=== PATIENT | male | born 1960 | race Caucasian/White ===

== ENCOUNTER 2016-12-03 16:26 | Inpatient (IN) | payer MEDICARE, MEDICAID ==
[~2016-12-03] VITALS: Ht 172.7 cm; Wt 107.5 kg
[~2016-12-03 16:26] MED LIST: CRES40TA PO; CRES5TAB PO; GEMF600T PO; HALD100I2 IM; HALD5INJ2 PO; INVE117I IM; INVE156I IM; JARD1TAB PO; LAMO10TA PO; METF500T13 PO; RAMI10CA PO; SYNT75TA PO; ZETI10TA30 PO
[2016-12-03] MEDS ORDERED: LISI40TAB PO (16:57)
[2016-12-03] MEDS ORDERED: INSULADS INJ (16:57)
[2016-12-03] MEDS ORDERED: VITA-182 PO (16:57)
[2016-12-03] MEDS ORDERED: COGE1INJ PO (16:57)
[2016-12-03] MEDS ORDERED: ASPI81TA85 PO (16:57)
[2016-12-03] MEDS ORDERED: ATOR40TA75 PO (16:57)
[2016-12-03] MEDS ORDERED: BENZ-52 PO (17:00)
[2016-12-03 17:18] LABS: MEAN CORPUSCULAR HEMOGLOBIN 31.7 pg (27.0-33.0); MEAN CORPUSCULAR HGB CONC 34.5 g/dl (32.0-36.5); RED CELL DISTRIBUTION WIDTH 12.4 % (11.5-14.5); WHITE BLOOD COUNT 10.5 K/mm3 (4.0-10.0)
[2016-12-03 17:43] LABS: METHADONE URINE NEGATIVE (NEGATIVE)
[2016-12-03 17:52] LABS: ALBUMIN 4.5 GM/DL (3.2-5.2); ALBUMIN/GLOBULIN RATIO 1.36 (1.00-1.93); ALKALINE PHOSPHATASE 114 U/L (45-117); ALT/SGPT 34 U/L (12-78); ANION GAP 11 MEQ/L (8-16); AST/SGOT 15 U/L (15-37); BILIRUBIN,DIRECT 0.1 MG/DL (0.0-0.2); BILIRUBIN,TOTAL 0.5 MG/DL (0.2-1.0); BLOOD UREA NITROGEN 13 MG/DL (7-18); CALCIUM LEVEL 9.4 MG/DL (8.5-10.1); CARBON DIOXIDE LEVEL 24 MEQ/L (21-32); CHLORIDE LEVEL 104 MEQ/L (98-107); CREATININE FOR GFR 1.04 MG/DL (0.70-1.30); GLOMERULAR FILTRATION RATE > 60.0 (>56); GLUCOSE, FASTING 111 MG/DL (70-105); POTASSIUM SERUM 3.7 MEQ/L (3.5-5.1); SODIUM LEVEL 139 MEQ/L (136-145); TOTAL PROTEIN 7.8 GM/DL (6.4-8.2)
[2016-12-03] MEDS ORDERED: SYNT88TA2 PO (21:22)
[2016-12-03] MEDS ORDERED: LAMO25TA2 PO (21:22)
[2016-12-03] MEDS ORDERED: ASPI81TAEC PO (21:22)
[2016-12-03 21:49] VITALS: BP 141/85
[2016-12-03] MEDS ORDERED: MAALOX 30 ML SUSP *UDC PO PRN (22:30)
[2016-12-03] MEDS ORDERED: MOM 30ML SUSPENSION UDC PO PRN (22:30)
[2016-12-04] MEDS: LEVOTHYROXINE 88MCG TABLET (0.088 MG) PO SCH (06:24)
[2016-12-04 07:18] VITALS: BP 110/72
[2016-12-04] MEDS: ASPIRIN 81 MG ENTERIC TAB PO SCH (09:13)
[2016-12-04] MEDS: lamoTRIgine 25 MG TAB PO SCH ×2 (09:13→20:41)
[2016-12-04] MEDS: BENZTROPINE 1 MG TAB PO SCH ×2 (09:13→20:41)
[2016-12-04] MEDS: VITAMIN D 1,000 INTERNATIONAL UNITS TABLET PO SCH (09:13)
[2016-12-04] MEDS: ATORVASTATIN 20 MG TAB PO SCH (09:13)
[2016-12-04] MEDS: LISINOPRIL 40 MG TAB PO SCH (09:13)
[2016-12-04] MEDS: EZETIMIBE 10 MG TAB (ZETIA) PO SCH (09:13)
[2016-12-04] MEDS ORDERED: DEXTROSE 50% 50 ML SYRINGE IV PRN (10:00)
[2016-12-04] MEDS ORDERED: GLUCOSE 4 GM CHEW TABLET PO PRN (10:00)
[2016-12-04] MEDS ORDERED: GLUCAGON FOR INJ 1 MG VIAL (J1610) SC PRN (10:00)
--- NOTE | 2016-12-04 10:00 | HPEPDOC ---
Medical History and Physical Date of Admission Dec 03, 2016 at 20:15 History and Physical HPI: 56yoM admitted to [facility] for schizophrenia, being medically examined today. No acute medical complaints today. Denies any fevers, chills, weakness, fatigue, MARTINEZ, CP, SOB, cough, palpitations, abdominal pain, N/V/D or changes in bowel or bladder habits. PMHx: Schizophrenia Anxiety Depression Psychosis IDDM Hypertension Hyperlipidemia Hypothyroid Obesity BMI 35.0 Chronic back pain Vitamin D deficiency PSHX: Colonoscopy 02/08-Meet SOCHX: Resides in: [facility] Marital Status: Single Kids: None Employment: Disabled Tobacco use: Denies ETOH: Denies Illicit Drugs: Denies IV Drug Use: Denies Tattoos done unprofessionally: Denies FAMHX: Mother: Alive, asthma, osteoarthritis Father: Alive, diabetes Siblings: Alive, well Children: None Unexpected deaths due to medical reasons: None. ROS: As noted in HPI, otherwise 11pt ROS of systems reviewed and unremarkable. PE: GEN: 55yoM, appears stated age. Well-nourished, well developed. No acute distress. Alert and oriented x 3. He does not not make eye contact when speaking. Provides one or 2 word answers. HEENT: Normocephalic, atraumatic. Pupils are equal, round, and reactive to light. Extraocular movements are intact. No nystagmus appreciated. Sclera are nonicteric. Conjunctiva without injection. Nose midline. Nasal turbinates without bogginess. EACs both patent BL. TMs both visualized and grady with good cone of light, no bulging or erythema. No facial asymmetry. Moist mucous membranes. Dentition fair. Pharynx pink and moist, no cobblestoning. Neck supple , trachea midline. No lymphadenopathy or thyromegaly appreciated. CHEST: Regular rate and rhythm, +S1, +S2 LUNGS: Clear to auscultation bilaterally. No wheezes, rales, or rhonchi. Breathing appears symmetric and easy. Patient is speaking in full sentences. No accessory muscle use. ABD: Round, soft, non-tender, non-distended. +Bowel sounds throughout. No rebound or guarding. No costovertebral angle tenderness. EXT: Pulses 2+ bilaterally dorsalis pedis and radial. No lower extremity edema appreciated. SKIN: [place], dry, warm. Capillary refill <2sec. No rashes. NEURO: Alert and oriented x 3. Cranial nerves III-XII are intact. No focal deficits appreciated. EKG: Pending A&P: 56yoM admitted to [facility] for Schizophrenia 1. Psych. Plan per Psychiatry. EKG pending. 2. IDDM. CC diet. Levemir 20 units at bedtime. Sliding scale insulin before meals at bedtime. Update hemoglobin A1c. 3. Hypertension. continue lisinopril 40 mg daily. Continue aspirin 81 mg daily. 4. Hyperlipidemia. continue atorvastatin 40 mg daily, Zetia 10 mg daily. 5. Obesity. BMI 35.0. Complicates care. 6. Hypothyroid. Continue Synthroid 88 g daily. TSH is noted to be elevated. Possible noncompliance with medications.Recheck TFTs in a.m. 7. Mild leukocytosis. Patient is asymptomatic. Afebrile. Recheck CBC in a.m. 8. Follow up [facility] PCP on discharge. 9. Chronic back pain. Continue Tylenol 650 mg every 6 hours as needed. 10. Vitamin D deficiency. Continue supplement. Update vitamin D level. 11. Staff member Jeff present throughout exam. Vital Signs Vital Signs Date Time Temp Pulse Resp B/P (MAP) Pulse Ox O2 Delivery O2 Flow Rate FiO2 12/04/16 07:18 98.3 71 18 110/72 (85) 12/03/16 21:49 Room Air 12/03/16 21:15 96 Laboratory Data Labs 24H Laboratory Tests 2 12/03/16 17:05: Anion Gap 11, Glomerular Filtration Rate > 60.0, Calcium Level 9.4, Aspartate Amino Transf (AST/SGOT) 15, Alanine Aminotransferase (ALT/SGPT) 34, Alkaline Phosphatase 114, Total Bilirubin 0.5, Direct Bilirubin 0.1, Total Protein 7.8, Albumin 4.5, Albumin/Globulin Ratio 1.36, Thyroid Stimulating Hormone (TSH) 6.370H, Salicylates Level < 1.7L, Acetaminophen Level < 2.0L, Ethyl Alcohol Level < 0.003 12/03/16 17:08: Urine Amphetamines Screen NEGATIVE, Urine Benzodiazepines Screen NEGATIVE, Urine Opiates Screen NEGATIVE, Urine Methadone Screen NEGATIVE, Urine Barbiturates Screen NEGATIVE, Urine Phencyclidine Screen NEGATIVE, Urine Cocaine Metabolite Screen NEGATIVE, Urine Cannabinoids Screen NEGATIVE CBC/BMP Laboratory Tests 12/03/16 17:05 Red Blood Count 4.60, Mean Corpuscular Volume 92.0, Mean Corpuscular Hemoglobin 31.7, Mean Corpuscular Hemoglobin Concent 34.5, Red Cell Distribution Width 12.4 Home Medications Scheduled Aspirin (Aspirin EC) 81 Mg Tabec, 81 MG PO DAILY Atorvastatin Calcium (Atorvastatin Calcium) 40 Mg Tab, 40 MG PO DAILY Benztropine Mesylate (Benztropine Mesylate) 1 Mg Tab, 1 MG PO BID Cholecalciferol (Vitamin D3) 1,000 Unit Cap, 1,000 UNIT PO DAILY Ezetimibe (Zetia) 10 Mg Tab, 10 MG PO DAILY Haloperidol Decanoate (Haldol Decanoate 100) 100 Mg/Ml Inj, 200 MG IM MTHLY Insulin Glargine (Lantus) 100 Unit/Ml Inj, 20 UNIT INJ QHS Lamotrigine (Lamotrigine) 25 Mg Tab, 50 MG PO BID Levothyroxine Sodium (Synthroid) 88 Mcg Tab, 88 MCG PO DAILY Lisinopril (Lisinopril) 40 Mg Tab, 40 MG PO DAILY Allergies Coded Allergies: Penicillins (Verified Allergy, Mild, rash, 08/09/15) Gabriela Roman Dec 04, 2016 10:00
[2016-12-04] MEDS: HumaLOG INSULIN (NovoLOG) PER UNIT SC SCH ×3 (12:52→20:42)
[2016-12-04 18:00] VITALS: BP 99/55
[2016-12-04] MEDS: LEVEMIR (INSULIN DETEMIR) 1 UNITS/0.01ML SC SCH (20:41)
--- NOTE | 2016-12-04 21:48 | ECGEPIP ---
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
[2016-12-05] MEDS: LEVOTHYROXINE 88MCG TABLET (0.088 MG) PO SCH (06:32)
[2016-12-05 07:00] VITALS: BP 141/75
[2016-12-05] MEDS: HumaLOG INSULIN (NovoLOG) PER UNIT SC SCH ×4 (07:23→21:00)
[2016-12-05 08:00] LABS: BASO % 0.6 % (0.0-1.0); EOS # 0.3 K/mm3 (0.0-0.50); LARGE UNSTAINED CELL # 0.1 K/mm3 (0.0-0.4); LARGE UNSTAINED CELL % 1.9 % (0.0-4.0); LYMPH # 2.5 K/mm3 (1.5-4.5); LYMPH % 35.7 % (24.0-44.0); MEAN CORPUSCULAR HEMOGLOBIN 31.7 pg (27.0-33.0); MEAN CORPUSCULAR VOLUME 93.3 fl (80.0-96.0); MONO # 0.4 K/mm3 (0.0-0.8); MONO % 6.1 % (0.0-5.0); NEUTROPHILS # 3.4 K/mm3 (1.8-7.7); NEUTROPHILS % 51.8 % (36.0-66.0); PLATELET COUNT, AUTOMATED 192 k/mm3 (150-450); RED CELL DISTRIBUTION WIDTH 12.9 % (11.5-14.5); WHITE BLOOD COUNT 6.6 K/mm3 (4.0-10.0)
[2016-12-05] MEDS: VITAMIN D 1,000 INTERNATIONAL UNITS TABLET PO SCH (08:23)
[2016-12-05] MEDS: lamoTRIgine 25 MG TAB PO SCH ×2 (08:23→22:21)
[2016-12-05] MEDS: ATORVASTATIN 20 MG TAB PO SCH (08:23)
[2016-12-05] MEDS: ASPIRIN 81 MG ENTERIC TAB PO SCH (08:23)
[2016-12-05] MEDS: BENZTROPINE 1 MG TAB PO SCH ×2 (08:23→22:21)
[2016-12-05] MEDS: EZETIMIBE 10 MG TAB (ZETIA) PO SCH (08:23)
[2016-12-05] MEDS: LISINOPRIL 40 MG TAB PO SCH (08:23)
[2016-12-05 08:29] LABS: ALBUMIN 3.8 GM/DL (3.2-5.2); ALBUMIN/GLOBULIN RATIO 1.19 (1.00-1.93); ALKALINE PHOSPHATASE 96 U/L (45-117); ALT/SGPT 29 U/L (12-78); ANION GAP 10 MEQ/L (8-16); AST/SGOT 12 U/L (15-37); BILIRUBIN,TOTAL 0.5 MG/DL (0.2-1.0); BLOOD UREA NITROGEN 20 MG/DL (7-18); CALCIUM LEVEL 9.5 MG/DL (8.5-10.1); CARBON DIOXIDE LEVEL 27 MEQ/L (21-32); CHLORIDE LEVEL 104 MEQ/L (98-107); CREATININE FOR GFR 1.18 MG/DL (0.70-1.30); GLOMERULAR FILTRATION RATE > 60.0 (>56); GLUCOSE, FASTING 169 MG/DL (70-105); POTASSIUM SERUM 5.1 MEQ/L (3.5-5.1); SODIUM LEVEL 141 MEQ/L (136-145); T UPTAKE 33 % (33-40); THYROXINE (T4) 9.6 UG/DL (4.5-12.0)
[2016-12-05] MEDS ORDERED: PALIPERIDONE 6 MG ER TAB (INVEGA) PO SCH (09:00)
[2016-12-05 18:00] VITALS: BP 124/62
[2016-12-05] MEDS: LEVEMIR (INSULIN DETEMIR) 1 UNITS/0.01ML SC SCH (21:00)
[2016-12-05] MEDS: PALIPERIDONE 6 MG ER TAB (INVEGA) PO SCH (22:21)
[2016-12-05] MEDS: traZODone 50 MG TAB PO PRN (22:21)
[2016-12-06] MEDS: HumaLOG INSULIN (NovoLOG) PER UNIT SC SCH ×4 (06:11→20:36)
[2016-12-06] MEDS: LEVOTHYROXINE 88MCG TABLET (0.088 MG) PO SCH (06:11)
[2016-12-06 06:40] VITALS: BP 134/67
[2016-12-06] MEDS: EZETIMIBE 10 MG TAB (ZETIA) PO SCH (08:39)
[2016-12-06] MEDS: ATORVASTATIN 20 MG TAB PO SCH (08:39)
[2016-12-06] MEDS: BENZTROPINE 1 MG TAB PO SCH ×2 (08:39→20:33)
[2016-12-06] MEDS: ASPIRIN 81 MG ENTERIC TAB PO SCH (08:39)
[2016-12-06] MEDS: VITAMIN D 1,000 INTERNATIONAL UNITS TABLET PO SCH (08:39)
[2016-12-06] MEDS: PALIPERIDONE 6 MG ER TAB (INVEGA) PO SCH ×2 (08:39→20:33)
[2016-12-06] MEDS: LISINOPRIL 40 MG TAB PO SCH (08:39)
[2016-12-06] MEDS: lamoTRIgine 25 MG TAB PO SCH ×2 (08:39→20:33)
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
[2016-12-06] MEDS: ACETAMINOPHEN TAB 650MG DOSE (2X325MG) PO PRN (15:34)
[2016-12-06 18:23] VITALS: BP 134/70
[2016-12-06] MEDS: LEVEMIR (INSULIN DETEMIR) 1 UNITS/0.01ML SC SCH (20:37)
[2016-12-07] MEDS: LEVOTHYROXINE 88MCG TABLET (0.088 MG) PO SCH (06:17)
[2016-12-07] MEDS: HumaLOG INSULIN (NovoLOG) PER UNIT SC SCH ×4 (06:22→21:09)
[2016-12-07 06:28] VITALS: BP 129/65
[2016-12-07] MEDS: ASPIRIN 81 MG ENTERIC TAB PO SCH (09:02)
[2016-12-07] MEDS: BENZTROPINE 1 MG TAB PO SCH ×2 (09:02→21:08)
[2016-12-07] MEDS: LISINOPRIL 40 MG TAB PO SCH (09:02)
[2016-12-07] MEDS: ATORVASTATIN 20 MG TAB PO SCH (09:03)
[2016-12-07] MEDS: PALIPERIDONE 6 MG ER TAB (INVEGA) PO SCH ×2 (09:03→21:07)
[2016-12-07] MEDS: VITAMIN D 1,000 INTERNATIONAL UNITS TABLET PO SCH (09:03)
[2016-12-07] MEDS: EZETIMIBE 10 MG TAB (ZETIA) PO SCH (09:03)
[2016-12-07] MEDS: lamoTRIgine 25 MG TAB PO SCH ×2 (09:03→21:07)
[2016-12-07] MEDS: ACETAMINOPHEN TAB 650MG DOSE (2X325MG) PO PRN (14:15)
--- NOTE | 2016-12-07 14:49 | MHIPN ---
DATE OF SERVICE: 12/06/2016 The patient is alert states he is fine and has no complaints. MENTAL STATUS EXAMINATION: The patient continues to be quite delusional. His thinking is disorganized. He is alert and oriented times three. His mood is fine but affect is constricted. He continues to have paranoid delusions. He is not suicidal or homicidal. Concentration is fair. Insight and judgment are poor. DIAGNOSIS: Schizophrenia. TREATMENT PLAN: At this point, we will continue to monitor the patient for continued resolution of his psychotic symptoms, and we will continue to titrate the medications as indicated. HARRISD
[2016-12-07 18:30] VITALS: BP 117/61
[2016-12-07] MEDS: LEVEMIR (INSULIN DETEMIR) 1 UNITS/0.01ML SC SCH (21:12)
[2016-12-08] MEDS: LEVOTHYROXINE 88MCG TABLET (0.088 MG) PO SCH (05:59)
--- NOTE | 2016-12-08 06:31 | IPN ---
DATE: 12/07/2016 He continues to say that he is doing fine. His thought is very disorganized. He rambles on from one thing to the other. He says he slept good. MENTAL STATUS EXAMINATION: The patient continues to be quite delusional. His thinking is disorganized. He is alert and oriented times three. His mood is fine but affect is constricted. He continues to have paranoid delusions. He is not suicidal or homicidal. Concentration is fair. Insight and judgment are poor. DIAGNOSIS: Schizophrenia. TREATMENT PLAN: We will continue to monitor the patient for continued resolution of his psychotic symptoms and clearing up of his thinking. We will continue to titrate the medications as indicated. MTDD
[2016-12-08 07:06] VITALS: BP 119/59
[2016-12-08] MEDS: HumaLOG INSULIN (NovoLOG) PER UNIT SC SCH ×4 (07:28→20:29)
[2016-12-08] MEDS: LISINOPRIL 40 MG TAB PO SCH (08:32)
[2016-12-08] MEDS: ASPIRIN 81 MG ENTERIC TAB PO SCH (08:32)
[2016-12-08] MEDS: EZETIMIBE 10 MG TAB (ZETIA) PO SCH (08:32)
[2016-12-08] MEDS: VITAMIN D 1,000 INTERNATIONAL UNITS TABLET PO SCH (08:32)
[2016-12-08] MEDS: lamoTRIgine 25 MG TAB PO SCH ×2 (08:32→20:27)
[2016-12-08] MEDS: PALIPERIDONE 6 MG ER TAB (INVEGA) PO SCH ×2 (08:32→20:27)
[2016-12-08] MEDS: ATORVASTATIN 20 MG TAB PO SCH (08:32)
[2016-12-08] MEDS: BENZTROPINE 1 MG TAB PO SCH ×2 (08:32→20:27)
[2016-12-08 18:00] VITALS: BP 118/69
[2016-12-08] MEDS: traZODone 50 MG TAB PO PRN (20:27)
[2016-12-08] MEDS: LEVEMIR (INSULIN DETEMIR) 1 UNITS/0.01ML SC SCH (20:31)
[2016-12-09] MEDS: LEVOTHYROXINE 88MCG TABLET (0.088 MG) PO SCH (06:05)
[2016-12-09] MEDS: HumaLOG INSULIN (NovoLOG) PER UNIT SC SCH ×4 (07:06→20:38)
[2016-12-09 07:12] VITALS: BP 131/72
--- NOTE | 2016-12-09 07:28 | MHIPN ---
DATE: 12/08/2016 SUBJECTIVE: Patient continues to report feeling angry at [facility], he says he was able to sleep well, eat well, continues to be tangential and circumstantial. OBJECTIVE: (MENTAL STATUS EXAMINATION): Patient is alert. He is not oriented to date and time, only oriented to self and place, his speech is tangential and circumstantial, his thought process is disorganized, his thought content is completely delusional and psychotic. He denies suicidal and homicidal ideation, it is not possible to evaluate his memory due to his thoughts being disorganized. His insight and judgment are poor. TREATMENT PLAN: Will continue to monitor patient for resolution of his psychotic symptoms. Will adjust medications accordingly.
[2016-12-09] MEDS: VITAMIN D 1,000 INTERNATIONAL UNITS TABLET PO SCH (08:16)
[2016-12-09] MEDS: ASPIRIN 81 MG ENTERIC TAB PO SCH (08:16)
[2016-12-09] MEDS: ATORVASTATIN 20 MG TAB PO SCH (08:16)
[2016-12-09] MEDS: PALIPERIDONE 6 MG ER TAB (INVEGA) PO SCH ×2 (08:16→20:37)
[2016-12-09] MEDS: BENZTROPINE 1 MG TAB PO SCH ×2 (08:16→20:37)
[2016-12-09] MEDS: LISINOPRIL 40 MG TAB PO SCH (08:17)
[2016-12-09] MEDS: EZETIMIBE 10 MG TAB (ZETIA) PO SCH (08:17)
[2016-12-09] MEDS: lamoTRIgine 25 MG TAB PO SCH ×2 (08:17→20:37)
[2016-12-09] MEDS: ACETAMINOPHEN TAB 650MG DOSE (2X325MG) PO PRN (09:03)
[2016-12-09 18:00] VITALS: BP 125/70
[2016-12-09] MEDS: traZODone 50 MG TAB PO PRN (20:37)
[2016-12-09] MEDS: LEVEMIR (INSULIN DETEMIR) 1 UNITS/0.01ML SC SCH (20:40)
[2016-12-10] MEDS: LEVOTHYROXINE 88MCG TABLET (0.088 MG) PO SCH (06:13)
[2016-12-10 06:49] VITALS: BP 127/73
[2016-12-10] MEDS: HumaLOG INSULIN (NovoLOG) PER UNIT SC SCH ×4 (06:52→20:13)
[2016-12-10] MEDS: ASPIRIN 81 MG ENTERIC TAB PO SCH (09:13)
[2016-12-10] MEDS: lamoTRIgine 25 MG TAB PO SCH ×2 (09:13→20:18)
[2016-12-10] MEDS: BENZTROPINE 1 MG TAB PO SCH ×2 (09:13→20:18)
[2016-12-10] MEDS: EZETIMIBE 10 MG TAB (ZETIA) PO SCH (09:13)
[2016-12-10] MEDS: ATORVASTATIN 20 MG TAB PO SCH (09:13)
[2016-12-10] MEDS: PALIPERIDONE 6 MG ER TAB (INVEGA) PO SCH ×2 (09:13→20:18)
[2016-12-10] MEDS: VITAMIN D 1,000 INTERNATIONAL UNITS TABLET PO SCH (09:13)
[2016-12-10] MEDS: LISINOPRIL 40 MG TAB PO SCH (09:14)
[2016-12-10] MEDS: CEPACOL LOZENGE PO PRN ×2 (10:19→21:10)
[2016-12-10] MEDS ORDERED: PHENYLEPHRINE 0.25% NASAL SPR 15 ML PRN (16:00)
[2016-12-10 18:00] VITALS: BP 142/89
[2016-12-10] MEDS: traZODone 50 MG TAB PO PRN (20:18)
[2016-12-10] MEDS: LEVEMIR (INSULIN DETEMIR) 1 UNITS/0.01ML SC SCH (20:18)
[2016-12-10] MEDS: ACETAMINOPHEN TAB 650MG DOSE (2X325MG) PO PRN (20:19)
[2016-12-11] MEDS: LEVOTHYROXINE 88MCG TABLET (0.088 MG) PO SCH (06:29)
[2016-12-11] MEDS: HumaLOG INSULIN (NovoLOG) PER UNIT SC SCH ×4 (06:46→21:00)
[2016-12-11 06:50] VITALS: BP 123/67
[2016-12-11] MEDS: lamoTRIgine 25 MG TAB PO SCH ×2 (08:22→21:57)
[2016-12-11] MEDS: VITAMIN D 1,000 INTERNATIONAL UNITS TABLET PO SCH (08:23)
[2016-12-11] MEDS: ASPIRIN 81 MG ENTERIC TAB PO SCH (08:23)
[2016-12-11] MEDS: EZETIMIBE 10 MG TAB (ZETIA) PO SCH (08:23)
[2016-12-11] MEDS: CEPACOL LOZENGE PO PRN ×2 (08:23→13:17)
[2016-12-11] MEDS: ATORVASTATIN 20 MG TAB PO SCH (08:23)
[2016-12-11] MEDS: LISINOPRIL 40 MG TAB PO SCH (08:23)
[2016-12-11] MEDS: BENZTROPINE 1 MG TAB PO SCH ×2 (08:23→21:57)
[2016-12-11] MEDS: PALIPERIDONE 6 MG ER TAB (INVEGA) PO SCH ×2 (08:23→21:57)
--- NOTE | 2016-12-11 11:16 | IPNPDOC ---
Date Seen The patient was seen on 12/11/16. Progress Note HPI: 56yoM admitted to [facility] for schizophrenia, requested to evaluate today related to rhinorrhea. Pt states he has had a scratchy throat with PND. Nasal drainage has been mostly clear per pt. Some facial pressure and ear pressure L>R. Denies chills. Denies SOB/cough. Denies any weakness, fatigue, MARTINEZ, CP, palpitations, abdominal pain, N/V/D or changes in bowel or bladder habits. PMHx: Schizophrenia Anxiety Depression Psychosis IDDM Hypertension Hyperlipidemia Hypothyroid Obesity BMI 35.0 Chronic back pain Vitamin D deficiency PSHX: Colonoscopy 02/08-Meet PE: GEN: 55yoM, appears stated age. Well-nourished, well developed. No acute distress. Alert and oriented x 3. He does not not make eye contact when speaking. Provides one or 2 word answers. HEENT: Normocephalic, atraumatic. Pupils are equal, round, and reactive to light. Extraocular movements are intact. No nystagmus appreciated. Sclera are nonicteric. Conjunctiva without injection. Nose midline. yellowish nasal drainage noted. EACs both patent BL. TMs both visualized and grady with good cone of light, no bulging or erythema. No facial asymmetry. Moist mucous membranes. Dentition fair. Pharynx pink and moist, no exudate. Neck supple, trachea midline. No lymphadenopathy or thyromegaly appreciated. TTP over maxillary sinus L>R. CHEST: Regular rate and rhythm, +S1, +S2 LUNGS: Clear to auscultation bilaterally. No wheezes, rales, or rhonchi. Breathing appears symmetric and easy. Patient is speaking in full sentences. No accessory muscle use. ABD: Round, soft, non-tender, non-distended. +Bowel sounds throughout. No rebound or guarding. No costovertebral angle tenderness. EXT: Pulses 2+ bilaterally dorsalis pedis and radial. No lower extremity edema appreciated. SKIN: [place], dry, warm. Capillary refill <2sec. No rashes. NEURO: Alert and oriented x 3. Cranial nerves III-XII are intact. No focal deficits appreciated. EKG: SINUS RHYTHM COMPARED TO THE LAST 2 TRACINGS IN THE SYSTEM, HEART RATE IS NOW SLOWER A&P: 56yoM admitted to [facility] for Schizophrenia 1. Psych. Plan per Psychiatry. EKG pending. 2. IDDM. CC diet. Levemir 20 units at bedtime. Sliding scale insulin before meals at bedtime. Hemoglobin A1c 7.6. 3. Hypertension. continue lisinopril 40 mg daily. Continue aspirin 81 mg daily. 4. Hyperlipidemia. continue atorvastatin 40 mg daily, Zetia 10 mg daily. 5. Obesity. BMI 35.0. Complicates care. 6. Hypothyroid. Continue Synthroid 88 g daily. TSH is noted to be elevated. T4 WNL. Plan to recheck with PCP 4-6 weeks. Possible non compliance with meds prior to admission. 7. Sinusitis/URI. Pt with PCN allergy. Tmax 99.5 past 24 hrs. Add Doxycycline 100mg po BID x 10 days. Flonase nasal spray daily. Cepacol as needed. Tylenol as needed. 8. Follow up [facility] PCP on discharge. 9. Chronic back pain. Continue Tylenol 650 mg every 6 hours as needed. 10. Vitamin D deficiency. Continue supplement. Update vitamin D level. 11. Staff member Jeff present throughout exam. VS, I&O, 24H, Fishbone Vital Signs/I&O Vital Signs Date Time Temp Pulse Resp B/P (MAP) Pulse Ox O2 Delivery O2 Flow Rate FiO2 12/11/16 10:01 Room Air 12/11/16 06:50 97.0 96 18 123/67 (85) Laboratory Data 24H LABS Laboratory Tests 2 12/10/16 12:22: Bedside Glucose (Misc Panel) 119H 12/10/16 20:12: Bedside Glucose (Misc Panel) 170H 12/11/16 06:44: Bedside Glucose (Misc Panel) 115H Gabriela Roman Dec 11, 2016 11:16
[2016-12-11] MEDS: DOXYCYCLINE HYCLATE 100 MG TAB PO SCH ×2 (12:31→21:57)
[2016-12-11] MEDS: FLUTICASONE PROP 0.05% NASAL SPRAY 16 GM (FLONASE) SCH (12:31)
--- NOTE | 2016-12-11 13:16 | MHIPN ---
DATE: 12/09/2016 56-year-old male with history of paranoid schizophrenia. SUBJECTIVE: Patient reports feeling well, eating well, although he believes that he probably has a cold, he has a runny nose. He says he spoke with Vasile, one of the [employer] workers, and that they have told him that probably they are going to arrange his housing problem by giving him a home for him to live alone and not to share it with anybody else. Then the patient becomes tangential and starts taking about different things, since his thought is still disorganized. OBJECTIVE: Patient is alert, oriented to place and person, partially to date and time. Speech is spontaneous and fluent, thought processes mostly disorganized, thought content is incoherent. He is not responding to internal stimuli but he is delusional. He admits that he has thought delusions and he has weird thoughts. He does not deny but does not confirm auditory hallucinations at this time. He denies suicidal and homicidal ideation. His insight and judgment are limited. ASSESSMENT: Patient is psychotic but is not aggressive and he is not violent. He is pleasant, has good control of his impulses. Will offer him tomorrow to give him injection of paliperidone. TREATMENT PLAN: We will continue on the same medications, we will offer him injectable of paliperidone, will continue to encourage him attend groups and will seek discharge possibly or Thursday this week. Will followup.
[2016-12-11] MEDS: ACETAMINOPHEN TAB 650MG DOSE (2X325MG) PO PRN (13:17)
[2016-12-11 18:00] VITALS: BP 142/78
[2016-12-11] MEDS: LEVEMIR (INSULIN DETEMIR) 1 UNITS/0.01ML SC SCH (22:01)
[2016-12-12 06:24] VITALS: BP 132/58
[2016-12-12] MEDS: LEVOTHYROXINE 88MCG TABLET (0.088 MG) PO SCH (06:24)
[2016-12-12] MEDS: HumaLOG INSULIN (NovoLOG) PER UNIT SC SCH ×2 (07:11→11:59)
[2016-12-12] MEDS: BENZTROPINE 1 MG TAB PO SCH (08:21)
[2016-12-12] MEDS: lamoTRIgine 25 MG TAB PO SCH (08:21)
[2016-12-12] MEDS: ATORVASTATIN 20 MG TAB PO SCH (08:21)
[2016-12-12] MEDS: VITAMIN D 1,000 INTERNATIONAL UNITS TABLET PO SCH (08:21)
[2016-12-12] MEDS: PALIPERIDONE 6 MG ER TAB (INVEGA) PO SCH (08:21)
[2016-12-12] MEDS: ASPIRIN 81 MG ENTERIC TAB PO SCH (08:21)
[2016-12-12] MEDS: EZETIMIBE 10 MG TAB (ZETIA) PO SCH (08:21)
[2016-12-12] MEDS: DOXYCYCLINE HYCLATE 100 MG TAB PO SCH (08:21)
[2016-12-12] MEDS: FLUTICASONE PROP 0.05% NASAL SPRAY 16 GM (FLONASE) SCH (08:22)
[2016-12-12] MEDS: LISINOPRIL 40 MG TAB PO SCH (08:22)
[2016-12-12] MEDS ORDERED: PALIPERIDONE PALMITATE 234 MG/1.5 ML INJ (INVEGA SUSTENNA)(J2426) IM SCH (09:00)
[2016-12-12] MEDS ORDERED: INVE234I IM (10:04)
[2016-12-12] MEDS ORDERED: TRAZO50TA PO (10:04)
[2016-12-12] MEDS ORDERED: LAMI25TA PO (10:04)
--- NOTE | 2016-12-12 11:36 | MHIPN ---
DATE: 12/10/2016 AGE: [age]-year-old male known for paranoid schizophrenia. SUBJECTIVE: The patient continues to report cold symptoms. He says that he has a stuffy nose, he has been getting Cepacol for his sore throat. He says he feels tired. OBJECTIVE: The patient is resting quietly in his room. He is pleasant and cooperative. He is still tangential and slightly disorganized, but he is not aggressive and he is not violent. He is still delusional but, at the time of this interview, he was not responding to internal stimuli. He was not suicidal and not homicidal. His insight and judgment continue to be limited due to his illness. ASSESSMENT: The patient has more clear thoughts but is still delusional. That is his baseline. If housing situation gets resolved, the patient will be discharged this Thursday. We will followup.
--- NOTE | 2016-12-12 16:57 | MHDSPDOC ---
[facility] Discharge Summary Discharge Summary DATE OF ADMISSION: Dec 03, 2016 at 20:15 DATE OF DISCHARGE: Dec 12, 2016 at 12:15 DISCHARGE DIAGNOSES: 1. Schizophrenia, chronic 2. . REASON FOR ADMISSION: CHIEF COMPLAINT: Patient is very tangential but according to history, [facility] worker reported that patient had been watching pornography to upset his roommate. According to patient, the problem was that they brought another person to live in his apartment, this person was sleeping on his couch, and kept watching TV, the patient will then watches programs anymore. HISTORY OF THE PRESENT ILLNESS: Patient is a 56-year-old male, who has been diagnosed with paranoid schizophrenia who was previously admitted to the [facility]. he says he was admitted before because he had to leave his apartment because they had a "NO PETS" policy but he brought his cat with him, and the landlady started complaining about the cat defecating and urinating in the apartment, although he says this is not true. He says the cat was very special to him, this was a cat that watched pornography, had incestuous relationships with his female sister (the cat's sister), showed his penis to the patient, "put it's ass on my face and grabbed my ass". He says he is sure the cat was put to sleep , and he misses him. In the meantime he had to go live at a Hotel but people complained because he was leaving plastic knives under the guest rooms doors, just because he thought it was safe to have them under the door in case one couldn't get out from the room. According to previous records, there was never a cat in his apartment, he never had a cat. CONSULTANTS INVOLVED: None. TREATMENT AND PROGRESS ON THE UNIT : Patient had a good response to medications , he was started on the Unit on Paliperidone, tolerated well. He didn't report side effects. Patient was taking Lamictal 50 mg by mouth twice a day and this medication was increased to 75 mg by mouth twice a day because he felt he was still very upset and angry at [facility] because they had allowed somebody to come into his apartment was not paying for rent, Sleeping on his couch and watching programs on his TV all day long without allowing him to see his own programs. When he came to the inpatient mental health unit he was taking Cogentin and he was kept on that medication, 1 mg by mouth daily and he was started on trazodone 50 mg by mouth daily at bedtime .As far as his behavior in the unit, he didn't present any problem, was not aggressive, not violent, complied with his medications,, occasionally attended groups, he kept a pleasant attitude and followed the rules and regulations of the inpatient mental health unit. During the last 3 days of his hospitalization he reported having a cold and he received Cepacol for sore throat, Flonase for nasal congestion and took tylenol for pain/fever. HOSPITAL COURSE: As above DISCHARGE ASSESSMENT: Patient was discharged to [facility], was not in danger to self or others, was not suicidal, was not homicidal. He still was tangential and slightly delusional but was not responding to internal stimuli. MENTAL STATUS EXAMINATION ON DISCHARGE: Patient is a 56-year old male, who is alert, pleasant, cooperative. Speech is tangential. Language skills are fair. Thought processes including: Less disorganized. Thought content: Coherent at times then he becomes tangential and incoherent. Abstract reasoning, and computation: Fair. Description of associations: Loose. Description of abnormal or psychotic thoughts: Patient is delusional but less than he was upon admission. He is not seen responding to internal stimuli, he denies suicidal and homicidal ideation. Judgment: Limited. Insight: Limited. Orientation to oriented to place and person, partially to date and time. Recent and remote memory: Fair. Attention span and concentration: Fair. Language: Normal. Fund of knowledge: Fair. Mood: "I'm okay". Affect: Improved. Congruent to mood, appropriate, full range. He is not irritable. MEDICATIONS ON DISCHARGE: -Paliperidone 234 mg IM every 30 days for psychosis. -Cogentin 1 mg by mouth daily for extrapyramidal side effects -Trazodone 50 mg by mouth daily at bedtime when necessary for insomnia. - for . PLAN/FOLLOWUP ARRANGEMENTS: Mental Health Appt 1 * [facility] * Established With This Provider Yes The amount of time spent in the coordination of care for this patient was approximately 45 minutes. Vital Signs/I&Os Vital Signs Date Time Temp Pulse Resp B/P (MAP) Pulse Ox O2 Delivery O2 Flow Rate FiO2 12/12/16 06:24 97.8 111 18 132/58 (82) 817/17 10:01 Room Air Laboratory Data Labs 24H Laboratory Tests 2 12/11/16 17:21: Bedside Glucose (Misc Panel) 115H 12/11/16 21:59: Bedside Glucose (Misc Panel) 117H 12/12/16 07:11: Bedside Glucose (Misc Panel) 113H 12/12/16 11:57: Bedside Glucose (Misc Panel) 154H Medications Scheduled Aspirin (Aspirin EC) 81 Mg Tabec, 81 MG PO DAILY, (Reported) Atorvastatin Calcium (Atorvastatin Calcium) 40 Mg Tab, 40 MG PO DAILY, (Reported ) Benztropine Mesylate (Benztropine Mesylate) 1 Mg Tab, 1 MG PO BID, (Reported) Cholecalciferol (Vitamin D3) 1,000 Unit Cap, 1,000 UNIT PO DAILY, (Reported) Ezetimibe (Zetia) 10 Mg Tab, 10 MG PO DAILY, (Reported) Insulin Glargine (Lantus) 100 Unit/Ml Inj, 20 UNIT INJ QHS, (Reported) Lamotrigine (Lamictal) 25 Mg Tab, 75 MG PO BID for PSYCHOSIS, #42 Levothyroxine Sodium (Synthroid) 88 Mcg Tab, 88 MCG PO DAILY, (Reported) Lisinopril (Lisinopril) 40 Mg Tab, 40 MG PO DAILY, (Reported) Paliperidone Palmitate (Invega Sustenna) 234 Mg/1.5 Ml Inj, 234 MG IM Q30D for PSYCHOSIS, #1 Scheduled PRN Trazodone HCl (Trazodone HCl) 50 Mg Tab, 50 MG PO QHSP PRN for INSOMNIA, #7 Allergies Coded Allergies: Penicillins (Verified Allergy, Mild, rash, 08/09/15) DALJIT MAHAJAN MD Dec 12, 2016 16:57
--- NOTE | 2016-12-13 21:31 | MHIPN ---
DATE: 12/11/2016 A 56-year-old male with history of schizophrenia. SUBJECTIVE: Patient reports feeling lousy today. He has a cold. He does not have a sore throat anymore, but he feels tired, and he has a runny nose. Patient starts talking about movie stars, movies, and music, becomes very tangential. OBJECTIVE: Patient is alert, cooperative, pleasant, talkative, and social. He is not responding to internal stimuli. He has disorganized thoughts, and he has thought delusions. He is not homicidal or suicidal. He denies auditory or visual hallucinations. His memory is intact. His attention and concentration are fair. His impulse control and judgment are limited. ASSESSMENT: Patient is at his baseline. He has moments when he can have a coherent conversation, and then he goes back into his disorganized and tangential thoughts. Patient will be discharged home tomorrow. Will be back to transitional living services ([facility]). At this time the patient is stable. Will followup.
== END 2016-12-12 12:15 | disposition home or self-care (01) | DRG 885 ==
LOC: M ED 16:26 → M ED INP 20:15 → M PSY 21:43
PROVIDERS: ADMIT Psychiatry & Neurology Psychiatry; ATTEND Psychiatry & Neurology Psychiatry
DX: F20.5 Residual schizophrenia (principal); Z79.899 Other long term (current) drug therapy; Z79.82 Long term (current) use of aspirin; Z79.4 Long term (current) use of insulin; Z88.0 Allergy status to penicillin; E11.9 Type 2 diabetes mellitus without complications; I10 Essential (primary) hypertension; E78.5 Hyperlipidemia, unspecified; E66.9 Obesity, unspecified; Z68.35 Body mass index [BMI] 35.0-35.9, adult; E03.9 Hypothyroidism, unspecified; E55.9 Vitamin D deficiency, unspecified; M54.9 Dorsalgia, unspecified; J32.9 Chronic sinusitis, unspecified; J06.9 Acute upper respiratory infection, unspecified

== ENCOUNTER → 2017-01-26 | Outpatient (REF) | payer MEDICARE, MEDICAID ==
[~2017-01-26] MED LIST changes: +ASPI81TA85 PO; +ASPI81TAEC PO; +ATOR40TA75 PO; +BENZ-52 PO; +COGE1INJ PO; +INSULADS INJ; +INVE234I IM; +LAMI25TA PO; +LAMO25TA2 PO; +LISI40TAB PO; +SYNT88TA2 PO; +TRAZO50TA PO; +VITA-182 PO
[2017-01-26 14:33] LABS: ALBUMIN 4.2 GM/DL (3.2-5.2); ALBUMIN/GLOBULIN RATIO 1.31 (1.00-1.93); ALKALINE PHOSPHATASE 112 U/L (45-117); ALT/SGPT 31 U/L (12-78); ANION GAP 7 MEQ/L (8-16); AST/SGOT 14 U/L (15-37); BILIRUBIN,TOTAL 0.2 MG/DL (0.2-1.0); BLOOD UREA NITROGEN 16 MG/DL (7-18); CALCIUM LEVEL 9.4 MG/DL (8.5-10.1); CARBON DIOXIDE LEVEL 27 MEQ/L (21-32); CHLORIDE LEVEL 103 MEQ/L (98-107); CHOLESTEROL LEVEL 189 MG/DL (<200); CREATININE FOR GFR 0.95 MG/DL (0.70-1.30); GLOMERULAR FILTRATION RATE > 60.0 (>56); GLUCOSE, FASTING 110 MG/DL (70-105); POTASSIUM SERUM 4.9 MEQ/L (3.5-5.1); SODIUM LEVEL 137 MEQ/L (136-145); TOTAL PROTEIN 7.4 GM/DL (6.4-8.2); TRIGLYCERIDES LEVEL 348 MG/DL (<150)
== END ==
LOC: M LAB REF 13:29
PROVIDERS: ATTEND Family Medicine Addiction Medicine
DX: E11.9 Type 2 diabetes mellitus without complications (principal)

== ENCOUNTER → 2017-04-08 | Outpatient (REF) | payer MEDICARE, MEDICAID ==
[2017-04-08 13:04] LABS: ALBUMIN 4.1 GM/DL (3.2-5.2); ALBUMIN/GLOBULIN RATIO 1.32 (1.00-1.93); ALKALINE PHOSPHATASE 95 U/L (45-117); ALT/SGPT 37 U/L (12-78); ANION GAP 8 MEQ/L (8-16); AST/SGOT 16 U/L (7-37); BILIRUBIN,TOTAL 0.3 MG/DL (0.2-1.0); BLOOD UREA NITROGEN 17 MG/DL (7-18); CALCIUM LEVEL 8.7 MG/DL (8.5-10.1); CARBON DIOXIDE LEVEL 24 MEQ/L (21-32); CHLORIDE LEVEL 108 MEQ/L (98-107); CHOLESTEROL LEVEL 150 MG/DL (<200); CREATININE FOR GFR 1.07 MG/DL (0.70-1.30); GLOMERULAR FILTRATION RATE > 60.0 (>56); GLUCOSE, FASTING 117 MG/DL (70-105); POTASSIUM SERUM 4.7 MEQ/L (3.5-5.1); SODIUM LEVEL 140 MEQ/L (136-145); TOTAL PROTEIN 7.2 GM/DL (6.4-8.2); TRIGLYCERIDES LEVEL 244 MG/DL (<150)
== END ==
LOC: M LAB REF 11:51
PROVIDERS: ATTEND Family Medicine Addiction Medicine
DX: E11.9 Type 2 diabetes mellitus without complications (principal)

== ENCOUNTER → 2017-09-15 | Outpatient (REF) | payer MEDICARE, MEDICAID ==
[2017-09-15 13:48] LABS: ALBUMIN 4.3 GM/DL (3.2-5.2); ALBUMIN/GLOBULIN RATIO 1.26 (1.00-1.93); ALKALINE PHOSPHATASE 103 U/L (45-117); ALT/SGPT 44 U/L (12-78); ANION GAP 10 MEQ/L (8-16); AST/SGOT 19 U/L (7-37); BILIRUBIN,TOTAL 0.4 MG/DL (0.2-1.0); BLOOD UREA NITROGEN 17 MG/DL (7-18); CALCIUM LEVEL 9.4 MG/DL (8.5-10.1); CARBON DIOXIDE LEVEL 24 MEQ/L (21-32); CHLORIDE LEVEL 106 MEQ/L (98-107); CHOLESTEROL LEVEL 160 MG/DL (<200); CHOLESTEROL RISK RATIO 4.444 (<5); CREATININE FOR GFR 1.16 MG/DL (0.70-1.30); GLOMERULAR FILTRATION RATE > 60.0 (>56); GLUCOSE, FASTING 136 MG/DL (70-100); HDL CHOLESTEROL 36 MG/DL (>40); LDL CHOLESTEROL 71.4 MG/DL (<100); NON-HDL-C 124 MG/DL; POTASSIUM SERUM 4.9 MEQ/L (3.5-5.1); SODIUM LEVEL 140 MEQ/L (136-145); TOTAL PROTEIN 7.7 GM/DL (6.4-8.2); TRIGLYCERIDES LEVEL 263 MG/DL (<150)
[2017-09-15 13:54] LABS: ESTIMATED AVERAGE GLUCOSE 180 MG/DL (60-110); HEMOGLOBIN A1c 7.9 %
== END ==
LOC: M LAB REF 12:17
DX: E11.9 Type 2 diabetes mellitus without complications (principal)
CPT/HCPCS: 84443

== ENCOUNTER → 2018-02-26 | Outpatient (REF) | payer MEDICARE, MEDICAID ==
[2018-02-26 13:20] LABS: ALBUMIN 4.1 GM/DL (3.2-5.2); ALBUMIN/GLOBULIN RATIO 1.52 (1.00-1.93); ALKALINE PHOSPHATASE 103 U/L (45-117); ALT/SGPT 29 U/L (12-78); ANION GAP 7 MEQ/L (8-16); AST/SGOT 16 U/L (7-37); BILIRUBIN,TOTAL 0.3 MG/DL (0.2-1.0); BLOOD UREA NITROGEN 9 MG/DL (7-18); CALCIUM LEVEL 8.7 MG/DL (8.8-10.2); CARBON DIOXIDE LEVEL 25 MEQ/L (21-32); CHLORIDE LEVEL 104 MEQ/L (98-107); CHOLESTEROL LEVEL 110 MG/DL (<200); CHOLESTEROL RISK RATIO 3.142 (<5); CREATININE FOR GFR 0.97 MG/DL (0.70-1.30); GLOMERULAR FILTRATION RATE > 60.0 (>49); GLUCOSE, FASTING 118 MG/DL (70-100); HDL CHOLESTEROL 35 MG/DL (>40); LDL CHOLESTEROL 45 MG/DL (<100); NON-HDL-C 75 MG/DL; POTASSIUM SERUM 4.5 MEQ/L (3.5-5.1); SODIUM LEVEL 136 MEQ/L (136-145); TOTAL PROTEIN 6.8 GM/DL (6.4-8.2); TRIGLYCERIDES LEVEL 151 MG/DL (<150)
[2018-02-26 16:13] LABS: ESTIMATED AVERAGE GLUCOSE 169 MG/DL (60-110); HEMOGLOBIN A1c 7.5 %
== END ==
LOC: M LAB REF 11:57
DX: E11.9 Type 2 diabetes mellitus without complications (principal)
CPT/HCPCS: 84443

== ENCOUNTER → 2018-07-14 | Outpatient (CLI) | payer MEDICARE, MEDICAID ==
[~2018-07-14] MED LIST changes: -GEMF600T PO; +GEMF600T5 PO; -LAMO25TA2 PO; +LAMO25TA4 PO; +LISI40TA PO; -LISI40TAB PO; -RAMI10CA PO; +RAMI1CAP26 PO
[2018-07-14 11:25] LABS: HEMATOCRIT 39.5 % (42.0-52.0); HEMOGLOBIN 13.4 g/dl (13.5-17.5); MEAN CORPUSCULAR HGB CONC 33.9 g/dl (32.0-36.5); MEAN CORPUSCULAR VOLUME 91.4 fl (80.0-96.0); PLATELET COUNT, AUTOMATED 184 10^3/uL (150-450); RED BLOOD COUNT 4.32 10^6/uL (4.30-6.10); WHITE BLOOD COUNT 7.2 10^3/uL (4.0-10.0)
[2018-07-14 11:43] LABS: HEMOGLOBIN A1c 7.5 %
[2018-07-14 12:07] LABS: ALBUMIN 4.3 GM/DL (3.2-5.2); ALT/SGPT 30 U/L (12-78); BILIRUBIN,TOTAL 0.4 MG/DL (0.2-1.0); BLOOD UREA NITROGEN 16 MG/DL (7-18); CALCIUM LEVEL 8.9 MG/DL (8.8-10.2); CARBON DIOXIDE LEVEL 25 MEQ/L (21-32); CHLORIDE LEVEL 104 MEQ/L (98-107); CHOLESTEROL LEVEL 135 MG/DL (<200); CHOLESTEROL RISK RATIO 3.648 (<5); CREATININE FOR GFR 1.07 MG/DL (0.70-1.30); GLOMERULAR FILTRATION RATE > 60.0 (>49); GLUCOSE, FASTING 108 MG/DL (70-100); HDL CHOLESTEROL 37 MG/DL (>40); LDL CHOLESTEROL 67 MG/DL (<100); NON-HDL-C 98 MG/DL; POTASSIUM SERUM 4.5 MEQ/L (3.5-5.1); SODIUM LEVEL 137 MEQ/L (136-145); TOTAL PROTEIN 7.5 GM/DL (6.4-8.2); TRIGLYCERIDES LEVEL 157 MG/DL (<150)
== END ==
LOC: M LAB 10:43
PROVIDERS: ATTEND Nurse Practitioner Psychiatric/Mental Health
DX: Z79.899 Other long term (current) drug therapy (principal)

== ENCOUNTER → 2018-12-17 | Outpatient (REF) | payer MEDICARE, MEDICAID ==
[~2018-12-17] MED LIST changes: +LAMO100T80 PO; -LAMO10TA PO; +TRAZ1TAB10 PO; -TRAZO50TA PO; +ZETI10TA16 PO; -ZETI10TA30 PO
[2018-12-17 16:52] LABS: BASO # 0.1 10^3/uL (0.0-0.2); BASO % 0.7 % (0.0-1.0); EOS # 0.2 10^3/uL (0.0-0.50); EOS % 2.9 % (0.0-3.0); HEMATOCRIT 40.5 % (42.0-52.0); HEMOGLOBIN 13.8 g/dl (13.5-17.5); LYMPH # 2.4 10^3/uL (1.5-4.5); LYMPH % 32.6 % (24.0-44.0); MEAN CORPUSCULAR HEMOGLOBIN 31.2 pg (27.0-33.0); MEAN CORPUSCULAR HGB CONC 34.1 g/dl (32.0-36.5); MEAN CORPUSCULAR VOLUME 91.4 fl (80.0-96.0); MONO # 0.6 10^3/uL (0.0-0.8); MONO % 8.4 % (0.0-5.0); NEUTROPHILS % 54.6 % (36.0-66.0); PLATELET COUNT, AUTOMATED 200 10^3/uL (150-450); RED BLOOD COUNT 4.43 10^6/uL (4.30-6.10); WHITE BLOOD COUNT 7.2 10^3/uL (4.0-10.0)
[2018-12-17 17:03] LABS: ALBUMIN 3.9 GM/DL (3.2-5.2); ALT/SGPT 39 U/L (12-78); BILIRUBIN,TOTAL 0.3 MG/DL (0.2-1.0); BLOOD UREA NITROGEN 12 MG/DL (7-18); CALCIUM LEVEL 9.2 MG/DL (8.8-10.2); CARBON DIOXIDE LEVEL 26 MEQ/L (21-32); CHLORIDE LEVEL 102 MEQ/L (98-107); CHOLESTEROL LEVEL 242 MG/DL (<200); CHOLESTEROL RISK RATIO 5.902 (<5); CREATININE FOR GFR 0.96 MG/DL (0.70-1.30); FREE T4 1.03 NG/DL (0.76-1.46); GLOMERULAR FILTRATION RATE > 60.0 (>49); GLUCOSE, FASTING 112 MG/DL (70-100); HDL CHOLESTEROL 41 MG/DL (>40); LDL CHOLESTEROL 137 MG/DL (<100); NON-HDL-C 201 MG/DL; POTASSIUM SERUM 4.5 MEQ/L (3.5-5.1); SODIUM LEVEL 137 MEQ/L (136-145); TOTAL PROTEIN 7.1 GM/DL (6.4-8.2); TRIGLYCERIDES LEVEL 322 MG/DL (<150)
[2018-12-17 18:19] LABS: HEMOGLOBIN A1c 7.5 %
== END ==
LOC: M LAB REF 16:34
PROVIDERS: ATTEND Family Medicine Addiction Medicine
DX: E11.9 Type 2 diabetes mellitus without complications (principal); E03.9 Hypothyroidism, unspecified; E78.5 Hyperlipidemia, unspecified

== ENCOUNTER → 2019-04-07 | Outpatient (CLI) | payer MEDICARE, MEDICAID ==
--- NOTE | 2019-04-07 14:42 | REP ---
Two-view chest: 04/07/2019. Indication: Cough. Dyspnea. Comparison: 07/03/2009. Findings: The lungs are clear. There is no pleural effusion or pneumothorax. The cardiomediastinal silhouette is unremarkable. Impression: No acute cardiopulmonary process. Electronically Signed by Shashi Krueger DO 04/07/2019 02:34 P
== END ==
LOC: M RAD 13:55
PROVIDERS: ATTEND Nurse Practitioner Adult Health
DX: J06.9 Acute upper respiratory infection, unspecified (principal)

== ENCOUNTER 2019-04-14 08:56 | Inpatient (IN) | payer MEDICARE, MEDICAID ==
[~2019-04-14] VITALS: Ht 172.7 cm; Wt 112.3 kg
[2019-04-14 09:53] LABS: HEMATOCRIT 42.1 % (42.0-52.0); MEAN CORPUSCULAR HEMOGLOBIN 31.6 pg (27.0-33.0); MEAN CORPUSCULAR HGB CONC 33.3 g/dl (32.0-36.5); PLATELET COUNT, AUTOMATED 267 10^3/uL (150-450); RED BLOOD COUNT 4.43 10^6/uL (4.30-6.10); WHITE BLOOD COUNT 11.9 10^3/uL (4.0-10.0)
[2019-04-14 10:32] LABS: ACETAMINOPHEN LEVEL < 2.0 UG/ML (10.0-30.0); ALBUMIN 3.9 GM/DL (3.2-5.2); ALT/SGPT 42 U/L (12-78); BILIRUBIN,DIRECT < 0.1 MG/DL (0.0-0.2); BILIRUBIN,TOTAL 0.2 MG/DL (0.2-1.0); BLOOD UREA NITROGEN 10 MG/DL (7-18); CALCIUM LEVEL 9.1 MG/DL (8.8-10.2); CARBON DIOXIDE LEVEL 26 MEQ/L (21-32); CHLORIDE LEVEL 105 MEQ/L (98-107); CREATININE FOR GFR 1.07 MG/DL (0.70-1.30); GLOMERULAR FILTRATION RATE > 60.0 (>49); GLUCOSE, FASTING 160 MG/DL (70-100); POTASSIUM SERUM 4.2 MEQ/L (3.5-5.1); SALICYLATE LEVEL < 1.7 MG/DL (5.0-30.0); SODIUM LEVEL 140 MEQ/L (136-145); TOTAL PROTEIN 7.6 GM/DL (6.4-8.2)
[2019-04-14 10:33] LABS: ETHYL ALCOHOL (ETHANOL) < 0.003 % (0.000-0.010)
[2019-04-14] MEDS ORDERED: TRUL10IN SC (12:48)
[2019-04-14] MEDS ORDERED: LEVO100T5 PO (12:48)
[2019-04-14] MEDS ORDERED: METF-791 PO (12:48)
[2019-04-14] MEDS ORDERED: TRAZ-186 PO (12:48)
[2019-04-14] MEDS ORDERED: TESS100C PO (12:48)
[2019-04-14] MEDS ORDERED: INVE1.75 IM (12:48)
[2019-04-14] MEDS ORDERED: BENZ0.5T23 PO (12:48)
[2019-04-14] MEDS ORDERED: IPRA6SP NARES (12:48)
[2019-04-14] MEDS ORDERED: VITA100066 PO (12:48)
[2019-04-14] MEDS ORDERED: MED REC COMMENT (12:51)
[2019-04-14] MEDS ORDERED: ACETAMINOPHEN TAB 650MG DOSE (2X325MG) PO PRN (14:00)
[2019-04-14] MEDS ORDERED: MOM 30ML SUSPENSION UDC PO PRN (14:00)
[2019-04-14 14:41] LABS: AMPHETAMINES LEVEL URINE NEGATIVE (NEGATIVE); BARBITURATES URINE NEGATIVE (NEGATIVE); BENZODIAZEPINES URINE NEGATIVE (NEGATIVE); CANNABINOIDS URINE NEGATIVE (NEGATIVE); COCAINE METABOLITE URINE NEGATIVE (NEGATIVE); METHADONE URINE NEGATIVE (NEGATIVE); OPIATES URINE NEGATIVE (NEGATIVE); PHENCYCLIDINE URINE NEGATIVE (NEGATIVE)
[2019-04-14 17:07] VITALS: BP 110/68
[2019-04-15 06:18] VITALS: BP 115/61
--- NOTE | 2019-04-15 09:21 | MHHPEPDOC ---
[facility] History & Physical History and Physical DATE OF ADMISSION: Apr 14, 2019 at 13:56 New Patient Jero Henry MRN: N/A Date of : N/A Date of Service: 04/15/2019 Chief Complaint "I am one of those mental." History of Present Illness The patient, a 59-year-old man with a history of psychosis, presents after reportedly calling 911 bizarrely complaining about his room mate. When he was evaluated in the ER he was completely unable to engage in any meaningful discussion, highly psychotic. When I attempted to meet with him he was tangential, concrete, and unable to relay any information as to how he presented being frequently distracted by tangential thoughts. The majority of the psychosocial information below is extracted from previous admissions, last in 2017. He currently lives at the [facility] and is on Invega Trinza as his primary antipsychotic for an unclear amount of time. Review Of Systems Patient due to mental status is unable to participate. Past Psychiatric History Has a history of paranoid schizophrenia. Lives at [facility] and gets outpatient mental health treatment. No history of suicide attempts. Currently on Invega Trinza 891 every 3 months. Allergies Please see below. Family Psychiatric History Per chart review. Social History The patient is a never- man with no children who lives in the [facility] supported housing. He is a high school graduate, currently unemployed due to his mental health problems. Subsists on disability. He reported in the past that he has elderly parents that are supportive of him. No noted history of abuse that is confirmed. Substance Abuse History The patient reports having history of marijuana use, alcohol, and LSD when he was younger. Medical History The patient has a history of diabetes, high cholesterol, and hypertension. Mental Status Examination General: Poor hygiene Speech: Pressured Thought processes: Tangential MSK: Smooth and coordinated gait, no signs of tremors or involuntary orofacial movements Thought content: Bizarre and paranoid Abstract reasoning, and computation: Impaired Description of associations: Impaired Description of abnormal or psychotic thoughts: Denies any suicidal or homicidal ideation. Judgment: Impaired Insight: Impaired Orientation: Alert and orientated 3 Cognition: Grossly normal Recent and remote memory: Impaired secondary to thought process. Attention span and concentration: Impaired secondary to thought process Fund of knowledge: Adequate Mood: "Fine" Affect: Flat with little reactivity Diagnoses Schizophrenia. Marijuana use disorder in sustained remission. Alcohol use disorder in sustained remission. 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 Assessment and Plan Schizophrenia: We'll start patient back on oral Invega 3 mg nightly, likely will need to be converted back to Sustenna. Terri has had the clinical experience of having poor coverage allowing symptoms to become decompensated over the final mo nth prior to dosing. Alcohol, hallucinogen, marijuana use disorder: Appears to be in sustained mercy ssion. No action at this time needed. Disposition The patient will need admission likely lasting more than 2 midnights in order to treat his severely impairing psychosis. Problem List 1. Altered thoughts. Initial Treatment Plan 1. Patient was admitted on a 9.39 legal status. 2. Complete history was obtained. 3. With patients permission, family will be contacted and database will be expanded. 4. Patients medication regimen will be reviewed and changed accordingly. 5. Patient will be provided with protected environment. 6. Patient will be treated with individual, group, and milieu therapies. 7. Patient will receive supportive psych-education. 8. Discharge planning will commence immediately. 9. Outpatient follow-up treatment will be strongly recommended. 10. The initial treatment plan will focus initially on: Estimated Length Of Stay 5 days. Time Spent 70 minutes. Thursday Vital Signs Vital Signs Date Time Temp Pulse Resp B/P (MAP) Pulse Ox O2 Delivery O2 Flow Rate FiO2 04/15/19 06:18 98.1 95 16 115/61 (79) 04/14/19 17:07 98 Room Air Laboratory Data 24H Labs Laboratory Tests 2 04/14/19 09:39: Nucleated Red Blood Cells % (auto) 0.0, Anion Gap 9, Glomerular Filtration Rate > 60.0, Calcium Level 9.1, Total Bilirubin 0.2, Direct Bilirubin < 0.1, Aspartate Amino Transf (AST/SGOT) 23, Alanine Aminotransferase (ALT/SGPT) 42, Alkaline Phosphatase 101, Total Protein 7.6, Albumin 3.9, Albumin/Globulin Ratio 1.05, Thyroid Stimulating Hormone (TSH) 4.970H, Salicylates Level < 1.7L, Acetaminophen Level < 2.0L, Ethyl Alcohol Level < 0.003 04/14/19 14:06: Urine Opiates Screen NEGATIVE, Urine Methadone Screen NEGATIVE, Urine Barbiturates Screen NEGATIVE, Urine Phencyclidine Screen NEGATIVE, Urine Amphetamines Screen NEGATIVE, Urine Benzodiazepines Screen NEGATIVE, Urine Cocaine Metabolite Screen NEGATIVE, Urine Cannabinoids Screen NEGATIVE 04/14/19 14:59: Bedside Glucose (Misc Panel) 164H CBC/BMP Laboratory Tests 04/14/19 09:39 FSBS Laboratory Tests Test 04/14/19 14:59 Range/Units Bedside Glucose (Misc Panel) 164 80-115 MG/DL Medications Scheduled Aspirin (Aspirin EC) 81 Mg Tabec, 81 MG PO DAILY, (Reported) Benztropine Mesylate (Benztropine Mesylate) 0.5 Mg Tablet, 0.5 MG PO BID, (Rep orted) Cholecalciferol (Vitamin D3) (Vitamin D3) 1,000 Unit Tablet, 1,000 UNIT PO DAILY, (Reported) Dulaglutide (Trulicity) 0.75 Mg/0.5 Ml Pen.injctr, 0.75 MG SC QWEEK, (Reported) Ezetimibe (Zetia) 10 Mg Tab, 10 MG PO DAILY, (Reported) Ipratropium [place] (Ipratropium [place]) 15 Ml [place], 2 SPRAY NARES DAILY, (Reported) Levothyroxine Sodium (Levothyroxine Sodium) 100 Mcg Tablet, 100 MCG PO DAILY, (Reported) Lisinopril (Lisinopril) 40 Mg Tab, 40 MG PO DAILY, (Reported) Metformin HCl (Metformin HCl ER) 500 Mg Tab.er.24h, 1,000 MG PO DAILY, (Reported) Paliperidone Palmitate (Invega Trinza) 819 Mg/2.625 Ml Syringe, 819 MG IM QMONTH, (Reported) Scheduled PRN Benzonatate (Tessalon Perle) 100 Mg Capsule, 100 MG PO TID PRN for COUGH, (Reported) Trazodone HCl (Trazodone HCl) 50 Mg Tablet, 50 MG PO QHS PRN for SLEEP, (Reported) Miscellaneous Medications [Med Rec Comment] , (Reported) OBTAINED MED LIST FROM [facility] Allergies Coded Allergies: Penicillins (Verified Allergy, Mild, 04/14/19) SILVIANO AGARWAL DO Apr 15, 2019 09:21
[2019-04-15] MEDS ORDERED: PALIPERIDONE 3 MG ER TAB (INVEGA) PO ONE (12:00)
[2019-04-15] MEDS: VITAMIN D 1,000 INTERNATIONAL UNITS TABLET PO SCH (12:56)
[2019-04-15] MEDS: LEVOTHYROXINE 100MCG TABLET (0.1MG) PO SCH (12:56)
[2019-04-15] MEDS: ASPIRIN 81 MG ENTERIC TAB PO SCH (12:56)
[2019-04-15] MEDS: BENZTROPINE 0.5 MG TAB PO SCH ×2 (12:56→21:40)
[2019-04-15 13:03] VITALS: BP 136/67
[2019-04-15] MEDS: EZETIMIBE 10 MG TAB (ZETIA) PO SCH (13:23)
[2019-04-15] MEDS: lisinopriL 40 MG TAB PO SCH (13:23)
[2019-04-15] MEDS: metFORMIN XR 500MG TAB *GLUCOPHAGE XR PO SCH ×2 (14:30→17:46)
[2019-04-15 16:07] VITALS: BP 117/63
--- NOTE | 2019-04-15 17:22 | HPEPDOC ---
[facility] Medical History & Physical Date of Admission Apr 15, 2019 Date of Service: Apr 15, 2019 History and Physical Chief complaint: psycosis History of present illness: This is the 59-year-old male with past medical history of schizophrenia on invading the injections, comes to the psychiatric unit and we have been consulted for medical reasons. The patient has been admitted for a psychotic episode. He is not been able to provide any history as he is talking with flights of thoughts and does not give appropriate answers when questioned. Even if when he is redirected. He goes tangential and does not onset. The question appropriately. He does not remember when was the last time inVega was given and he does remember when was the last time trulicity was given. He currently has been admitted to the psychiatric facility and the management will be as per them. He denies any shortness of breath, any chest pain, any headache. He states that he does not have any intentions of hurting himself or anybody else at this point of time. Family history. Does not provide with this history Social history. Does not provide with this history Past medical history : Diabetes, schizophrenia, hypothyroidism Past surgical history none as per patient Review of systems. Pertinent positive findings as per HPI and is negative PHYSICAL EXAMINATION: General: The patient is awake, alert, hard to know whether he is oriented, sitting up in the bed in no apparent distress. Head and Neck Exam: Extraocular muscles intact. Pupils equally round and reactive to light. Mucous membranes are moist. Neck is supple. There is no jugular venous distention (JVD). Cardiovascular: S1 and S2, regular rate. No real edema Respiratory: Clear auscultation Abdomen: Soft. Positive bowel sounds. Nontender. No organomegaly. Genitourinary: Deferred Musculoskeletal: Clubbing of the fingernails, no cyanosis was noted. Central Nervous System (TOPOGRAPHICAL ENGINEER): No focal deficit. Power is 5/5 in all extremities and moving all extremities without any shift. Medications reviewed Radiology reviewed UDS reviewed Assessment and plan 59-year-old male admitted for a psychotic episode And we have been consulted for medical management. 1. Schizophrenia with psychotic episode . Management as per psychiatric. He already has been started on medications. 2. Diabetes mellitus. 2. He continues to be on metformin thousand milligrams daily, and along with that he trulicity. He does not remember when it was given last as it is a weekly dose. We will recommend continue monitoring his blood sugars before meals and at bedtime. I will also put him on sliding scale insulin. We'll optimize his 24-hour insulin requirement 3. Hypothyroidism. TSH within acceptable range. Continue levothyroxine 100 g daily Rest. All the management as per psychiatric Diet as per psychiatric Thank so much for consulting us on this patient Vital Signs Vital Signs Date Time Temp Pulse Resp B/P (MAP) Pulse Ox O2 Delivery O2 Flow Rate FiO2 04/15/19 16:07 99.5 93 16 117/63 (81) 04/14/19 17:07 98 Room Air Laboratory Data Labs 24H Laboratory Tests 2 04/15/19 12:28: Bedside Glucose (Misc Panel) 86 Home Medications Scheduled Aspirin (Aspirin EC) 81 Mg Tabec, 81 MG PO DAILY Benztropine Mesylate (Benztropine Mesylate) 0.5 Mg Tablet, 0.5 MG PO BID Cholecalciferol (Vitamin D3) (Vitamin D3) 1,000 Unit Tablet, 1,000 UNIT PO DAILY Dulaglutide (Trulicity) 0.75 Mg/0.5 Ml Pen.injctr, 0.75 MG SC QWEEK Ezetimibe (Zetia) 10 Mg Tab, 10 MG PO DAILY Ipratropium [place] (Ipratropium Sargent) 15 Ml [place], 2 SPRAY NARES DAILY Levothyroxine Sodium (Levothyroxine Sodium) 100 Mcg Tablet, 100 MCG PO DAILY Lisinopril (Lisinopril) 40 Mg Tab, 40 MG PO DAILY Metformin HCl (Metformin HCl ER) 500 Mg Tab.er.24h, 1,000 MG PO DAILY Paliperidone Palmitate (Invega Trinza) 819 Mg/2.625 Ml Syringe, 819 MG IM QMONTH Scheduled PRN Benzonatate (Tessalon Perle) 100 Mg Capsule, 100 MG PO TID PRN for COUGH Trazodone HCl (Trazodone HCl) 50 Mg Tablet, 50 MG PO QHS PRN for SLEEP Miscellaneous Medications [Med Rec Comment] OBTAINED MED LIST FROM [facility] Allergies Coded Allergies: Penicillins (Verified Allergy, Mild, 04/14/19) A-FIB/CHADSVASC A-FIB History Current/History of A-Fib/PAF?: No Current PO Anticoag Therapy: No AKANKSHA PEMBERTON MD Apr 15, 2019 17:21
[2019-04-15 18:09] LABS: HEMOGLOBIN A1c 7.3 %
[2019-04-15] MEDS: PALIPERIDONE 3 MG ER TAB (INVEGA) PO SCH (21:40)
[2019-04-16] MEDS: LEVOTHYROXINE 100MCG TABLET (0.1MG) PO SCH (05:49)
[2019-04-16 06:38] VITALS: BP 127/67
[2019-04-16] MEDS ORDERED: metFORMIN (GLUCOPHAGE) 1000 MG TABLET PO SCH (08:00)
[2019-04-16] MEDS: ASPIRIN 81 MG ENTERIC TAB PO SCH (08:18)
[2019-04-16] MEDS: metFORMIN XR 500MG TAB *GLUCOPHAGE XR PO SCH (08:18)
[2019-04-16] MEDS: VITAMIN D 1,000 INTERNATIONAL UNITS TABLET PO SCH (08:18)
[2019-04-16] MEDS: lisinopriL 40 MG TAB PO SCH (08:18)
[2019-04-16] MEDS: BENZTROPINE 0.5 MG TAB PO SCH ×2 (08:18→22:29)
[2019-04-16] MEDS: EZETIMIBE 10 MG TAB (ZETIA) PO SCH (08:19)
--- NOTE | 2019-04-16 15:58 | MHIPN ---
DATE: 04/16/2019 VITAL SIGNS: Blood pressure 127/67, pulse 103, temperature is 97.1. CHIEF COMPLAINT: Says feels tired. SUBJECTIVE: He is seen for followup in the presence of staff. Says feels tired and suggests moods are okay but that he has a hard time with focus and concentration at times. Says appetite is fair. Vague on how he has been sleeping. MENTAL STATUS EXAMINATION: He is neat. He is cooperative. There is no agitation. No psychomotor retardation. Speech is normal in amount and rate, but tangential in thought. Affect is relatively restricted but reactive. At present, denies any suicidal thoughts or intents. No homicidal ideas or intents. Does not appear to be internally preoccupied and no overt delusions are elicited. Cognition is grossly intact. Judgment and insight are quite questionable. ASSESSMENT: 1. Schizophrenia by history. PLAN: Continue current care, observations and his current medication regimen, which includes Invega. Background history is obtained from the emergency room chart and records. His admission note is at present not available, was seen by the psychiatrist yesterday. Further recommendations will be made depending on the clinical picture.
[2019-04-16 15:59] VITALS: BP 89/52
[2019-04-16] MEDS: PALIPERIDONE 3 MG ER TAB (INVEGA) PO SCH (22:29)
[2019-04-16] MEDS: traZODone 50 MG TAB PO PRN (22:29)
[2019-04-17] MEDS: LEVOTHYROXINE 100MCG TABLET (0.1MG) PO SCH (05:37)
[2019-04-17 06:44] VITALS: BP 126/62
[2019-04-17] MEDS: BENZTROPINE 0.5 MG TAB PO SCH ×2 (08:07→21:57)
[2019-04-17] MEDS: VITAMIN D 1,000 INTERNATIONAL UNITS TABLET PO SCH (08:07)
[2019-04-17] MEDS: EZETIMIBE 10 MG TAB (ZETIA) PO SCH (08:07)
[2019-04-17] MEDS: ASPIRIN 81 MG ENTERIC TAB PO SCH (08:07)
[2019-04-17] MEDS: lisinopriL 40 MG TAB PO SCH (08:07)
[2019-04-17] MEDS: metFORMIN XR 500MG TAB *GLUCOPHAGE XR PO SCH (08:07)
--- NOTE | 2019-04-17 20:43 | MHIPN ---
DATE: 04/17/2019 VITAL SIGNS: Blood pressure 126/62, pulse 88, temperature 97.6. CHIEF COMPLAINT: Says feels okay. SUBJECTIVE: She is seen for followup, in the presence of staff. Says feels okay but is rather vague about this. Says has slept a fair amount. Appetite is good. Says has trouble with concentration at times, but that he is concerned that he may have dementia. MENTAL STATUS EXAMINATION: He is lying in bed, generally cooperative. No agitation. No psychomotor retardation. Somewhat tangential in thought. The thoughts are not linear. Affect is reactive. Does not appear overtly internally preoccupied at present. Judgment and insight are compromised. ASSESSMENT: 1. Schizophrenia. PLAN: Continue current care, observations, including the Invega. He will be seeing the assigned psychiatrist tomorrow and further recommendations will be made.
[2019-04-17] MEDS: PALIPERIDONE 3 MG ER TAB (INVEGA) PO SCH (21:57)
[2019-04-17] MEDS: traZODone 50 MG TAB PO PRN (22:02)
[2019-04-18] MEDS: LEVOTHYROXINE 100MCG TABLET (0.1MG) PO SCH (06:18)
[2019-04-18 06:43] VITALS: BP 153/89
[2019-04-18] MEDS: metFORMIN XR 500MG TAB *GLUCOPHAGE XR PO SCH (08:48)
[2019-04-18] MEDS: ASPIRIN 81 MG ENTERIC TAB PO SCH (08:49)
[2019-04-18] MEDS: VITAMIN D 1,000 INTERNATIONAL UNITS TABLET PO SCH (08:49)
[2019-04-18] MEDS: BENZTROPINE 0.5 MG TAB PO SCH ×2 (08:49→21:33)
[2019-04-18] MEDS: EZETIMIBE 10 MG TAB (ZETIA) PO SCH (08:49)
[2019-04-18] MEDS: lisinopriL 40 MG TAB PO SCH (08:49)
[2019-04-18 16:40] VITALS: BP 135/61
[2019-04-18] MEDS: PALIPERIDONE 3 MG ER TAB (INVEGA) PO SCH (21:33)
[2019-04-18] MEDS: traZODone 50 MG TAB PO PRN (21:35)
[2019-04-19] MEDS: LEVOTHYROXINE 100MCG TABLET (0.1MG) PO SCH (06:01)
[2019-04-19] MEDS: BENZTROPINE 0.5 MG TAB PO SCH ×2 (08:06→20:07)
[2019-04-19] MEDS: VITAMIN D 1,000 INTERNATIONAL UNITS TABLET PO SCH (08:06)
[2019-04-19] MEDS: ASPIRIN 81 MG ENTERIC TAB PO SCH (08:06)
[2019-04-19] MEDS: metFORMIN XR 500MG TAB *GLUCOPHAGE XR PO SCH (08:07)
[2019-04-19] MEDS: EZETIMIBE 10 MG TAB (ZETIA) PO SCH (08:07)
[2019-04-19] MEDS: lisinopriL 40 MG TAB PO SCH (08:08)
--- NOTE | 2019-04-19 09:51 | MHIPN ---
DATE: 04/14/2019 VITAL SIGNS: Temperature 99.3, pulse 72, respirations 16, blood pressure 153/89. CURRENT MEDICATIONS: - Invega 3 mg at bedtime - Cogentin 0.5 mg twice a day - trazodone 50 mg at bedtime as needed HISTORY OF PRESENT ILLNESS: This is a 59-year-old white male, single, living at [facility]) with a diagnosis of schizophrenia. The patient was admitted by Dr. Monahan and seen by Dr. Lozada over the weekend. The patient continues to show psychotic symptoms. He is responding to internal stimuli. He was hearing auditory hallucinations at his apartment. People were claiming that he was going insane and that he was old and sick in the head. The patient has been on Invega 3 mg at bedtime since admission with minimal progress according to staff. The patient is on Invega Trinza on an outpatient basis. It is unclear when his last dosage was. MENTAL STATUS EXAMINATION: The patient is alert, oriented but is a poor historian. The patient reports prominent auditory hallucinations with paranoid content. Speech is loose, tangential and disorganized. Insight and judgment are markedly impaired. No current signs of depression. No signs of paul. Impulse control appears adequate. No signs of cognitive deficits. ASSESSMENT: Treatment of psychosis. DIAGNOSES: 1. Schizophrenia. 2. Alcohol, marijuana and hallucinogen use disorder in sustained remission. PLAN: The patient will be switched to Risperdal 3 mg by mouth twice a day. The patient may require switching back to Invega Sustenna due to breakthrough of his psychosis. Staff to clarify when his last dose of Invega Trinza was.
[2019-04-19] MEDS: OLANZapine 5 MG TAB PO PRN (11:36)
[2019-04-19] MEDS: risperiDONE 3 MG TAB PO SCH ×2 (13:51→20:07)
--- NOTE | 2019-04-19 14:01 | MHIPN ---
DATE: 04/14/2019 VITAL SIGNS: Temperature 97.6, pulse 90, respiration 18, blood pressure 135/61. CURRENT MEDICATION: Invega 3 mg at bedtime, Cogentin 0.5 mg twice a day, trazodone 50 mg at bedtime, Zyprexa 5 mg every 4 hours as needed. HISTORY OF PRESENT ILLNESS: Patient is still reporting psychotic symptoms. Patient goes off on a tangent reporting that he knows a famous actor who was a classmate in 6th grade. This appears to be delusional, most likely in nature. He is still hearing voices of people calling him sick in the head and insane and making derogatory comments. His appetite remains good. He reports sleeping well at night. We are trying to determine when the patient got his last dose of the Invega. MENTAL STATUS EXAM: Patent is alert and oriented. He is still a poor historian. Auditory hallucinations remain prominent. He has paranoid content. Speech is still loose, rambling and tangential. Insight and judgment remain impaired. He is not depressed. The patient is not manic. Impulse control appears appropriate. ASSESSMENT: Treatment resistant psychosis. Diagnosis: schizophrenia. Alcohol, marijuana and hallucinogen use disorder in sustain remission. PLAN: As above. Continue medication and milieu therapy. MTDD
[2019-04-19 16:58] VITALS: BP 102/60
[2019-04-19] MEDS: traZODone 50 MG TAB PO PRN (20:07)
[2019-04-20] MEDS: LEVOTHYROXINE 100MCG TABLET (0.1MG) PO SCH (06:16)
[2019-04-20 06:26] VITALS: BP 132/82
[2019-04-20] MEDS: EZETIMIBE 10 MG TAB (ZETIA) PO SCH (08:17)
[2019-04-20] MEDS: BENZTROPINE 0.5 MG TAB PO SCH ×2 (08:17→21:53)
[2019-04-20] MEDS: risperiDONE 3 MG TAB PO SCH ×2 (08:17→21:53)
[2019-04-20] MEDS: VITAMIN D 1,000 INTERNATIONAL UNITS TABLET PO SCH (08:17)
[2019-04-20] MEDS: lisinopriL 40 MG TAB PO SCH (08:17)
[2019-04-20] MEDS: metFORMIN XR 500MG TAB *GLUCOPHAGE XR PO SCH (08:17)
[2019-04-20] MEDS: ASPIRIN 81 MG ENTERIC TAB PO SCH (08:17)
[2019-04-20 16:36] VITALS: BP 114/60
[2019-04-20] MEDS: traZODone 50 MG TAB PO PRN (21:53)
[2019-04-21] MEDS: LEVOTHYROXINE 100MCG TABLET (0.1MG) PO SCH (05:59)
[2019-04-21 06:20] VITALS: BP 125/75
[2019-04-21] MEDS: EZETIMIBE 10 MG TAB (ZETIA) PO SCH (09:11)
[2019-04-21] MEDS: ASPIRIN 81 MG ENTERIC TAB PO SCH (09:11)
[2019-04-21] MEDS: VITAMIN D 1,000 INTERNATIONAL UNITS TABLET PO SCH (09:11)
[2019-04-21] MEDS: metFORMIN XR 500MG TAB *GLUCOPHAGE XR PO SCH (09:11)
[2019-04-21] MEDS: risperiDONE 3 MG TAB PO SCH ×2 (09:11→20:44)
[2019-04-21] MEDS: lisinopriL 40 MG TAB PO SCH (09:11)
[2019-04-21] MEDS: BENZTROPINE 0.5 MG TAB PO SCH ×2 (09:11→20:44)
[2019-04-21 09:13] VITALS: BP 140/80
[2019-04-21 16:02] VITALS: BP 147/76
--- NOTE | 2019-04-21 16:04 | MHIPN ---
DATE: 04/21/2019 VITAL SIGNS: Temperature 98.2, pulse 101, respirations 16, blood pressure 125/75. CURRENT MEDICATIONS: - Risperdal 3 mg twice a day - trazodone 50 mg at night - Zyprexa 5 mg every 4 hours as needed The patient states that he feels fine today. He states that his appetite is fine. He sleeps well at night with the medication. The patient is proud of the fact that he quit smoking cigarettes about 15 years ago on 04/27/2004. He hates the smell of cigarette smoke now and will never relapse, he reports. He is very fixated on this today. He rambles at some length about this topic and cannot be redirected. THe patient's last dose of the Invega Trinza 819 mg intramuscularly was given on 04/04/2019. The patient has tolerated the switch to oral Risperdal well. He denies having any issues with it. MENTAL STATUS EXAMINATION: The patient is alert and oriented. The patient rambles with obvious thought disorder. The patient still reports auditory hallucinations. The patient has significant paranoia. Insight and judgment are impaired. No current signs or depression or paul. No signs of organicity. ASSESSMENT: 1. Treatment resistant psychosis. DIAGNOSIS: 2. Chronic schizophrenia. 3. Alcohol/marijuana/hallucinogen use disorder, in sustained remission. PLAN: Continue present management. Dr. Monahan to return tomorrow. BEATA
[2019-04-22] MEDS: LEVOTHYROXINE 100MCG TABLET (0.1MG) PO SCH (06:06)
[2019-04-22 06:36] VITALS: BP 140/65
[2019-04-22] MEDS: risperiDONE 3 MG TAB PO SCH ×2 (08:23→21:00)
[2019-04-22] MEDS: BENZTROPINE 0.5 MG TAB PO SCH ×2 (08:24→21:00)
[2019-04-22] MEDS: metFORMIN XR 500MG TAB *GLUCOPHAGE XR PO SCH (08:24)
[2019-04-22] MEDS: lisinopriL 40 MG TAB PO SCH (08:25)
[2019-04-22] MEDS: EZETIMIBE 10 MG TAB (ZETIA) PO SCH (08:25)
[2019-04-22] MEDS: VITAMIN D 1,000 INTERNATIONAL UNITS TABLET PO SCH (08:25)
[2019-04-22] MEDS: ASPIRIN 81 MG ENTERIC TAB PO SCH (08:26)
--- NOTE | 2019-04-22 08:58 | MHIPNPDOC ---
[facility] Progress Note Progress Note Inpatient Progress Note Jero Henry MRN: N/A Date of : N/A Date of Service: 04/22/2019 History of Present Illness The patient, a 59-year-old man with a history of psychosis, presents after reportedly calling 911 bizarrely complaining about his room mate. When he was evaluated in the ER he was completely unable to engage in any meaningful discussion, highly psychotic. When I attempted to meet with him he was tangential, concrete, and unable to relay any information as to how he presented being frequently distracted by tangential thoughts. The majority of the psychosocial information below is extracted from previous admissions, last in 2017. He currently lives at the [facility] and is on Invega Trinza as his primary antipsychotic for an unclear amount of time. Interval History The patient is attempted to be met with today, however, he is still quite psychotic and unable to participate in any meaningful interview stating that there problems with "whales" on the unit. He has been amenable taking his medications and has not been violent or destructive. He attends the groups at times but complains of being "tired today but is not able to describe any rationale or reason for his tiredness." Review Of Systems Unable to participate due to mental status. Psychotherapy None on this visit. Vital Signs Reviewed. Mental Status Examination General: Poor hygiene Speech: Pressured Thought processes: Tangential MSK: Smooth and coordinated gait, no signs of tremors or involuntary orofacial movements Thought content: Bizarre and paranoid Abstract reasoning, and computation: Impaired Description of associations: Impaired Description of abnormal or psychotic thoughts: Denies any suicidal or homicidal ideation. Judgment: Impaired Insight: Impaired Orientation: Alert and orientated 3 Cognition: Grossly normal Recent and remote memory: Impaired secondary to thought process. Attention span and concentration: Impaired secondary to thought process Fund of knowledge: Adequate Mood: "Fine" Affect: Flat with little reactivity Diagnoses Schizophrenia. Marijuana use disorder in sustained remission. Alcohol use disorder in sustained remission. 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 Assessment and Plan Schizophrenia: Discontinue Invega. Will start clozapine 25 mg nightly. ANC ordered. Will attempt to have patient's TLS workers ascertain baseline status. Alcohol, hallucinogen, marijuana use disorder: Appears to be in sustained remission. No action at this time needed. Disposition The patient will need a continued admission in order to understand his baseline status and to help treat his impairing psychosis. Time Spent 15 minutes. Thursday Vital Signs Vital Signs Date Time Temp Pulse Resp B/P (MAP) Pulse Ox O2 Delivery O2 Flow Rate FiO2 04/22/19 06:36 97.0 73 14 140/65 (90) Room Air Laboratory Data 24H Labs Laboratory Tests 2 04/21/19 17:13: Bedside Glucose (Misc Panel) 253H 04/22/19 06:10: Bedside Glucose (Misc Panel) 112 Current Medications Current Medications Medications (Trade) Dose Ordered Sig/Vidal Route PRN Reason Start Time Stop Time Status Last Admin Dose Admin Acetaminophen (Tylenol Tab) 650 mg Q6HP PRN PO HEADACHE or DISCOMFORT 04/14/19 14:00 Aspirin (Ecotrin) 81 mg DAILY PO 04/15/19 09:00 04/21/19 09:11 Benztropine Mesylate (Cogentin) 0.5 mg BID PO 04/15/19 09:00 04/22/19 08:24 EZETIMIBE (Zetia) 10 mg DAILY PO 04/15/19 09:00 04/22/19 08:25 Home Med (Med Rec Complete!) ASDIRECTED XX 04/14/19 13:00 04/14/19 13:01 DC Levothyroxine Sodium (Synthroid) 100 mcg DAILY@06 PO 04/15/19 06:00 04/22/19 06:06 Lisinopril (Prinivil) 40 mg DAILY PO 04/15/19 09:00 04/22/19 08:25 Magnesium Hydroxide (Milk Of Magnesia) 30 ml DAILYPRN PRN PO CONSTIPATION 04/14/19 14:00 04/20/19 21:53 Metformin HCl (Glucophage Xr) 1,000 mg DAILY PO 04/15/19 09:00 04/22/19 08:24 Metformin HCl (Glucophage) 1,000 mg DAILY@08 PO 04/16/19 08:00 04/15/19 13:43 DC Olanzapine (ZyPREXA) 5 mg Q4HP PRN PO AGITATION 04/14/19 14:00 04/19/19 11:36 Paliperidone (Invega) 3 mg QHS PO 04/15/19 21:00 04/19/19 12:29 DC 04/18/19 21:33 Risperidone (RisperDAL) 3 mg BID PO 04/19/19 09:00 04/21/19 09:11 Trazodone HCl (Desyrel) 50 mg QHSP PRN PO INSOMNIA 04/14/19 14:00 04/20/19 21:53 Vitamin D (Vitamin D) 1,000 units DAILY PO 04/15/19 09:00 04/22/19 08:25 Allergies Coded Allergies: Penicillins (Verified Allergy, Mild, 04/14/19) SILVIANO AGARWAL DO Apr 22, 2019 08:58
[2019-04-22 16:04] VITALS: BP 130/68
[2019-04-23] MEDS: LEVOTHYROXINE 100MCG TABLET (0.1MG) PO SCH (05:59)
[2019-04-23 06:23] VITALS: BP 123/53
[2019-04-23] MEDS: VITAMIN D 1,000 INTERNATIONAL UNITS TABLET PO SCH (08:05)
[2019-04-23] MEDS: metFORMIN XR 500MG TAB *GLUCOPHAGE XR PO SCH (08:05)
[2019-04-23] MEDS: OLANZapine 5 MG TAB PO PRN (08:05)
[2019-04-23] MEDS: ASPIRIN 81 MG ENTERIC TAB PO SCH (08:05)
[2019-04-23] MEDS: EZETIMIBE 10 MG TAB (ZETIA) PO SCH (08:05)
[2019-04-23] MEDS: lisinopriL 40 MG TAB PO SCH (08:06)
[2019-04-23] MEDS: risperiDONE 3 MG TAB PO SCH ×2 (08:06→21:23)
[2019-04-23] MEDS: BENZTROPINE 0.5 MG TAB PO SCH ×2 (08:06→21:23)
[2019-04-23] MEDS ORDERED: CEPACOL LOZENGE PO PRN (09:30)
[2019-04-23 16:13] VITALS: BP 100/60
[2019-04-24] MEDS: traZODone 50 MG TAB PO PRN ×2 (01:31→21:07)
[2019-04-24] MEDS: LEVOTHYROXINE 100MCG TABLET (0.1MG) PO SCH (05:59)
[2019-04-24 06:02] VITALS: BP 118/68
[2019-04-24] MEDS: metFORMIN XR 500MG TAB *GLUCOPHAGE XR PO SCH (08:02)
[2019-04-24] MEDS: VITAMIN D 1,000 INTERNATIONAL UNITS TABLET PO SCH (08:02)
[2019-04-24] MEDS: ASPIRIN 81 MG ENTERIC TAB PO SCH (08:02)
[2019-04-24] MEDS: BENZTROPINE 0.5 MG TAB PO SCH ×2 (08:02→21:06)
[2019-04-24] MEDS: EZETIMIBE 10 MG TAB (ZETIA) PO SCH (08:02)
[2019-04-24] MEDS: risperiDONE 3 MG TAB PO SCH ×2 (08:02→21:07)
[2019-04-24] MEDS: lisinopriL 40 MG TAB PO SCH (08:03)
[2019-04-24 16:34] VITALS: BP 115/56
[2019-04-25 05:54] VITALS: BP 108/61
[2019-04-25] MEDS: LEVOTHYROXINE 100MCG TABLET (0.1MG) PO SCH (06:20)
[2019-04-25] MEDS: risperiDONE 3 MG TAB PO SCH ×2 (08:00→21:11)
[2019-04-25] MEDS: metFORMIN XR 500MG TAB *GLUCOPHAGE XR PO SCH (08:01)
[2019-04-25] MEDS: lisinopriL 40 MG TAB PO SCH (08:01)
[2019-04-25] MEDS: VITAMIN D 1,000 INTERNATIONAL UNITS TABLET PO SCH (08:01)
[2019-04-25] MEDS: ASPIRIN 81 MG ENTERIC TAB PO SCH (08:01)
[2019-04-25] MEDS: BENZTROPINE 0.5 MG TAB PO SCH ×2 (08:01→21:12)
[2019-04-25] MEDS: EZETIMIBE 10 MG TAB (ZETIA) PO SCH (08:02)
--- NOTE | 2019-04-25 10:33 | MHIPNPDOC ---
[facility] Progress Note Progress Note Inpatient Progress Note Jero Henry MRN: N/A Date of : N/A Date of Service: 04/25/2019 History of Present Illness The patient, a 59-year-old man with a history of psychosis, presents after reportedly calling 911 bizarrely complaining about his room mate. When he was evaluated in the ER he was completely unable to engage in any meaningful discussion, highly psychotic. When I attempted to meet with him he was tangential, concrete, and unable to relay any information as to how he presented being frequently distracted by tangential thoughts. The majority of the psychosocial information below is extracted from previous admissions, last in 2017. He currently lives at the [facility] and is on Invega Trinza as his primary antipsychotic for an unclear amount of time. Interval History The patient is met with today. He is still psychotic, but he is more active and less isolative. He is a little more linear but still difficult to interview as s he frequently goes into oriental orthodox and/or unusual tangents. He denies any symptoms associated with his Clozaril and describes that it is "okay." He has not been attending groups but has had no behavioral issues overnight. Review Of Systems Unable to participate due to mental status. Cardiovascular: Denies Chest pain or palpations GI: Denies Nausea, vomiting, or bowel changes Respiratory: Denies shortness of breath or cough Neuro: Denies dizziness, tremors Derm: Denies any rashes or pruritus : Denies any dysuria or urinary problems MSK: Denies any muscle tightness or stiffness Psychotherapy None on this visit. Vital Signs Reviewed. Mental Status Examination General: Improved hygiene Speech: Less pressured Thought processes: More redirectable. MSK: Smooth and coordinated gait, no signs of tremors or involuntary orofacial movements Thought content: Bizarre and paranoid Abstract reasoning, and computation: Impaired Description of associations: Impaired Description of abnormal or psychotic thoughts: Denies any suicidal or homicidal ideation. Judgment: Mildly improved. Insight: Impaired Orientation: Alert and orientated 3 Cognition: Grossly normal Recent and remote memory: Impaired secondary to thought process. Attention span and concentration: Impaired secondary to thought process Fund of knowledge: Adequate Mood: "Fine" Affect: Flat with little reactivity Diagnoses Schizophrenia. Marijuana use disorder in sustained remission. Alcohol use disorder in sustained remission. 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 Assessment and Plan Schizophrenia: Continue clozapine at this time and see within normal limits. TLS will be meeting with patient to ascertain baseline tomorrow. Alcohol, hallucinogen, marijuana use disorder: Appears to be in sustained remission. No action at this time needed. Disposition Further baseline status will be ascertained tomorrow by TLS with potential discharge later this week if he is currently at baseline. Time Spent 15 minutes. Thursday Vital Signs Vital Signs Date Time Temp Pulse Resp B/P (MAP) Pulse Ox O2 Delivery O2 Flow Rate FiO2 04/25/19 05:54 98.7 84 16 108/61 (77) 04/22/19 06:36 Room Air Laboratory Data 24H Labs Laboratory Tests 2 04/24/19 16:30: Bedside Glucose (Misc Panel) 128H 04/25/19 06:24: Bedside Glucose (Misc Panel) 119H Current Medications Current Medications Medications (Trade) Dose Ordered Sig/Vidal Route PRN Reason Start Time Stop Time Status Last Admin Dose Admin Acetaminophen (Tylenol Tab) 650 mg Q6HP PRN PO HEADACHE or DISCOMFORT 04/14/19 14:00 Aspirin (Ecotrin) 81 mg DAILY PO 04/15/19 09:00 04/25/19 08:01 Benztropine Mesylate (Cogentin) 0.5 mg BID PO 04/15/19 09:00 04/25/19 08:01 Cetylpyridinium Chloride (Cepacol) 1 arvin Q4HP PRN PO COUGH/SORE THROAT 04/23/19 09:30 EZETIMIBE (Zetia) 10 mg DAILY PO 04/15/19 09:00 04/25/19 08:02 Home Med (Med Rec Complete!) ASDIRECTED XX 04/14/19 13:00 04/14/19 13:01 DC Levothyroxine Sodium (Synthroid) 100 mcg DAILY@06 PO 04/15/19 06:00 04/25/19 06:20 Lisinopril (Prinivil) 40 mg DAILY PO 04/15/19 09:00 04/25/19 08:01 Magnesium Hydroxide (Milk Of Magnesia) 30 ml DAILYPRN PRN PO CONSTIPATION 04/14/19 14:00 04/20/19 21:53 Metformin HCl (Glucophage Xr) 1,000 mg DAILY PO 04/15/19 09:00 04/25/19 08:01 Metformin HCl (Glucophage) 1,000 mg DAILY@08 PO 04/16/19 08:00 04/15/19 13:43 DC Olanzapine (ZyPREXA) 5 mg Q4HP PRN PO AGITATION 04/14/19 14:00 04/23/19 08:05 Paliperidone (Invega) 3 mg QHS PO 04/15/19 21:00 04/19/19 12:29 DC 04/18/19 21:33 Risperidone (RisperDAL) 3 mg BID PO 04/19/19 09:00 04/25/19 08:00 Trazodone HCl (Desyrel) 50 mg QHSP PRN PO INSOMNIA 04/14/19 14:00 04/24/19 21:07 Vitamin D (Vitamin D) 1,000 units DAILY PO 04/15/19 09:00 04/25/19 08:01 Allergies Coded Allergies: Penicillins (Verified Allergy, Mild, 04/14/19) SILVIANO AGARWAL DO Apr 25, 2019 10:33
[2019-04-25] MEDS ORDERED: PILL CUTTER 1 EACH XX PRN (12:15)
[2019-04-25] MEDS: cloZAPine 25 MG TAB (S0136) PO SCH ×2 (12:20→21:11)
[2019-04-25 12:49] LABS: BASO # 0.1 10^3/uL (0.0-0.2); BASO % 0.7 % (0.0-1.0); EOS # 0.3 10^3/uL (0.0-0.5); EOS % 4.4 % (0.0-3.0); HEMOGLOBIN 13.5 g/dl (13.5-17.5); LYMPH # 2.3 10^3/uL (1.5-5.0); LYMPH % 33.1 % (24.0-44.0); MEAN CORPUSCULAR HEMOGLOBIN 31.2 pg (27.0-33.0); MEAN CORPUSCULAR HGB CONC 33.8 g/dl (32.0-36.5); MEAN CORPUSCULAR VOLUME 92.4 fl (80.0-96.0); MONO # 0.8 10^3/uL (0.0-0.8); MONO % 11.8 % (0.0-5.0); NEUTROPHILS # 3.4 10^3/uL (1.5-8.5); NEUTROPHILS % 49.4 % (36.0-66.0); PLATELET COUNT, AUTOMATED 202 10^3/uL (150-450); RED BLOOD COUNT 4.33 10^6/uL (4.30-6.10); WHITE BLOOD COUNT 6.8 10^3/uL (4.0-10.0)
[2019-04-25 15:14] VITALS: BP 80/50
[2019-04-25 17:23] VITALS: BP 105/60
[2019-04-25] MEDS: traZODone 50 MG TAB PO PRN (21:11)
[2019-04-26] MEDS: LEVOTHYROXINE 100MCG TABLET (0.1MG) PO SCH (06:25)
[2019-04-26 06:29] VITALS: BP 115/62
[2019-04-26] MEDS: metFORMIN XR 500MG TAB *GLUCOPHAGE XR PO SCH (08:46)
[2019-04-26] MEDS: EZETIMIBE 10 MG TAB (ZETIA) PO SCH (08:47)
[2019-04-26] MEDS: BENZTROPINE 0.5 MG TAB PO SCH ×2 (08:47→21:38)
[2019-04-26] MEDS: lisinopriL 40 MG TAB PO SCH (08:47)
[2019-04-26] MEDS: risperiDONE 3 MG TAB PO SCH ×2 (08:47→21:39)
[2019-04-26] MEDS: cloZAPine 25 MG TAB (S0136) PO SCH ×2 (08:47→21:39)
[2019-04-26] MEDS: ASPIRIN 81 MG ENTERIC TAB PO SCH (08:47)
[2019-04-26 08:49] VITALS: BP 108/60
--- NOTE | 2019-04-26 10:53 | MHIPNPDOC ---
[facility] Progress Note Progress Note Inpatient Progress Note Jero Henry MRN: N/A Date of : N/A Date of Service: 04/26/2019 History of Present Illness The patient, a 59-year-old man with a history of psychosis, presents after reportedly calling 911 bizarrely complaining about his room mate. When he was evaluated in the ER he was completely unable to engage in any meaningful discussion, highly psychotic. When I attempted to meet with him he was tangential, concrete, and unable to relay any information as to how he presented being frequently distracted by tangential thoughts. The majority of the psychosocial information below is extracted from previous admissions, last in 2017. He currently lives at the [facility] and is on Invega Trinza as his primary antipsychotic for an unclear amount of time. Interval History The patient is met with today. He is less bizarre and a little more linear. He reports that he feels better on the Clozaril and feels it is helping him feel less like opening a crackpot. However, he has had difficulty becoming religion ly preoccupied. [facility] had seen him and report that this is generally his baseline level of functioning. He reportedly had trouble in the past and reportedly has a chronic history of schizophrenia. The patient is at his baseline. It was discussed with [facility] about returning him on so that he can be followed up. The patient is able to participate in a more extensive interview, although he tends to become derailed by various religion thoughts frequently needing redirection. No behavioral problems and has attended more milieu activities. Review Of Systems Unable to participate due to mental status. Cardiovascular: Denies Chest pain or palpations GI: Denies Nausea, vomiting, or bowel changes Respiratory: Denies shortness of breath or cough Neuro: Denies dizziness, tremors Derm: Denies any rashes or pruritus : Denies any dysuria or urinary problems MSK: Denies any muscle tightness or stiffness Psychotherapy None on this visit. Vital Signs Reviewed. Mental Status Examination General: Improved hygiene Speech: Less pressured Thought processes: More redirectable. MSK: Smooth and coordinated gait, no signs of tremors or involuntary orofacial movements Thought content: Bizarre and paranoid Abstract reasoning, and computation: Impaired Description of associations: Impaired Description of abnormal or psychotic thoughts: Denies any suicidal or homicidal ideation. Judgment: Mildly improved. Insight: Impaired Orientation: Alert and orientated 3 Cognition: Grossly normal Recent and remote memory: Impaired secondary to thought process. Attention span and concentration: Impaired secondary to thought process Fund of knowledge: Adequate Mood: "Fine" Affect: Flat with little reactivity Diagnoses Schizophrenia. Marijuana use disorder in sustained remission. Alcohol use disorder in sustained remission. 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 Assessment and Plan Schizophrenia: Continue clozapine, ANC within normal limits. Continue current dose. Alcohol, hallucinogen, marijuana use disorder: Appears to be in sustained remission. No action at this time needed. Disposition Discharge on to [facility] once arrangements are made as patient is close to baseline. Time Spent 15 minutes [id number] Thursday Vital Signs Vital Signs Date Time Temp Pulse Resp B/P (MAP) Pulse Ox O2 Delivery O2 Flow Rate FiO2 04/26/19 08:49 108/60 (76) 04/26/19 06:29 97.5 86 16 04/22/19 06:36 Room Air Laboratory Data 24H Labs Laboratory Tests 2 04/25/19 12:40: Immature Granulocyte % (Auto) 0.6, Neutrophils (%) (Auto) 49.4, Lymphocytes (%) (Auto) 33.1, Monocytes (%) (Auto) 11.8H, Eosinophils (%) (Auto) 4.4H, Basophils (%) (Auto) 0.7, Neutrophils # (Auto) 3.4, Lymphocytes # (Auto) 2.3, Monocytes # (Auto) 0.8, Eosinophils # (Auto) 0.3, Basophils # (Auto) 0.1, Nucleated Red Blood Cells % (auto) 0.0 04/25/19 17:21: Bedside Glucose (Misc Panel) 87 04/26/19 06:27: Bedside Glucose (Misc Panel) 140H CBC/BMP Laboratory Tests 04/25/19 12:40 Current Medications Current Medications Medications (Trade) Dose Ordered Sig/Vidal Route PRN Reason Start Time Stop Time Status Last Admin Dose Admin Acetaminophen (Tylenol Tab) 650 mg Q6HP PRN PO HEADACHE or DISCOMFORT 04/14/19 14:00 Aspirin (Ecotrin) 81 mg DAILY PO 04/15/19 09:00 04/26/19 08:47 Benztropine Mesylate (Cogentin) 0.5 mg BID PO 04/15/19 09:00 04/26/19 08:47 Cetylpyridinium Chloride (Cepacol) 1 arvin Q4HP PRN PO COUGH/SORE THROAT 04/23/19 09:30 Clozapine (Clozaril) 12.5 mg BID PO 04/25/19 12:30 04/26/19 08:47 EZETIMIBE (Zetia) 10 mg DAILY PO 04/15/19 09:00 04/26/19 08:47 Home Med (Med Rec Complete!) ASDIRECTED XX 04/14/19 13:00 04/14/19 13:01 DC Levothyroxine Sodium (Synthroid) 100 mcg DAILY@06 PO 04/15/19 06:00 04/26/19 06:25 Lisinopril (Prinivil) 40 mg DAILY PO 04/15/19 09:00 04/26/19 08:47 Magnesium Hydroxide (Milk Of Magnesia) 30 ml DAILYPRN PRN PO CONSTIPATION 04/14/19 14:00 04/20/19 21:53 Metformin HCl (Glucophage Xr) 1,000 mg DAILY PO 04/15/19 09:00 04/26/19 08:46 Metformin HCl (Glucophage) 1,000 mg DAILY@08 PO 04/16/19 08:00 04/15/19 13:43 DC Olanzapine (ZyPREXA) 5 mg Q4HP PRN PO AGITATION 04/14/19 14:00 04/23/19 08:05 Paliperidone (Invega) 3 mg QHS PO 04/15/19 21:00 04/19/19 12:29 DC 04/18/19 21:33 Risperidone (RisperDAL) 3 mg BID PO 04/19/19 09:00 04/26/19 08:47 Trazodone HCl (Desyrel) 50 mg QHSP PRN PO INSOMNIA 04/14/19 14:00 04/25/19 21:11 Vitamin D (Vitamin D) 1,000 units DAILY PO 04/15/19 09:00 04/25/19 08:01 Allergies Coded Allergies: Penicillins (Verified Allergy, Mild, 04/14/19) ISLVIANO AGARWAL DO Apr 26, 2019 10:53
[2019-04-26] MEDS: VITAMIN D 1,000 INTERNATIONAL UNITS TABLET PO SCH (10:55)
[2019-04-26 17:31] VITALS: BP 133/73
[2019-04-27] MEDS: LEVOTHYROXINE 100MCG TABLET (0.1MG) PO SCH (06:16)
[2019-04-27 06:42] VITALS: BP 132/81
[2019-04-27] MEDS: lisinopriL 20 MG TAB PO SCH (09:00)
[2019-04-27] MEDS: ASPIRIN 81 MG ENTERIC TAB PO SCH (09:03)
[2019-04-27] MEDS: BENZTROPINE 0.5 MG TAB PO SCH ×2 (09:03→20:27)
[2019-04-27] MEDS: EZETIMIBE 10 MG TAB (ZETIA) PO SCH (09:03)
[2019-04-27] MEDS: VITAMIN D 1,000 INTERNATIONAL UNITS TABLET PO SCH (09:03)
[2019-04-27] MEDS: metFORMIN XR 500MG TAB *GLUCOPHAGE XR PO SCH (09:03)
[2019-04-27] MEDS: risperiDONE 3 MG TAB PO SCH ×2 (09:03→20:28)
[2019-04-27] MEDS: cloZAPine 25 MG TAB (S0136) PO SCH ×2 (09:04→20:28)
[2019-04-27 15:28] VITALS: BP 122/59
[2019-04-27] MEDS: OLANZapine 5 MG TAB PO PRN (23:30)
[2019-04-27] MEDS: traZODone 50 MG TAB PO PRN (23:30)
[2019-04-28] MEDS: LEVOTHYROXINE 100MCG TABLET (0.1MG) PO SCH (06:05)
[2019-04-28 06:20] VITALS: BP 131/71
[2019-04-28] MEDS: metFORMIN XR 500MG TAB *GLUCOPHAGE XR PO SCH (08:15)
[2019-04-28] MEDS: VITAMIN D 1,000 INTERNATIONAL UNITS TABLET PO SCH (08:15)
[2019-04-28 08:16] VITALS: BP 131/71
[2019-04-28] MEDS: lisinopriL 20 MG TAB PO SCH (08:16)
[2019-04-28] MEDS: EZETIMIBE 10 MG TAB (ZETIA) PO SCH (08:16)
[2019-04-28] MEDS: ASPIRIN 81 MG ENTERIC TAB PO SCH (08:16)
[2019-04-28] MEDS: risperiDONE 3 MG TAB PO SCH (08:17)
[2019-04-28] MEDS: BENZTROPINE 0.5 MG TAB PO SCH (08:17)
[2019-04-28] MEDS: cloZAPine 25 MG TAB (S0136) PO SCH (08:17)
[2019-04-28] MEDS ORDERED: CLOZ25TA3 PO (08:34)
[2019-04-28] MEDS ORDERED: RISP3TAB20 PO (08:34)
--- NOTE | 2019-04-28 08:45 | MHDSPDOC ---
[facility] Discharge Summary Discharge Summary DATE OF ADMISSION: Apr 14, 2019 at 13:56 DATE OF DISCHARGE: 04/28/18 Discharge Jero Henry MRN: N/A Date of : N/A Date of Service: 04/28/2019 Diagnoses Schizophrenia. Marijuana use disorder in sustained remission. Alcohol use disorder in sustained remission. 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 History of Present Illness The patient, a 59-year-old man with a history of psychosis, presents after reportedly calling 911 bizarrely complaining about his room mate. When he was evaluated in the ER he was completely unable to engage in any meaningful discussion, highly psychotic. When I attempted to meet with him he was tangential, concrete, and unable to relay any information as to how he presented being frequently distracted by tangential thoughts. The majority of the psychosocial information below is extracted from previous admissions, last in 2017. He currently lives at the [facility] and is on Invega Trinza as his primary antipsychotic for an unclear amount of time. Consultants Involved Hospitalist/PCP screening Treatment and Progress On The Unit The patient was admitted to the inpatient mental health unit. He was notably acting somewhat bizarre, slow to think and was obviously suffering from a thought disorder, however, he was brought in from the [facility] home of which his baseline was unknown to us. The patient was subsequently observed. The paliperidone 3-month injection has a well-known history of being ineffective and he has been recently placed on it, likely provoking more symptoms and bizarre behavior that had brought him in for evaluation initially from [facility]. The patient was subsequently started on oral risperidone with some positive effects, however, he still remained bizarre, unable to participate in any programming meaningfully and isolative to his room. He was started on clozapine, as he appears to have had multiple different trials of antipsychotics, of 12.5 BID with extremely positive effects. He became more involved, more interested in others, less religiously preoccupied and went from being tangential and wholly unredirectable to mildly circumstantial, making good improvement from his baseline. His ANC was normal during the several that were done and he was registered with the clozapine registry doing well. He reported no side effects from the clozapine and reported that he felt it made him much less like a "crackpot." He made good progress and after TLS had come to see him, they reported that he was at or actually improved from his baseline and that they were comfortable with him returning to his nursing home for continued treatment. It was arranged for him to be discharged on the day of discharge. On the day of discharge, he did not meet involuntary criteria as he had been denying suicidal or homicidal ideation, had improved mental status although mild psychotic symptoms improved from his baseline. He did not meet criteria to be continued on the inpatient unit as he had been making progress and was able to attend to his needs better than he had prior to his presentation, not gravely disabled due to his TLS housing. The patient declined further voluntary admission and was discharged to home. Discharge Assessment 59-year-old man with a history of schizophrenia and distant history of drug use, presents fairly psychotic after being started on Invega Trinza. It appears that the poor absorption last month had caused the symptoms reemerge. After being placed on oral risperidone and clozapine, he does fairly well with improvement in his negative symptoms and thought disorder. He is discharged improved from his baseline and will hopefully have much more success. Mental Status Examination General: Improved hygiene, freshly shaven Speech: Fluid Thought processes: More redirectable MSK: Smooth and coordinated gait, no signs of tremors or involuntary orofacial movements Thought content: Much less religiously preoccupied Abstract reasoning, and computation: Improved Description of associations: Improved Description of abnormal or psychotic thoughts: Denies any suicidal or homicidal ideation. Denies any auditory or visual hallucinations Judgment: Improved Insight: Improved Orientation: Alert and orientated 3 Cognition: Grossly normal Recent and remote memory: Improved Attention span and concentration: Improved Fund of knowledge: Adequate Mood: "Fine" Affect: More euthymic Follow Up The social work team worked during the predischarge meeting in order to evaluate for further issues of lethality address them fully before discharge. They worked on safety planning with the patient's family members in order to ensure that the patient will have a safe and effective discharge. Time Spent The amount of time spent in the coordination of care for this patient was appr oximately 90 minutes. Vital Signs/I&Os Vital Signs Date Time Temp Pulse Resp B/P (MAP) Pulse Ox O2 Delivery O2 Flow Rate FiO2 04/28/19 08:16 131/71 04/28/19 06:20 98.9 87 18 04/27/19 06:42 Room Air Laboratory Data Labs 24H Laboratory Tests 2 04/27/19 16:21: Bedside Glucose (Misc Panel) 110 04/28/19 06:07: Bedside Glucose (Misc Panel) 123H Medications Scheduled Aspirin (Aspirin EC) 81 Mg Tabec, 81 MG PO DAILY, (Reported) Benztropine Mesylate (Benztropine Mesylate) 0.5 Mg Tablet, 0.5 MG PO BID, (Reported) Cholecalciferol (Vitamin D3) (Vitamin D3) 1,000 Unit Tablet, 1,000 UNIT PO DAILY, (Reported) Clozapine (Clozapine) 25 Mg Tablet, 12.5 MG PO BID for thoughts for 7 Days, #5 Dulaglutide (Trulicity) 0.75 Mg/0.5 Ml Pen.injctr, 0.75 MG SC QWEEK, (Reported) Ezetimibe (Zetia) 10 Mg Tab, 10 MG PO DAILY, (Reported) Ipratropium [employer] (Ipratropium [employer]) 15 Ml [place], 2 SPRAY NARES DAILY, (Reported) Levothyroxine Sodium (Levothyroxine Sodium) 100 Mcg Tablet, 100 MCG PO DAILY, (Reported) Lisinopril (Lisinopril) 40 Mg Tab, 40 MG PO DAILY, (Reported) Metformin HCl (Metformin HCl ER) 500 Mg Tab.er.24h, 1,000 MG PO DAILY, (Reported) Risperidone (Risperdal) 3 Mg Tablet, 3 MG PO BID for thoughts for 7 Days, #14 Scheduled PRN Benzonatate (Tessalon Perle) 100 Mg Capsule, 100 MG PO TID PRN for COUGH, (Reported) Trazodone HCl (Trazodone HCl) 50 Mg Tablet, 50 MG PO QHS PRN for SLEEP, (Reported) Allergies Coded Allergies: Penicillins (Verified Allergy, Mild, 04/14/19) SILVIANO AGARWAL DO Apr 28, 2019 08:45
[2019-05-02] MEDS ORDERED: [UNRECOGNIZED DRUG - REMARK] AD (13:59)
[2019-05-02] MEDS ORDERED: CLOZ25TA3 PO (13:59)
== END 2019-04-28 09:45 | disposition home or self-care (01) | DRG 885 ==
LOC: M ED 08:56 → M ED INP 13:56 → M PSY 15:10
PROVIDERS: ADMIT Psychiatry & Neurology Addiction Medicine; ATTEND Psychiatry & Neurology Addiction Medicine
DX: F20.9 Schizophrenia, unspecified (principal); F10.11 Alcohol abuse, in remission; F12.11 Cannabis abuse, in remission; F16.11 Hallucinogen abuse, in remission; E11.9 Type 2 diabetes mellitus without complications; E03.9 Hypothyroidism, unspecified; E78.00 Pure hypercholesterolemia, unspecified; I10 Essential (primary) hypertension; Z79.82 Long term (current) use of aspirin; Z79.84 Long term (current) use of oral hypoglycemic drugs; Z79.899 Other long term (current) drug therapy; Z88.0 Allergy status to penicillin; Z87.891 Personal history of nicotine dependence

== ENCOUNTER → 2019-05-03 | Outpatient (REF) | payer MEDICARE, MEDICAID ==
[~2019-05-03] MED LIST changes: +BENZ0.5T23 PO; +CLOZ25TA3 PO; +INVE1.75 IM; +IPRA6SP NARES; +LEVO100T5 PO; +MED REC COMMENT; +METF-791 PO; +RISP3TAB20 PO; +TESS100C PO; +TRAZ-186 PO; +TRUL10IN SC; +VITA100066 PO; +[UNRECOGNIZED DRUG - REMARK] AD
[2019-05-03 13:44] LABS: ALBUMIN 3.9 GM/DL (3.2-5.2); ALT/SGPT 44 U/L (12-78); BILIRUBIN,TOTAL 0.3 MG/DL (0.2-1.0); BLOOD UREA NITROGEN 13 MG/DL (7-18); CALCIUM LEVEL 8.6 MG/DL (8.8-10.2); CARBON DIOXIDE LEVEL 25 MEQ/L (21-32); CHLORIDE LEVEL 109 MEQ/L (98-107); CHOLESTEROL LEVEL 199 MG/DL (<200); CHOLESTEROL RISK RATIO 6.862 (<5); CREATININE FOR GFR 0.98 MG/DL (0.70-1.30); GLOMERULAR FILTRATION RATE > 60.0 (>49); GLUCOSE, FASTING 128 MG/DL (70-100); HDL CHOLESTEROL 29 MG/DL (>40); LDL CHOLESTEROL 114 MG/DL (<100); NON-HDL-C 170 MG/DL; POTASSIUM SERUM 4.3 MEQ/L (3.5-5.1); SODIUM LEVEL 140 MEQ/L (136-145); TOTAL PROTEIN 7.1 GM/DL (6.4-8.2); TRIGLYCERIDES LEVEL 281 MG/DL (<150)
[2019-05-03 15:37] LABS: HEMOGLOBIN A1c 7.4 %
== END ==
LOC: M LAB REF 12:11
PROVIDERS: ATTEND Family Medicine
DX: E11.9 Type 2 diabetes mellitus without complications (principal)

== ENCOUNTER → 2019-05-05 | Outpatient (CLI) | payer MEDICARE, MEDICAID ==
[2019-05-05 12:56] LABS: BASO # 0.1 10^3/uL (0.0-0.2); BASO % 0.7 % (0.0-1.0); EOS # 0.2 10^3/uL (0.0-0.5); EOS % 2.9 % (0.0-3.0); HEMATOCRIT 38.3 % (42.0-52.0); HEMOGLOBIN 12.4 g/dl (13.5-17.5); LYMPH # 2.4 10^3/uL (1.5-5.0); LYMPH % 32.6 % (24.0-44.0); MEAN CORPUSCULAR HEMOGLOBIN 30.5 pg (27.0-33.0); MEAN CORPUSCULAR HGB CONC 32.4 g/dl (32.0-36.5); MEAN CORPUSCULAR VOLUME 94.3 fl (80.0-96.0); MONO # 0.7 10^3/uL (0.0-0.8); MONO % 8.7 % (0.0-5.0); NEUTROPHILS # 4.1 10^3/uL (1.5-8.5); NEUTROPHILS % 54.2 % (36.0-66.0); PLATELET COUNT, AUTOMATED 198 10^3/uL (150-450); RED BLOOD COUNT 4.06 10^6/uL (4.30-6.10); WHITE BLOOD COUNT 7.5 10^3/uL (4.0-10.0)
== END ==
LOC: M LAB 11:56
PROVIDERS: ATTEND Psychiatry & Neurology Addiction Medicine
DX: F20.9 Schizophrenia, unspecified (principal)

== ENCOUNTER → 2019-05-16 | Outpatient (CLI) | payer MEDICARE, MEDICAID ==
[2019-05-16 16:11] LABS: BASO # 0.1 10^3/uL (0.0-0.2); BASO % 0.7 % (0.0-1.0); EOS # 0.3 10^3/uL (0.0-0.5); EOS % 3.1 % (0.0-3.0); HEMATOCRIT 39.2 % (42.0-52.0); LYMPH % 34.6 % (24.0-44.0); MEAN CORPUSCULAR HEMOGLOBIN 31.1 pg (27.0-33.0); MEAN CORPUSCULAR HGB CONC 33.2 g/dl (32.0-36.5); MEAN CORPUSCULAR VOLUME 93.8 fl (80.0-96.0); MONO # 0.8 10^3/uL (0.0-0.8); MONO % 9.8 % (0.0-5.0); NEUTROPHILS # 4.4 10^3/uL (1.5-8.5); NEUTROPHILS % 51.2 % (36.0-66.0); PLATELET COUNT, AUTOMATED 202 10^3/uL (150-450); RED BLOOD COUNT 4.18 10^6/uL (4.30-6.10); WHITE BLOOD COUNT 8.6 10^3/uL (4.0-10.0)
== END ==
LOC: M LAB 15:45
PROVIDERS: ATTEND Psychiatry & Neurology Addiction Medicine
DX: F20.9 Schizophrenia, unspecified (principal)

== ENCOUNTER → 2019-06-27 | Outpatient (REF) | payer MEDICARE, MEDICAID ==
[2019-06-27 15:06] LABS: AMORPHOUS SEDIMENT SMALL (NEGATIVE); APPEARANCE, URINE HAZY (CLEAR); BACTERIA, URINE AUTO NEGATIVE (NEGATIVE); BILIRUBIN, URINE AUTO NEGATIVE (NEGATIVE); BLOOD, URINE BLOOD NEGATIVE (NEGATIVE); CALCIUM OXALATE CRYSTALS MODERATE; COLOR, URINE YELLOW (YELLOW); GLUCOSE, URINE (UA) AUTO NEGATIVE (NEGATIVE); KETONE, URINE AUTO TRACE mg/dL (NEGATIVE); LEUKOCYTE ESTERASE, URINE AUTO NEGATIVE (NEGATIVE); MUCUS, URINE SMALL (NEGATIVE); NITRITE, URINE AUTO NEGATIVE (NEGATIVE); PROTEIN, URINE AUTO NEGATIVE (NEGATIVE); RBC, URINE AUTO 4 /HPF (0-3); SPECIFIC GRAVITY URINE AUTO 1.019 (1.002-1.035); SQUAMOUS EPITHELIAL CELL UR AU 0 /HPF (0-6); UROBILINOGEN, URINE AUTO 0.2 mg/dL (0.0-2.0); WBC, URINE AUTO 2 /HPF (0-3)
[2019-06-27 16:16] LABS: BASO % 0.5 % (0.0-1.0); EOS # 0.2 10^3/uL (0.0-0.5); EOS % 2.1 % (0.0-3.0); HEMATOCRIT 39.7 % (42.0-52.0); HEMOGLOBIN 13.5 g/dl (13.5-17.5); LYMPH % 27.1 % (24.0-44.0); MEAN CORPUSCULAR HEMOGLOBIN 31.3 pg (27.0-33.0); MEAN CORPUSCULAR VOLUME 91.9 fl (80.0-96.0); MONO # 0.6 10^3/uL (0.0-0.8); MONO % 7.6 % (0.0-5.0); NEUTROPHILS # 4.5 10^3/uL (1.5-8.5); NEUTROPHILS % 62.3 % (36.0-66.0); PLATELET COUNT, AUTOMATED 194 10^3/uL (150-450); RED BLOOD COUNT 4.32 10^6/uL (4.30-6.10); WHITE BLOOD COUNT 7.3 10^3/uL (4.0-10.0)
[2019-06-27 16:18] LABS: MALB URINE SIEMENS 14.7 MG/L; MAU/CREAT RATIO 10.3 MCG/MG (0.0-30.0)
[2019-06-27 16:38] LABS: HEMOGLOBIN A1c 7.1 %
[2019-06-27 16:44] LABS: ALBUMIN 4.2 GM/DL (3.2-5.2); ALT/SGPT 55 U/L (12-78); BILIRUBIN,TOTAL 0.3 MG/DL (0.2-1.0); BLOOD UREA NITROGEN 12 MG/DL (7-18); CALCIUM LEVEL 9.4 MG/DL (8.8-10.2); CARBON DIOXIDE LEVEL 25 MEQ/L (21-32); CHLORIDE LEVEL 105 MEQ/L (98-107); CHOLESTEROL LEVEL 216 MG/DL (<200); CHOLESTEROL RISK RATIO 6.352 (<5); CREATININE FOR GFR 0.84 MG/DL (0.70-1.30); FOLATE 13.4 NG/ML; FREE T4 1.26 NG/DL (0.76-1.46); GLOMERULAR FILTRATION RATE > 60.0 (>49); GLUCOSE, FASTING 82 MG/DL (70-100); HDL CHOLESTEROL 34 MG/DL (>40); LDL CHOLESTEROL 137 MG/DL (<100); MAGNESIUM LEVEL 1.8 MG/DL (1.8-2.4); NON-HDL-C 182 MG/DL; SODIUM LEVEL 138 MEQ/L (136-145); TOTAL PROTEIN 7.4 GM/DL (6.4-8.2); TRIGLYCERIDES LEVEL 224 MG/DL (<150); VITAMIN B12 LEVEL 306 PG/ML
[2019-06-27 16:55] LABS: TOTAL 25(OH) VITAMIN D 28.4 NG/ML (30.0-100.0)
== END ==
LOC: M LAB REF 14:48
PROVIDERS: ATTEND Nurse Practitioner Family
DX: E55.9 Vitamin D deficiency, unspecified (principal); R07.9 Chest pain, unspecified; E78.5 Hyperlipidemia, unspecified; E03.9 Hypothyroidism, unspecified; I10 Essential (primary) hypertension; E11.9 Type 2 diabetes mellitus without complications; F41.9 Anxiety disorder, unspecified; Z13.9 Encounter for screening, unspecified

== ENCOUNTER 2019-10-10 22:16 | Emergency (ER) | payer MEDICARE, MEDICAID ==
[~2019-10-10] VITALS: Ht 172.7 cm; Wt 106.2 kg
[2019-10-10 22:16] VITALS: BP 138/86
[~2019-10-10 22:16] MED LIST changes: -METF-791 PO; +METF-838 PO
[2019-10-10] MEDS ORDERED: VITA-112 PO (22:31)
== END 2019-10-11 00:08 | disposition home or self-care (01) ==
LOC: M ED 22:16
DX: F43.0 Acute stress reaction (principal)

== ENCOUNTER → 2019-11-21 | Outpatient (REF) | payer MEDICARE, MEDICAID ==
[~2019-11-21] MED LIST changes: -ASPI81TA85 PO; +ASPI81TA86 PO; +VITA-112 PO
[2019-12-15 23:09] LABS: BASO % 0.5 % (0.0-1.0); EOS # 0.1 10^3/uL (0.0-0.5); EOS % 1.1 % (0.0-3.0); HEMATOCRIT 37.4 % (42.0-52.0); HEMOGLOBIN 12.5 g/dl (13.5-17.5); LYMPH % 36.3 % (24.0-44.0); MEAN CORPUSCULAR HEMOGLOBIN 31.3 pg (27.0-33.0); MEAN CORPUSCULAR HGB CONC 33.4 g/dl (32.0-36.5); MEAN CORPUSCULAR VOLUME 93.7 fl (80.0-96.0); MONO # 0.5 10^3/uL (0.0-0.8); MONO % 9.1 % (0.0-5.0); NEUTROPHILS % 52.5 % (36.0-66.0); PLATELET COUNT, AUTOMATED 211 10^3/uL (150-450); RED BLOOD COUNT 3.99 10^6/uL (4.30-6.10); WHITE BLOOD COUNT 5.6 10^3/uL (4.0-10.0)
[2019-12-23 12:41] LABS: ALT/SGPT 31 U/L (12-78); BILIRUBIN,TOTAL 0.3 MG/DL (0.2-1.0); BLOOD UREA NITROGEN 14 MG/DL (7-18); CALCIUM LEVEL 9.1 MG/DL (8.8-10.2); CARBON DIOXIDE LEVEL 27 MEQ/L (21-32); CHLORIDE LEVEL 103 MEQ/L (98-107); CHOLESTEROL LEVEL 162 MG/DL (<200); CHOLESTEROL RISK RATIO 4.153 (<5); CREATININE FOR GFR 0.93 MG/DL (0.70-1.30); FREE T4 1.26 NG/DL (0.76-1.46); GLOMERULAR FILTRATION RATE > 60.0 (>49); GLUCOSE, FASTING 102 MG/DL (70-100); HDL CHOLESTEROL 39 MG/DL (>40); LDL CHOLESTEROL 101 MG/DL (<100); NON-HDL-C 123 MG/DL; POTASSIUM SERUM 4.6 MEQ/L (3.5-5.1); SODIUM LEVEL 137 MEQ/L (136-145); TOTAL 25(OH) VITAMIN D 38.5 NG/ML (30.0-100.0); TOTAL PROTEIN 7.2 GM/DL (6.4-8.2); TRIGLYCERIDES LEVEL 108 MG/DL (<150)
[2019-12-23 12:42] LABS: HEMOGLOBIN A1c 6.1 %
== END ==
LOC: M LAB REF 10:42
PROVIDERS: ATTEND Nurse Practitioner Family
DX: Z13.9 Encounter for screening, unspecified (principal); E55.9 Vitamin D deficiency, unspecified; R07.9 Chest pain, unspecified; E78.5 Hyperlipidemia, unspecified; E03.9 Hypothyroidism, unspecified; I10 Essential (primary) hypertension; E11.9 Type 2 diabetes mellitus without complications; F41.9 Anxiety disorder, unspecified; Z79.899 Other long term (current) drug therapy

== ENCOUNTER 2020-01-04 21:42 | Emergency (ER) | payer MEDICARE, MEDICAID ==
[~2020-01-04] VITALS: Ht 172.7 cm; Wt 99.2 kg
[2020-01-05 00:33] VITALS: BP 144/77
== END 2020-01-05 00:35 | disposition home or self-care (01) ==
LOC: M ED 21:42
DX: F43.20 Adjustment disorder, unspecified (principal); F20.9 Schizophrenia, unspecified; Z79.899 Other long term (current) drug therapy; Z79.82 Long term (current) use of aspirin

== ENCOUNTER 2020-02-19 20:03 | Emergency (ER) | payer MEDICARE, MEDICAID ==
[~2020-02-19] VITALS: Ht 172.7 cm; Wt 106.6 kg
[2020-02-19 20:04] VITALS: BP 153/91
[2020-02-19] MEDS ORDERED: INVE234I IM (21:41)
== END 2020-02-19 22:58 | disposition home or self-care (01) ==
LOC: M ED 20:03
DX: F43.20 Adjustment disorder, unspecified (principal); Z79.899 Other long term (current) drug therapy; Z79.890 Hormone replacement therapy; Z79.82 Long term (current) use of aspirin; Z88.0 Allergy status to penicillin

== ENCOUNTER → 2020-03-05 | Outpatient (REF) | payer MEDICARE, MEDICAID ==
[2020-03-05 17:36] LABS: BASO # 0.1 10^3/uL (0.0-0.2); BASO % 0.7 % (0.0-1.0); EOS # 0.4 10^3/uL (0.0-0.5); EOS % 5.5 % (0.0-3.0); HEMATOCRIT 39.7 % (42.0-52.0); LYMPH # 2.1 10^3/uL (1.5-5.0); LYMPH % 30.4 % (24.0-44.0); MEAN CORPUSCULAR HGB CONC 32.7 g/dl (32.0-36.5); MEAN CORPUSCULAR VOLUME 94.7 fl (80.0-96.0); MONO # 0.6 10^3/uL (0.0-0.8); MONO % 8.8 % (0.0-5.0); NEUTROPHILS # 3.8 10^3/uL (1.5-8.5); PLATELET COUNT, AUTOMATED 196 10^3/uL (150-450); RED BLOOD COUNT 4.19 10^6/uL (4.30-6.10); WHITE BLOOD COUNT 7.1 10^3/uL (4.0-10.0)
[2020-03-05 17:58] LABS: ALT/SGPT 33 U/L (12-78); BILIRUBIN,TOTAL 0.2 MG/DL (0.2-1.0); BLOOD UREA NITROGEN 18 MG/DL (7-18); CALCIUM LEVEL 9.5 MG/DL (8.8-10.2); CARBON DIOXIDE LEVEL 26 MEQ/L (21-32); CHLORIDE LEVEL 105 MEQ/L (98-107); CHOLESTEROL LEVEL 245 MG/DL (<200); CHOLESTEROL RISK RATIO 5.833 (<5); CREATININE FOR GFR 1.01 MG/DL (0.70-1.30); FREE T4 0.96 NG/DL (0.76-1.46); GLOMERULAR FILTRATION RATE > 60.0 (>49); GLUCOSE, FASTING 89 MG/DL (70-100); HDL CHOLESTEROL 42 MG/DL (>40); LDL CHOLESTEROL 158 MG/DL (<100); NON-HDL-C 203 MG/DL; POTASSIUM SERUM 4.6 MEQ/L (3.5-5.1); SODIUM LEVEL 138 MEQ/L (136-145); TOTAL PROTEIN 7.1 GM/DL (6.4-8.2); TRIGLYCERIDES LEVEL 225 MG/DL (<150)
[2020-03-05 18:02] LABS: TOTAL 25(OH) VITAMIN D 23.2 NG/ML (30.0-100.0)
[2020-03-05 18:33] LABS: HEMOGLOBIN A1c 6.3 %
== END ==
LOC: M LAB REF 16:09
PROVIDERS: ATTEND Nurse Practitioner Family
DX: E55.9 Vitamin D deficiency, unspecified (principal); E78.5 Hyperlipidemia, unspecified; E03.9 Hypothyroidism, unspecified; E11.9 Type 2 diabetes mellitus without complications; I10 Essential (primary) hypertension

== ENCOUNTER → 2020-03-05 | Outpatient (REF) | payer MEDICARE, MEDICAID ==
[2020-03-05 14:34] LABS: APPEARANCE, URINE CLEAR (CLEAR); BACTERIA, URINE AUTO NEGATIVE (NEGATIVE); BILIRUBIN, URINE AUTO NEGATIVE (NEGATIVE); BLOOD, URINE BLOOD NEGATIVE (NEGATIVE); COLOR, URINE STRAW (YELLOW); GLUCOSE, URINE (UA) AUTO NEGATIVE (NEGATIVE); KETONE, URINE AUTO NEGATIVE (NEGATIVE); LEUKOCYTE ESTERASE, URINE AUTO NEGATIVE (NEGATIVE); NITRITE, URINE AUTO NEGATIVE (NEGATIVE); PROTEIN, URINE AUTO NEGATIVE (NEGATIVE); RBC, URINE AUTO 0 /HPF (0-3); SPECIFIC GRAVITY URINE AUTO 1.004 (1.002-1.035); SQUAMOUS EPITHELIAL CELL UR AU 0 /HPF (0-6); UROBILINOGEN, URINE AUTO 0.2 mg/dL (0.0-2.0); WBC, URINE AUTO 0 /HPF (0-3)
== END ==
LOC: M LAB REF 12:34
PROVIDERS: ATTEND Nurse Practitioner Family
DX: E55.9 Vitamin D deficiency, unspecified (principal); E78.5 Hyperlipidemia, unspecified; E03.9 Hypothyroidism, unspecified; I10 Essential (primary) hypertension; E11.9 Type 2 diabetes mellitus without complications

== ENCOUNTER → 2020-07-26 | Outpatient (REF) | payer MEDICARE, MEDICAID ==
[~2020-07-26] MED LIST changes: +ASPI-569 PO; -ASPI81TAEC PO; -LISI40TA PO; +LISI40TA4 PO
[2020-07-26 11:48] LABS: BASO # 0.1 10^3/uL (0.0-0.2); BASO % 0.6 % (0.0-1.0); EOS # 0.2 10^3/uL (0.0-0.5); EOS % 2.2 % (0.0-3.0); HEMATOCRIT 38.6 % (42.0-52.0); LYMPH # 2.4 10^3/uL (1.5-5.0); LYMPH % 30.4 % (24.0-44.0); MEAN CORPUSCULAR HEMOGLOBIN 32.3 pg (27.0-33.0); MEAN CORPUSCULAR HGB CONC 33.7 g/dl (32.0-36.5); MEAN CORPUSCULAR VOLUME 95.8 fl (80.0-96.0); MONO # 0.5 10^3/uL (0.0-0.8); MONO % 6.8 % (2.0-8.0); NEUTROPHILS # 4.6 10^3/uL (1.5-8.5); NEUTROPHILS % 59.5 % (36.0-66.0); PLATELET COUNT, AUTOMATED 225 10^3/uL (150-450); RED BLOOD COUNT 4.03 10^6/uL (4.30-6.10); WHITE BLOOD COUNT 7.8 10^3/uL (4.0-10.0)
[2020-07-26 14:06] LABS: ALBUMIN 4.2 GM/DL (3.2-5.2); ALT/SGPT 34 U/L (12-78); BILIRUBIN,TOTAL 0.3 MG/DL (0.2-1.0); BLOOD UREA NITROGEN 13 MG/DL (7-18); CALCIUM LEVEL 9.5 MG/DL (8.8-10.2); CARBON DIOXIDE LEVEL 26 MEQ/L (21-32); CHLORIDE LEVEL 105 MEQ/L (98-107); CHOLESTEROL LEVEL 144 MG/DL (<200); CHOLESTEROL RISK RATIO 3.692 (<5); CREATININE FOR GFR 1.19 MG/DL (0.70-1.30); FREE T4 1.13 NG/DL (0.76-1.46); GLOMERULAR FILTRATION RATE > 60.0 (>49); GLUCOSE, FASTING 105 MG/DL (70-100); HDL CHOLESTEROL 39 MG/DL (>40); LDL CHOLESTEROL 63 MG/DL (<100); NON-HDL-C 105 MG/DL; POTASSIUM SERUM 4.2 MEQ/L (3.5-5.1); SODIUM LEVEL 140 MEQ/L (136-145); TOTAL 25(OH) VITAMIN D 55.3 NG/ML (30.0-100.0); TOTAL PROTEIN 7.4 GM/DL (6.4-8.2); TRIGLYCERIDES LEVEL 210 MG/DL (<150)
[2020-07-26 15:44] LABS: HEMOGLOBIN A1c 5.9 %
== END ==
LOC: M LAB REF 10:54
PROVIDERS: ATTEND Nurse Practitioner Family
DX: E11.65 Type 2 diabetes mellitus with hyperglycemia (principal); I10 Essential (primary) hypertension; E03.9 Hypothyroidism, unspecified

== ENCOUNTER 2020-10-26 12:22 | Inpatient (IN) | payer MEDICARE, MEDICAID ==
[~2020-10-26] VITALS: Ht 172.7 cm; Wt 104.5 kg
[2020-10-26] MEDS ORDERED: ATOR1TAB21 PO (12:33)
[2020-10-26] MEDS ORDERED: LORazepam 1 MG TAB PO STA (13:01)
[2020-10-26 13:26] LABS: HEMATOCRIT 42.1 % (42.0-52.0); HEMOGLOBIN 14.1 g/dl (13.5-17.5); MEAN CORPUSCULAR HEMOGLOBIN 31.3 pg (27.0-33.0); MEAN CORPUSCULAR HGB CONC 33.5 g/dl (32.0-36.5); MEAN CORPUSCULAR VOLUME 93.6 fl (80.0-96.0); PLATELET COUNT, AUTOMATED 195 10^3/uL (150-450); WHITE BLOOD COUNT 8.4 10^3/uL (4.0-10.0)
[2020-10-26] MEDS ORDERED: ERGO500029 PO (13:37)
[2020-10-26] MEDS ORDERED: BENZ-52 PO (13:37)
[2020-10-26 13:57] LABS: AMPHETAMINES LEVEL URINE NEGATIVE (NEGATIVE); BARBITURATES URINE NEGATIVE (NEGATIVE); BENZODIAZEPINES URINE NEGATIVE (NEGATIVE); CANNABINOIDS URINE NEGATIVE (NEGATIVE); COCAINE METABOLITE URINE NEGATIVE (NEGATIVE); METHADONE URINE NEGATIVE (NEGATIVE); OPIATES URINE NEGATIVE (NEGATIVE); PHENCYCLIDINE URINE NEGATIVE (NEGATIVE)
--- NOTE | 2020-10-26 13:57 | REP ---
INDICATION: hypertensive COMPARISON: 04/07/2019 TECHNIQUE: PA and lateral. FINDINGS: The mediastinum and cardiac silhouette are normal. The lung nicolas are clear and without acute consolidation, effusion, or pneumothorax. The skeletal structures are intact and normal. IMPRESSION: No acute cardiopulmonary process. <Electronically signed by Jose Alfredo Butler > 10/26/20 [id number]
[2020-10-26 14:05] LABS: ACETAMINOPHEN LEVEL < 2.0 UG/ML (10.0-30.0); ALBUMIN 4.2 GM/DL (3.2-5.2); ALT/SGPT 28 U/L (12-78); BILIRUBIN,DIRECT 0.1 MG/DL (0.0-0.2); BILIRUBIN,TOTAL 0.5 MG/DL (0.2-1.0); BLOOD UREA NITROGEN 10 MG/DL (7-18); CALCIUM LEVEL 8.7 MG/DL (8.8-10.2); CARBON DIOXIDE LEVEL 29 MEQ/L (21-32); CHLORIDE LEVEL 106 MEQ/L (98-107); CREATININE FOR GFR 0.93 MG/DL (0.70-1.30); ETHYL ALCOHOL (ETHANOL) 0.003 % (0.000-0.010); GLOMERULAR FILTRATION RATE > 60.0 (>49); GLUCOSE, FASTING 126 MG/DL (70-100); POTASSIUM SERUM 3.5 MEQ/L (3.5-5.1); SALICYLATE LEVEL < 1.7 MG/DL (5.0-30.0); SODIUM LEVEL 140 MEQ/L (136-145)
[2020-10-26 14:24] LABS: CK-MB VALUE MASS 1.1 NG/ML (<3.6); CPK CREATINE PHOSPHOKINASE 93 U/L (39-308); MB/CK RELATIVE INDEX 1.18 (< OR =4); TROPONIN I < 0.02 NG/ML (< 0.10)
[2020-10-26] MEDS ORDERED: MAALOX 30 ML SUSP *UDC PO PRN (15:30)
[2020-10-26] MEDS ORDERED: MOM 30ML SUSPENSION UDC PO PRN (15:30)
[2020-10-26 16:42] LABS: RSV AMPLIFICATION NEGATIVE (NEGATIVE)
[2020-10-26 17:30] VITALS: BP 138/75
--- NOTE | 2020-10-26 20:27 | ECGEPIP ---
[facility] - ED Test Date: 2020-10-26 Pat Name: LESLIE ZHANG Department: Room: - Gender: Male Sleep Medicine Physician: DONNA : [id number] Requested By: DANA Wade Order Number: [id number] Reading MD: Toby Rush Measurements Intervals Trail Rate: 97 P: 74 AR: 152 QRS: 69 QRSD: 78 T: 62 QT: 338 QTc: 429 Interpretive Statements Sinus rhythm with premature atrial complexes INCOMPLETE RIGHT BUNDLE BRANCH BLOCK SIMILAR TO 12/04/16 Electronically Signed on 10-26-2020 20:27:22 EDT by Toby Rush
[2020-10-26] MEDS: BENZTROPINE 1 MG TAB PO SCH (22:57)
[2020-10-27] MEDS: LEVOTHYROXINE 100MCG TABLET (0.1MG) PO SCH (06:25)
[2020-10-27 06:47] VITALS: BP 118/79
[2020-10-27] MEDS: EZETIMIBE 10 MG TAB (ZETIA) PO SCH (09:05)
[2020-10-27] MEDS: ATORVASTATIN 20 MG TAB PO SCH (09:05)
[2020-10-27] MEDS: lisinopriL 40 MG TAB PO SCH (09:05)
[2020-10-27] MEDS: ASPIRIN 81MG ENTERIC TABLET PO SCH (09:05)
[2020-10-27] MEDS: BENZTROPINE 1 MG TAB PO SCH ×2 (09:05→21:10)
[2020-10-27] MEDS: metFORMIN XR 500MG TAB *GLUCOPHAGE XR PO SCH (09:06)
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
[2020-10-27] MEDS: risperiDONE 2 MG TAB PO SCH ×2 (12:49→21:10)
--- NOTE | 2020-10-27 13:52 | HPEPDOC ---
[facility] Medical History & Physical Date of Admission Oct 26, 2020 Date of Service: Oct 27, 2020 History and Physical Chief complaint: Presented to the ER with suicidal ideation History of present illness: Patient is a 60-year-old male who presented to the emergency room with suicidal thoughts. Patient was admitted to the inpatient mental health unit under the care of psychiatry. Hospitalist service was consulted for medical screening evaluation. Patient was seen in his room with a test automation architect. Patient denies any headache, nausea, vomiting, chest pain, shortness breath, palpitations, abdominal pain consultation, diarrhea, or urinary discomfort. Reports that his appetite is relatively normal. 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 EKG: See below Assessment and Plan: Suicidal ideation - Presented to ER with complaints of suicidal ideation had reported that he wanted to jump off a bridge - Patients past history of schizophrenia and autism - Has been admitted to inpatient mental health unit under the care of psychiatry - Currently being managed by psychiatry HTN - Blood pressure appears to be well controlled - Continue with Lisinopril Diabetes mellitus type 2 - Will continue with metformin Dyslipidemia - Continue with ezetimibe Hypothyroidism - Continue with levothyroxine DVT prophylaxis - Will c/w early ambulation Female test automation architect was present throughout the duration of this history and physical examination Thank you for this consultation; hospitalist service will now sign off. Please reconsult as needed Vital Signs Vital Signs Date Time Temp Pulse Resp B/P (MAP) Pulse Ox O2 Delivery O2 Flow Rate FiO2 10/27/20 06:47 97.6 69 20 118/79 (92) 97 Room Air Laboratory Data Labs 24H Laboratory Tests 2 10/26/20 15:31: Coronavirus (COVID-19)(PCR) NEGATIVE, Influenza Type A (RT-PCR) NEGATIVE, Influenza Type B (RT-PCR) NEGATIVE, Respiratory Syncytial Virus (PCR) NEGATIVE Home Medications Scheduled Aspirin (Aspirin EC) 81 Mg Tabec, 81 MG PO DAILY Atorvastatin Calcium (Atorvastatin Calcium) 20 Mg Tablet, 20 MG PO DAILY Benztropine Mesylate (Benztropine Mesylate) 1 Mg Tablet, 1 MG PO BID Cholecalciferol (Vitamin D3) (Vitamin D3) 25 Mcg Tablet, 25 MCG PO DAILY Dulaglutide (Trulicity) 0.75 Mg/0.5 Ml Pen.injctr, 0.75 MG SC QWEEK THURSDAY Ergocalciferol (Vitamin D2) (Vitamin D2) 50,000 Units Cap, 50,000 UNITS PO 1XWK TH Ezetimibe (Zetia) 10 Mg Tab, 10 MG PO DAILY Levothyroxine Sodium (Levothyroxine Sodium) 100 Mcg Tablet, 100 MCG PO DAILY Lisinopril (Lisinopril) 40 Mg Tab, 40 MG PO DAILY Metformin HCl (Metformin HCl ER) 500 Mg Tab.er.24h, 1,000 MG PO DAILY Paliperidone Palmitate (Invega Sustenna) 234 Mg/1.5 Ml Syringe, 234 MG IM QMONTH Scheduled PRN Trazodone HCl (Trazodone HCl) 50 Mg Tablet, 50 MG PO QHS PRN for SLEEP Allergies Coded Allergies: Penicillins (Verified Allergy, Mild, 04/14/19) TRACY KEANE MD Oct 27, 2020 13:52
[2020-10-27 16:48] VITALS: BP 146/80
[2020-10-27] MEDS: traZODone 50 MG TAB PO PRN (21:10)
[2020-10-28] MEDS: LEVOTHYROXINE 100MCG TABLET (0.1MG) PO SCH (06:32)
[2020-10-28 06:50] VITALS: BP 116/74
[2020-10-28 07:50] LABS: ALBUMIN 3.7 GM/DL (3.2-5.2); BILIRUBIN,DIRECT 0.1 MG/DL (0.0-0.2); BILIRUBIN,TOTAL 0.4 MG/DL (0.2-1.0); CHOLESTEROL RISK RATIO 3.5 (<5); TOTAL PROTEIN 6.7 GM/DL (6.4-8.2)
[2020-10-28] MEDS: EZETIMIBE 10 MG TAB (ZETIA) PO SCH (08:51)
[2020-10-28] MEDS: metFORMIN XR 500MG TAB *GLUCOPHAGE XR PO SCH (08:51)
[2020-10-28] MEDS: lisinopriL 40 MG TAB PO SCH (08:51)
[2020-10-28] MEDS: BENZTROPINE 1 MG TAB PO SCH ×2 (08:51→20:20)
[2020-10-28] MEDS: ATORVASTATIN 20 MG TAB PO SCH (08:52)
[2020-10-28] MEDS: ASPIRIN 81MG ENTERIC TABLET PO SCH (08:52)
[2020-10-28] MEDS: risperiDONE 2 MG TAB PO SCH ×2 (08:52→20:20)
--- NOTE | 2020-10-28 16:06 | MHIPNPDOC ---
[facility] Progress Note Progress Note DATE OF SERVICE: 10/28/20 HISTORY: As per ED results: "HISTORY OF THE PRESENT ILLNESS: Patient is a 60 -year-old , male, who, as per ED report: "Pt's affect remains very flat throughout entire interview. Pt's thought process is very unorganized and it is difficult to keep Pt on topic. Pt talks about how he is very "unnerved" about his behavior recently. Pt is unable to elaborate on what this behavior consists of but does talk about sexual thoughts at other times throughout the interview. When asked about SI, Pt goes into specific details about jumping off the [place] bridge. He states that he walks over the bridge several times a day and he has picked the spot that he would jump from. 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 Pt denies HI toward anyone else, but is very specific with his thoughts towards his room mate. Pt denies AH/VH however endorses strong thoughts of SI and HI and is unable to contract for safety." VITAL SIGNS: See below. NEW TEST RESULTS: See below CURRENT MEDICATIONS: See below. MENTAL STATUS EXAMINATION: General Appearance: not very disheveled today, hospital scrubs/clothing, wearing his glasses Build: average Demeanor: slightly less preoccupied Eye Contact: improving, less avoidant Activity: average Behavior: cooperative, pleasant Speech: clear, spontaneous, slow, normal volume Mood: less depressed today, not as irritable as he was yesterday Affect: less labile Thought Process: still disorganized but is improving, he is more able to stay on track at this time Thought Content (Delusions): bizarre, paranoia Thought Content (Other): ideas of reference, appears paranoid Thought Content (Aggressive): other (has homicidal ideation, about stabbing his roommate) Perception (Other): none reported Cognition (Impairment of): attention/concentration, ability to abstract Cognition(Intelligence Est.): average Oriented: Awake, Alert, Oriented times three Insight: poor Judgment: Poor Psychosis: Abstract Thinking Diagnoses 1. Paranoid Schizophrenia ASSESSMENT: patient's HDL cholesterol is 38, a little bit low. Encouraged patient to eat a healthy diet. He seems to be slightly less disorganized today but he is still tangential and is difficult to follow at times. He is compliant with Risperdal 2 mgs PO BID and other medications. He still brings lots of sexual themes into the conversation but it is less than yesterday. He is not aggressive, not angry, not violent, not impulsive at this time. He is not in danger to self or others. MANAGEMENT PLAN: Will continue with current treatment plan TIME SPENT: 20 minutes. Vital Signs Vital Signs Date Time Temp Pulse Resp B/P (MAP) Pulse Ox O2 Delivery O2 Flow Rate FiO2 10/28/20 06:50 97.4 64 20 116/74 (88) 96 Room Air Laboratory Data 24H Labs Laboratory Tests 2 10/28/20 06:39: Total Bilirubin 0.4, Direct Bilirubin 0.1, Aspartate Amino Transf (AST/SGOT) 15, Alanine Aminotransferase (ALT/SGPT) 27, Alkaline Phosphatase 87, Total Protein 6.7, Albumin 3.7, Albumin/Globulin Ratio 1.2, Triglycerides Level 113, Total Cholesterol 133, LDL Cholesterol 72, Non-HDL Cholesterol (LDL + VLDL) 95, Total HDL Cholesterol 38L, Cholesterol/HDL Ratio 3.500 Current Medications Current Medications Medications (Trade) Dose Ordered Sig/Vidal Route PRN Reason Start Time Stop Time Status Last Admin Dose Admin Acetaminophen (Tylenol Tab) 650 mg Q6HP PRN PO HEADACHE or MILD DISCOMFORT 10/26/20 15:30 Al Hydrox/Mg Hydrox/Simethicone (Mylanta) 30 ml Q4HP PRN PO HEARTBURN/INDIGESTION 10/26/20 15:30 Aspirin (Ecotrin) 81 mg DAILY PO 10/27/20 09:00 10/28/20 08:52 Atorvastatin Calcium (Lipitor) 20 mg DAILY PO 10/27/20 09:00 10/28/20 08:52 Benztropine Mesylate (Cogentin) 1 mg BID PO 10/26/20 21:00 10/28/20 08:51 EZETIMIBE (Zetia) 10 mg DAILY PO 10/27/20 09:00 10/28/20 08:51 Home Med (Med Rec Complete!) ASDIRECTED XX 7/2/21 13:40 10/26/20 13:42 DC Levothyroxine Sodium (Synthroid) 100 mcg DAILY@0600 PO 10/27/20 06:00 10/28/20 06:32 Lisinopril (Prinivil) 40 mg DAILY PO 10/27/20 09:00 10/28/20 08:51 Lorazepam (Ativan) 1 mg STAT STAT PO 10/26/20 13:01 10/26/20 13:03 DC 10/26/20 13:11 Magnesium Hydroxide (Milk Of Magnesia) 30 ml DAILYPRN PRN PO CONSTIPATION 10/26/20 15:30 Metformin HCl (Glucophage Xr) 1,000 mg DAILY PO 10/27/20 09:00 10/28/20 08:51 Risperidone (RisperDAL) 2 mg BID PO 10/27/20 09:00 10/28/20 08:52 Trazodone HCl (Desyrel) 50 mg QHSP PRN PO INSOMNIA 10/26/20 15:30 10/27/20 21:10 Allergies Coded Allergies: Penicillins (Verified Allergy, Mild, 04/14/19) DALJIT MAHAJAN MD Oct 28, 2020 15:53
[2020-10-28] MEDS: traZODone 50 MG TAB PO PRN (20:20)
[2020-10-29] MEDS: LEVOTHYROXINE 100MCG TABLET (0.1MG) PO SCH (06:07)
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
[2020-10-29] MEDS: metFORMIN XR 500MG TAB *GLUCOPHAGE XR PO SCH (09:18)
[2020-10-29] MEDS: BENZTROPINE 1 MG TAB PO SCH ×2 (09:18→20:01)
[2020-10-29] MEDS: risperiDONE 2 MG TAB PO SCH ×2 (09:18→20:01)
[2020-10-29] MEDS: ATORVASTATIN 20 MG TAB PO SCH (09:18)
[2020-10-29] MEDS: EZETIMIBE 10 MG TAB (ZETIA) PO SCH (09:18)
[2020-10-29] MEDS: lisinopriL 40 MG TAB PO SCH (09:18)
[2020-10-29] MEDS: ASPIRIN 81MG ENTERIC TABLET PO SCH (09:18)
[2020-10-29] MEDS: traZODone 50 MG TAB PO PRN (20:01)
[2020-10-30] MEDS: LEVOTHYROXINE 100MCG TABLET (0.1MG) PO SCH (05:28)
[2020-10-30 06:42] VITALS: BP 125/62
--- NOTE | 2020-10-30 08:30 | MHIPNPDOC ---
[facility] Progress Note Progress Note DATE OF SERVICE: 10/30/20 The patient is fully cooperating with the medicine and is showing slight improvement today. He is still somewhat withdrawn and preoccupied, and again expressed concern about his roommate, but is much less irritable and his paranoia is not as intense. His affect is a little more animated and his speech is not as long winded and not as fragmented and better organized. He is not expressing any more homicidal thoughts, but wants his concern to be related to his [facility]. HISTORY: . VITAL SIGNS: See below. NEW TEST RESULTS: . CURRENT MEDICATIONS: See below. MENTAL STATUS EXAMINATION: Patient is a 60-year old male, who is in no acute distress and cooperative. Speech: Is better organized and more relevant. Language skills are good . Thought processes including: , Coherent. Thought content: Brianna paranoia about his roommate, but denies any homicidal thoughts. Abstract reasoning, and computation: poor. Description of associations : More relevant. Description of abnormal or psychotic thoughts: Remained paranoid about his roommate but expressing no lethality and no aggressive thoughts. Judgment: poor. Insight: poor. Orientation: , Oriented. Recent and remote memory: No gross impairment.. Attention span and concentration: . Language: . Fund of knowledge: . Mood: Denies any serious depression but moderately anxious. Affect: Quite blunted and preoccupied. DIAGNOSES: 1. ., Schizophrenia, paranoid 2. . 3. . ASSESSMENT:Showing slight improvement MANAGEMENT PLAN: Needs further stabilization with his medicine and supportive therapy. TIME SPENT: 20 minutes. Vital Signs Vital Signs Date Time Temp Pulse Resp B/P (MAP) Pulse Ox O2 Delivery O2 Flow Rate FiO2 10/30/20 06:42 97.6 86 18 125/62 (83) 97 Room Air Current Medications Current Medications Medications (Trade) Dose Ordered Sig/Vidal Route PRN Reason Start Time Stop Time Status Last Admin Dose Admin Acetaminophen (Tylenol Tab) 650 mg Q6HP PRN PO HEADACHE or MILD DISCOMFORT 10/26/20 15:30 Al Hydrox/Mg Hydrox/Simethicone (Mylanta) 30 ml Q4HP PRN PO HEARTBURN/INDIGESTION 10/26/20 15:30 Aspirin (Ecotrin) 81 mg DAILY PO 10/27/20 09:00 10/29/20 09:18 Atorvastatin Calcium (Lipitor) 20 mg DAILY PO 10/27/20 09:00 10/29/20 09:18 Benztropine Mesylate (Cogentin) 1 mg BID PO 10/26/20 21:00 10/29/20 20:01 EZETIMIBE (Zetia) 10 mg DAILY PO 10/27/20 09:00 10/29/20 09:18 Home Med (Med Rec Complete!) ASDIRECTED XX 10/26/20 13:40 10/26/20 13:42 DC Levothyroxine Sodium (Synthroid) 100 mcg DAILY@0600 PO 10/27/20 06:00 10/30/20 05:28 Lisinopril (Prinivil) 40 mg DAILY PO 10/27/20 09:00 10/29/20 09:18 Lorazepam (Ativan) 1 mg STAT STAT PO 10/26/20 13:01 10/26/20 13:03 DC 10/26/20 13:11 Magnesium Hydroxide (Milk Of Magnesia) 30 ml DAILYPRN PRN PO CONSTIPATION 10/26/20 15:30 Metformin HCl (Glucophage Xr) 1,000 mg DAILY PO 10/27/20 09:00 10/29/20 09:18 Risperidone (RisperDAL) 2 mg BID PO 10/27/20 09:00 10/29/20 20:01 Trazodone HCl (Desyrel) 50 mg QHSP PRN PO INSOMNIA 10/26/20 15:30 10/29/20 20:01 Allergies Coded Allergies: Penicillins (Verified Allergy, Mild, 04/14/19) DARREL TRIVEDI M.D. Oct 30, 2020 08:30
[2020-10-30] MEDS: ATORVASTATIN 20 MG TAB PO SCH (08:43)
[2020-10-30] MEDS: metFORMIN XR 500MG TAB *GLUCOPHAGE XR PO SCH (08:43)
[2020-10-30] MEDS: lisinopriL 40 MG TAB PO SCH (08:43)
[2020-10-30] MEDS: BENZTROPINE 1 MG TAB PO SCH ×2 (08:43→20:27)
[2020-10-30] MEDS: EZETIMIBE 10 MG TAB (ZETIA) PO SCH (08:44)
[2020-10-30] MEDS: risperiDONE 2 MG TAB PO SCH ×2 (08:44→20:27)
[2020-10-30] MEDS: ASPIRIN 81MG ENTERIC TABLET PO SCH (08:44)
[2020-10-30 18:26] VITALS: BP 147/85
[2020-10-30] MEDS: traZODone 50 MG TAB PO PRN (20:27)
[2020-10-31] MEDS: LEVOTHYROXINE 100MCG TABLET (0.1MG) PO SCH (05:39)
[2020-10-31 06:25] VITALS: BP 115/59
[2020-10-31] MEDS: metFORMIN XR 500MG TAB *GLUCOPHAGE XR PO SCH (09:22)
[2020-10-31] MEDS: ATORVASTATIN 20 MG TAB PO SCH (09:22)
[2020-10-31] MEDS: risperiDONE 2 MG TAB PO SCH ×3 (09:22→21:50)
[2020-10-31] MEDS: ASPIRIN 81MG ENTERIC TABLET PO SCH (09:22)
[2020-10-31] MEDS: lisinopriL 40 MG TAB PO SCH (09:23)
[2020-10-31] MEDS: BENZTROPINE 1 MG TAB PO SCH ×2 (09:23→21:50)
[2020-10-31] MEDS: EZETIMIBE 10 MG TAB (ZETIA) PO SCH (09:23)
[2020-10-31 19:02] VITALS: BP 135/82
[2020-11-01] MEDS: LEVOTHYROXINE 100MCG TABLET (0.1MG) PO SCH (06:19)
[2020-11-01 06:40] VITALS: BP 98/50
[2020-11-01] MEDS: risperiDONE 2 MG TAB PO SCH ×3 (09:00→20:12)
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
[2020-11-01] MEDS: metFORMIN XR 500MG TAB *GLUCOPHAGE XR PO SCH (09:50)
[2020-11-01] MEDS: ATORVASTATIN 20 MG TAB PO SCH (09:50)
[2020-11-01] MEDS: EZETIMIBE 10 MG TAB (ZETIA) PO SCH (09:50)
[2020-11-01] MEDS: ASPIRIN 81MG ENTERIC TABLET PO SCH (09:50)
[2020-11-01] MEDS: BENZTROPINE 1 MG TAB PO SCH ×2 (09:50→20:12)
[2020-11-01] MEDS: lisinopriL 40 MG TAB PO SCH (09:50)
[2020-11-01 17:01] VITALS: BP 121/62
[2020-11-01] MEDS: traZODone 50 MG TAB PO PRN (20:12)
[2020-11-02 06:00] VITALS: BP 115/56
[2020-11-02] MEDS: LEVOTHYROXINE 100MCG TABLET (0.1MG) PO SCH (06:11)
--- NOTE | 2020-11-02 08:29 | MHIPNPDOC ---
[facility] Progress Note Progress Note DATE OF SERVICE: 11/02/20 The patient is fully cooperated with his increased risperidone yesterday. He stated that he slept very well and is feeling a little better today. He appears less irritable and less preoccupied and is not rambling as much. He is still very preoccupied with his roommate with marked paranoid flavor but is denying any active homicidal or aggressive thoughts. HISTORY:. VITAL SIGNS: See below. NEW TEST RESULTS:. CURRENT MEDICATIONS: See below. MENTAL STATUS EXAMINATION: Patient is a 62-year old male, who is in no acute distress. Speech: Is relevant and not as circumstantial. Language skills are fair. Thought processes including: A little more coherent. Thought content: Still preoccupied with marked the paranoid thoughts. Abstract reasoning, and computation: Poor. Description of associations: Better organized. Description of abnormal or psychotic thoughts: Remains very paranoid. Judgment: Poor. Insight: Poor. Orientation: Appears oriented. Recent and remote memory: No gross impairment. Attention span and concentration:. Language:. Fund of knowledge:. Mood: Not as irritable. Affect: Blunted and preoccupied. DIAGNOSES: 1.. Schizophrenia paranoid type 2.. 3.. ASSESSMENT: Is cooperating with the medicine and not showing any agitated behavior MANAGEMENT PLAN: Needs further stabilization with his increase the risperidone and supportive therapy. TIME SPENT: 20 minutes. Vital Signs Vital Signs Date Time Temp Pulse Resp B/P (MAP) Pulse Ox O2 Delivery O2 Flow Rate FiO2 11/02/20 06:00 97.3 73 20 115/56 (75) 95 11/01/20 06:40 Room Air Current Medications Current Medications Medications (Trade) Dose Ordered Sig/Vidal Route PRN Reason Start Time Stop Time Status Last Admin Dose Admin Acetaminophen (Tylenol Tab) 650 mg Q6HP PRN PO HEADACHE or MILD DISCOMFORT 10/26/20 15:30 Al Hydrox/Mg Hydrox/Simethicone (Mylanta) 30 ml Q4HP PRN PO HEARTBURN/INDIGESTION 10/26/20 15:30 Aspirin (Ecotrin) 81 mg DAILY PO 10/27/20 09:00 11/01/20 09:50 Atorvastatin Calcium (Lipitor) 20 mg DAILY PO 10/27/20 09:00 11/01/20 09:50 Benztropine Mesylate (Cogentin) 1 mg BID PO 10/26/20 21:00 11/01/20 20:12 EZETIMIBE (Zetia) 10 mg DAILY PO 10/27/20 09:00 11/01/20 09:50 Home Med (Med Rec Complete!) ASDIRECTED XX 10/26/20 13:40 10/26/20 13:42 DC Levothyroxine Sodium (Synthroid) 100 mcg DAILY@0600 PO 10/27/20 06:00 11/02/20 06:11 Lisinopril (Prinivil) 40 mg DAILY PO 10/27/20 09:00 11/01/20 09:50 Lorazepam (Ativan) 1 mg STAT STAT PO 10/26/20 13:01 10/26/20 13:03 DC 10/26/20 13:11 Magnesium Hydroxide (Milk Of Magnesia) 30 ml DAILYPRN PRN PO CONSTIPATION 10/26/20 15:30 Metformin HCl (Glucophage Xr) 1,000 mg DAILY PO 10/27/20 09:00 11/01/20 09:50 Risperidone (RisperDAL) 2 mg BID PO 10/27/20 09:00 11/01/20 09:05 DC 10/31/20 09:22 Risperidone (RisperDAL) 2 mg QAM PO 11/01/20 09:00 11/01/20 11:34 Risperidone (RisperDAL) 4 mg QHS PO 11/01/20 21:00 11/01/20 20:12 Trazodone HCl (Desyrel) 50 mg QHSP PRN PO INSOMNIA 10/26/20 15:30 11/01/20 20:12 Allergies Coded Allergies: Penicillins (Verified Allergy, Mild, 04/14/19) DARREL TRIVEDI M.D. Nov 02, 2020 08:29
[2020-11-02] MEDS: ATORVASTATIN 20 MG TAB PO SCH (09:16)
[2020-11-02] MEDS: EZETIMIBE 10 MG TAB (ZETIA) PO SCH (09:16)
[2020-11-02] MEDS: metFORMIN XR 500MG TAB *GLUCOPHAGE XR PO SCH (09:16)
[2020-11-02] MEDS: BENZTROPINE 1 MG TAB PO SCH ×2 (09:17→21:00)
[2020-11-02] MEDS: risperiDONE 2 MG TAB PO SCH ×2 (09:17→21:00)
[2020-11-02] MEDS: ASPIRIN 81MG ENTERIC TABLET PO SCH (09:17)
[2020-11-02] MEDS: lisinopriL 40 MG TAB PO SCH (09:17)
[2020-11-02] MEDS ORDERED: PALIPERIDONE PALMITATE 234MG/1.5ML INJ (INVEGA)(FREE PSY INPT ONLY) IM ONE (13:00)
[2020-11-02 18:34] VITALS: BP 135/73
[2020-11-03] MEDS: LEVOTHYROXINE 100MCG TABLET (0.1MG) PO SCH (05:20)
[2020-11-03 05:52] VITALS: BP 125/72
[2020-11-03] MEDS: risperiDONE 2 MG TAB PO SCH ×2 (09:00→21:00)
[2020-11-03] MEDS: metFORMIN XR 500MG TAB *GLUCOPHAGE XR PO SCH (09:49)
[2020-11-03] MEDS: BENZTROPINE 1 MG TAB PO SCH ×2 (09:49→21:00)
[2020-11-03] MEDS: EZETIMIBE 10 MG TAB (ZETIA) PO SCH (09:49)
[2020-11-03] MEDS: lisinopriL 40 MG TAB PO SCH (09:50)
[2020-11-03] MEDS: ASPIRIN 81MG ENTERIC TABLET PO SCH (09:50)
[2020-11-03] MEDS: ATORVASTATIN 20 MG TAB PO SCH (09:50)
[2020-11-03 16:07] VITALS: BP 157/83
[2020-11-04] MEDS: LEVOTHYROXINE 100MCG TABLET (0.1MG) PO SCH (05:09)
[2020-11-04 05:33] VITALS: BP 111/56
[2020-11-04] MEDS: risperiDONE 2 MG TAB PO SCH ×2 (08:37→22:10)
[2020-11-04] MEDS: ASPIRIN 81MG ENTERIC TABLET PO SCH (08:37)
[2020-11-04] MEDS: metFORMIN XR 500MG TAB *GLUCOPHAGE XR PO SCH (08:37)
[2020-11-04] MEDS: EZETIMIBE 10 MG TAB (ZETIA) PO SCH (08:37)
[2020-11-04] MEDS: lisinopriL 40 MG TAB PO SCH (08:38)
[2020-11-04] MEDS: ATORVASTATIN 20 MG TAB PO SCH (08:38)
[2020-11-04] MEDS: BENZTROPINE 1 MG TAB PO SCH ×2 (08:38→22:10)
[2020-11-04 18:33] VITALS: BP 137/65
[2020-11-05] MEDS: LEVOTHYROXINE 100MCG TABLET (0.1MG) PO SCH (05:13)
[2020-11-05 06:07] VITALS: BP 119/70
[2020-11-05] MEDS: risperiDONE 2 MG TAB PO SCH ×2 (08:22→19:53)
[2020-11-05] MEDS: ASPIRIN 81MG ENTERIC TABLET PO SCH (08:22)
[2020-11-05] MEDS: BENZTROPINE 1 MG TAB PO SCH ×2 (08:22→19:53)
[2020-11-05] MEDS: EZETIMIBE 10 MG TAB (ZETIA) PO SCH (08:22)
[2020-11-05] MEDS: metFORMIN XR 500MG TAB *GLUCOPHAGE XR PO SCH (08:22)
[2020-11-05] MEDS: lisinopriL 40 MG TAB PO SCH (08:22)
[2020-11-05] MEDS: ATORVASTATIN 20 MG TAB PO SCH (08:22)
--- NOTE | 2020-11-05 08:40 | MHIPNPDOC ---
[facility] Progress Note Progress Note DATE OF SERVICE: 11/05/20 Patient remains somewhat guarded and withdrawn but is not as irritable and much more pleasant on approach. He stated that he is not as concerned with his room mate and feels like he can live with him if he needs to. He is now expressing more baptism preoccupations claiming that the other patients were laughing at him when he tried to talk about Ameya. He is denying any command hallucinations stated that he is overall feeling better and does not have any thoughts of suicide or hurting his roommate. Overall he is much more pleasant and not as irritable or angry and maintaining good control. We will ask his [facility] to evaluate if he is at his baseline. HISTORY:. VITAL SIGNS: See below. NEW TEST RESULTS:. CURRENT MEDICATIONS: See below. MENTAL STATUS EXAMINATION: Patient is a 62-year old male, who is in no acute distress. Speech: Is still quite circumstantial and showing some baptism preoccupations. Language skills are fair. Thought processes including: Relevant but circumstantial. Thought content: Presybeterian preoccupation and paranoia ideas about his roommate. Abstract reasoning, and computation: Poor. Description of associations: Relevant. Description of abnormal or psychotic thoughts: Denies any command hallucination and denies any homicidal or suicidal thoughts. Judgment: Poor. Insight: Poor. Orientation: Oriented. Recent and remote memory: No gross impairment. Attention span and concentration: Poor. Language:. Fund of knowledge:. Mood: Not as angry or hostile feeling better. Affect: Blunted but appropriate. DIAGNOSES: 1.. Chronic schizophrenia 2.. 3.. ASSESSMENT: Slight improvement and maintaining good control MANAGEMENT PLAN: Continue with the current treatment assess his baseline. TIME SPENT: 20 minutes. Vital Signs Vital Signs Date Time Temp Pulse Resp B/P (MAP) Pulse Ox O2 Delivery O2 Flow Rate FiO2 11/05/20 06:07 97.2 81 20 119/70 (86) 97 Room Air Current Medications Current Medications Medications (Trade) Dose Ordered Sig/Vidal Route PRN Reason Start Time Stop Time Status Last Admin Dose Admin Acetaminophen (Tylenol Tab) 650 mg Q6HP PRN PO HEADACHE or MILD DISCOMFORT 10/26/20 15:30 Al Hydrox/Mg Hydrox/Simethicone (Mylanta) 30 ml Q4HP PRN PO HEARTBURN/INDIGESTION 10/26/20 15:30 Aspirin (Ecotrin) 81 mg DAILY PO 10/27/20 09:00 11/05/20 08:22 Atorvastatin Calcium (Lipitor) 20 mg DAILY PO 10/27/20 09:00 11/05/20 08:22 Benztropine Mesylate (Cogentin) 1 mg BID PO 10/26/20 21:00 11/05/20 08:22 EZETIMIBE (Zetia) 10 mg DAILY PO 10/27/20 09:00 11/05/20 08:22 Home Med (Med Rec Complete!) ASDIRECTED XX 10/26/20 13:40 10/26/20 13:42 DC Levothyroxine Sodium (Synthroid) 100 mcg DAILY@0600 PO 10/27/20 06:00 11/05/20 05:13 Lisinopril (Prinivil) 40 mg DAILY PO 10/27/20 09:00 11/05/20 08:22 Lorazepam (Ativan) 1 mg STAT STAT PO 10/26/20 13:01 10/26/20 13:03 DC 10/26/20 13:11 Magnesium Hydroxide (Milk Of Magnesia) 30 ml DAILYPRN PRN PO CONSTIPATION 10/26/20 15:30 Metformin HCl (Glucophage Xr) 1,000 mg DAILY PO 10/27/20 09:00 11/05/20 08:22 Risperidone (RisperDAL) 2 mg BID PO 10/27/20 09:00 11/01/20 09:05 DC 10/31/20 09:22 Risperidone (RisperDAL) 2 mg QAM PO 11/01/20 09:00 11/05/20 08:22 Risperidone (RisperDAL) 4 mg QHS PO 11/01/20 21:00 11/01/20 20:12 Trazodone HCl (Desyrel) 50 mg QHSP PRN PO INSOMNIA 10/26/20 15:30 11/01/20 20:12 Allergies Coded Allergies: Penicillins (Verified Allergy, Mild, 04/14/19) DARREL TRIVEDI M.D. Nov 05, 2020 08:40
[2020-11-05 17:04] VITALS: BP 101/57
[2020-11-05] MEDS: traZODone 50 MG TAB PO PRN (19:53)
[2020-11-06] MEDS: LEVOTHYROXINE 100MCG TABLET (0.1MG) PO SCH (05:53)
[2020-11-06 06:00] VITALS: BP 107/60
[2020-11-06 06:36] VITALS: BP 107/60
[2020-11-06] MEDS: metFORMIN XR 500MG TAB *GLUCOPHAGE XR PO SCH (08:13)
[2020-11-06] MEDS: EZETIMIBE 10 MG TAB (ZETIA) PO SCH (08:13)
[2020-11-06] MEDS: BENZTROPINE 1 MG TAB PO SCH ×2 (08:13→21:15)
[2020-11-06] MEDS: ASPIRIN 81MG ENTERIC TABLET PO SCH (08:13)
[2020-11-06] MEDS: risperiDONE 2 MG TAB PO SCH ×2 (08:14→21:15)
[2020-11-06] MEDS: ATORVASTATIN 20 MG TAB PO SCH (08:14)
[2020-11-06] MEDS: lisinopriL 40 MG TAB PO SCH (08:15)
--- NOTE | 2020-11-06 10:48 | MHIPNPDOC ---
[facility] Progress Note Progress Note DATE OF SERVICE: 11/06/20 The patient is fully cooperated with his medicine and took his risperidone last night. He has no complaint of side effect and is in no acute physical distress. His thoughts are still very scattered and preoccupied with paranoid thoughts about his roommate and many faith issues and is ruminating and very withdrawn. He is denying any aggressive thoughts to his roommate but still feeling irritated and angry but also his rambling about his faith beliefs and complains that the other people does not seem to understand them and is fe eling angry. His behavior is in control but his mental status is not showing much improvement. HISTORY:. VITAL SIGNS: See below. NEW TEST RESULTS:. CURRENT MEDICATIONS: See below. MENTAL STATUS EXAMINATION: Patient is a 62-year old male, who is in no acute distress. Speech: Is rambling and circumstantial. Language skills are poor. Thought processes including: Very loose and circumstantial. Thought content: Marked paranoid and faith preoccupations. Abstract reasoning, and computation: Poor. Description of associations: Disorganized. Description of abnormal or psychotic thoughts: Paranoid and religiously preoccupied. Judgment: Poor. Insight: Poor. Orientation: Appears oriented. Recent and remote memory: No gross impairment. Attention span and concentration: Poor. Language:. Fund of knowledge:. Mood: Feeling angry. Affect: Blunted preoccupied. DIAGNOSES: 1.. Schizophrenia paranoid type 2.. 3.. ASSESSMENT: No significant improvement MANAGEMENT PLAN: Continue with his medications for stabilization and supportive therapy. TIME SPENT: 20 minutes. Vital Signs Vital Signs Date Time Temp Pulse Resp B/P (MAP) Pulse Ox O2 Delivery O2 Flow Rate FiO2 11/06/20 06:36 96.0 106 18 107/60 (76) 96 Room Air Current Medications Current Medications Medications (Trade) Dose Ordered Sig/Vidal Route PRN Reason Start Time Stop Time Status Last Admin Dose Admin Acetaminophen (Tylenol Tab) 650 mg Q6HP PRN PO HEADACHE or MILD DISCOMFORT 10/26/20 15:30 Al Hydrox/Mg Hydrox/Simethicone (Mylanta) 30 ml Q4HP PRN PO HEARTBURN/INDIGESTION 10/26/20 15:30 Aspirin (Ecotrin) 81 mg DAILY PO 10/27/20 09:00 11/06/20 08:13 Atorvastatin Calcium (Lipitor) 20 mg DAILY PO 10/27/20 09:00 11/06/20 08:14 Benztropine Mesylate (Cogentin) 1 mg BID PO 10/26/20 21:00 11/06/20 08:13 EZETIMIBE (Zetia) 10 mg DAILY PO 10/27/20 09:00 11/06/20 08:13 Home Med (Med Rec Complete!) ASDIRECTED XX 10/26/20 13:40 10/26/20 13:42 DC Levothyroxine Sodium (Synthroid) 100 mcg DAILY@0600 PO 10/27/20 06:00 11/06/20 05:53 Lisinopril (Prinivil) 40 mg DAILY PO 10/27/20 09:00 11/05/20 08:22 Lorazepam (Ativan) 1 mg STAT STAT PO 10/26/20 13:01 10/26/20 13:03 DC 10/26/20 13:11 Magnesium Hydroxide (Milk Of Magnesia) 30 ml DAILYPRN PRN PO CONSTIPATION 10/26/20 15:30 Metformin HCl (Glucophage Xr) 1,000 mg DAILY PO 10/27/20 09:00 11/06/20 08:13 Risperidone (RisperDAL) 2 mg BID PO 10/27/20 09:00 11/01/20 09:05 DC 10/31/20 09:22 Risperidone (RisperDAL) 2 mg QAM PO 11/01/20 09:00 11/06/20 08:14 Risperidone (RisperDAL) 4 mg QHS PO 11/01/20 21:00 11/05/20 19:53 Trazodone HCl (Desyrel) 50 mg QHSP PRN PO INSOMNIA 10/26/20 15:30 11/05/20 19:53 Allergies Coded Allergies: Penicillins (Verified Allergy, Mild, 04/14/19) DARREL TRIVEDI M.D. Nov 06, 2020 10:48
[2020-11-06 17:04] VITALS: BP 152/75
[2020-11-06] MEDS: traZODone 50 MG TAB PO PRN (21:18)
[2020-11-07] MEDS: LEVOTHYROXINE 100MCG TABLET (0.1MG) PO SCH (05:41)
[2020-11-07 06:18] VITALS: BP 143/72
[2020-11-07] MEDS: EZETIMIBE 10 MG TAB (ZETIA) PO SCH (08:45)
[2020-11-07] MEDS: lisinopriL 40 MG TAB PO SCH (08:45)
[2020-11-07] MEDS: BENZTROPINE 1 MG TAB PO SCH ×2 (08:46→21:32)
[2020-11-07] MEDS: ASPIRIN 81MG ENTERIC TABLET PO SCH (08:46)
[2020-11-07] MEDS: risperiDONE 2 MG TAB PO SCH ×2 (08:46→21:32)
[2020-11-07] MEDS: ATORVASTATIN 20 MG TAB PO SCH (08:46)
[2020-11-07] MEDS: metFORMIN XR 500MG TAB *GLUCOPHAGE XR PO SCH (08:47)
--- NOTE | 2020-11-07 09:54 | MHIPNPDOC ---
[facility] Progress Note Progress Note DATE OF SERVICE: 11/07/20 Patient took his nighttime risperidone and has no new complaint. He stated that he slept very well last night and and no complaint of side effect. He is hinojosa roula showing no improvement in his disorganized thinking and continue to ramble about Bible and his roommate with marked the paranoid flavor. His behavior is in control but remains markedly withdrawn and preoccupied and showing minimum insight. HISTORY:. VITAL SIGNS: See below. NEW TEST RESULTS:. CURRENT MEDICATIONS: See below. MENTAL STATUS EXAMINATION: Patient is a 62-year old male, who is in bed in no acute distress. Speech: Is long winded and circumstantial. Language skills are fair. Thought processes including: Very circumstantial. Thought content: Adventism and paranoid preoccupations. Abstract reasoning, and computation: Poor. Description of associations: Somewhat disorganized. Description of abnormal or psychotic thoughts: Remains markedly paranoid. Judgment: Poor. Insight: poor]. Orientation: Oriented. Recent and remote memory: No gross impairment. Attention span and concentration: Poor. Language:. Fund of knowledge:. Mood: Not as irritable angry. Affect: Blunted inappropriate. DIAGNOSES: 1.. Schizophrenia paranoid 2.. 3.. ASSESSMENT: No significant improvement MANAGEMENT PLAN: Needs stabilization with his medications and supportive therapy. TIME SPENT: 20 minutes. Vital Signs Vital Signs Date Time Temp Pulse Resp B/P (MAP) Pulse Ox O2 Delivery O2 Flow Rate FiO2 11/07/20 06:18 97.5 73 18 143/72 (95) 94 Room Air Current Medications Current Medications Medications (Trade) Dose Ordered Sig/Vidal Route PRN Reason Start Time Stop Time Status Last Admin Dose Admin Acetaminophen (Tylenol Tab) 650 mg Q6HP PRN PO HEADACHE or MILD DISCOMFORT 10/26/20 15:30 Al Hydrox/Mg Hydrox/Simethicone (Mylanta) 30 ml Q4HP PRN PO HEARTBURN/INDIGESTION 10/26/20 15:30 Aspirin (Ecotrin) 81 mg DAILY PO 10/27/20 09:00 11/07/20 08:46 Atorvastatin Calcium (Lipitor) 20 mg DAILY PO 10/27/20 09:00 11/07/20 08:46 Benztropine Mesylate (Cogentin) 1 mg BID PO 10/26/20 21:00 11/07/20 08:46 EZETIMIBE (Zetia) 10 mg DAILY PO 10/27/20 09:00 11/07/20 08:45 Home Med (Med Rec Complete!) ASDIRECTED XX 10/26/20 13:40 10/26/20 13:42 DC Levothyroxine Sodium (Synthroid) 100 mcg DAILY@0600 PO 10/27/20 06:00 11/07/20 05:41 Lisinopril (Prinivil) 40 mg DAILY PO 10/27/20 09:00 11/07/20 08:45 Lorazepam (Ativan) 1 mg STAT STAT PO 10/26/20 13:01 10/26/20 13:03 DC 10/26/20 13:11 Magnesium Hydroxide (Milk Of Magnesia) 30 ml DAILYPRN PRN PO CONSTIPATION 10/26/20 15:30 Metformin HCl (Glucophage Xr) 1,000 mg DAILY PO 10/27/20 09:00 11/07/20 08:47 Risperidone (RisperDAL) 2 mg BID PO 10/27/20 09:00 11/01/20 09:05 DC 10/31/20 09:22 Risperidone (RisperDAL) 2 mg QAM PO 11/01/20 09:00 11/07/20 08:46 Risperidone (RisperDAL) 4 mg QHS PO 11/01/20 21:00 11/06/20 21:15 Trazodone HCl (Desyrel) 50 mg QHSP PRN PO INSOMNIA 10/26/20 15:30 11/06/20 21:18 Allergies Coded Allergies: Penicillins (Verified Allergy, Mild, 04/14/19) DARREL TRIVEDI M.D. Nov 07, 2020 09:54
[2020-11-07 17:20] VITALS: BP 135/74
[2020-11-07] MEDS: traZODone 50 MG TAB PO PRN (21:32)
[2020-11-08] MEDS: LEVOTHYROXINE 100MCG TABLET (0.1MG) PO SCH (05:31)
[2020-11-08 05:56] VITALS: BP 108/70
[2020-11-08 06:00] VITALS: BP 108/70
[2020-11-08] MEDS: risperiDONE 2 MG TAB PO SCH ×2 (08:37→20:35)
[2020-11-08] MEDS: lisinopriL 40 MG TAB PO SCH (08:37)
[2020-11-08] MEDS: BENZTROPINE 1 MG TAB PO SCH ×2 (08:37→20:35)
[2020-11-08] MEDS: EZETIMIBE 10 MG TAB (ZETIA) PO SCH (08:37)
[2020-11-08] MEDS: ATORVASTATIN 20 MG TAB PO SCH (08:38)
[2020-11-08] MEDS: metFORMIN XR 500MG TAB *GLUCOPHAGE XR PO SCH (08:38)
[2020-11-08] MEDS: ASPIRIN 81MG ENTERIC TABLET PO SCH (08:38)
--- NOTE | 2020-11-08 09:27 | MHIPNPDOC ---
[facility] Progress Note Progress Note DATE OF SERVICE: 11/08/20 The patient is fully cooperating with the medicine maintaining good control. He is not reporting any new issues and stated that he is not so worried about his roommate is willing to return to the same living situation as long as the staff is understanding willing to listen to his concern. He strongly denies any suicidal or homicidal thoughts. He seems to be in much he better spirit and reports that he is sleeping much better and does not feel so tired and feeling better overall. He is still circumstantial at times and religiously preoccupied but no acting out behavior. HISTORY:. VITAL SIGNS: See below. NEW TEST RESULTS:. CURRENT MEDICATIONS: See below. MENTAL STATUS EXAMINATION: Patient is a 62-year old male, who is in bed in no acute distress. Speech: Is relevant and productive. Language skills are fair. Thought processes including: Not as circumstantial. Thought content: Decreased the preoccupation with his paranoid fear. Abstract reasoning, and computation: Poor. Description of associations: A little better organized. Description of abnormal or psychotic thoughts: Moderate paranoid thoughts and congregation preoccupation. Judgment: Poor. Insight: Poor. Orientation: Is oriented. Recent and remote memory: No gross impairment. Attention span and concentration: Fair. Language:. Fund of knowledge:. Mood: Not as angry or hostile reports feeling better. Affect: Blunted. DIAGNOSES: 1.. Schizophrenia paranoid type 2.. 3.. ASSESSMENT: Cooperating with the medicine and slight improvement MANAGEMENT PLAN: Continue with the current treatment contact his senior living for possible return. TIME SPENT: 20 minutes. Vital Signs Vital Signs Date Time Temp Pulse Resp B/P (MAP) Pulse Ox O2 Delivery O2 Flow Rate FiO2 11/08/20 05:56 97.0 72 16 108/70 (83) 98 Room Air Current Medications Current Medications Medications (Trade) Dose Ordered Sig/Vidal Route PRN Reason Start Time Stop Time Status Last Admin Dose Admin Acetaminophen (Tylenol Tab) 650 mg Q6HP PRN PO HEADACHE or MILD DISCOMFORT 10/26/20 15:30 Al Hydrox/Mg Hydrox/Simethicone (Mylanta) 30 ml Q4HP PRN PO HEARTBURN/INDIGESTION 10/26/20 15:30 Aspirin (Ecotrin) 81 mg DAILY PO 10/27/20 09:00 11/08/20 08:38 Atorvastatin Calcium (Lipitor) 20 mg DAILY PO 10/27/20 09:00 11/08/20 08:38 Benztropine Mesylate (Cogentin) 1 mg BID PO 10/26/20 21:00 11/08/20 08:37 EZETIMIBE (Zetia) 10 mg DAILY PO 10/27/20 09:00 11/08/20 08:37 Home Med (Med Rec Complete!) ASDIRECTED XX 10/26/20 13:40 10/26/20 13:42 DC Levothyroxine Sodium (Synthroid) 100 mcg DAILY@0600 PO 10/27/20 06:00 11/08/20 05:31 Lisinopril (Prinivil) 40 mg DAILY PO 10/27/20 09:00 11/08/20 08:37 Lorazepam (Ativan) 1 mg STAT STAT PO 10/26/20 13:01 10/26/20 13:03 DC 10/26/20 13:11 Magnesium Hydroxide (Milk Of Magnesia) 30 ml DAILYPRN PRN PO CONSTIPATION 10/26/20 15:30 Metformin HCl (Glucophage Xr) 1,000 mg DAILY PO 10/27/20 09:00 11/08/20 08:38 Risperidone (RisperDAL) 2 mg BID PO 10/27/20 09:00 11/01/20 09:05 DC 10/31/20 09:22 Risperidone (RisperDAL) 2 mg QAM PO 11/01/20 09:00 11/08/20 08:37 Risperidone (RisperDAL) 4 mg QHS PO 11/01/20 21:00 11/07/20 21:32 Trazodone HCl (Desyrel) 50 mg QHSP PRN PO INSOMNIA 10/26/20 15:30 11/07/20 21:32 Allergies Coded Allergies: Penicillins (Verified Allergy, Mild, 04/14/19) DARREL TRIVEDI M.D. Nov 08, 2020 09:27
[2020-11-08 18:38] VITALS: BP 131/71
[2020-11-09] MEDS: LEVOTHYROXINE 100MCG TABLET (0.1MG) PO SCH (05:09)
[2020-11-09 05:54] VITALS: BP 109/53
[2020-11-09] MEDS: ATORVASTATIN 20 MG TAB PO SCH (08:27)
[2020-11-09] MEDS: EZETIMIBE 10 MG TAB (ZETIA) PO SCH (08:27)
[2020-11-09] MEDS: lisinopriL 40 MG TAB PO SCH (08:27)
[2020-11-09] MEDS: BENZTROPINE 1 MG TAB PO SCH ×2 (08:27→21:00)
[2020-11-09] MEDS: risperiDONE 2 MG TAB PO SCH ×2 (08:28→21:00)
[2020-11-09] MEDS: ASPIRIN 81MG ENTERIC TABLET PO SCH (08:28)
[2020-11-09] MEDS: metFORMIN XR 500MG TAB *GLUCOPHAGE XR PO SCH (08:29)
[2020-11-09] MEDS: ACETAMINOPHEN TAB 650MG DOSE (2X325MG) PO PRN ×2 (08:52→21:00)
--- NOTE | 2020-11-09 09:26 | MHIPNPDOC ---
[facility] Progress Note Progress Note DATE OF SERVICE: 11/09/20 The patient is sitting alone in dining area and appears very preoccupied. When approached by this MD the patient stated that he was worried about a man sitting across from him but then stopped to elaborate. He mumbled a few words and then reported that " it is no use". He appears very preoccupied blunted and his thoughts quite scattered. He is cooperating with the medicine but remains quite disorganized although his behavior is in control and he is eating and sleeping but appears to be markedly paranoid yet. Patient was suggested to consider long-acting injectable antipsychotic but he is refusing to consider. HISTORY:. VITAL SIGNS: See below. NEW TEST RESULTS:. CURRENT MEDICATIONS: See below. MENTAL STATUS EXAMINATION: Patient is a 62-year old male, who is in no acute distress. Speech: Is somewhat loose disconnected. Language skills are fair. Thought processes including: Not spontaneous and not able to elaborate. Thought content: Appears markedly paranoid. Abstract reasoning, and computation: Poor. Description of associations: Loose disconnected. Description of abnormal or psychotic thoughts: Grossly paranoid. Judgment: Poor. Insight: Poor. Orientation: Appears oriented. Recent and remote memory: No gross impairment. Attention span and concentration: Poor. Language:. Fund of knowledge:. Mood: Moderately anxious. Affect: Blunted and preoccupied. DIAGNOSES: 1.. Schizophrenia paranoid 2.. 3.. ASSESSMENT: No significant improvement MANAGEMENT PLAN: Needs further stabilization with medication and supportive therapy. TIME SPENT: 20 minutes. Vital Signs Vital Signs Date Time Temp Pulse Resp B/P (MAP) Pulse Ox O2 Delivery O2 Flow Rate FiO2 11/09/20 05:54 98.7 69 20 109/53 (71) 95 Room Air Current Medications Current Medications Medications (Trade) Dose Ordered Sig/Vidal Route PRN Reason Start Time Stop Time Status Last Admin Dose Admin Acetaminophen (Tylenol Tab) 650 mg Q6HP PRN PO HEADACHE or MILD DISCOMFORT 10/26/20 15:30 11/09/20 08:52 Al Hydrox/Mg Hydrox/Simethicone (Mylanta) 30 ml Q4HP PRN PO HEARTBURN/INDIGESTION 10/26/20 15:30 Aspirin (Ecotrin) 81 mg DAILY PO 10/27/20 09:00 11/09/20 08:28 Atorvastatin Calcium (Lipitor) 20 mg DAILY PO 10/27/20 09:00 11/09/20 08:27 Benztropine Mesylate (Cogentin) 1 mg BID PO 10/26/20 21:00 11/09/20 08:27 EZETIMIBE (Zetia) 10 mg DAILY PO 10/27/20 09:00 11/09/20 08:27 Home Med (Med Rec Complete!) ASDIRECTED XX 10/26/20 13:40 10/26/20 13:42 DC Levothyroxine Sodium (Synthroid) 100 mcg DAILY@0600 PO 10/27/20 06:00 11/09/20 05:09 Lisinopril (Prinivil) 40 mg DAILY PO 10/27/20 09:00 11/09/20 08:27 Lorazepam (Ativan) 1 mg STAT STAT PO 10/26/20 13:01 10/26/20 13:03 DC 10/26/20 13:11 Magnesium Hydroxide (Milk Of Magnesia) 30 ml DAILYPRN PRN PO CONSTIPATION 10/26/20 15:30 Metformin HCl (Glucophage Xr) 1,000 mg DAILY PO 10/27/20 09:00 11/09/20 08:29 Risperidone (RisperDAL) 2 mg BID PO 10/27/20 09:00 11/01/20 09:05 DC 10/31/20 09:22 Risperidone (RisperDAL) 2 mg QAM PO 11/01/20 09:00 11/09/20 08:28 Risperidone (RisperDAL) 4 mg QHS PO 11/01/20 21:00 11/07/20 21:32 Trazodone HCl (Desyrel) 50 mg QHSP PRN PO INSOMNIA 10/26/20 15:30 11/07/20 21:32 Allergies Coded Allergies: Penicillins (Verified Allergy, Mild, 04/14/19) DARREL TRIVEDI M.D. Nov 09, 2020 09:26
[2020-11-09 17:18] VITALS: BP 147/77
[2020-11-09] MEDS: traZODone 50 MG TAB PO PRN (21:00)
[2020-11-10 06:56] VITALS: BP 112/59
[2020-11-10] MEDS: LEVOTHYROXINE 100MCG TABLET (0.1MG) PO SCH (07:29)
[2020-11-10] MEDS: metFORMIN XR 500MG TAB *GLUCOPHAGE XR PO SCH (08:11)
[2020-11-10] MEDS: ASPIRIN 81MG ENTERIC TABLET PO SCH (08:11)
[2020-11-10] MEDS: risperiDONE 2 MG TAB PO SCH ×2 (08:11→20:16)
[2020-11-10] MEDS: BENZTROPINE 1 MG TAB PO SCH ×2 (08:11→20:15)
[2020-11-10] MEDS: ATORVASTATIN 20 MG TAB PO SCH (08:11)
[2020-11-10] MEDS: lisinopriL 40 MG TAB PO SCH (08:12)
[2020-11-10] MEDS: EZETIMIBE 10 MG TAB (ZETIA) PO SCH (08:12)
[2020-11-10] MEDS: ACETAMINOPHEN TAB 650MG DOSE (2X325MG) PO PRN ×2 (08:58→20:16)
[2020-11-10 16:06] VITALS: BP 133/73
[2020-11-10] MEDS: traZODone 50 MG TAB PO PRN (20:16)
[2020-11-11] MEDS: LEVOTHYROXINE 100MCG TABLET (0.1MG) PO SCH (05:02)
[2020-11-11 05:41] VITALS: BP 105/62
[2020-11-11] MEDS: BENZTROPINE 1 MG TAB PO SCH ×2 (09:15→21:08)
[2020-11-11] MEDS: ATORVASTATIN 20 MG TAB PO SCH (09:15)
[2020-11-11] MEDS: metFORMIN XR 500MG TAB *GLUCOPHAGE XR PO SCH (09:15)
[2020-11-11] MEDS: risperiDONE 2 MG TAB PO SCH ×2 (09:15→21:08)
[2020-11-11] MEDS: EZETIMIBE 10 MG TAB (ZETIA) PO SCH (09:15)
[2020-11-11] MEDS: lisinopriL 40 MG TAB PO SCH (09:15)
[2020-11-11] MEDS: ASPIRIN 81MG ENTERIC TABLET PO SCH (09:15)
[2020-11-11] MEDS: ACETAMINOPHEN TAB 650MG DOSE (2X325MG) PO PRN (11:22)
[2020-11-11 17:52] VITALS: BP 146/64
--- NOTE | 2020-11-11 18:46 | IPNPDOC ---
Text Note Date of Service The patient was seen on 11/11/20. NOTE Subjective: Patient is a 60-year-old male who presented to the emergency room with suicidal thoughts. Patient was admitted to the inpatient mental health unit under the care of psychiatry. Hospitalist service was consulted for medical sc reening evaluation initially. Hospitalist service was called when patient was experiencing chest pain this evening. Patient was seen in his room with a basket maker. Patient had reported chest pain that happened after his meal this evening. Reports that this is the first time he has experienced this. He reports a continuous pain, denies any SOB or cough. Is unable to explain the type of pain he is experiencing, he is reporting it occurs in his left chest wall. Denies any N,V, abdominal pain, C/D or urinary discomfort. Objective: Vitals (See below) General: Sitting up in exam chair, no acute distress, appears relatively comfortable, AAOx3 HEENT: NC, AT CVS: +S1S2 Lungs: Fair air entry b/l, no wheezing / crackles / rhonchi Abdomen: Soft, ND, NT, obese Extremities: No evidence of LE edema, - Calf tenderness Imaging: CXR 10/26: No acute cardiopulmonary process. Assessment and Plan: Reported chest pain - Patient describes continuous chest pain that started after eating his meal this evening - Patient denies any SOB or cough - Patient is hemodynamically stable; saturation is doing well on room air - EKG reviewed without any ischemic changes - CXR on my interpretation does not appear to reveal any infiltrates - Will check cardiac markers, CBC, CMP, Mag, lactic acid, Amylase and Lipase - Will consider CTA chest if renal function is appropriate Suicidal ideation - Presented to ER with complaints of suicidal ideation had reported that he wanted to jump off a bridge - Patients past history of schizophrenia and autism - Has been admitted to inpatient mental health unit under the care of psychiatry - Currently being managed by psychiatry HTN - Blood pressure appears to be well controlled - c/w Lisinopril Diabetes mellitus type 2 - c/w metformin Dyslipidemia - c/w ezetimibe Hypothyroidism - c/w levothyroxine DVT prophylaxis - c/w early ambulation Female basket maker was present throughout the duration of this history and physical examination Thank you for this consultation; hospitalist service will now sign off. Please reconsult as needed VS,Fishbone, I+O VS, Fishbone, I+O Vital Signs Date Time Temp Pulse Resp B/P (MAP) Pulse Ox O2 Delivery O2 Flow Rate FiO2 11/11/20 17:52 96.7 128 18 146/64 (91) 97 Room Air TRACY KEANE MD Nov 11, 2020 18:46
[2020-11-11 18:51] LABS: BASO # 0.1 10^3/uL (0.0-0.2); BASO % 0.5 % (0.0-1.0); EOS # 0.3 10^3/uL (0.0-0.5); EOS % 2.3 % (0.0-3.0); HEMATOCRIT 40.4 % (42.0-52.0); HEMOGLOBIN 13.8 g/dl (13.5-17.5); LYMPH # 2.7 10^3/uL (1.5-5.0); LYMPH % 21.7 % (24.0-44.0); MEAN CORPUSCULAR HEMOGLOBIN 31.5 pg (27.0-33.0); MEAN CORPUSCULAR HGB CONC 34.2 g/dl (32.0-36.5); MEAN CORPUSCULAR VOLUME 92.2 fl (80.0-96.0); MONO # 0.9 10^3/uL (0.0-0.8); NEUTROPHILS # 8.4 10^3/uL (1.5-8.5); NEUTROPHILS % 68.2 % (36.0-66.0); PLATELET COUNT, AUTOMATED 210 10^3/uL (150-450); RED BLOOD COUNT 4.38 10^6/uL (4.30-6.10); WHITE BLOOD COUNT 12.4 10^3/uL (4.0-10.0)
[2020-11-11 19:13] LABS: AMYLASE 80 U/L (25-115); LIPASE 642 U/L (73-393)
--- NOTE | 2020-11-11 19:14 | REP ---
INDICATION: Chest pain. COMPARISON: Two-view chest 10/26/2020, 04/07/2019, 07/03/2009. TECHNIQUE: AP portable upright FINDINGS: Lungs are well inflated. CP angles sharply defined without a pleural effusion. Some mild linear atelectatic or fibrotic change just above the left diaphragm. No dense consolidation or parenchymal mass no pulmonary nodule. The heart is not enlarged. The aorta and airway are normal. There is no widening of the mediastinum adrian are symmetric and unchanged. Some degenerative changes in the spine and minimally in the shoulders, stable. No free air under the diaphragm. IMPRESSION: 1. Some linear atelectasis or fibrotic change in the left base just above the diaphragm but no dense consolidation, pleural effusion, parenchymal lung mass or other acute finding. The heart and mediastinal contours unremarkable. No edema. <Electronically signed by Jatin Thomas > 11/11/20 191
[2020-11-11 19:20] LABS: ALBUMIN 4.1 GM/DL (3.2-5.2); ALT/SGPT 40 U/L (12-78); BILIRUBIN,TOTAL 0.2 MG/DL (0.2-1.0); BLOOD UREA NITROGEN 41 MG/DL (7-18); CARBON DIOXIDE LEVEL 27 MEQ/L (21-32); CHLORIDE LEVEL 100 MEQ/L (98-107); CK-MB VALUE MASS < 1.0 NG/ML (<3.6); CPK CREATINE PHOSPHOKINASE 67 U/L (39-308); CREATININE FOR GFR 1.63 MG/DL (0.70-1.30); GLOMERULAR FILTRATION RATE 45.9 (>49); GLUCOSE, FASTING 278 MG/DL (70-100); MAGNESIUM LEVEL 2.1 MG/DL (1.8-2.4); MB/CK RELATIVE INDEX 1.49 (< OR =4); POTASSIUM SERUM 5.2 MEQ/L (3.5-5.1); SODIUM LEVEL 134 MEQ/L (136-145); TOTAL PROTEIN 7.3 GM/DL (6.4-8.2); TROPONIN I < 0.02 NG/ML (< 0.10)
--- NOTE | 2020-11-11 19:58 | ECGEPIP ---
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
--- NOTE | 2020-11-16 11:02 | MHDSPDOC ---
[facility] Discharge Summary Discharge Summary DATE OF ADMISSION: Oct 26, 2020 at 15:27 DATE OF DISCHARGE: Nov 11, 2020 at 21:51 DISCHARGE DIAGNOSES: 1.. Paranoid schizophrenia 2.. REASON FOR ADMISSION: 60-year-old man with long history of schizophrenia admitted due to increasing paranoid ideas and suicidal thoughts of jumping off a bridge. CONSULTANTS INVOLVED: TREATMENT AND PROGRESS ON THE UNIT : Patient was seen for supportive therapy and started on risperidone 20 mg at bedtime. Patient has been maintained on paliperidone injection and his next injection is due on November 15. Patient has cooperated with the medications and maintained fairly good control without any acting out behavior. Patient however is showing very little improvement in his thought disorder. He remained preoccupied with the paranoid thoughts about his roommate and he was very scattered circumstantial and withdrawn.. HOSPITAL COURSE: He has cooperated with the treatment but did not show much significant improvement. He developed chest pain and discomfort on November 11 was seen by medical consult and recommended to be transferred to general medicine for further observation and evaluation. DISCHARGE ASSESSMENT: Patient remained moderately paranoid and withdrawn. MENTAL STATUS EXAMINATION ON DISCHARGE: Patient is a 60-year old male, who is complaining of chest discomfort. Speech is relevant but circumstantial. Language skills are poor. Thought processes including: Rambling and circumstantial. Thought content: Markedly paranoid. Abstract reasoning, and computation: Poor. Description of associations: Circumstantial and preoccupied. Description of abnormal or psychotic thoughts: Remains paranoid. Judgment: Poor. Insight: Poor. Orientation to oriented. Recent and remote memory: No gross impairment. Attention span and concentration:. Language:. Fund of knowledge:. Mood: Moderately anxious. Affect: Blunted and preoccupied. MEDICATIONS ON DISCHARGE: -For. No prescription given -For. -For. PLAN/FOLLOWUP ARRANGEMENTS: To return to psychiatric inpatient unit when he is medically stable. The amount of time spent in the coordination of care for this patient was approximately 30 minutes. ETOH/Disorder Med Rx ETOH/DRUG DISORDER RX: N/A Vital Signs/I&Os Vital Signs Date Time Temp Pulse Resp B/P (MAP) Pulse Ox O2 Delivery O2 Flow Rate FiO2 11/11/20 17:52 96.7 128 18 146/64 (91) 97 Room Air Medications Scheduled Aspirin (Aspirin EC) 81 Mg Tabec, 81 MG PO DAILY, (Reported) Atorvastatin Calcium (Atorvastatin Calcium) 20 Mg Tablet, 20 MG PO DAILY, (Reported) Benztropine Mesylate (Benztropine Mesylate) 1 Mg Tablet, 1 MG PO BID, (Reported) Cholecalciferol (Vitamin D3) (Vitamin D3) 25 Mcg Tablet, 25 MCG PO DAILY, (Reported) Dulaglutide (Trulicity) 0.75 Mg/0.5 Ml Pen.injctr, 0.75 MG SC QWEEK, (Reported) THURSDAY Ergocalciferol (Vitamin D2) (Vitamin D2) 50,000 Units Cap, 50,000 UNITS PO 1XWK, (Reported) THURSDAY Ezetimibe (Zetia) 10 Mg Tab, 10 MG PO DAILY, (Reported) Levothyroxine Sodium (Levothyroxine Sodium) 100 Mcg Tablet, 100 MCG PO DAILY, (Reported) Lisinopril (Lisinopril) 40 Mg Tab, 40 MG PO DAILY, (Reported) Metformin HCl (Metformin HCl ER) 500 Mg Tab.er.24h, 1,000 MG PO DAILY, (Reported) Paliperidone Palmitate (Invega Sustenna) 234 Mg/1.5 Ml Syringe, 234 MG IM QMONTH for ., (Reported) Scheduled PRN Trazodone HCl (Trazodone HCl) 50 Mg Tablet, 50 MG PO QHS PRN for SLEEP, (Reported) Allergies Coded Allergies: Penicillins (Verified Allergy, Mild, 04/14/19) DARREL TRIVEDI M.D. Nov 16, 2020 11:02
== END 2020-11-11 21:51 | disposition short-term general hospital (02) | DRG 885 ==
LOC: M ED 12:22 → M ED INP 15:27 → M PSY 17:44
PROVIDERS: ADMIT Psychiatry & Neurology Psychiatry; ATTEND Psychiatry & Neurology Psychiatry
DX: F20.0 Paranoid schizophrenia (principal); R45.851 Suicidal ideations; E03.9 Hypothyroidism, unspecified; I10 Essential (primary) hypertension; R07.89 Other chest pain; R45.850 Homicidal ideations; E11.9 Type 2 diabetes mellitus without complications; E78.5 Hyperlipidemia, unspecified; Z93.3 Colostomy status; Z20.822 Contact with and (suspected) exposure to COVID-19; Z79.82 Long term (current) use of aspirin; Z79.899 Other long term (current) drug therapy; Z79.84 Long term (current) use of oral hypoglycemic drugs; Z88.0 Allergy status to penicillin

== ENCOUNTER 2020-11-11 19:53 | Inpatient (IN) | payer MEDICARE, MEDICAID ==
[~2020-11-11] VITALS: Ht 172.7 cm; Wt 103.4 kg
[~2020-11-11 19:53] MED LIST changes: +ATOR1TAB21 PO; +ERGO500029 PO
[2020-11-11] MEDS ORDERED: MAALOX 30 ML SUSP *UDC PO PRN (20:05)
[2020-11-11] MEDS ORDERED: MOM 30ML SUSPENSION UDC PO PRN (20:05)
[2020-11-11] MEDS ORDERED: ACETAMINOPHEN TAB 650MG DOSE (2X325MG) PO PRN (20:05)
--- NOTE | 2020-11-11 20:08 | HPEPDOC ---
[facility] Medical History & Physical Date of Admission Nov 11, 2020 Date of Service: Nov 11, 2020 Other Provider Lina Goldstein [facility] Attending Physician: SINAI GUERRERO MD History and Physical TIME OF SERVICE: 8:42 PM CHIEF COMPLAINT: Chest pain HISTORY OF PRESENT ILLNESS: The patient's history was limited because the patient's answers were tangential. Mr. Henry is a 60-year-old gentleman who was admitted to [facility] for treatment of suicidal and homicidal ideation directed towards his roommate. He had been doing relatively well until earlier on today when he developed what he describes as an enlargement of his chest. He was unsure exactly what time it started but he reported feeling "panic and fear" because he was unsure what is going on with his body. At the time of my assessment the chest pain had resolved. He denied having a prior history of heart attack, and added that he might have missed his blood pressure medications a few days ago. Dr. Nunn evaluated the patient earlier on today and ordered several tests that came back with several abnormalities, therefore we will transfer the patient to the general medical floor to complete the work-up and treatment. REVIEW OF SYSTEMS: Limited because patient is easily distracted and provides tangential answers PAST MEDICAL/ SURGICAL HISTORY: Essential hypertension, NIDDM, dyslipidemia, hypothyroidism, paranoid schizophrenia, unspecified knee injury, colonoscopy SOCIAL HISTORY: He does not smoke drink and has tried cocaine in the past. FAMILY HISTORY: His father had diabetes prostate cancer and macular degeneration ALLERGIES: Please see below. HOME MEDICATIONS: Please see below. PHYSICAL EXAMINATION: VITAL SIGNS: Temperature 96.7, heart rate 128, respiratory rate 18, blood pressure 146/64, pulse oximetry 97% on room air GENERAL APPEARANCE: well-nourished and developed /seated on chair in examination room HEENT: EOMI / MMM&P CARDIOVASCULAR: RRR/NMRG / no LE edema /left-sided chest pain is not reproducible with palpation LUNGS: CTAB on RA ABDOMEN: contour obese/soft he does not grimace with palpation MUSCULOSKELETAL: NCAT / ROMIx 4 /gait is normal INTEGUMENT: not flushed or diaphoretic NEUROLOGICAL: CN 2-12 intact / speech not dysarthric PSYCHIATRIC: A&O x3 /easily distracted, anxious, the majority of his speech is congruent to the conversation but his answers are often tangential LABORATORY DATA: WBC is 12.4, hemoglobin 13.8, platelet count 210, 68.2% neutrophils Sodium 134, potassium 5.2, chloride 100%, carbon dioxide 27, anion gap 7, BUN 41, creatinine 1.63, GFR 45.9, glucose 278, lactic acid 3.1, AST 14, ALT 40, alkaline phosphatase 143, CPK 67, troponin 0.02 IMAGING: n/a MICROBIOLOGY: Respiratory panel from October 26 was negative ASSESSMENT: Mr. Henry is a 60-year-old gentleman with a history of HTN, NIDDM, DLP, hypothyroidism & paranoid schizophrenia admitted to [facility] for SI and HI; he developed abnormal chest sensation and subsequent work-up revealed SIRS, hyperkalemia, lactic acidosis, and HILL. He will be transferred to the general medical floor for additional testing and management. PLAN: 1 Chest pain Cause to be determined Plan: Admit to medical floor/telemetry/follow-up CTA to rule out PE/ trend trops 2 HILL Possibly prerenal in nature +/- Metformin and lisinopril Plan: Monitor I's and O's/follow-up urine lytes, PTH, phosphorus, and renal ultrasound /IV fluids / /hold lisinopril and Metformin 3 SIRS He has tachycardia and leukocytosis He also has lactic acidosis Plan: Follow-up blood cultures, UA with reflex culture, chest CT, and trend lactic acid /IV fluids/will not start antibiotics pending confirmation of a source 4 Lactic acidosis Possibly due to occult infection, or Metformin or other cause to be determined Plan: IV fluids/hold Metformin/follow-up repeat lactic acid 5 Mild hyperkalemia Likely due to HILL Plan: Telemetry/calcium gluconate/follow-up repeat K at midnight/manage HILL 6 Essential HTN Plan: Hold lisinopril and start amlodipine 7 NIDDM His hemoglobin A1c was 5.9 in July Plan: Consistent carbohydrate diet/follow-up fingersticks /sliding scale insulin with hypoglycemia protocol/hold Metformin 7 DLP Plan: Zetia and atorvastatin 8 Hypothyroidism Plan: Levothyroxine 9 Paranoid schizophrenia w SI/HI Plan: Resume meds once reconciled by pharmacy /suicide precautions with a sitter DVT PROPHYLAXIS: Teds and sequentials (Darius score is 1 therefore pharmacological prophylaxis is not indicated) DISPOSITION: home after less than 2 midnight's stay LATE ENTRY Repeat K was high-will order calcium gluconate, Kayexalate and repeat the EKG Home Medications Scheduled Aspirin (Aspirin EC) 81 Mg Tabec, 81 MG PO DAILY Atorvastatin Calcium (Atorvastatin Calcium) 20 Mg Tablet, 20 MG PO DAILY Benztropine Mesylate (Benztropine Mesylate) 1 Mg Tablet, 1 MG PO BID Cholecalciferol (Vitamin D3) (Vitamin D3) 25 Mcg Tablet, 25 MCG PO DAILY Dulaglutide (Trulicity) 0.75 Mg/0.5 Ml Pen.injctr, 0.75 MG SC QWEEK THURSDAY Ergocalciferol (Vitamin D2) (Vitamin D2) 50,000 Units Cap, 50,000 UNITS PO 1XWK THURSDAY Ezetimibe (Zetia) 10 Mg Tab, 10 MG PO DAILY Levothyroxine Sodium (Levothyroxine Sodium) 100 Mcg Tablet, 100 MCG PO DAILY Lisinopril (Lisinopril) 40 Mg Tab, 40 MG PO DAILY Metformin HCl (Metformin HCl ER) 500 Mg Tab.er.24h, 1,000 MG PO DAILY Paliperidone Palmitate (Invega Sustenna) 234 Mg/1.5 Ml Syringe, 234 MG IM QMONTH Scheduled PRN Trazodone HCl (Trazodone HCl) 50 Mg Tablet, 50 MG PO QHS PRN for SLEEP Allergies Coded Allergies: Penicillins (Verified Allergy, Mild, 04/14/19) A-FIB/CHADSVASC A-FIB History Current/History of A-Fib/PAF?: No Current PO Anticoag Therapy: No SINAI GUERRERO MD Nov 11, 2020 20:08
[2020-11-11] MEDS ORDERED: ISOVUE-370 76% 100ML VIAL As Ordered ONE (20:41)
[2020-11-11] MEDS: HumaLOG INSULIN (NovoLOG) PER UNIT SC SCH (21:00)
[2020-11-11 21:55] VITALS: BP 107/57
[2020-11-11] MEDS ORDERED: GLUCOSE 4GM CHEW TABLET PO PRN (21:55)
[2020-11-11] MEDS ORDERED: GLUCAGON INJ 1MG VIAL SC PRN (21:55)
[2020-11-11] MEDS ORDERED: DEXTROSE 50% 50 ML SYRINGE IV PRN (21:55)
[2020-11-11] MEDS ORDERED: CALCIUM GLUCONATE 1,000 MG in D5W MINI-BAG PLUS 100 ML IV ONE (21:55)
--- NOTE | 2020-11-11 22:36 | REPVR ---
PROCEDURE INFORMATION: Exam: CTA Chest With Contrast Exam date and time: 11/11/2020 9:44 PM Age: 60 years old Clinical indication: Pain; Angina pectoris; Additional info: Chest pain and tachycardia TECHNIQUE: Imaging protocol: Computed tomographic angiography of the chest with contrast. 3D rendering (Not supervised by radiologist): MIP and/or 3D reconstructed images were created by the technologist. Radiation optimization: All CT scans at this facility use at least one of these dose optimization techniques: automated exposure control; mA and/or kV adjustment per patient size (includes targeted exams where dose is matched to clinical indication); or iterative reconstruction. Contrast material: ISOVUE 370; Contrast volume: 75 ml; Contrast route: INTRAVENOUS (IV); COMPARISON: SD PORTABLE CHEST X-RAY 11/11/2020 6:30 PM FINDINGS: Pulmonary arteries: The main pulmonary artery measures 30 mm. Aorta: The ascending thoracic aorta measures 30 mm. Lungs: Slight interstitial coarsening with minimal scattered fibro-atelectatic change. There is motion artifact in the lungs with image degradation. No gross central pulmonary embolism is identified. Emboli beyond first order branching are not excluded. Pleural spaces: Unremarkable. No pneumothorax. No pleural effusion. Heart: Unremarkable. No cardiomegaly. No pericardial effusion. Lymph nodes: Unremarkable. No enlarged lymph nodes. Gallbladder and bile ducts: There is a gallstone in the gallbladder measuring 6 mm. Stomach and bowel: Moderately prominent gastric distention with food material and fluid. Bones/joints: Unremarkable. No acute fracture. Soft tissues: Unremarkable. IMPRESSION: 1. Minimal cholelithiasis. 2. There is moderately prominent gastric distention with food material and fluid which may reflect recent ingestion. Gastric atony or relative outlet obstruction are not excluded. 3. Motion artifact in the lungs with image degradation. No gross central pulmonary embolism is identified. Emboli beyond first order branching are not excluded, primarily in the lung bases. Electronically signed by: Lio Gagnon On 11/11/2020 22:36:23 PM
[2020-11-11] MEDS: NS 1,000 ML IV SCH (23:04)
[2020-11-12 00:02] LABS: POTASSIUM RANDOM URINE 59.1 MEQ/L
--- NOTE | 2020-11-12 01:20 | REPVR ---
PROCEDURE INFORMATION: Exam: US Retroperitoneal Limited, Kidneys Exam date and time: 11/12/2020 1:08 AM Age: 60 years old Clinical indication: Screening exam; Other: Valentin TECHNIQUE: Imaging protocol: Real-time ultrasound of the retroperitoneum with image documentation. Examination was focused on the kidneys. COMPARISON: CT ANGIO CHEST 11/11/2020 9:43 PM FINDINGS: Right kidney: The right kidney measures 13.0 cm in its cephalocaudad dimension and 6.5 x 5.4 cm in diameter. No mass, cyst or hydronephrosis. Left kidney: The left kidney measures 12.6 cm in its cephalocaudad dimension and 5.2 x 5.9 cm in diameter. No mass, cyst or hydronephrosis. Bladder: The urinary bladder appears normal. IMPRESSION: Negative renal sonogram. Electronically signed by: Lio Gagnon On 11/12/2020 01:20:16 AM
[2020-11-12] MEDS: LEVOTHYROXINE 100MCG TABLET (0.1MG) PO SCH (05:57)
[2020-11-12 06:00] VITALS: BP 105/54
[2020-11-12 06:02] LABS: PHOSPHORUS LEVEL 3.5 MG/DL (2.5-4.9); POTASSIUM SERUM 5.9 MEQ/L (3.5-5.1); TROPONIN I < 0.02 NG/ML (< 0.10)
[2020-11-12] MEDS ORDERED: SOD POLYSTYRENE SULFONATE SUSP 15 GM/60 ML UD PO STA (06:04)
[2020-11-12] MEDS ORDERED: CALCIUM GLUCONATE 1,000 MG in D5W MINI-BAG PLUS 100 ML IV ONE (06:05)
[2020-11-12 06:22] LABS: HEMATOCRIT 37.6 % (42.0-52.0); HEMOGLOBIN 12.5 g/dl (13.5-17.5); MEAN CORPUSCULAR HEMOGLOBIN 31.3 pg (27.0-33.0); MEAN CORPUSCULAR HGB CONC 33.2 g/dl (32.0-36.5); PLATELET COUNT, AUTOMATED 197 10^3/uL (150-450); WHITE BLOOD COUNT 12.7 10^3/uL (4.0-10.0)
[2020-11-12 06:44] LABS: CALCIUM LEVEL 8.7 MG/DL (8.8-10.2); CREATININE FOR GFR 1.47 MG/DL (0.70-1.30); GLOMERULAR FILTRATION RATE 51.7 (>49); POTASSIUM SERUM 4.8 MEQ/L (3.5-5.1)
[2020-11-12] MEDS: ASPIRIN 81MG ENTERIC TABLET PO SCH (09:15)
[2020-11-12] MEDS: HumaLOG INSULIN (NovoLOG) PER UNIT SC SCH ×4 (09:15→20:23)
[2020-11-12] MEDS: ENOXAPARIN 40MG/0.4ML SYRINGE (J1650 PER 10MG) SC SCH (09:15)
[2020-11-12] MEDS: ATORVASTATIN 20 MG TAB PO SCH (09:16)
[2020-11-12] MEDS: EZETIMIBE 10 MG TAB (ZETIA) PO SCH (09:16)
[2020-11-12 10:02] LABS: PTH INTACT 28.9 PG/ML (18.5-88.0)
--- NOTE | 2020-11-12 10:21 | IPNPDOC ---
Text Note Date of Service The patient was seen on 11/12/20. NOTE Subjective: Patient is a 60-year-old male with a PMHx of HTN, NIDDM2, DLP, Hypothyroidism, Paranoid schizophrenia , who presented to the hospital initially with suicidal ideation and was admitted to inpatient mental health unit for further evaluation and treatment. On 11/11. Patient was reporting some chest discomfort and lab work was obtained. Patient was transitioned to the acute side of the hospital on 11/11 after lab work had revealed acute kidney injury, lactic acidosis and hyperkalemia. Patient was seen and examined at the bedside. Currently patient reports that he feels relatively well. Denies any nausea, vomiting, chest pain, shortness b reath, palpitations, abdominal discomfort, diarrhea, or urinary discomfort. Objective: Vitals (See below) General: Lying in bed, appears comfortable, AAOx3 HEENT: NC, AT CVS: +S1S2 Lungs: Fair air entry b/l, no evidence of wheezing, rales or rhonchi Abdomen: Soft, nondistended and nontender, obese Extremities: No evidence of edema, - Calf tenderness Imaging: CXR 11/11: 1. Some linear atelectasis or fibrotic change in the left base just above the diaphragm but no dense consolidation, pleural effusion, parenchymal lung mass or other acute finding. The heart and mediastinal contours unremarkable. No edema. Renal US 11/11: Negative renal sonogram. CTA chest 11/11: 1. Minimal cholelithiasis. 2. There is moderately prominent gastric distention with food material and fluid which may reflect recent ingestion. Gastric atony or relative outlet obstruction are not excluded. 3. Motion artifact in the lungs with image degradation. No gross central pulmonary embolism is identified. Emboli beyond first order branching are not excluded, primarily in the lung bases. Assessment and plan: s/p Chest pain - Imaging negative - EKG reviewed - Troponin trend negative - c/w Telemetry HILL - likely 2/2 pre-renal etiology, possibly 2/2 intra-renal etiology (2/2 medications) - Cr baseline of ~1 - Imaging noted above - Will avoid nephrotoxic medications - c/w IV fluids s/p Lactic acidosis - c/w IV fluids s/p Hyperkalemia - s/p Calcium gluconate and Kayexalate Essential HTN - c/w Amlodipine NIDDM2 - s/p Metformin (re: HILL / Lactic acidosis) - c/w ISS for now DLP - c/w Zetia and atorvastatin Hypothyroidism - c/w Levothyroxine Paranoid schizophrenia - With suicidal and homicidal ideation - c/w suicide precautions and bedside sitter - Will resume prior medications within 24 hours as renal function improves - Will need to be transitioned back to [facility] once medically cleared DVT prophylaxis - c/w Lovenox Disposition: - Awaiting clinical improvement VS,Bryan, I+O VSBryan I+O Laboratory Tests 11/11/20 22:39 11/12/20 06:07 Vital Signs Date Time Temp Pulse Resp B/P (MAP) Pulse Ox O2 Delivery O2 Flow Rate FiO2 11/12/20 09:16 85 117/73 11/12/20 06:00 98.5 17 96 Room Air I&O- Last 24 Hours up to 6 AM 11/12/20 06:00 Intake Total 0 ml Output Total 280 ml Balance -280 ml TRACY KEANE MD Nov 12, 2020 10:21
[2020-11-12 11:14] LABS: CREATININE,RANDOM URINE 62.2 MG/DL
[2020-11-12] MEDS: NS 1,000 ML IV SCH ×2 (11:26→20:23)
[2020-11-12 14:00] VITALS: BP 147/74
[2020-11-12 20:00] VITALS: BP 142/77
[2020-11-12] MEDS: amLODIPine 5 MG TAB PO SCH (20:23)
[2020-11-12] MEDS ORDERED: RAMELTEON 8 MG TAB (ROZEREM) PO PRN (22:00)
--- NOTE | 2020-11-12 22:20 | ECGEPIP ---
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
[2020-11-13] MEDS: LEVOTHYROXINE 100MCG TABLET (0.1MG) PO SCH (05:33)
[2020-11-13] MEDS: NS 1,000 ML IV SCH ×2 (05:34→15:12)
[2020-11-13 06:00] VITALS: BP 102/54
[2020-11-13] MEDS: ENOXAPARIN 40MG/0.4ML SYRINGE (J1650 PER 10MG) SC SCH (08:31)
[2020-11-13] MEDS: HumaLOG INSULIN (NovoLOG) PER UNIT SC SCH ×4 (08:31→20:32)
[2020-11-13] MEDS: EZETIMIBE 10 MG TAB (ZETIA) PO SCH (08:32)
[2020-11-13] MEDS: ASPIRIN 81MG ENTERIC TABLET PO SCH (08:32)
[2020-11-13] MEDS: ATORVASTATIN 20 MG TAB PO SCH (08:32)
[2020-11-13] MEDS: amLODIPine 5 MG TAB PO SCH ×2 (08:34→20:33)
[2020-11-13 10:18] LABS: BLOOD UREA NITROGEN 17 MG/DL (7-18); CALCIUM LEVEL 8.2 MG/DL (8.8-10.2); CARBON DIOXIDE LEVEL 27 MEQ/L (21-32); CHLORIDE LEVEL 109 MEQ/L (98-107); CREATININE FOR GFR 0.83 MG/DL (0.70-1.30); GLOMERULAR FILTRATION RATE > 60.0 (>49); GLUCOSE, FASTING 206 MG/DL (70-100); POTASSIUM SERUM 4.5 MEQ/L (3.5-5.1); SODIUM LEVEL 139 MEQ/L (136-145)
[2020-11-13 14:00] VITALS: BP 118/94
--- NOTE | 2020-11-13 15:58 | IPNPDOC ---
Subjective Date Seen The patient was seen on 11/13/20. Subjective Chief Complaint/HPI Jero is stable, sitter at bedside. He denies any complaints. Objective Physical Examination General Exam: Positive: Alert, No Acute Distress Eye Exam: Positive: PERRLA, Conjunctiva & lids normal, EOMI; Negative: Sclera icteric ENT Exam: Positive: Atraumatic, Mucous membr. moist/pink, Pharynx Normal Neck Exam: Positive: Supple; Negative: JVD, thyromegaly Chest Exam: Positive: Clear to auscultation, Normal air movement Heart Exam: Positive: Rate Normal, Regular Rhythm, Normal S1, Normal S2; Negative: Murmurs, Rubs Telemetry: Positive: No significant arrhythmia Abdomen Exam: Positive: Normal bowel sounds, Soft; Negative: Tenderness, Hepatospenomegaly Male Exam: Positive: Normal Genital Exam Extremity Exam: Positive: Normal pulses; Negative: Clubbing, Cyanosis, Edema Skin Exam: Positive: Nl turgor and temperature; Negative: Rash, Breakdown Neuro Exam: Positive: Normal Gait, Normal Speech, Cranial Nerves 3-12 NL, Reflexes 2+ Psych Exam: Positive: Mental status NL, Mood NL, Oriented x 3 Assessment /Plan Assessment s/p Chest pain - Imaging negative - EKG reviewed - Troponin trend negative - c/w Telemetry - outpatient stress test HILL - likely 2/2 pre-renal etiology, possibly 2/2 intra-renal etiology (2/2 medications) -Resolved, stop IV fluids, monitor off fluids for next 24 hours recheck BMP in a.m. if stable we can discharge back to inpatient psych. s/p Lactic acidosis - c/w IV fluids s/p Hyperkalemia - s/p Calcium gluconate and Kayexalate Essential HTN - c/w Amlodipine NIDDM2 - s/p Metformin (re: HILL / Lactic acidosis) - c/w ISS for now DLP - c/w Zetia and atorvastatin Hypothyroidism - c/w Levothyroxine Paranoid schizophrenia - With suicidal and homicidal ideation - c/w suicide precautions and bedside sitter - Will resume prior medications within 24 hours as renal function improves - Will need to be transitioned back to [facility] once medically cleared DVT prophylaxis - c/w Lovenox Disposition: - Awaiting clinical improvement Plan/VTE VTE Prophylaxis Ordered?: Yes VS, I&O, 24H, Fishbone Vital Signs/I&O Vital Signs Date Time Temp Pulse Resp B/P (MAP) Pulse Ox O2 Delivery O2 Flow Rate FiO2 11/13/20 14:00 97.4 74 18 118/94 (102) 95 Room Air I&O- Last 24 Hours up to 6 AM 11/13/20 06:00 Intake Total 600 ml Output Total 3200 ml Balance -2600 ml Laboratory Data 24H LABS Laboratory Tests 2 11/12/20 16:47: Bedside Glucose (Misc Panel) 108 11/12/20 20:19: Bedside Glucose (Misc Panel) 180H 11/13/20 05:46: Bedside Glucose (Misc Panel) 122H 11/13/20 09:35: Anion Gap 3L, Glomerular Filtration Rate > 60.0, Calcium Level 8.2L 11/13/20 11:25: Bedside Glucose (Misc Panel) 219H CBC/BMP Laboratory Tests 11/13/20 09:35 Microbiology Microbiology 11/11/20 Blood Culture - Preliminary, Resulted No growth after 24 hours . All specim... DICK FLEMING MD Nov 13, 2020 15:58
[2020-11-13 22:00] VITALS: BP 163/87
[2020-11-14] MEDS: LEVOTHYROXINE 100MCG TABLET (0.1MG) PO SCH (05:18)
[2020-11-14 06:00] VITALS: BP 139/75
[2020-11-14] MEDS: ASPIRIN 81MG ENTERIC TABLET PO SCH (07:51)
[2020-11-14 07:52] VITALS: BP 139/75
[2020-11-14] MEDS: ATORVASTATIN 20 MG TAB PO SCH (07:52)
[2020-11-14] MEDS: EZETIMIBE 10 MG TAB (ZETIA) PO SCH (07:52)
[2020-11-14] MEDS: ENOXAPARIN 40MG/0.4ML SYRINGE (J1650 PER 10MG) SC SCH (07:52)
[2020-11-14] MEDS: amLODIPine 5 MG TAB PO SCH (07:52)
[2020-11-14] MEDS: HumaLOG INSULIN (NovoLOG) PER UNIT SC SCH ×2 (07:53→12:43)
[2020-11-14 08:33] LABS: BLOOD UREA NITROGEN 14 MG/DL (7-18); CARBON DIOXIDE LEVEL 27 MEQ/L (21-32); CHLORIDE LEVEL 108 MEQ/L (98-107); CREATININE FOR GFR 0.75 MG/DL (0.70-1.30); GLOMERULAR FILTRATION RATE > 60.0 (>49); GLUCOSE, FASTING 124 MG/DL (70-100); POTASSIUM SERUM 4.2 MEQ/L (3.5-5.1); SODIUM LEVEL 141 MEQ/L (136-145)
[2020-11-14 08:34] LABS: CALCIUM LEVEL 8.9 MG/DL (8.8-10.2)
--- NOTE | 2020-11-14 12:29 | MHCRPDOC ---
[facility] Consultation Consultation DATE OF CONSULTATION: 11/14/20 CONSULTATION REQUESTED BY: REASON FOR CONSULTATION: Mr. Henry was transferred to the medical floor from inpatient psychiatric unit on November 11 after a complaint of chest pain. Consult was done to follow-up his psychiatric condition. He was admitted due to acute decompensation of his chronic schizophrenic condition. Patient apparently was expressing gross paranoid ideas about his roommate and was making suicidal and homicidal threats. On the inpatient unit he was fully cooperating with the medicine and was showing moderate improvement and remained in good control.. RELEVANT HISTORY: Long psychiatric history. PAST PSYCHIATRIC HISTORY: He has been in inpatient psychiatric unit since October 27, 2020 PAST MEDICAL HISTORY: Refer to medical HNP FAMILY HISTORY: Mother: Father: Siblings: Children: PERSONAL AND SOCIAL HISTORY: The patient was born and raised in [place]. 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 No legal MENTAL STATUS EXAMINATION: Patient is a AGE-year old male, who is in no acute distress and cooperative. Speech is not very productive but was relevant. Language skills are poor. Thought processes including: Circumstantial. Thought content: His paranoia about roommate has decreased and he is not as preoccupied. Abstract reasoning, and computation: Poor. Description of associations: Somewhat circumstantial. Description of abnormal or psychotic thoughts: Remains moderately preoccupied with paranoid and oriental orthodox ideas. He is denying any suicidal or homicidal thoughts Judgment: Poor. Insight: Poor. Orientation to oriented. Recent and remote memory: No gross impairment. Attention span and concentration: Poor. Language:. Fund of knowledge:. Mood: Denies any serious depression. Affect: Blunted. DIAGNOSIS: 1.. Chronic schizophrenia paranoid PLAN: 1.. He can be transferred back to psychiatric floor when medically cleared 2.. Vital Signs Vital Signs Date Time Temp Pulse Resp B/P (MAP) Pulse Ox O2 Delivery O2 Flow Rate FiO2 11/14/20 07:52 74 139/75 11/14/20 06:00 97.4 19 95 Room Air Laboratory Data 24H Labs Laboratory Tests 2 11/13/20 17:49: Bedside Glucose (Misc Panel) 127H 11/13/20 20:29: Bedside Glucose (Misc Panel) 166H 11/14/20 05:41: Bedside Glucose (Misc Panel) 127H 11/14/20 07:58: Anion Gap 6L, Glomerular Filtration Rate > 60.0, Calcium Level 8.9 11/14/20 12:05: Bedside Glucose (Misc Panel) 232H Home Medications Current Medications Current Medications Medications (Trade) Dose Ordered Sig/Vidal Route PRN Reason Start Time Stop Time Status Last Admin Dose Admin Acetaminophen (Tylenol Tab) 650 mg Q4H PRN PO MILD PAIN or TEMP > 101 11/11/20 20:05 11/13/20 08:32 Al Hydrox/Mg Hydrox/Simethicone (Mylanta) 30 ml DAILY PRN PO DYSPEPSIA 11/11/20 20:05 Amlodipine Besylate (Norvasc) 2.5 mg DAILY PO 11/12/20 09:00 11/12/20 10:18 DC 11/12/20 09:16 Amlodipine Besylate (Norvasc) 5 mg BID PO 11/12/20 21:00 11/14/20 07:52 Aspirin (Ecotrin) 81 mg DAILY PO 11/12/20 09:00 11/14/20 07:51 Atorvastatin Calcium (Lipitor) 20 mg DAILY PO 11/12/20 09:00 11/14/20 07:52 Dextrose (Dextrose 50%) 25 ml ASDIRECTED PRN IV SEE LABEL COMMENTS 11/11/20 21:55 Enoxaparin Sodium (Lovenox) 40 mg DAILY SC 11/12/20 09:00 11/14/20 07:52 EZETIMIBE (Zetia) 10 mg DAILY PO 11/12/20 09:00 11/14/20 07:52 Glucagon (Glucagon) 1 mg ASDIRECTED PRN SC SEE LABEL COMMENTS 11/11/20 21:55 Glucose (Glucose) 16 GM ASDIRECTED PRN PO SEE LABEL COMMENTS 11/11/20 21:55 Insulin Human Lispro (HumaLOG INSULIN) See Protocol Table AC SC 11/12/20 07:30 11/14/20 07:53 Insulin Human Lispro (HumaLOG INSULIN) See Protocol Table QHS SC 11/11/20 21:00 Levothyroxine Sodium (Synthroid) 100 mcg DAILY@06 PO 11/12/20 06:00 11/14/20 05:18 Magnesium Hydroxide (Milk Of Magnesia) 30 ml DAILY PRN PO CONSTIPATION 11/11/20 20:05 Ramelteon (Rozerem) 8 mg QHS PRN PO INSOMNIA 11/12/20 22:00 11/12/20 22:04 Sodium Polystyrene Sulfonate (Kayexalate) 30 gm NOW STAT PO 11/12/20 06:04 11/12/20 06:05 DC 11/12/20 06:45 Sodium Chloride 1,000 ml @ 100 mls/hr Q10H IV 11/11/20 20:05 11/13/20 15:50 DC 11/13/20 15:12 Scheduled Aspirin (Aspirin EC) 81 Mg Tabec, 81 MG PO DAILY, (Reported) Atorvastatin Calcium (Atorvastatin Calcium) 20 Mg Tablet, 20 MG PO DAILY, (Reported) Benztropine Mesylate (Benztropine Mesylate) 1 Mg Tablet, 1 MG PO BID, (Reported) Cholecalciferol (Vitamin D3) (Vitamin D3) 25 Mcg Tablet, 25 MCG PO DAILY, (Reported) Dulaglutide (Trulicity) 0.75 Mg/0.5 Ml Pen.injctr, 0.75 MG SC QWEEK, (Reported) THURSDAY Ergocalciferol (Vitamin D2) (Vitamin D2) 50,000 Units Cap, 50,000 UNITS PO 1XWK, (Reported) THURSDAY Ezetimibe (Zetia) 10 Mg Tab, 10 MG PO DAILY, (Reported) Levothyroxine Sodium (Levothyroxine Sodium) 100 Mcg Tablet, 100 MCG PO DAILY, (Reported) Lisinopril (Lisinopril) 40 Mg Tab, 40 MG PO DAILY, (Reported) Metformin HCl (Metformin HCl ER) 500 Mg Tab.er.24h, 1,000 MG PO DAILY, (Reported) Paliperidone Palmitate (Invega Sustenna) 234 Mg/1.5 Ml Syringe, 234 MG IM QMONTH, (Reported) Scheduled PRN Trazodone HCl (Trazodone HCl) 50 Mg Tablet, 50 MG PO QHS PRN for SLEEP, (Reported) Allergies Coded Allergies: Penicillins (Verified Allergy, Mild, 04/14/19) DARREL TRIVEDI M.D. Nov 14, 2020 12:29
[2020-11-14 14:00] VITALS: BP 137/74
[2020-11-14] MEDS ORDERED: ACETAMINOPHEN TAB 650MG DOSE (2X325MG) PO PRN (14:05)
[2020-11-14] MEDS ORDERED: MAALOX 30 ML SUSP *UDC PO PRN (14:05)
[2020-11-14] MEDS ORDERED: traZODone 50 MG TAB PO PRN (14:05)
[2020-11-14] MEDS ORDERED: MOM 30ML SUSPENSION UDC PO PRN (14:05)
--- NOTE | 2020-11-15 10:56 | DSES ---
DISCHARGE SUMMARY DATE OF ADMISSION: 11/11/2020 DATE OF DISCHARGE: 11/14/2020 DISCHARGE DIAGNOSES: 1. Chest pain, ruled out by negative troponin markers. 2. Acute kidney injury (HILL) 3. Hyperkalemia. 4. Mild lactic acidemia secondary to dehydration. 5. Hypertension. 6. Non-Insulin dependent diabetes mellitus type 2 7. Hyperlipidemia. 8. Hypothyroidism. 9. History of paranoid schizophrenia with suicidal and homicidal ideation. PROCEDURES PERFORMED DURING THIS HOSPITALIZATION: None. CONSULTANTS ON THE CASE: Dr. Becerril of inpatient psychiatry. DISPOSITION: The patient is discharged back to inpatient psychiatry. CONDITION AT DISCHARGE: Medically stable. DISCHARGE INSTRUCTIONS: The patient is instructed to resume his home medications as prescribed. He is to follow up with his primary care provider (PCP) upon discharge from inpatient psychiatry. LABORATORY DATA: Relevant labs are the following: The patient's potassium was 5.9 with a creatinine of 1.47 on admission. Serial troponin markers were negative. At discharge, the patient's sodium was 141, potassium 4.2, chloride 108, bicarbonate 27, anion gap 6, BUN is 14, creatinine is 0.75, glucose is 124. Microbiology blood cultures showed no growth for the past 48 hours. Urine cultures were no growth. IMAGING STUDIES: Renal ultrasound showed no acute pathology. CT of the chest with contrast showed no acute findings. Please reference full report for details. DISCHARGE MEDICATIONS: 1. Baby aspirin daily 2. Atorvastatin 20 mg daily 3. Benztropine 1 mg twice a day 4. Cholecalciferol mcg by mouth daily 5. Trulicity 0.75 mg weekly subcutaneous 6. Ergocalciferol 78099 weekly 7. Zetia 10 mg daily 8. Synthroid 1000 mcg daily 9. Lisinopril 40 mg daily 10.Metformin 1000 mg daily 11.Invega 234 mg IM. monthly 12.Trazodone 50 mg at bedtime as needed for sleep. HOSPITAL COURSE: Jero is a 60-year-old gentleman who was admitted to the inpatient psychiatry unit for suicidal and homicidal ideation. While there, the patient began to complain of chest discomfort and was found to have abnormality in his labs indicating acute kidney injury and hyperkalemia. He was admitted to the hospitalist service, hydrated with IV fluids. His lisinopril and other blood pressure medications were held. Renal ultrasound was obtained, which was unremarkable. His hyperkalemia normalized as did his creatinine function. The patient was monitored off of fluids for 24 hours without any recurrence in his hyperkalemia and he was subsequently cleared for discharge from a medical standpoint. Dr. Becerril of inpatient psychiatry was consulted and the patient was transferred to [facility] once a bed was available to him. At the time of discharge, the patient's temperature is 98.2, pulse is 74, respiratory rate is 19, blood pressure is 139/75, O2 saturation is 95% on room air. General: The patient is alert and oriented times 3. He appears in no acute distress. He is resting comfortably, sitter is at the bedside. His head is atraumatic. Pupils symmetric, reactive to light. Oropharynx clear. Neck is supple. Breath sounds presence without rales or rhonchi. Heart: S1, S2. No murmurs or gallops. Abdomen is protuberant, nontender, non-distended. Extremities without significant cyanosis, clubbing or edema. A total of 30 minutes were spent completing all discharge paperwork. Primary Care Provider (PCP)
== END 2020-11-14 14:46 | DRG 683 ==
LOC: M MSPAV 21:55
PROVIDERS: ADMIT Internal Medicine; ATTEND Internal Medicine
DX: N17.9 Acute kidney failure, unspecified (principal); F20.0 Paranoid schizophrenia; E87.2 Acidosis; R07.89 Other chest pain; I10 Essential (primary) hypertension; E11.9 Type 2 diabetes mellitus without complications; E78.5 Hyperlipidemia, unspecified; E03.9 Hypothyroidism, unspecified; E87.5 Hyperkalemia; Z79.82 Long term (current) use of aspirin; Z79.84 Long term (current) use of oral hypoglycemic drugs; Z79.899 Other long term (current) drug therapy; Z88.0 Allergy status to penicillin; E86.0 Dehydration

== ENCOUNTER 2020-11-14 13:25 | Inpatient (IN) | payer MEDICARE, MEDICAID ==
[~2020-11-14] VITALS: Ht 172.7 cm; Wt 101.6 kg
[~2020-11-14 13:25] MED LIST changes: +CHOL25TA8 PO; -VITA-112 PO
[2020-11-14] MEDS ORDERED: MAALOX 30 ML SUSP *UDC PO PRN (14:20)
[2020-11-14] MEDS ORDERED: MOM 30ML SUSPENSION UDC PO PRN (14:20)
[2020-11-14 15:09] VITALS: BP 145/87
[2020-11-15] MEDS: traZODone 50 MG TAB PO PRN ×2 (00:14→20:10)
[2020-11-15 07:02] VITALS: BP 123/66
--- NOTE | 2020-11-15 10:11 | MHHPEPDOC ---
General Date Of Admission: Nov 14, 2020 Chief Complaint I was just feeling very tired ". History of Present Illness HISTORY OF THE PRESENT ILLNESS: Patient is a 60 -year-old , male, who [was initially admitted to inpatient unit on October 26 for acutely decompensated schizophrenic symptoms. Patient was cooperating with the medications and was continued on paliperidone injection and was considered for discharge back to his [facility] apartment in the near future. Patient developed chest pain on November 11 and was transferred to medical unit for medical observation and stabilization. He was found to have hypokalemic episode and his medication was adjusted and medically stable and was transferred back to inpatient psychiatric unit on 939 status. Patient does not remember exactly what happened but stated that he was not feeling somewhat weak and had a discomfort in his chest but now he is feeling much better and does not have any pain or discomfort but is just feeling tired. He however was observed to be making some bizarre nonsensical statement and appeared to be preoccupied with some paranoid ideas about his roommate and apparently in need of further psychiatric stabilization.]. Psychiatric Review of Systems Depression (2 or more weeks): decreased energy, psychomotor changes, suicidal thoughts Psychosis: delusions, paranoia, other (Patient has been paranoid about his roommate and has been extremely religiously preoccupied) PTSD: denies Anxiety: denies Past Psychiatric History Previous Psychiatric Diagnosis: . Paranoid schizophrenia schizoaffective di sorder Previous Psychiatric Admissions: . Long history with multiple admissions Suicide Attempts: . No documented history of suicidal attempt Psychiatric Follow-up: . Been linked with outpatient treatment Psychiatric medications: . Currently on paliperidone injection Past Medical History Medical Problems Diabetes hypercholesterolemia Head Injury: No Seizures: No Hospitalizations: Yes Surgeries: No Family Medical/Psychiatric HX Medical Problems Noncontributory Psychiatric Disorders: No (Patient is not sure of his family psychiatric history) Addiction: No Suicide Attemps/Completions: No Addiction History denies Social History Childhood: . Reports uneventful childhood he was born in [place] Abuse/Trauma:. Denies any childhood abuse or trauma Current Living Situation: . Lives in a [facility] apartment Education: . 1 year of college Employment: . Was in service but currently on SSD Social Support: . Not much in contact with his family Legal: . No history of legal issues and no history of violence Marital: . He was once but Mental Status Examination General Appearance: appears stated age Build: average Demeanor: withdrawn, preoccupied Eye Contact: avoidant Activity: slowed Behavior: cooperative Speech: slow, low in volume, non-spontaneous Mood: anxious Mood Reports feeling moderately anxious but denies any serious depression and denies any suicidal thoughts Affect: constricted, inappropriate, anxious Thought Process: circumstantial, tangential Thought Content (Delusions): paranoia Thought Content (Other): preoccupied, internal-stimuli Thought Content (Aggressive): none reported Perception (Hallucinations): none reported Perception (Other): none reported Cognition (Impairment of): none reported Cognition(Intelligence Est.): average Oriented: Awake, Alert, Oriented times three Insight: poor Judgment: Fair Diagnoses Chronic schizophrenia paranoid on nuclear to rule out schizoaffective disorder A-FIB/CHADSVASC A-FIB History Current/History of A-Fib/PAF?: No Current PO Anticoag Therapy: Yes Assessment Patient needs further stabilization with his antipsychotic medicine and supportive therapy and eventually return to his [facility] apartment Initial Treatment Plan 1. Patient was admitted on a 9 status. 2. Complete history was obtained. 3. With patients permission, family will be contacted and database will be expanded. 4. Patients medication regimen will be reviewed and changed accordingly. 5. Patient will be provided with protected environment. 6. Patient will be treated with individual, group, and milieu therapies. 7. Patient will receive supportive psych-education. 8. Discharge planning will commence immediately. 9. Outpatient follow-up treatment will be strongly recommended. 10. The initial treatment plan will focus initially on: * Depression. * Risk for suicide. ESTIMATED LENGTH OF STAY: 5-7 DAYS. TIME SPENT COUNSELING AND COORDINATING INITIAL CARE: 45 minutes. Tobacco Cessation Screen If Patient is a Smoker Patient is a non-smoker Complete/Results docum. Vital Signs Vital Signs Date Time Temp Pulse Resp B/P (MAP) Pulse Ox O2 Delivery O2 Flow Rate FiO2 11/15/20 07:02 98.8 65 20 123/66 (85) 95 Room Air Medications Scheduled Aspirin (Aspirin EC) 81 Mg Tabec, 81 MG PO DAILY, (Reported) Atorvastatin Calcium (Atorvastatin Calcium) 20 Mg Tablet, 20 MG PO DAILY, (Reported) Benztropine Mesylate (Benztropine Mesylate) 1 Mg Tablet, 1 MG PO BID, (Reported) Cholecalciferol (Vitamin D3) (Vitamin D3) 25 Mcg Tablet, 25 MCG PO DAILY, (Reported) Dulaglutide (Trulicity) 0.75 Mg/0.5 Ml Pen.injctr, 0.75 MG SC QWEEK, (Reported) THURSDAY Ergocalciferol (Vitamin D2) (Vitamin D2) 50,000 Units Cap, 50,000 UNITS PO 1XWK, (Reported) THURSDAY Ezetimibe (Zetia) 10 Mg Tab, 10 MG PO DAILY, (Reported) Levothyroxine Sodium (Levothyroxine Sodium) 100 Mcg Tablet, 100 MCG PO DAILY, (Reported) Lisinopril (Lisinopril) 40 Mg Tab, 40 MG PO DAILY, (Reported) Metformin HCl (Metformin HCl ER) 500 Mg Tab.er.24h, 1,000 MG PO DAILY, (Reported) Paliperidone Palmitate (Invega Sustenna) 234 Mg/1.5 Ml Syringe, 234 MG IM QMONTH, (Reported) Scheduled PRN Trazodone HCl (Trazodone HCl) 50 Mg Tablet, 50 MG PO QHS PRN for SLEEP, (Reported) Allergies Coded Allergies: Penicillins (Verified Allergy, Mild, 04/14/19) DARREL TRIVEDI M.D. Nov 15, 2020 10:10
[2020-11-15] MEDS ORDERED: HOME MED LIST COMPLETE! XX SCH (10:25)
[2020-11-15] MEDS: LEVOTHYROXINE 100MCG TABLET (0.1MG) PO SCH (12:39)
[2020-11-15] MEDS: BENZTROPINE 1 MG TAB PO SCH ×2 (12:39→20:10)
[2020-11-15] MEDS: ASPIRIN 81MG ENTERIC TABLET PO SCH (12:40)
[2020-11-15] MEDS: ATORVASTATIN 20 MG TAB PO SCH (12:41)
[2020-11-15] MEDS: lisinopriL 40 MG TAB PO SCH (12:41)
[2020-11-15] MEDS: EZETIMIBE 10 MG TAB (ZETIA) PO SCH (12:42)
[2020-11-15] MEDS: VITAMIN D 50,000 UNITS CAPSULE (ERGOCALCIFEROL 1.25MG) PO SCH (12:42)
[2020-11-15] MEDS ORDERED: PALIPERIDONE PALMITATE 234MG/1.5ML INJ (INVEGA)(FREE PSY INPT ONLY) IM ONE (13:00)
--- NOTE | 2020-11-15 16:57 | CR ---
CONSULTATION DATE: 11/15/2020 PHYSICIAN REQUESTING CONSULTATION: Dr. Jone Cardozo REASON FOR CONSULTATION: Medical evaluation of inpatient psychiatric recipient. HISTORY OF PRESENT ILLNESS: Jero is a 60-year-old gentleman, known to me from a recent hospitalization, who has a history of diabetes, hypertension, hyperlipidemia, as well as schizophrenia. The patient had been on the inpatient psychiatric unit but was noted to have lab abnormalities consisting of acute kidney injury (HILL), lactic acidemia, and hyperkalemia. He required a short hospital stay and correction with intravenous (IV) fluids to resolve this and was discharged back to inpatient psychiatry yesterday. He is seen this morning and is relaxed and not complaining of any acute medical problems. ALLERGIES: PENICILLIN. CURRENT HOME MEDICATIONS: Aspirin, atorvastatin, benztropine, cholecalciferol, Trulicity, ergocalciferol, Zetia, Synthroid, lisinopril, metformin, and Invega as well as as-needed trazodone. MEDICAL HISTORY: As outlined in the history of present illness (HPI). SURGICAL HISTORY: Nil. SOCIAL HISTORY: Patient lives in a transitional living services ([facility]) apartment. He is currently on social security disability. He denies any alcohol or illicit drug use. FAMILY HISTORY: Was asked but is particularly noncontributory. REVIEW OF SYSTEMS: All systems reviewed with the patient and otherwise negative. PHYSICAL EXAMINATION: Patient's temperature is 98.8, pulse 65 and regular, respirations 20, blood pressure 122/66, oxygen saturation 95% on room air. General: The patient is alert and oriented times three. Appears in no acute distress. Resting comfortably. Head is atraumatic. Pupils equal and reactive to light. Oropharynx clear. Neck supple. Lung sounds present without rales or rhonchi. Heart is S1, S2. No murmurs, rubs, or gallops. Abdomen is soft, nontender, nondistended. Extremities without any cyanosis, clubbing or edema. RELEVANT LABORATORY DATA: Last drawn yesterday during his hospitalization. Please reference electronic record for them. They were previously reviewed by me yesterday prior to his discharge to inpatient psychiatry. IMPRESSION: 1. Diabetes mellitus, type 2. 2. Hypertension. 3. Hyperlipidemia. 4. Schizophrenia. PLAN: I recommend continuing all patient's medications as ordered. Will sign off now. May proceed with ongoing inpatient psychiatry. If there are any questions, please call me.
[2020-11-15] MEDS: metFORMIN XR 500MG TAB *GLUCOPHAGE XR PO SCH (17:16)
[2020-11-15 18:00] VITALS: BP 131/59
[2020-11-15] MEDS: risperiDONE 2 MG TAB PO SCH (20:10)
[2020-11-16] MEDS: LEVOTHYROXINE 100MCG TABLET (0.1MG) PO SCH (05:57)
[2020-11-16 06:25] VITALS: BP 114/58
[2020-11-16] MEDS ORDERED: metFORMIN (GLUCOPHAGE) 1000 MG TABLET PO SCH (08:00)
[2020-11-16] MEDS: ASPIRIN 81MG ENTERIC TABLET PO SCH (09:03)
[2020-11-16] MEDS: BENZTROPINE 1 MG TAB PO SCH ×2 (09:03→20:19)
[2020-11-16] MEDS: ATORVASTATIN 20 MG TAB PO SCH (09:03)
[2020-11-16] MEDS: EZETIMIBE 10 MG TAB (ZETIA) PO SCH (09:04)
[2020-11-16] MEDS: lisinopriL 40 MG TAB PO SCH (09:04)
--- NOTE | 2020-11-16 09:47 | MHIPNPDOC ---
[facility] Progress Note Progress Note DATE OF SERVICE: 11/16/20 Patient is showing a gastroenterology nurse of [facility] and stated that it is his favorite topic. He then proceeded to talk about aliens, spaceships and God. He also ra mbled about his roommate being sexually inappropriate etc. He remains very loose circumstantial and disorganized but behavior is under control. He was due for his paliperidone injection yesterday and received 234 mg without any incident and patient is fully cooperate. He is clearly in need of further stabilization. HISTORY:. VITAL SIGNS: See below. NEW TEST RESULTS:. CURRENT MEDICATIONS: See below. MENTAL STATUS EXAMINATION: Patient is a 60-year old male, who is in no acute distress. Speech: Is very circumstantial loose and flight. Language skills are poor. Thought processes including: Disorganized. Thought content: Markedly paranoid and preoccupied with the many delusional thinking. Abstract reasoning, and computation: Poor. Description of associations : Disorganized. Description of abnormal or psychotic thoughts: Remains grossly delusional and paranoid. Judgment: Poor. Insight: poor]. Orientation: Oriented to place and person. Recent and remote memory: No gross impairment. Attention span and concentration: Poor. Language:. Fund of knowledge:. Mood:. Affect:. DIAGNOSES: 1.. Chronic schizophrenia paranoid 2.. 3.. ASSESSMENT: Remains very disorganized and needs further stabilization MANAGEMENT PLAN: Continue with paliperidone may add risperidone orally and co ntinue with supportive therapy. TIME SPENT: 20] minutes. Vital Signs Vital Signs Date Time Temp Pulse Resp B/P (MAP) Pulse Ox O2 Delivery O2 Flow Rate FiO2 11/16/20 06:25 98.6 75 16 114/58 (76) 96 Room Air Current Medications Current Medications Medications (Trade) Dose Ordered Sig/Vidal Route PRN Reason Start Time Stop Time Status Last Admin Dose Admin Acetaminophen (Tylenol Tab) 650 mg Q6HP PRN PO HEADACHE or MILD DISCOMFORT 11/14/20 14:20 Al Hydrox/Mg Hydrox/Simethicone (Mylanta) 30 ml Q4HP PRN PO HEARTBURN/INDIGESTION 11/14/20 14:20 Aspirin (Ecotrin) 81 mg DAILY PO 11/15/20 09:00 11/16/20 09:03 Atorvastatin Calcium (Lipitor) 20 mg DAILY PO 11/15/20 09:00 11/16/20 09:03 Benztropine Mesylate (Cogentin) 1 mg BID PO 11/15/20 09:00 11/16/20 09:03 EZETIMIBE (Zetia) 10 mg DAILY PO 11/15/20 09:00 11/16/20 09:04 Home Med (Med Rec Complete!) ASDIRECTED XX 11/15/20 10:25 11/15/20 10:34 DC Levothyroxine Sodium (Synthroid) 100 mcg DAILY@06 PO 11/15/20 06:00 11/16/20 05:57 Lisinopril (Prinivil) 40 mg DAILY PO 11/15/20 09:00 11/16/20 09:04 Magnesium Hydroxide (Milk Of Magnesia) 30 ml DAILYPRN PRN PO CONSTIPATION 11/14/20 14:20 Metformin HCl (Glucophage Xr) 1,000 mg DAILY@18 PO 11/15/20 18:00 11/15/20 17:16 Metformin HCl (Glucophage) 1,000 mg DAILY@08 PO 11/16/20 08:00 11/15/20 10:51 DC Risperidone (RisperDAL) 2 mg QHS PO 11/15/20 21:00 11/15/20 20:10 Trazodone HCl (Desyrel) 50 mg QHSP PRN PO INSOMNIA 11/14/20 14:20 11/15/20 20:10 Vitamin D (Drisdol) 50,000 units Th PO 11/15/20 12:00 11/15/20 12:42 Allergies Coded Allergies: Penicillins (Verified Allergy, Mild, 04/14/19) DARREL TRIVEDI M.D. Nov 16, 2020 09:47
[2020-11-16] MEDS: metFORMIN XR 500MG TAB *GLUCOPHAGE XR PO SCH (17:56)
[2020-11-16 18:00] VITALS: BP 136/73
[2020-11-16] MEDS: traZODone 50 MG TAB PO PRN (20:19)
[2020-11-16] MEDS: risperiDONE 2 MG TAB PO SCH (20:19)
[2020-11-17] MEDS: LEVOTHYROXINE 100MCG TABLET (0.1MG) PO SCH (05:26)
[2020-11-17 05:36] VITALS: BP 116/58
[2020-11-17] MEDS: ATORVASTATIN 20 MG TAB PO SCH (08:46)
[2020-11-17] MEDS: ASPIRIN 81MG ENTERIC TABLET PO SCH (08:46)
[2020-11-17] MEDS: lisinopriL 40 MG TAB PO SCH (08:47)
[2020-11-17] MEDS: EZETIMIBE 10 MG TAB (ZETIA) PO SCH (08:47)
[2020-11-17] MEDS: BENZTROPINE 1 MG TAB PO SCH ×2 (08:47→19:45)
--- NOTE | 2020-11-17 14:43 | MHIPN ---
[facility] PROGRESS NOTE DATE: 11/17/2020 VITAL SIGNS: Blood pressure 116/58, pulse 62, temperature 97.5. This is a video assessment. He is in the inpatient psychiatry unit. I am at home. He understands the limits of the visit and the assessment. He is seen in the presence of staff. CHIEF COMPLAINT: Says feels worried. SUBJECTIVE: Seen for followup. Indicates feels worried. Talks in vague, metaphorical terms. Speaks of others being procrastinators, and a lot of his statements are not in context with what is being discussed. Also feels disturbed by a roommate that he stays with. They have been living together for a bit. He did not go into detail but suggests that the roommate disturbs him to the point where patient has felt like killing him. Says does not wish to return to same residence. He stays at a [facility] facility. Roommate's name is Frank. Says slept okay. Has eaten. MENTAL STATUS EXAMINATION: He is unkempt. He is cooperative though a bit guarded. No agitation. No psychomotor retardation. Coherent for brief periods. Often gives statements not in context with what is being discussed. He has a restricted affect. He is vague on suicidal thoughts. Has homicidal thoughts or intent toward his roommate. Has delusions, mostly of persecution. Appears alert and oriented. Judgment and insight are poor. ASSESSMENT: Schizophrenia. Disorganized thoughts. Non-sequiturs as well. He has homicidal thoughts and intents toward his roommate. We will need to inform the roommate as well as [facility], whose apartments and under whose supervision they live. PLAN: Continue current care. He received Invega Sustenna a couple of days ago, 234 mg intramuscular. We will continue current precautions and will look at informing patient's roommate and [facility], as discussed above. He is to be encouraged to participate in activities in the unit. Further recommendations to be made depending on the clinical picture.
[2020-11-17 16:33] VITALS: BP 128/60
[2020-11-17] MEDS: metFORMIN XR 500MG TAB *GLUCOPHAGE XR PO SCH (17:49)
[2020-11-17] MEDS: risperiDONE 2 MG TAB PO SCH (19:45)
[2020-11-17] MEDS: traZODone 50 MG TAB PO PRN (21:32)
[2020-11-18] MEDS: LEVOTHYROXINE 100MCG TABLET (0.1MG) PO SCH (05:56)
[2020-11-18 06:22] VITALS: BP 132/61
[2020-11-18] MEDS: ASPIRIN 81MG ENTERIC TABLET PO SCH (08:41)
[2020-11-18] MEDS: EZETIMIBE 10 MG TAB (ZETIA) PO SCH (08:41)
[2020-11-18] MEDS: ATORVASTATIN 20 MG TAB PO SCH (08:41)
[2020-11-18] MEDS: BENZTROPINE 1 MG TAB PO SCH ×2 (08:41→20:37)
[2020-11-18] MEDS: lisinopriL 40 MG TAB PO SCH (08:41)
[2020-11-18 15:41] VITALS: BP 131/68
[2020-11-18] MEDS: metFORMIN XR 500MG TAB *GLUCOPHAGE XR PO SCH (17:45)
[2020-11-18] MEDS: traZODone 50 MG TAB PO PRN (20:37)
[2020-11-18] MEDS: risperiDONE 2 MG TAB PO SCH (20:37)
[2020-11-19] MEDS: LEVOTHYROXINE 100MCG TABLET (0.1MG) PO SCH (05:35)
[2020-11-19 06:34] VITALS: BP 134/56
--- NOTE | 2020-11-19 08:10 | MHIPN ---
[facility] PROGRESS NOTE DATE: 11/18/2020 VITAL SIGNS: Blood pressure 132/61, pulse 66, temperature 97.6. This is a video assessment, he is in the inpatient unit, he is seen in the presence of staff, I am at home. CHIEF COMPLAINT: Feels a bit rested. SUBJECTIVE: Seen for followup, indicates felt okay, a bit more rested, spoke of various things, including a dream he had. Has been eating okay, remains with concerns regarding his roommate, and thoughts of killing him, though no firm plans. MENTAL STATUS EXAMINATION: A bit neater than yesterday, he is cooperative, no agitation, no psychomotor retardation, thoughts remain somewhat disorganized in that they are tangential, not related to the topic at hand, though less evidently so than yesterday. Denies any suicidal thoughts or intents at present. He has thoughts of hurting his roommate, where he stays, at [facility] [place], though vague on active plans. Does not at present appear to be internally preoccupied, unclear on delusions, judgment and insight remain compromised. ASSESSMENT: Schizophrenia. PLAN: Continue current care, and observations. [facility] ([facility] has been informed about his desires to kill his roommate, and they requested that the roommate not be informed directly, currently, as he has considerable difficulties of his own, and they are concerned that these may be exacerbated. We will monitor this, and tomorrow being Thursday, will pursue this further. The roommate ought to be informed in due course, but soon. It is also recommended that the patient not be discharged to the same residence, given the above. Further recommendations will be made depending on the clinical picture, when he sees his clinicians tomorrow.
[2020-11-19] MEDS: **PENDING PPD ENTRY XX SCH (09:00)
[2020-11-19] MEDS: lisinopriL 40 MG TAB PO SCH (09:25)
[2020-11-19] MEDS: EZETIMIBE 10 MG TAB (ZETIA) PO SCH (09:25)
[2020-11-19] MEDS: ASPIRIN 81MG ENTERIC TABLET PO SCH (09:26)
[2020-11-19] MEDS: ATORVASTATIN 20 MG TAB PO SCH (09:26)
[2020-11-19] MEDS: BENZTROPINE 1 MG TAB PO SCH ×2 (09:26→21:30)
--- NOTE | 2020-11-19 09:39 | MHIPNPDOC ---
[facility] Progress Note Progress Note DATE OF SERVICE: 11/19/20 The patient started to talk about a fruit grading supervisor named Andrés Queen and then continued to ruminate about his father etc. He is extremely loose circumstantial and irrelevant. He has received his paliperidone injection and is cooperating with oral medications but is not showing any improvement and if any he is more disorganized. He mentioned his roommate briefly but strongly denies any homicidal thoughts plan or intent and is even willing to accept him and return to his old [facility] apartment but overall does not show any insight and remains diso rganized. HISTORY:. VITAL SIGNS: See below. NEW TEST RESULTS:. CURRENT MEDICATIONS: See below. MENTAL STATUS EXAMINATION: Patient is a 60-year old male, who is in no acute physical distress. Speech: Is very loose and circumstantial. Language skills are poor. Thought processes including: Rambling and ruminating. Thought content: Grossly disorganized. Abstract reasoning, and computation: Poor. Description of associations: Very loose and disorganized. Description of abnormal or psychotic thoughts: Appears to be preoccupied with many different delusional thoughts but denies any suicidal or homicidal thoughts. Judgment: Poor. Insight: Poor. Orientation: Oriented to the place. Recent and remote memory: No gross impairment. Attention span and concentration: Poor. Language:. Fund of knowledge:. Mood: Does not appear to be anxious seriously depressed. Affect: Very plan. DIAGNOSES: 1.. Chronic schizophrenia 2.. 3.. ASSESSMENT: No improvement and remains very disorganized MANAGEMENT PLAN: He may need long-term hospitalization and we will refer him to [facility]. TIME SPENT: Minutes. Vital Signs Vital Signs Date Time Temp Pulse Resp B/P (MAP) Pulse Ox O2 Delivery O2 Flow Rate FiO2 11/19/20 06:34 97.7 79 18 134/56 (82) 95 Room Air Current Medications Current Medications Medications (Trade) Dose Ordered Sig/Vidal Route PRN Reason Start Time Stop Time Status Last Admin Dose Admin Acetaminophen (Tylenol Tab) 650 mg Q6HP PRN PO HEADACHE or MILD DISCOMFORT 11/14/20 14:20 Al Hydrox/Mg Hydrox/Simethicone (Mylanta) 30 ml Q4HP PRN PO HEARTBURN/INDIGESTION 11/14/20 14:20 Aspirin (Ecotrin) 81 mg DAILY PO 11/15/20 09:00 11/19/20 09:26 Atorvastatin Calcium (Lipitor) 20 mg DAILY PO 11/15/20 09:00 11/19/20 09:26 Benztropine Mesylate (Cogentin) 1 mg BID PO 11/15/20 09:00 11/19/20 09:26 EZETIMIBE (Zetia) 10 mg DAILY PO 11/15/20 09:00 11/19/20 09:25 Home Med (Med Rec Complete!) ASDIRECTED XX 11/15/20 10:25 11/15/20 10:34 DC Levothyroxine Sodium (Synthroid) 100 mcg DAILY@06 PO 11/15/20 06:00 11/19/20 05:35 Lisinopril (Prinivil) 40 mg DAILY PO 11/15/20 09:00 11/19/20 09:25 Magnesium Hydroxide (Milk Of Magnesia) 30 ml DAILYPRN PRN PO CONSTIPATION 11/14/20 14:20 Metformin HCl (Glucophage Xr) 1,000 mg DAILY@18 PO 11/15/20 18:00 11/18/20 17:45 Metformin HCl (Glucophage) 1,000 mg DAILY@08 PO 11/16/20 08:00 11/15/20 10:51 DC Risperidone (RisperDAL) 2 mg QHS PO 11/15/20 21:00 11/18/20 20:37 Trazodone HCl (Desyrel) 50 mg QHSP PRN PO INSOMNIA 11/14/20 14:20 11/18/20 20:37 Vitamin D (Drisdol) 50,000 units Th PO 11/15/20 12:00 11/15/20 12:42 Allergies Coded Allergies: Penicillins (Verified Allergy, Mild, 04/14/19) DARREL TRIVEDI M.D. Nov 19, 2020 09:39
[2020-11-19] MEDS ORDERED: TUBERCULIN PPD 5 UNITS/0.1 ML ID ONE (10:25)
[2020-11-19] MEDS: metFORMIN XR 500MG TAB *GLUCOPHAGE XR PO SCH (12:01)
[2020-11-19 19:05] VITALS: BP 132/81
[2020-11-19] MEDS: traZODone 50 MG TAB PO PRN (21:30)
[2020-11-19] MEDS: risperiDONE 2 MG TAB PO SCH (21:30)
[2020-11-20 06:00] VITALS: BP 116/55
[2020-11-20] MEDS: LEVOTHYROXINE 100MCG TABLET (0.1MG) PO SCH (06:16)
[2020-11-20] MEDS: lisinopriL 40 MG TAB PO SCH (08:34)
[2020-11-20] MEDS: EZETIMIBE 10 MG TAB (ZETIA) PO SCH (08:34)
[2020-11-20] MEDS: ASPIRIN 81MG ENTERIC TABLET PO SCH (08:38)
[2020-11-20] MEDS: ATORVASTATIN 20 MG TAB PO SCH (08:38)
[2020-11-20] MEDS: BENZTROPINE 1 MG TAB PO SCH ×2 (08:38→20:49)
[2020-11-20] MEDS: metFORMIN XR 500MG TAB *GLUCOPHAGE XR PO SCH (08:39)
[2020-11-20] MEDS: **PENDING PPD ENTRY XX SCH (09:00)
--- NOTE | 2020-11-20 11:26 | MHIPNPDOC ---
[facility] Progress Note Progress Note DATE OF SERVICE: 11/20/20 The patient received his paliperidone injection and reports no physical discomfort and no side effect. He is however showing even more bizarre and disorganized mental status. He was observed watching TV and talking to himself. When asked about his behavior patient stated that he is concerned about Andrés Queen,s father and then started to ramble about many different past celebrities and not making any sense. He is extremely loose circumstantial and disorganized and appears to be actively responding to hallucinations. His mental status appears more bizarre and disorganized so we will add risperidone 2 mg at bedtime along with the his paliperidone injection. HISTORY: . VITAL SIGNS: See below. NEW TEST RESULTS: . CURRENT MEDICATIONS: See below. MENTAL STATUS EXAMINATION: Patient is a [60]-year old male, who is [in no acute distress]. Speech: Is [rambling and loose incoherent]. Language skills are [poor]. Thought processes including: [More circumstantial and incoherent]. Thought content: [Very bizarre and disorganized]. Abstract reasoning, and computation: [Poor]. Description of associations: Disorganized. Description of abnormal or psychotic thoughts: Appears to be hallucinating and grossly delusional. Judgment poor]. Insight: Very poor. Orientation: Appears oriented. Recent and remote memory: No gross impairment. Attention span and concentration: Poor. Language:. Fund of knowledge:. Mood: Reports feeling okay. Affect: Blunted preoccupied. DIAGNOSES: 1.. Chronic schizophrenia 2.. 3.. ASSESSMENT: No improvement at all MANAGEMENT PLAN: At risperidone at bedtime. TIME SPENT: 20 minutes. Vital Signs Vital Signs Date Time Temp Pulse Resp B/P (MAP) Pulse Ox O2 Delivery O2 Flow Rate FiO2 11/20/20 06:00 97.4 75 20 116/55 (75) 97 11/19/20 06:34 Room Air Current Medications Current Medications Medications (Trade) Dose Ordered Sig/Vidal Route PRN Reason Start Time Stop Time Status Last Admin Dose Admin Acetaminophen (Tylenol Tab) 650 mg Q6HP PRN PO HEADACHE or MILD DISCOMFORT 11/14/20 14:20 Al Hydrox/Mg Hydrox/Simethicone (Mylanta) 30 ml Q4HP PRN PO HEARTBURN/INDIGESTION 11/14/20 14:20 Aspirin (Ecotrin) 81 mg DAILY PO 11/15/20 09:00 11/20/20 08:38 Atorvastatin Calcium (Lipitor) 20 mg DAILY PO 11/15/20 09:00 11/20/20 08:38 Benztropine Mesylate (Cogentin) 1 mg BID PO 11/15/20 09:00 11/20/20 08:38 EZETIMIBE (Zetia) 10 mg DAILY PO 11/15/20 09:00 11/20/20 08:34 Home Med (Med Rec Complete!) ASDIRECTED XX 11/15/20 10:25 11/15/20 10:34 DC Levothyroxine Sodium (Synthroid) 100 mcg DAILY@06 PO 11/15/20 06:00 11/20/20 06:16 Lisinopril (Prinivil) 40 mg DAILY PO 11/15/20 09:00 11/20/20 08:34 Magnesium Hydroxide (Milk Of Magnesia) 30 ml DAILYPRN PRN PO CONSTIPATION 11/14/20 14:20 Metformin HCl (Glucophage Xr) 1,000 mg DAILY@0800 PO 11/19/20 08:00 11/20/20 08:39 Metformin HCl (Glucophage Xr) 1,000 mg DAILY@18 PO 11/15/20 18:00 11/19/20 11:42 DC 11/18/20 17:45 Metformin HCl (Glucophage) 1,000 mg DAILY@08 PO 11/16/20 08:00 11/15/20 10:51 DC Non-Formulary Medication ( See Comment Field Below ) SEE COMMENTS SECTION 1T@10 XX 11/21/20 10:00 11/22/20 09:59 UNV Non-Formulary Medication ( See Comment Field Below ) SEE LABEL COMMENTS DAILY XX 11/19/20 09:00 Risperidone (RisperDAL) 2 mg QHS PO 11/15/20 21:00 11/19/20 21:30 Trazodone HCl (Desyrel) 50 mg QHSP PRN PO INSOMNIA 11/14/20 14:20 11/19/20 21:30 Vitamin D (Drisdol) 50,000 units Th PO 11/15/20 12:00 11/15/20 12:42 Allergies Coded Allergies: Penicillins (Verified Allergy, Mild, 04/14/19) DARREL TRIVEDI M.D. Nov 20, 2020 11:26
[2020-11-20 18:04] VITALS: BP 147/72
[2020-11-20] MEDS ORDERED: TUBERCULIN PPD 5 UNITS/0.1 ML ID ONE (19:00)
[2020-11-20] MEDS: risperiDONE 2 MG TAB PO SCH (20:49)
[2020-11-20] MEDS: traZODone 50 MG TAB PO PRN (20:49)
[2020-11-20] MEDS ORDERED: risperiDONE 2 MG TAB PO SCH (21:00)
--- NOTE | 2020-11-20 21:51 | ECGEPIP ---
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 No remarkable changes Electronically Signed on 11-20-2020 21:50:50 EDT by Kal Omer
[2020-11-21] MEDS: LEVOTHYROXINE 100MCG TABLET (0.1MG) PO SCH (06:10)
[2020-11-21 07:01] VITALS: BP 107/64
[2020-11-21] MEDS: ATORVASTATIN 20 MG TAB PO SCH (09:09)
[2020-11-21] MEDS: EZETIMIBE 10 MG TAB (ZETIA) PO SCH (09:09)
[2020-11-21] MEDS: BENZTROPINE 1 MG TAB PO SCH ×2 (09:09→20:38)
[2020-11-21] MEDS: ASPIRIN 81MG ENTERIC TABLET PO SCH (09:09)
[2020-11-21] MEDS: metFORMIN XR 500MG TAB *GLUCOPHAGE XR PO SCH (09:10)
[2020-11-21] MEDS: lisinopriL 40 MG TAB PO SCH (09:10)
[2020-11-21] MEDS ORDERED: PPD DOCUMENTATION ENTRY MISC XX SCH (10:00)
--- NOTE | 2020-11-21 10:06 | MHIPNPDOC ---
[facility] Progress Note Progress Note DATE OF SERVICE: 11/21/20 Patient is showing no significant improvement. He is in bed resting but when approached by this MD he started to talk about certain celebrities etc. making no sense and grossly disorganized and circumstantial. He is in no acute physical distress with no acting out behavior but he is extremely loose disorganized and preoccupied. HISTORY:. VITAL SIGNS: See below. NEW TEST RESULTS:. CURRENT MEDICATIONS: See below. MENTAL STATUS EXAMINATION: Patient is a 60-year old male, who is in poor contact. Speech: Is rambling and loose. Language skills are poor. Thought processes including: Grossly disorganized. Thought content: Numerous delusional thoughts. Abstract reasoning, and computation: Poor. Description of associations: Disorganized. Description of abnormal or psychotic thoughts: Grossly delusional. Judgment: Poor. Insight: Poor. Orientation: Appears oriented. Recent and remote memory: Unable to evaluate but no gross impairment. Attention span and concentration: Poor. Language:. Fund of knowledge:. Mood: Denies any serious depressed mood. Affect: Blunted inappropriate. DIAGNOSES: 1.. Chronic schizophrenia 2.. 3.. ASSESSMENT: No improvement MANAGEMENT PLAN: Patient has been referred to [facility]. TIME SPENT: 15 minutes. Vital Signs Vital Signs Date Time Temp Pulse Resp B/P (MAP) Pulse Ox O2 Delivery O2 Flow Rate FiO2 11/21/20 07:01 97.3 70 20 107/64 (78) 94 Room Air Current Medications Current Medications Medications (Trade) Dose Ordered Sig/Vidal Route PRN Reason Start Time Stop Time Status Last Admin Dose Admin Acetaminophen (Tylenol Tab) 650 mg Q6HP PRN PO HEADACHE or MILD DISCOMFORT 11/14/20 14:20 Al Hydrox/Mg Hydrox/Simethicone (Mylanta) 30 ml Q4HP PRN PO HEARTBURN/INDIGESTION 11/14/20 14:20 Aspirin (Ecotrin) 81 mg DAILY PO 11/15/20 09:00 11/21/20 09:09 Atorvastatin Calcium (Lipitor) 20 mg DAILY PO 11/15/20 09:00 11/21/20 09:09 Benztropine Mesylate (Cogentin) 1 mg BID PO 11/15/20 09:00 11/21/20 09:09 EZETIMIBE (Zetia) 10 mg DAILY PO 11/15/20 09:00 11/21/20 09:09 Home Med (Med Rec Complete!) ASDIRECTED XX 11/15/20 10:25 11/15/20 10:34 DC Levothyroxine Sodium (Synthroid) 100 mcg DAILY@06 PO 11/15/20 06:00 11/21/20 06:10 Lisinopril (Prinivil) 40 mg DAILY PO 11/15/20 09:00 11/21/20 09:10 Magnesium Hydroxide (Milk Of Magnesia) 30 ml DAILYPRN PRN PO CONSTIPATION 11/14/20 14:20 Metformin HCl (Glucophage Xr) 1,000 mg DAILY@0800 PO 11/19/20 08:00 11/21/20 09:10 Metformin HCl (Glucophage Xr) 1,000 mg DAILY@18 PO 11/15/20 18:00 11/19/20 11:42 DC 11/18/20 17:45 Metformin HCl (Glucophage) 1,000 mg DAILY@08 PO 11/16/20 08:00 11/15/20 10:51 DC Non-Formulary Medication ( See Comment Field Below ) SEE COMMENTS SECTION 1T@10 XX 11/21/20 10:00 11/22/20 09:59 UNV Non-Formulary Medication ( See Comment Field Below ) SEE LABEL COMMENTS DAILY XX 11/19/20 09:00 11/20/20 18:06 DC Risperidone (RisperDAL) 2 mg QHS PO 11/15/20 21:00 11/20/20 20:49 Risperidone (RisperDAL) 2 mg QHS PO 11/20/20 21:00 11/20/20 11:25 DC Trazodone HCl (Desyrel) 50 mg QHSP PRN PO INSOMNIA 11/14/20 14:20 11/20/20 20:49 Vitamin D (Drisdol) 50,000 units Th PO 11/15/20 12:00 11/15/20 12:42 Allergies Coded Allergies: Penicillins (Verified Allergy, Mild, 04/14/19) DARREL TRIVEDI M.D. Nov 21, 2020 10:06
[2020-11-21 18:44] VITALS: BP 155/76
[2020-11-21] MEDS: risperiDONE 2 MG TAB PO SCH (20:37)
[2020-11-21] MEDS: traZODone 50 MG TAB PO PRN (20:38)
[2020-11-22] MEDS: LEVOTHYROXINE 100MCG TABLET (0.1MG) PO SCH (05:09)
[2020-11-22 06:20] VITALS: BP 150/65
[2020-11-22] MEDS: ASPIRIN 81MG ENTERIC TABLET PO SCH (08:33)
[2020-11-22] MEDS: ATORVASTATIN 20 MG TAB PO SCH (08:33)
[2020-11-22] MEDS: lisinopriL 40 MG TAB PO SCH (08:33)
[2020-11-22] MEDS: EZETIMIBE 10 MG TAB (ZETIA) PO SCH (08:33)
[2020-11-22] MEDS: BENZTROPINE 1 MG TAB PO SCH ×2 (08:33→20:29)
[2020-11-22] MEDS: metFORMIN XR 500MG TAB *GLUCOPHAGE XR PO SCH (08:33)
--- NOTE | 2020-11-22 10:18 | MHIPNPDOC ---
[facility] Progress Note Progress Note DATE OF SERVICE: 11/22/20 No new complaint and no visual change in the patient's condition. He remains withdrawn regressed and preoccupied. His speech is rambling and loose and grossly disorganized. He is however cooperating with medications and maintaining good control. HISTORY:. VITAL SIGNS: See below. NEW TEST RESULTS:. CURRENT MEDICATIONS: See below. MENTAL STATUS EXAMINATION: Patient is a 60-year old male, who is in no acute distress. Speech: Is rambling circumstantial. Language skills are poor grossly disorganized. Thought processes including: Very loose. Thought content: Preoccupation with many bizarre ideas. Abstract reasoning, and computation: Poor. Description of associations: Very disorganized. Description of abnormal or psychotic thoughts: Remains grossly disorganized. Judgment: Poor. Insight: Poor. Orientation: Appears oriented. Recent and remote memory:. Attention span and concentration:. Language:. Fund of knowledge:. Mood: Somewhat bland. Affect: Blunted. DIAGNOSES: 1.. Chronic schizophrenia 2.. 3.. ASSESSMENT: No basic improvement MANAGEMENT PLAN: Needs long-term stabilization. TIME SPENT: 15 minutes. Vital Signs Vital Signs Date Time Temp Pulse Resp B/P (MAP) Pulse Ox O2 Delivery O2 Flow Rate FiO2 11/22/20 06:20 97.3 76 20 150/65 (93) 95 Room Air Current Medications Current Medications Medications (Trade) Dose Ordered Sig/Vidal Route PRN Reason Start Time Stop Time Status Last Admin Dose Admin Acetaminophen (Tylenol Tab) 650 mg Q6HP PRN PO HEADACHE or MILD DISCOMFORT 11/14/20 14:20 Al Hydrox/Mg Hydrox/Simethicone (Mylanta) 30 ml Q4HP PRN PO HEARTBURN/INDIGESTION 11/14/20 14:20 Aspirin (Ecotrin) 81 mg DAILY PO 11/15/20 09:00 11/22/20 08:33 Atorvastatin Calcium (Lipitor) 20 mg DAILY PO 11/15/20 09:00 11/22/20 08:33 Benztropine Mesylate (Cogentin) 1 mg BID PO 11/15/20 09:00 11/22/20 08:33 EZETIMIBE (Zetia) 10 mg DAILY PO 11/15/20 09:00 11/22/20 08:33 Home Med (Med Rec Complete!) ASDIRECTED XX 11/15/20 10:25 11/15/20 10:34 DC Levothyroxine Sodium (Synthroid) 100 mcg DAILY@06 PO 11/15/20 06:00 11/22/20 05:09 Lisinopril (Prinivil) 40 mg DAILY PO 11/15/20 09:00 11/22/20 08:33 Magnesium Hydroxide (Milk Of Magnesia) 30 ml DAILYPRN PRN PO CONSTIPATION 11/14/20 14:20 Metformin HCl (Glucophage Xr) 1,000 mg DAILY@0800 PO 11/19/20 08:00 11/22/20 08:33 Metformin HCl (Glucophage Xr) 1,000 mg DAILY@18 PO 11/15/20 18:00 11/19/20 11:42 DC 11/18/20 17:45 Metformin HCl (Glucophage) 1,000 mg DAILY@08 PO 11/16/20 08:00 11/15/20 10:51 DC Non-Formulary Medication ( See Comment Field Below ) SEE COMMENTS SECTION 1T@10 XX 11/21/20 10:00 11/22/20 09:59 UNV Non-Formulary Medication ( See Comment Field Below ) SEE LABEL COMMENTS DAILY XX 11/19/20 09:00 11/20/20 18:06 DC Risperidone (RisperDAL) 2 mg QHS PO 11/15/20 21:00 11/21/20 20:37 Risperidone (RisperDAL) 2 mg QHS PO 11/20/20 21:00 11/20/20 11:25 DC Trazodone HCl (Desyrel) 50 mg QHSP PRN PO INSOMNIA 11/14/20 14:20 11/21/20 20:38 Vitamin D (Drisdol) 50,000 units Th PO 11/15/20 12:00 11/15/20 12:42 Allergies Coded Allergies: Penicillins (Verified Allergy, Mild, 04/14/19) DARREL TRIVEDI M.D. Nov 22, 2020 10:18
[2020-11-22] MEDS: VITAMIN D 50,000 UNITS CAPSULE (ERGOCALCIFEROL 1.25MG) PO SCH (11:37)
[2020-11-22 17:59] VITALS: BP 135/76
[2020-11-22] MEDS ORDERED: PPD DOCUMENTATION ENTRY MISC XX ONE (19:00)
[2020-11-22] MEDS: risperiDONE 2 MG TAB PO SCH (20:29)
[2020-11-22] MEDS: traZODone 50 MG TAB PO PRN (20:29)
[2020-11-23] MEDS: LEVOTHYROXINE 100MCG TABLET (0.1MG) PO SCH (06:03)
[2020-11-23 06:06] VITALS: BP 100/53
[2020-11-23] MEDS: ASPIRIN 81MG ENTERIC TABLET PO SCH (08:52)
[2020-11-23] MEDS: metFORMIN XR 500MG TAB *GLUCOPHAGE XR PO SCH (08:52)
[2020-11-23] MEDS: ATORVASTATIN 20 MG TAB PO SCH (08:52)
[2020-11-23] MEDS: lisinopriL 40 MG TAB PO SCH (08:53)
[2020-11-23] MEDS: EZETIMIBE 10 MG TAB (ZETIA) PO SCH (08:53)
[2020-11-23] MEDS: BENZTROPINE 1 MG TAB PO SCH ×2 (08:53→20:33)
--- NOTE | 2020-11-23 10:12 | MHIPNPDOC ---
[facility] Progress Note Progress Note DATE OF SERVICE: 11/23/20 Patient is showing same mental status with no significant improvement. He is in bed preoccupied and ruminating about different subjects in grossly disorganized fashion. He was seen with mental health labeling machine operator for administrative hearing regarding the plan to transfer him to [facility]. HISTORY: . VITAL SIGNS: See below. NEW TEST RESULTS: . CURRENT MEDICATIONS: See below. MENTAL STATUS EXAMINATION: Patient is a 60 -year old male, who is [in no acute distress]. Speech: Is [loose circumstantial]. Language skills are [poor]. Thought processes including: Very disorganized . Thought content: [Grossly paranoid and disorganized]. Abstract reasoning, and computation: Poor . Description of associations: [Loose]. Description of abnormal or psychotic thoughts: Remains paranoid. Judgment: Poor. Insight: Poor. Orientation: Oriented. Recent and remote memory:. Attention span and concentration:. Language:. Fund of knowledge:. Mood: Not anxious or depressed. Affect: Blunted. DIAGNOSES: 1.. Chronic schizophrenia 2.. 3.. ASSESSMENT: No significant improvement MANAGEMENT PLAN: Continue with the current medicine and plan to transfer him to [facility]. TIME SPENT: 20 minutes. Vital Signs Vital Signs Date Time Temp Pulse Resp B/P (MAP) Pulse Ox O2 Delivery O2 Flow Rate FiO2 11/23/20 06:06 98.0 110 18 100/53 (69) 94 Room Air Current Medications Current Medications Medications (Trade) Dose Ordered Sig/Vidal Route PRN Reason Start Time Stop Time Status Last Admin Dose Admin Acetaminophen (Tylenol Tab) 650 mg Q6HP PRN PO HEADACHE or MILD DISCOMFORT 11/14/20 14:20 Al Hydrox/Mg Hydrox/Simethicone (Mylanta) 30 ml Q4HP PRN PO HEARTBURN/INDIGESTION 11/14/20 14:20 Aspirin (Ecotrin) 81 mg DAILY PO 11/15/20 09:00 11/23/20 08:52 Atorvastatin Calcium (Lipitor) 20 mg DAILY PO 11/15/20 09:00 11/23/20 08:52 Benztropine Mesylate (Cogentin) 1 mg BID PO 11/15/20 09:00 11/23/20 08:53 EZETIMIBE (Zetia) 10 mg DAILY PO 11/15/20 09:00 11/23/20 08:53 Home Med (Med Rec Complete!) ASDIRECTED XX 11/15/20 10:25 11/15/20 10:34 DC Levothyroxine Sodium (Synthroid) 100 mcg DAILY@06 PO 11/15/20 06:00 11/23/20 06:03 Lisinopril (Prinivil) 40 mg DAILY PO 11/15/20 09:00 11/23/20 08:53 Magnesium Hydroxide (Milk Of Magnesia) 30 ml DAILYPRN PRN PO CONSTIPATION 11/14/20 14:20 Metformin HCl (Glucophage Xr) 1,000 mg DAILY@0800 PO 11/19/20 08:00 11/23/20 08:52 Metformin HCl (Glucophage Xr) 1,000 mg DAILY@18 PO 11/15/20 18:00 11/19/20 11:42 DC 11/18/20 17:45 Metformin HCl (Glucophage) 1,000 mg DAILY@08 PO 11/16/20 08:00 11/15/20 10:51 DC Non-Formulary Medication ( See Comment Field Below ) SEE COMMENTS SECTION 1T@10 XX 11/21/20 10:00 11/22/20 09:59 UNV Non-Formulary Medication ( See Comment Field Below ) SEE LABEL COMMENTS DAILY XX 11/19/20 09:00 11/20/20 18:06 DC Risperidone (RisperDAL) 2 mg QHS PO 11/15/20 21:00 11/22/20 20:29 Risperidone (RisperDAL) 2 mg QHS PO 11/20/20 21:00 11/20/20 11:25 DC Trazodone HCl (Desyrel) 50 mg QHSP PRN PO INSOMNIA 11/14/20 14:20 11/22/20 20:29 Vitamin D (Drisdol) 50,000 units Th PO 11/15/20 12:00 11/22/20 11:37 Allergies Coded Allergies: Penicillins (Verified Allergy, Mild, 04/14/19) DARREL TRIVEDI M.D. Nov 23, 2020 10:12
[2020-11-23 18:00] VITALS: BP 136/60
[2020-11-23] MEDS: risperiDONE 2 MG TAB PO SCH (20:33)
[2020-11-23] MEDS: traZODone 50 MG TAB PO PRN (20:44)
[2020-11-24] MEDS: LEVOTHYROXINE 100MCG TABLET (0.1MG) PO SCH (05:44)
[2020-11-24 07:09] VITALS: BP 123/70
[2020-11-24] MEDS: ASPIRIN 81MG ENTERIC TABLET PO SCH (08:13)
[2020-11-24] MEDS: EZETIMIBE 10 MG TAB (ZETIA) PO SCH (08:13)
[2020-11-24] MEDS: lisinopriL 40 MG TAB PO SCH (08:13)
[2020-11-24] MEDS: BENZTROPINE 1 MG TAB PO SCH ×2 (08:13→20:22)
[2020-11-24] MEDS: ATORVASTATIN 20 MG TAB PO SCH (08:14)
[2020-11-24] MEDS: metFORMIN XR 500MG TAB *GLUCOPHAGE XR PO SCH (08:14)
[2020-11-24] MEDS: traZODone 50 MG TAB PO PRN (20:22)
[2020-11-24] MEDS: risperiDONE 2 MG TAB PO SCH (20:22)
[2020-11-24] MEDS: ACETAMINOPHEN TAB 650MG DOSE (2X325MG) PO PRN (20:22)
[2020-11-25] MEDS: LEVOTHYROXINE 100MCG TABLET (0.1MG) PO SCH (05:51)
[2020-11-25 06:58] VITALS: BP 103/59
[2020-11-25] MEDS: BENZTROPINE 1 MG TAB PO SCH ×2 (08:59→20:32)
[2020-11-25] MEDS: EZETIMIBE 10 MG TAB (ZETIA) PO SCH (08:59)
[2020-11-25] MEDS: ATORVASTATIN 20 MG TAB PO SCH (08:59)
[2020-11-25] MEDS: ASPIRIN 81MG ENTERIC TABLET PO SCH (08:59)
[2020-11-25] MEDS: lisinopriL 40 MG TAB PO SCH (08:59)
[2020-11-25] MEDS: metFORMIN XR 500MG TAB *GLUCOPHAGE XR PO SCH (08:59)
[2020-11-25 17:00] VITALS: BP 142/65
[2020-11-25] MEDS: traZODone 50 MG TAB PO PRN (20:32)
[2020-11-25] MEDS: risperiDONE 2 MG TAB PO SCH (20:32)
[2020-11-25] MEDS: ACETAMINOPHEN TAB 650MG DOSE (2X325MG) PO PRN (20:32)
[2020-11-26] MEDS: LEVOTHYROXINE 100MCG TABLET (0.1MG) PO SCH (05:15)
[2020-11-26 05:55] VITALS: BP 115/59
[2020-11-26] MEDS: EZETIMIBE 10 MG TAB (ZETIA) PO SCH (08:51)
[2020-11-26] MEDS: BENZTROPINE 1 MG TAB PO SCH ×2 (08:51→20:03)
[2020-11-26] MEDS: ASPIRIN 81MG ENTERIC TABLET PO SCH (08:52)
[2020-11-26] MEDS: ATORVASTATIN 20 MG TAB PO SCH (08:52)
[2020-11-26] MEDS: lisinopriL 40 MG TAB PO SCH (08:52)
[2020-11-26] MEDS: metFORMIN XR 500MG TAB *GLUCOPHAGE XR PO SCH (08:52)
--- NOTE | 2020-11-26 09:50 | MHIPNPDOC ---
[facility] Progress Note Progress Note DATE OF SERVICE: 11/26/20 The patient remains in bed has no new complaint but no changes in his mental status. He is extremely blunted preoccupied with a grossly disorganized thoughts and absolutely no insight. He understands that he is in the process of being transferred to [facility] and had to his administrative hearing and maintaining good control so far. HISTORY:. VITAL SIGNS: See below. NEW TEST RESULTS:. CURRENT MEDICATIONS: See below. MENTAL STATUS EXAMINATION: Patient is a 60-year old male, who is in no acute distress. Speech: Is not very productive today. Language skills are poor. Thought processes including: Circumstantial and disorganized. Thought content: Bizarre preoccupations. Abstract reasoning, and computation: Poor. Description of associations: Loose. Description of abnormal or psychotic thoughts: Bizarre delusional ideas. Judgment: Poor. Insight: Poor. Orientation: Appears oriented. Recent and remote memory: No gross impairment. Attention span and concentration:. Language:. Fund of knowledge:. Mood: [place]. Affect: Blunted. DIAGNOSES: 1.. Chronic schizophrenia 2.. 3.. ASSESSMENT: No improvement MANAGEMENT PLAN: Waiting to be transferred. TIME SPENT: 15 minutes. Vital Signs Vital Signs Date Time Temp Pulse Resp B/P (MAP) Pulse Ox O2 Delivery O2 Flow Rate FiO2 11/26/20 05:55 98.7 65 20 115/59 (77) 96 Room Air Current Medications Current Medications Medications (Trade) Dose Ordered Sig/Vidal Route PRN Reason Start Time Stop Time Status Last Admin Dose Admin Acetaminophen (Tylenol Tab) 650 mg Q6HP PRN PO HEADACHE or MILD DISCOMFORT 11/14/20 14:20 11/25/20 20:32 Al Hydrox/Mg Hydrox/Simethicone (Mylanta) 30 ml Q4HP PRN PO HEARTBURN/INDIGESTION 11/14/20 14:20 Aspirin (Ecotrin) 81 mg DAILY PO 11/15/20 09:00 11/26/20 08:52 Atorvastatin Calcium (Lipitor) 20 mg DAILY PO 11/15/20 09:00 11/26/20 08:52 Benztropine Mesylate (Cogentin) 1 mg BID PO 11/15/20 09:00 11/26/20 08:51 EZETIMIBE (Zetia) 10 mg DAILY PO 11/15/20 09:00 11/26/20 08:51 Home Med (Med Rec Complete!) ASDIRECTED XX 11/15/20 10:25 11/15/20 10:34 DC Levothyroxine Sodium (Synthroid) 100 mcg DAILY@06 PO 11/15/20 06:00 11/26/20 05:15 Lisinopril (Prinivil) 40 mg DAILY PO 11/15/20 09:00 11/26/20 08:52 Magnesium Hydroxide (Milk Of Magnesia) 30 ml DAILYPRN PRN PO CONSTIPATION 11/14/20 14:20 Metformin HCl (Glucophage Xr) 1,000 mg DAILY@0800 PO 11/19/20 08:00 11/26/20 08:52 Metformin HCl (Glucophage Xr) 1,000 mg DAILY@18 PO 11/15/20 18:00 11/19/20 11:42 DC 11/18/20 17:45 Metformin HCl (Glucophage) 1,000 mg DAILY@08 PO 11/16/20 08:00 11/15/20 10:51 DC Non-Formulary Medication ( See Comment Field Below ) SEE COMMENTS SECTION 1T@10 XX 11/21/20 10:00 11/22/20 09:59 UNV Non-Formulary Medication ( See Comment Field Below ) SEE LABEL COMMENTS DAILY XX 11/19/20 09:00 11/20/20 18:06 DC Risperidone (RisperDAL) 2 mg QHS PO 11/15/20 21:00 11/25/20 20:32 Risperidone (RisperDAL) 2 mg QHS PO 11/20/20 21:00 11/20/20 11:25 DC Trazodone HCl (Desyrel) 50 mg QHSP PRN PO INSOMNIA 11/14/20 14:20 11/25/20 20:32 Vitamin D (Drisdol) 50,000 units Th PO 11/15/20 12:00 11/22/20 11:37 Allergies Coded Allergies: Penicillins (Verified Allergy, Mild, 04/14/19) DARREL TRIVEDI M.D. Nov 26, 2020 09:50
[2020-11-26] MEDS: traZODone 50 MG TAB PO PRN (20:03)
[2020-11-26] MEDS: risperiDONE 2 MG TAB PO SCH (20:03)
[2020-11-26] MEDS: ACETAMINOPHEN TAB 650MG DOSE (2X325MG) PO PRN (20:03)
[2020-11-27] MEDS: LEVOTHYROXINE 100MCG TABLET (0.1MG) PO SCH (05:26)
[2020-11-27 07:17] VITALS: BP 115/66
[2020-11-27] MEDS: BENZTROPINE 1 MG TAB PO SCH ×2 (07:53→20:41)
[2020-11-27] MEDS: lisinopriL 40 MG TAB PO SCH (07:53)
[2020-11-27] MEDS: ASPIRIN 81MG ENTERIC TABLET PO SCH (07:53)
[2020-11-27] MEDS: ATORVASTATIN 20 MG TAB PO SCH (07:53)
[2020-11-27] MEDS: EZETIMIBE 10 MG TAB (ZETIA) PO SCH (07:54)
[2020-11-27] MEDS: metFORMIN XR 500MG TAB *GLUCOPHAGE XR PO SCH (07:54)
--- NOTE | 2020-11-27 11:37 | MHIPNPDOC ---
[facility] Progress Note Progress Note DATE OF SERVICE: 11/27/20 There is no change in his behavior or mental status. He remains quiet withdrawn preoccupied with no acting out behavior but his mental status exam shows that he is grossly disorganized and his speech is loose and circumstantial. He is not angry or agitated or aggressive but extremely withdrawn and regressed and disorganized with no insight at all and clearly unable to care for himself. HISTORY:. VITAL SIGNS: See below. NEW TEST RESULTS:. CURRENT MEDICATIONS: See below. MENTAL STATUS EXAMINATION: Patient is a 60-year old male, who is in no acute distress. Speech: Is loose circumstantial. Language skills are poor. Thought processes including: Disorganized. Thought content: Preoccupied with many delusional thinking. Abstract reasoning, and computation: Poor. Description of associations: [Disorganized. Description of abnormal or psychotic thoughts: Preoccupied with delusional thinking. Judgment: Poor. Insight:. poor. Orientation: Appears oriented. Recent and remote memory: No gross impairment. Attention span and concentration:. Language:. Fund of knowledge:. Mood: [place] neutral. Affect: Preoccupied blunted. DIAGNOSES: 1.. Chronic schizophrenia 2.. 3.. ASSESSMENT: No improvement MANAGEMENT PLAN: Waiting for transfer to [facility]. TIME SPENT: 15 minutes. Vital Signs Vital Signs Date Time Temp Pulse Resp B/P (MAP) Pulse Ox O2 Delivery O2 Flow Rate FiO2 11/27/20 07:17 97.7 81 16 115/66 (82) 95 Room Air Current Medications Current Medications Medications (Trade) Dose Ordered Sig/Vidal Route PRN Reason Start Time Stop Time Status Last Admin Dose Admin Acetaminophen (Tylenol Tab) 650 mg Q6HP PRN PO HEADACHE or MILD DISCOMFORT 11/14/20 14:20 11/26/20 20:03 Al Hydrox/Mg Hydrox/Simethicone (Mylanta) 30 ml Q4HP PRN PO HEARTBURN/INDIGESTION 11/14/20 14:20 11/26/20 20:03 Aspirin (Ecotrin) 81 mg DAILY PO 11/15/20 09:00 11/27/20 07:53 Atorvastatin Calcium (Lipitor) 20 mg DAILY PO 11/15/20 09:00 11/27/20 07:53 Benztropine Mesylate (Cogentin) 1 mg BID PO 11/15/20 09:00 11/27/20 07:53 EZETIMIBE (Zetia) 10 mg DAILY PO 11/15/20 09:00 11/27/20 07:54 Home Med (Med Rec Complete!) ASDIRECTED XX 11/15/20 10:25 11/15/20 10:34 DC Levothyroxine Sodium (Synthroid) 100 mcg DAILY@06 PO 11/15/20 06:00 11/27/20 05:26 Lisinopril (Prinivil) 40 mg DAILY PO 11/15/20 09:00 11/27/20 07:53 Magnesium Hydroxide (Milk Of Magnesia) 30 ml DAILYPRN PRN PO CONSTIPATION 11/14/20 14:20 Metformin HCl (Glucophage Xr) 1,000 mg DAILY@0800 PO 11/19/20 08:00 11/27/20 07:54 Metformin HCl (Glucophage Xr) 1,000 mg DAILY@18 PO 11/15/20 18:00 11/19/20 11:42 DC 11/18/20 17:45 Metformin HCl (Glucophage) 1,000 mg DAILY@08 PO 11/16/20 08:00 11/15/20 10:51 DC Non-Formulary Medication ( See Comment Field Below ) SEE COMMENTS SECTION 1T@10 XX 11/21/20 10:00 11/22/20 09:59 UNV Non-Formulary Medication ( See Comment Field Below ) SEE LABEL COMMENTS DAILY XX 11/19/20 09:00 11/20/20 18:06 DC Risperidone (RisperDAL) 2 mg QHS PO 11/15/20 21:00 11/26/20 20:03 Risperidone (RisperDAL) 2 mg QHS PO 11/20/20 21:00 11/20/20 11:25 DC Trazodone HCl (Desyrel) 50 mg QHSP PRN PO INSOMNIA 11/14/20 14:20 11/26/20 20:03 Vitamin D (Drisdol) 50,000 units Th PO 11/15/20 12:00 11/22/20 11:37 Allergies Coded Allergies: Penicillins (Verified Allergy, Mild, 04/14/19) DARREL TRIVEDI M.D. Nov 27, 2020 11:36
[2020-11-27 17:09] VITALS: BP 113/66
[2020-11-27] MEDS: traZODone 50 MG TAB PO PRN (20:41)
[2020-11-27] MEDS: risperiDONE 2 MG TAB PO SCH (20:41)
[2020-11-27] MEDS: ACETAMINOPHEN TAB 650MG DOSE (2X325MG) PO PRN (20:42)
[2020-11-28] MEDS: LEVOTHYROXINE 100MCG TABLET (0.1MG) PO SCH (05:59)
[2020-11-28 06:06] VITALS: BP 114/70
[2020-11-28] MEDS: metFORMIN XR 500MG TAB *GLUCOPHAGE XR PO SCH (07:46)
--- NOTE | 2020-11-28 09:01 | MHIPNPDOC ---
[facility] Progress Note Progress Note DATE OF SERVICE: 11/28/20 The patient got up and ate breakfast but return to his bed and is basically nonverbal today. He is in no acute distress is cooperating with the medications but showing no improvement and remains extremely withdrawn and preoccupied. HISTORY:. VITAL SIGNS: See below. NEW TEST RESULTS:. CURRENT MEDICATIONS: See below. MENTAL STATUS EXAMINATION: Patient is a 60-year old male, who is in no acute distress. Speech: Is not responding to the questions. Language skills are poor. Thought processes including: Practically mute. Thought content: Appears markedly preoccupied. Abstract reasoning, and computation: Poor. Description of associations: Nonverbal. Description of abnormal or psychotic thoughts: Appears grossly paranoid and preoccupied. Judgment: Poor. Insight: Poor. Orientation: Oriented. Recent and remote memory: Showed no gross impairment. Attention span and concentration: Poor. Language:. Fund of knowledge:. Mood: Blind. Affect: Blunted. DIAGNOSES: 1.. Chronic schizophrenia paranoid 2.. 3.. 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 when bed is available. TIME SPENT: 15 minutes. Vital Signs Vital Signs Date Time Temp Pulse Resp B/P (MAP) Pulse Ox O2 Delivery O2 Flow Rate FiO2 11/28/20 06:06 98.4 68 20 114/70 (85) 96 Room Air Current Medications Current Medications Medications (Trade) Dose Ordered Sig/Vidal Route PRN Reason Start Time Stop Time Status Last Admin Dose Admin Acetaminophen (Tylenol Tab) 650 mg Q6HP PRN PO HEADACHE or MILD DISCOMFORT 11/14/20 14:20 11/27/20 20:42 Al Hydrox/Mg Hydrox/Simethicone (Mylanta) 30 ml Q4HP PRN PO HEARTBURN/INDIGESTION 11/14/20 14:20 11/26/20 20:03 Aspirin (Ecotrin) 81 mg DAILY PO 11/15/20 09:00 11/27/20 07:53 Atorvastatin Calcium (Lipitor) 20 mg DAILY PO 11/15/20 09:00 11/27/20 07:53 Benztropine Mesylate (Cogentin) 1 mg BID PO 11/15/20 09:00 11/27/20 20:41 EZETIMIBE (Zetia) 10 mg DAILY PO 11/15/20 09:00 11/27/20 07:54 Home Med (Med Rec Complete!) ASDIRECTED XX 11/15/20 10:25 11/15/20 10:34 DC Levothyroxine Sodium (Synthroid) 100 mcg DAILY@06 PO 11/15/20 06:00 11/28/20 05:59 Lisinopril (Prinivil) 40 mg DAILY PO 11/15/20 09:00 11/27/20 07:53 Magnesium Hydroxide (Milk Of Magnesia) 30 ml DAILYPRN PRN PO CONSTIPATION 11/14/20 14:20 Metformin HCl (Glucophage Xr) 1,000 mg DAILY@0800 PO 11/19/20 08:00 11/28/20 07:46 Metformin HCl (Glucophage Xr) 1,000 mg DAILY@18 PO 11/15/20 18:00 11/19/20 11:42 DC 11/18/20 17:45 Metformin HCl (Glucophage) 1,000 mg DAILY@08 PO 11/16/20 08:00 11/15/20 10:51 DC Non-Formulary Medication ( See Comment Field Below ) SEE COMMENTS SECTION 1T@10 XX 11/21/20 10:00 11/22/20 09:59 UNV Non-Formulary Medication ( See Comment Field Below ) SEE LABEL COMMENTS DAILY XX 11/19/20 09:00 11/20/20 18:06 DC Risperidone (RisperDAL) 2 mg QHS PO 11/15/20 21:00 11/27/20 20:41 Risperidone (RisperDAL) 2 mg QHS PO 11/20/20 21:00 11/20/20 11:25 DC Trazodone HCl (Desyrel) 50 mg QHSP PRN PO INSOMNIA 11/14/20 14:20 11/27/20 20:41 Vitamin D (Drisdol) 50,000 units Th PO 11/15/20 12:00 11/22/20 11:37 Allergies Coded Allergies: Penicillins (Verified Allergy, Mild, 04/14/19) DARREL TRIVEDI M.D. Nov 28, 2020 09:01
[2020-11-28] MEDS: ACETAMINOPHEN TAB 650MG DOSE (2X325MG) PO PRN (09:12)
[2020-11-28] MEDS: BENZTROPINE 1 MG TAB PO SCH ×2 (09:12→21:45)
[2020-11-28] MEDS: ASPIRIN 81MG ENTERIC TABLET PO SCH (09:12)
[2020-11-28] MEDS: lisinopriL 40 MG TAB PO SCH (09:12)
[2020-11-28] MEDS: ATORVASTATIN 20 MG TAB PO SCH (09:12)
[2020-11-28] MEDS: EZETIMIBE 10 MG TAB (ZETIA) PO SCH (09:12)
[2020-11-28 16:18] VITALS: BP 120/64
[2020-11-28] MEDS: traZODone 50 MG TAB PO PRN (21:45)
[2020-11-28] MEDS: risperiDONE 2 MG TAB PO SCH (21:45)
[2020-11-29] MEDS: LEVOTHYROXINE 100MCG TABLET (0.1MG) PO SCH (06:21)
[2020-11-29 07:16] VITALS: BP 126/75
[2020-11-29] MEDS: metFORMIN XR 500MG TAB *GLUCOPHAGE XR PO SCH (07:52)
[2020-11-29] MEDS: EZETIMIBE 10 MG TAB (ZETIA) PO SCH (07:56)
[2020-11-29] MEDS: ASPIRIN 81MG ENTERIC TABLET PO SCH (07:56)
[2020-11-29] MEDS: BENZTROPINE 1 MG TAB PO SCH ×2 (07:56→21:39)
[2020-11-29] MEDS: ATORVASTATIN 20 MG TAB PO SCH (07:56)
[2020-11-29] MEDS: lisinopriL 40 MG TAB PO SCH (07:57)
--- NOTE | 2020-11-29 09:44 | MHIPNPDOC ---
[facility] Progress Note Progress Note DATE OF SERVICE: 11/29/20 The patient is not as verbally productive and appears quite preoccupied and denies any new problems. He is in no acute physical distress and cooperating with the medicine and no acting out behavior. The patient is accepted by [facility] and waiting for transfer. HISTORY:. VITAL SIGNS: See below. NEW TEST RESULTS:. CURRENT MEDICATIONS: See below. MENTAL STATUS EXAMINATION: Patient is a 60-year old male, who is in no acute distress. Speech: Is not very productive. Language skills are poor. Thought processes including: Not verbally productive. Thought content: Appears very preoccupied. Abstract reasoning, and computation: Poor. Description of associations: Disorganized and preoccupied. Description of abnormal or psychotic thoughts: Been preoccupied with numerous bizarre ideas. Judgment: Poor. Insight: poor]. Orientation: Appears oriented. Recent and remote memory: Difficult to evaluate. Attention span and concentration: Poor. Language:. Fund of knowledge:. Mood: [place] neutral. Affect: Blunted. DIAGNOSES: 1.. Chronic schizophrenia 2.. 3.. 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 TIME SPENT: 10 minutes. Vital Signs Vital Signs Date Time Temp Pulse Resp B/P (MAP) Pulse Ox O2 Delivery O2 Flow Rate FiO2 11/29/20 07:16 97.9 72 16 126/75 (92) Room Air 11/28/20 16:18 99 Current Medications Current Medications Medications (Trade) Dose Ordered Sig/Vidal Route PRN Reason Start Time Stop Time Status Last Admin Dose Admin Acetaminophen (Tylenol Tab) 650 mg Q6HP PRN PO HEADACHE or MILD DISCOMFORT 11/14/20 14:20 11/28/20 09:12 Al Hydrox/Mg Hydrox/Simethicone (Mylanta) 30 ml Q4HP PRN PO HEARTBURN/INDIGESTION 11/14/20 14:20 11/26/20 20:03 Aspirin (Ecotrin) 81 mg DAILY PO 11/15/20 09:00 11/29/20 07:56 Atorvastatin Calcium (Lipitor) 20 mg DAILY PO 11/15/20 09:00 11/29/20 07:56 Benztropine Mesylate (Cogentin) 1 mg BID PO 11/15/20 09:00 11/29/20 07:56 EZETIMIBE (Zetia) 10 mg DAILY PO 11/15/20 09:00 11/29/20 07:56 Home Med (Med Rec Complete!) ASDIRECTED XX 11/15/20 10:25 11/15/20 10:34 DC Levothyroxine Sodium (Synthroid) 100 mcg DAILY@06 PO 11/15/20 06:00 11/29/20 06:21 Lisinopril (Prinivil) 40 mg DAILY PO 11/15/20 09:00 11/29/20 07:57 Magnesium Hydroxide (Milk Of Magnesia) 30 ml DAILYPRN PRN PO CONSTIPATION 11/14/20 14:20 Metformin HCl (Glucophage Xr) 1,000 mg DAILY@0800 PO 11/19/20 08:00 11/29/20 07:52 Metformin HCl (Glucophage Xr) 1,000 mg DAILY@18 PO 11/15/20 18:00 11/19/20 11:42 DC 11/18/20 17:45 Metformin HCl (Glucophage) 1,000 mg DAILY@08 PO 11/16/20 08:00 11/15/20 10:51 DC Non-Formulary Medication ( See Comment Field Below ) SEE COMMENTS SECTION 1T@10 XX 11/21/20 10:00 11/22/20 09:59 UNV Non-Formulary Medication ( See Comment Field Below ) SEE LABEL COMMENTS DAILY XX 11/19/20 09:00 11/20/20 18:06 DC Risperidone (RisperDAL) 2 mg QHS PO 11/15/20 21:00 11/28/20 21:45 Risperidone (RisperDAL) 2 mg QHS PO 11/20/20 21:00 11/20/20 11:25 DC Trazodone HCl (Desyrel) 50 mg QHSP PRN PO INSOMNIA 11/14/20 14:20 11/28/20 21:45 Vitamin D (Drisdol) 50,000 units Th PO 11/15/20 12:00 11/22/20 11:37 Allergies Coded Allergies: Penicillins (Verified Allergy, Mild, 04/14/19) DARREL TRIVEDI M.D. Nov 29, 2020 09:44
[2020-11-29] MEDS: VITAMIN D 50,000 UNITS CAPSULE (ERGOCALCIFEROL 1.25MG) PO SCH (11:56)
[2020-11-29 16:12] VITALS: BP 115/65
[2020-11-29] MEDS: risperiDONE 2 MG TAB PO SCH (21:39)
[2020-11-29] MEDS: traZODone 50 MG TAB PO PRN (21:39)
[2020-11-30] MEDS: LEVOTHYROXINE 100MCG TABLET (0.1MG) PO SCH (06:20)
[2020-11-30] MEDS: metFORMIN XR 500MG TAB *GLUCOPHAGE XR PO SCH (07:20)
[2020-11-30] MEDS: BENZTROPINE 1 MG TAB PO SCH ×2 (08:31→20:16)
[2020-11-30] MEDS: lisinopriL 40 MG TAB PO SCH (08:31)
[2020-11-30] MEDS: EZETIMIBE 10 MG TAB (ZETIA) PO SCH (08:31)
[2020-11-30] MEDS: ASPIRIN 81MG ENTERIC TABLET PO SCH (08:31)
[2020-11-30] MEDS: ATORVASTATIN 20 MG TAB PO SCH (08:31)
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
[2020-11-30 09:57] VITALS: BP 129/64
[2020-11-30 16:27] VITALS: BP 126/68
[2020-11-30] MEDS: risperiDONE 2 MG TAB PO SCH (20:16)
[2020-11-30] MEDS: traZODone 50 MG TAB PO PRN (20:16)
[2020-12-01] MEDS: LEVOTHYROXINE 100MCG TABLET (0.1MG) PO SCH (05:17)
[2020-12-01 06:45] VITALS: BP 111/57
[2020-12-01] MEDS: metFORMIN XR 500MG TAB *GLUCOPHAGE XR PO SCH (07:41)
[2020-12-01] MEDS: ASPIRIN 81MG ENTERIC TABLET PO SCH (08:41)
[2020-12-01] MEDS: BENZTROPINE 1 MG TAB PO SCH ×2 (08:41→21:40)
[2020-12-01] MEDS: ATORVASTATIN 20 MG TAB PO SCH (08:41)
[2020-12-01] MEDS: lisinopriL 40 MG TAB PO SCH (08:41)
[2020-12-01] MEDS: EZETIMIBE 10 MG TAB (ZETIA) PO SCH (08:41)
[2020-12-01 16:44] VITALS: BP 114/53
[2020-12-01] MEDS: traZODone 50 MG TAB PO PRN (21:40)
[2020-12-01] MEDS: risperiDONE 2 MG TAB PO SCH (21:40)
[2020-12-02] MEDS: LEVOTHYROXINE 100MCG TABLET (0.1MG) PO SCH (05:25)
[2020-12-02 05:35] VITALS: BP 107/58
[2020-12-02] MEDS: ASPIRIN 81MG ENTERIC TABLET PO SCH (08:12)
[2020-12-02] MEDS: lisinopriL 40 MG TAB PO SCH (08:12)
[2020-12-02] MEDS: metFORMIN XR 500MG TAB *GLUCOPHAGE XR PO SCH (08:12)
[2020-12-02] MEDS: BENZTROPINE 1 MG TAB PO SCH ×2 (08:12→21:14)
[2020-12-02] MEDS: ATORVASTATIN 20 MG TAB PO SCH (08:12)
[2020-12-02] MEDS: EZETIMIBE 10 MG TAB (ZETIA) PO SCH (08:12)
[2020-12-02 16:33] VITALS: BP 130/64
[2020-12-02] MEDS: risperiDONE 2 MG TAB PO SCH (21:14)
[2020-12-02] MEDS: traZODone 50 MG TAB PO PRN (21:14)
[2020-12-03] MEDS: LEVOTHYROXINE 100MCG TABLET (0.1MG) PO SCH (06:10)
[2020-12-03 07:38] VITALS: BP 127/62
[2020-12-03] MEDS: ASPIRIN 81MG ENTERIC TABLET PO SCH (08:40)
[2020-12-03] MEDS: BENZTROPINE 1 MG TAB PO SCH ×2 (08:40→21:55)
[2020-12-03] MEDS: metFORMIN XR 500MG TAB *GLUCOPHAGE XR PO SCH (08:40)
[2020-12-03] MEDS: ATORVASTATIN 20 MG TAB PO SCH (08:40)
[2020-12-03] MEDS: lisinopriL 40 MG TAB PO SCH (08:40)
[2020-12-03] MEDS: EZETIMIBE 10 MG TAB (ZETIA) PO SCH (08:40)
--- NOTE | 2020-12-03 10:40 | MHIPNPDOC ---
[facility] Progress Note Progress Note DATE OF SERVICE: 12/03/20 Patient has no new complaint and spends most of the time in bed but is cooperating with the medications and in good control. He appears very preoccupied to guarded and withdrawn but understands that he is waiting to be transferred to [facility] and cooperating with his medications and discharge plan. HISTORY:. VITAL SIGNS: See below. NEW TEST RESULTS:. CURRENT MEDICATIONS: See below. MENTAL STATUS EXAMINATION: Patient is a 60-year old male, who is very seclusive and withdrawn. Speech: Is not productive. Language skills are poor. Thought processes including: Not spontaneous. Thought content: Appears markedly withdrawn blunted preoccupied. Abstract reasoning, and computation:. Description of associations: Remains grossly disorganized. Description of abnormal or psychotic thoughts: Remains preoccupied with bizarre sexual thoughts. Judgment: Poor. Insight: Poor. Orientation: Oriented. Recent and remote memory: No gross impairment. Attention span and concentration:. Language:. Fund of knowledge:. Mood: Somewhat bland. Affect: Blunted. DIAGNOSES: 1.. Chronic schizophrenia paranoid type 2.. 3.. ASSESSMENT: No visual global climate change analyst PLAN: Waiting for transfer to [facility]. TIME SPENT: 10 minutes. Vital Signs Vital Signs Date Time Temp Pulse Resp B/P (MAP) Pulse Ox O2 Delivery O2 Flow Rate FiO2 12/03/20 07:38 97.4 74 16 127/62 (83) 99 Room Air Current Medications Current Medications Medications (Trade) Dose Ordered Sig/Vidal Route PRN Reason Start Time Stop Time Status Last Admin Dose Admin Acetaminophen (Tylenol Tab) 650 mg Q6HP PRN PO HEADACHE or MILD DISCOMFORT 11/14/20 14:20 11/28/20 09:12 Al Hydrox/Mg Hydrox/Simethicone (Mylanta) 30 ml Q4HP PRN PO HEARTBURN/INDIGESTION 11/14/20 14:20 11/26/20 20:03 Aspirin (Ecotrin) 81 mg DAILY PO 11/15/20 09:00 12/03/20 08:40 Atorvastatin Calcium (Lipitor) 20 mg DAILY PO 11/15/20 09:00 12/03/20 08:40 Benztropine Mesylate (Cogentin) 1 mg BID PO 11/15/20 09:00 12/03/20 08:40 EZETIMIBE (Zetia) 10 mg DAILY PO 11/15/20 09:00 12/03/20 08:40 Home Med (Med Rec Complete!) ASDIRECTED XX 11/15/20 10:25 11/15/20 10:34 DC Levothyroxine Sodium (Synthroid) 100 mcg DAILY@06 PO 11/15/20 06:00 12/03/20 06:10 Lisinopril (Prinivil) 40 mg DAILY PO 11/15/20 09:00 12/03/20 08:40 Magnesium Hydroxide (Milk Of Magnesia) 30 ml DAILYPRN PRN PO CONSTIPATION 11/14/20 14:20 Metformin HCl (Glucophage Xr) 1,000 mg DAILY@0800 PO 11/19/20 08:00 12/03/20 08:40 Metformin HCl (Glucophage Xr) 1,000 mg DAILY@18 PO 11/15/20 18:00 11/19/20 11:42 DC 11/18/20 17:45 Metformin HCl (Glucophage) 1,000 mg DAILY@08 PO 11/16/20 08:00 11/15/20 10:51 DC Non-Formulary Medication ( See Comment Field Below ) SEE COMMENTS SECTION 1T@10 XX 11/21/20 10:00 11/22/20 09:59 UNV Non-Formulary Medication ( See Comment Field Below ) SEE LABEL COMMENTS DAILY XX 11/19/20 09:00 11/20/20 18:06 DC Risperidone (RisperDAL) 2 mg QHS PO 11/15/20 21:00 12/02/20 21:14 Risperidone (RisperDAL) 2 mg QHS PO 11/20/20 21:00 11/20/20 11:25 DC Trazodone HCl (Desyrel) 50 mg QHSP PRN PO INSOMNIA 11/14/20 14:20 12/02/20 21:14 Vitamin D (Drisdol) 50,000 units Th PO 11/15/20 12:00 11/29/20 11:56 Allergies Coded Allergies: Penicillins (Verified Allergy, Mild, 04/14/19) DARREL TRIVEDI M.D. Dec 03, 2020 10:40
[2020-12-03 16:27] VITALS: BP 108/62
[2020-12-03] MEDS: risperiDONE 2 MG TAB PO SCH (21:55)
[2020-12-03] MEDS: traZODone 50 MG TAB PO PRN (21:56)
[2020-12-04] MEDS: LEVOTHYROXINE 100MCG TABLET (0.1MG) PO SCH (05:54)
[2020-12-04 07:02] VITALS: BP 132/72
[2020-12-04] MEDS: metFORMIN XR 500MG TAB *GLUCOPHAGE XR PO SCH (08:19)
[2020-12-04] MEDS: ASPIRIN 81MG ENTERIC TABLET PO SCH (08:19)
[2020-12-04] MEDS: lisinopriL 40 MG TAB PO SCH (08:19)
[2020-12-04] MEDS: EZETIMIBE 10 MG TAB (ZETIA) PO SCH (08:19)
[2020-12-04] MEDS: BENZTROPINE 1 MG TAB PO SCH ×2 (08:20→21:20)
[2020-12-04] MEDS: ATORVASTATIN 20 MG TAB PO SCH (08:20)
--- NOTE | 2020-12-04 10:39 | MHIPNPDOC ---
[facility] Progress Note Progress Note DATE OF SERVICE: 12/04/20 The patient is in bed appears preoccupied but is alert and awake. He did respond to the MD saying that he has several thoughts but does not really want to discuss. When pressed to elaborate he is again rambling about certain celebrity and his father etc. and goes on to talk and extremely loose disorganized fashion. HISTORY:. VITAL SIGNS: See below. NEW TEST RESULTS:. CURRENT MEDICATIONS: See below. MENTAL STATUS EXAMINATION: Patient is a 60-year old male, who is in no acute distress. Speech: Is rambling and loose. Language skills are poor. Thought processes including: Unable to have any rational conversation. Thought content:. Abstract reasoning, and computation:. Description of associations:. Description of abnormal or psychotic thoughts: Grossly disorganized. Judgment: Poor. Insight: Poor. Orientation: Appears oriented to the place. Recent and remote memory: No gross confusion. Attention span and concentration:. Language:. Fund of knowledge:. Mood: [place]. Affect: Blunted. DIAGNOSES: 1.. Chronic schizophrenia 2.. 3.. ASSESSMENT: No improvement MANAGEMENT PLAN: Awaiting transfer to [facility]. TIME SPENT: 10 minutes. Vital Signs Vital Signs Date Time Temp Pulse Resp B/P (MAP) Pulse Ox O2 Delivery O2 Flow Rate FiO2 12/04/20 07:02 97.5 98 105 132/72 (92) 96 Room Air Current Medications Current Medications Medications (Trade) Dose Ordered Sig/Vidal Route PRN Reason Start Time Stop Time Status Last Admin Dose Admin Acetaminophen (Tylenol Tab) 650 mg Q6HP PRN PO HEADACHE or MILD DISCOMFORT 11/14/20 14:20 11/28/20 09:12 Al Hydrox/Mg Hydrox/Simethicone (Mylanta) 30 ml Q4HP PRN PO HEARTBURN/INDIGESTION 11/14/20 14:20 11/26/20 20:03 Aspirin (Ecotrin) 81 mg DAILY PO 11/15/20 09:00 12/04/20 08:19 Atorvastatin Calcium (Lipitor) 20 mg DAILY PO 11/15/20 09:00 12/04/20 08:20 Benztropine Mesylate (Cogentin) 1 mg BID PO 11/15/20 09:00 12/04/20 08:20 EZETIMIBE (Zetia) 10 mg DAILY PO 11/15/20 09:00 12/04/20 08:19 Home Med (Med Rec Complete!) ASDIRECTED XX 11/15/20 10:25 11/15/20 10:34 DC Levothyroxine Sodium (Synthroid) 100 mcg DAILY@06 PO 11/15/20 06:00 12/04/20 05:54 Lisinopril (Prinivil) 40 mg DAILY PO 11/15/20 09:00 12/04/20 08:19 Magnesium Hydroxide (Milk Of Magnesia) 30 ml DAILYPRN PRN PO CONSTIPATION 11/14/20 14:20 Metformin HCl (Glucophage Xr) 1,000 mg DAILY@0800 PO 11/19/20 08:00 12/04/20 08:19 Metformin HCl (Glucophage Xr) 1,000 mg DAILY@18 PO 11/15/20 18:00 11/19/20 11:42 DC 11/18/20 17:45 Metformin HCl (Glucophage) 1,000 mg DAILY@08 PO 11/16/20 08:00 11/15/20 10:51 DC Non-Formulary Medication ( See Comment Field Below ) SEE COMMENTS SECTION 1T@10 XX 11/21/20 10:00 11/22/20 09:59 UNV Non-Formulary Medication ( See Comment Field Below ) SEE LABEL COMMENTS DAILY XX 11/19/20 09:00 11/20/20 18:06 DC Risperidone (RisperDAL) 2 mg QHS PO 11/15/20 21:00 12/03/20 21:55 Risperidone (RisperDAL) 2 mg QHS PO 11/20/20 21:00 11/20/20 11:25 DC Trazodone HCl (Desyrel) 50 mg QHSP PRN PO INSOMNIA 11/14/20 14:20 12/03/20 21:56 Vitamin D (Drisdol) 50,000 units Th PO 11/15/20 12:00 11/29/20 11:56 Allergies Coded Allergies: Penicillins (Verified Allergy, Mild, 04/14/19) DARREL TRIVEDI M.D. Dec 04, 2020 10:39
[2020-12-04 18:14] VITALS: BP 108/66
[2020-12-04] MEDS: traZODone 50 MG TAB PO PRN (21:20)
[2020-12-04] MEDS: risperiDONE 2 MG TAB PO SCH (21:20)
[2020-12-05] MEDS: LEVOTHYROXINE 100MCG TABLET (0.1MG) PO SCH (06:27)
[2020-12-05] MEDS: lisinopriL 40 MG TAB PO SCH (08:42)
[2020-12-05] MEDS: BENZTROPINE 1 MG TAB PO SCH ×2 (08:43→21:00)
[2020-12-05] MEDS: EZETIMIBE 10 MG TAB (ZETIA) PO SCH (08:43)
[2020-12-05] MEDS: ATORVASTATIN 20 MG TAB PO SCH (08:43)
[2020-12-05] MEDS: ASPIRIN 81MG ENTERIC TABLET PO SCH (08:43)
[2020-12-05] MEDS: metFORMIN XR 500MG TAB *GLUCOPHAGE XR PO SCH (08:44)
--- NOTE | 2020-12-05 11:37 | MHIPNPDOC ---
[facility] Progress Note Progress Note DATE OF SERVICE: 12/05/20 Patient has no new complaint and shows no basic change. He is in bed quietly withdrawn and preoccupied but is cooperating with the medications and discharge plan to [facility]. HISTORY:. VITAL SIGNS: See below. NEW TEST RESULTS:. CURRENT MEDICATIONS: See below. MENTAL STATUS EXAMINATION: Patient is a 60-year old male, who is in no acute distress. Speech: Is not productive. Language skills are poor. Thought processes including: Markedly preoccupied. Thought content: Been showing grossly disorganized thinking. Abstract reasoning, and computation:. Description of associations: Loose disorganized. Description of abnormal or psychotic thoughts: Remains grossly disorganized. Judgment: Poor. Insight: Poor. Orientation: Oriented. Recent and remote memory: Poor. Attention span and concentration: Poor. Language:. Fund of knowledge:. Mood: Neutral. Affect: Blunted preoccupied. DIAGNOSES: 1.. Chronic schizophrenia 2.. 3.. ASSESSMENT: No change no improvement MANAGEMENT PLAN: Awaiting transfer to [facility]. TIME SPENT: 10 minutes. Vital Signs Vital Signs Date Time Temp Pulse Resp B/P (MAP) Pulse Ox O2 Delivery O2 Flow Rate FiO2 12/04/20 18:14 97.8 88 18 108/66 (80) 100 12/04/20 07:02 Room Air Current Medications Current Medications Medications (Trade) Dose Ordered Sig/Vidal Route PRN Reason Start Time Stop Time Status Last Admin Dose Admin Acetaminophen (Tylenol Tab) 650 mg Q6HP PRN PO HEADACHE or MILD DISCOMFORT 11/14/20 14:20 11/28/20 09:12 Al Hydrox/Mg Hydrox/Simethicone (Mylanta) 30 ml Q4HP PRN PO HEARTBURN/INDIGESTION 11/14/20 14:20 11/26/20 20:03 Aspirin (Ecotrin) 81 mg DAILY PO 11/15/20 09:00 12/05/20 08:43 Atorvastatin Calcium (Lipitor) 20 mg DAILY PO 11/15/20 09:00 12/05/20 08:43 Benztropine Mesylate (Cogentin) 1 mg BID PO 11/15/20 09:00 12/05/20 08:43 EZETIMIBE (Zetia) 10 mg DAILY PO 11/15/20 09:00 12/05/20 08:43 Home Med (Med Rec Complete!) ASDIRECTED XX 11/15/20 10:25 11/15/20 10:34 DC Levothyroxine Sodium (Synthroid) 100 mcg DAILY@06 PO 11/15/20 06:00 12/05/20 06:27 Lisinopril (Prinivil) 40 mg DAILY PO 11/15/20 09:00 12/05/20 08:42 Magnesium Hydroxide (Milk Of Magnesia) 30 ml DAILYPRN PRN PO CONSTIPATION 11/14/20 14:20 Metformin HCl (Glucophage Xr) 1,000 mg DAILY@0800 PO 11/19/20 08:00 12/05/20 08:44 Metformin HCl (Glucophage Xr) 1,000 mg DAILY@18 PO 11/15/20 18:00 11/19/20 11:42 DC 11/18/20 17:45 Metformin HCl (Glucophage) 1,000 mg DAILY@08 PO 11/16/20 08:00 11/15/20 10:51 DC Non-Formulary Medication ( See Comment Field Below ) SEE COMMENTS SECTION 1T@10 XX 11/21/20 10:00 11/22/20 09:59 UNV Non-Formulary Medication ( See Comment Field Below ) SEE LABEL COMMENTS DAILY XX 11/19/20 09:00 11/20/20 18:06 DC Risperidone (RisperDAL) 2 mg QHS PO 11/15/20 21:00 12/04/20 21:20 Risperidone (RisperDAL) 2 mg QHS PO 11/20/20 21:00 11/20/20 11:25 DC Trazodone HCl (Desyrel) 50 mg QHSP PRN PO INSOMNIA 11/14/20 14:20 12/04/20 21:20 Vitamin D (Drisdol) 50,000 units Th PO 11/15/20 12:00 11/29/20 11:56 Allergies Coded Allergies: Penicillins (Verified Allergy, Mild, 04/14/19) DARREL TRIVEDI M.D. Dec 05, 2020 11:37
[2020-12-05 17:40] VITALS: BP 117/59
[2020-12-05] MEDS: risperiDONE 2 MG TAB PO SCH (21:00)
[2020-12-05] MEDS: traZODone 50 MG TAB PO PRN (21:00)
[2020-12-06] MEDS: LEVOTHYROXINE 100MCG TABLET (0.1MG) PO SCH (05:24)
[2020-12-06 06:22] VITALS: BP 109/64
[2020-12-06] MEDS: BENZTROPINE 1 MG TAB PO SCH ×2 (08:51→20:46)
[2020-12-06] MEDS: VITAMIN D 50,000 UNITS CAPSULE (ERGOCALCIFEROL 1.25MG) PO SCH (08:51)
[2020-12-06] MEDS: metFORMIN XR 500MG TAB *GLUCOPHAGE XR PO SCH (08:51)
[2020-12-06] MEDS: lisinopriL 40 MG TAB PO SCH (08:51)
[2020-12-06] MEDS: ASPIRIN 81MG ENTERIC TABLET PO SCH (08:51)
[2020-12-06] MEDS: ATORVASTATIN 20 MG TAB PO SCH (08:51)
[2020-12-06] MEDS: EZETIMIBE 10 MG TAB (ZETIA) PO SCH (09:14)
--- NOTE | 2020-12-06 11:18 | MHIPNPDOC ---
[facility] Progress Note Progress Note DATE OF SERVICE: 12/06/20 The patient remains in bed and appears extremely guarded preoccupied and withdrawn. He is cooperating with his medications but showing no improvement and we are waiting for transfer to [facility]. HISTORY:. VITAL SIGNS: See below. NEW TEST RESULTS:. CURRENT MEDICATIONS: See below. MENTAL STATUS EXAMINATION: Patient is a 60-year old male, who is guarded withdrawn. Speech: Is not productive. Language skills are poor. Thought processes including: Not verbally productive. Thought content: Remains grossly disorganized. Abstract reasoning, and c omputation:. Description of associations: Loose circumstantial. Description of abnormal or psychotic thoughts: Appears preoccupied with the delusional thinking. Judgment: Poor. Insight: poor]. Orientation: Oriented. Recent and remote memory: No gross confusion. Attention span and concentration:. Language:. Fund of knowledge:. Mood: Denies any serious depression. Affect: Blunted. DIAGNOSES: 1.. Chronic schizophrenia 2.. 3.. ASSESSMENT: No changes and no improvement MANAGEMENT PLAN: Awaiting transfer to [facility]. TIME SPENT: 10 minutes. Vital Signs Vital Signs Date Time Temp Pulse Resp B/P (MAP) Pulse Ox O2 Delivery O2 Flow Rate FiO2 12/06/20 06:22 98.5 82 20 109/64 (79) 95 Room Air Current Medications Current Medications Medications (Trade) Dose Ordered Sig/Vidal Route PRN Reason Start Time Stop Time Status Last Admin Dose Admin Acetaminophen (Tylenol Tab) 650 mg Q6HP PRN PO HEADACHE or MILD DISCOMFORT 11/14/20 14:20 11/28/20 09:12 Al Hydrox/Mg Hydrox/Simethicone (Mylanta) 30 ml Q4HP PRN PO HEARTBURN/INDIGESTION 11/14/20 14:20 11/26/20 20:03 Aspirin (Ecotrin) 81 mg DAILY PO 11/15/20 09:00 12/06/20 08:51 Atorvastatin Calcium (Lipitor) 20 mg DAILY PO 11/15/20 09:00 12/06/20 08:51 Benztropine Mesylate (Cogentin) 1 mg BID PO 11/15/20 09:00 12/06/20 08:51 EZETIMIBE (Zetia) 10 mg DAILY PO 11/15/20 09:00 12/06/20 09:14 Home Med (Med Rec Complete!) ASDIRECTED XX 11/15/20 10:25 11/15/20 10:34 DC Levothyroxine Sodium (Synthroid) 100 mcg DAILY@06 PO 11/15/20 06:00 12/06/20 05:24 Lisinopril (Prinivil) 40 mg DAILY PO 11/15/20 09:00 12/06/20 08:51 Magnesium Hydroxide (Milk Of Magnesia) 30 ml DAILYPRN PRN PO CONSTIPATION 11/14/20 14:20 Metformin HCl (Glucophage Xr) 1,000 mg DAILY@0800 PO 11/19/20 08:00 12/06/20 08:51 Metformin HCl (Glucophage Xr) 1,000 mg DAILY@18 PO 11/15/20 18:00 11/19/20 11:42 DC 11/18/20 17:45 Metformin HCl (Glucophage) 1,000 mg DAILY@08 PO 11/16/20 08:00 11/15/20 10:51 DC Non-Formulary Medication ( See Comment Field Below ) SEE COMMENTS SECTION 1T@10 XX 11/21/20 10:00 11/22/20 09:59 UNV Non-Formulary Medication ( See Comment Field Below ) SEE LABEL COMMENTS DAILY XX 11/19/20 09:00 11/20/20 18:06 DC Risperidone (RisperDAL) 2 mg QHS PO 11/15/20 21:00 12/05/20 21:00 Risperidone (RisperDAL) 2 mg QHS PO 11/20/20 21:00 11/20/20 11:25 DC Trazodone HCl (Desyrel) 50 mg QHSP PRN PO INSOMNIA 11/14/20 14:20 12/05/20 21:00 Vitamin D (Drisdol) 50,000 units Th PO 11/15/20 12:00 12/06/20 08:51 Allergies Coded Allergies: Penicillins (Verified Allergy, Mild, 04/14/19) DARREL TRIVEDI M.D. Dec 06, 2020 11:18
[2020-12-06] MEDS: traZODone 50 MG TAB PO PRN (20:46)
[2020-12-06] MEDS: risperiDONE 2 MG TAB PO SCH (20:46)
[2020-12-07] MEDS: LEVOTHYROXINE 100MCG TABLET (0.1MG) PO SCH (05:23)
[2020-12-07 06:33] VITALS: BP 97/63
[2020-12-07] MEDS: ATORVASTATIN 20 MG TAB PO SCH (08:40)
[2020-12-07] MEDS: BENZTROPINE 1 MG TAB PO SCH ×2 (08:40→22:14)
[2020-12-07] MEDS: lisinopriL 40 MG TAB PO SCH (08:40)
[2020-12-07] MEDS: EZETIMIBE 10 MG TAB (ZETIA) PO SCH (08:40)
[2020-12-07] MEDS: ASPIRIN 81MG ENTERIC TABLET PO SCH (08:41)
[2020-12-07] MEDS: metFORMIN XR 500MG TAB *GLUCOPHAGE XR PO SCH (08:41)
--- NOTE | 2020-12-07 11:01 | MHIPNPDOC ---
[facility] Progress Note Progress Note DATE OF SERVICE: 12/07/20 Patient offers no new complaint and remains in bed and markedly withdrawn and preoccupied. He is cooperating with the medications and has not shown any aggressive or agitated behavior but remains grossly disorganized and regressed. HISTORY:. VITAL SIGNS: See below. NEW TEST RESULTS:. CURRENT MEDICATIONS: See below. MENTAL STATUS EXAMINATION: Patient is a 60-year old male, who is in no acute distress. Speech: Is not productive. Language skills are poor. Thought processes including: Markedly preoccupied. Thought content: Not verbally responding. Abstract reasoning, and computation:. Description of associations: Not productive. Description of abnormal or psychotic thoughts: Appears grossly disorganized. Judgment: Poor. Insight: Poor. Orientation: Appears oriented. Recent and remote memory: No gross confusion. Attention span and concentration:. Language:. Fund of knowledge:. Mood: Not angry or irritable. Affect: Very blunted. DIAGNOSES: 1.. Chronic schizophrenia 2.. 3.. ASSESSMENT: No improvement MANAGEMENT PLAN: Awaiting transfer to [facility]. TIME SPENT: 10 minutes. Vital Signs Vital Signs Date Time Temp Pulse Resp B/P (MAP) Pulse Ox O2 Delivery O2 Flow Rate FiO2 12/07/20 06:33 96.8 79 18 97/63 (74) 97 Room Air Current Medications Current Medications Medications (Trade) Dose Ordered Sig/Vidal Route PRN Reason Start Time Stop Time Status Last Admin Dose Admin Acetaminophen (Tylenol Tab) 650 mg Q6HP PRN PO HEADACHE or MILD DISCOMFORT 11/14/20 14:20 11/28/20 09:12 Al Hydrox/Mg Hydrox/Simethicone (Mylanta) 30 ml Q4HP PRN PO HEARTBURN/INDIGESTION 11/14/20 14:20 11/26/20 20:03 Aspirin (Ecotrin) 81 mg DAILY PO 11/15/20 09:00 12/07/20 08:41 Atorvastatin Calcium (Lipitor) 20 mg DAILY PO 11/15/20 09:00 12/07/20 08:40 Benztropine Mesylate (Cogentin) 1 mg BID PO 11/15/20 09:00 12/07/20 08:40 EZETIMIBE (Zetia) 10 mg DAILY PO 11/15/20 09:00 12/07/20 08:40 Home Med (Med Rec Complete!) ASDIRECTED XX 11/15/20 10:25 11/15/20 10:34 DC Levothyroxine Sodium (Synthroid) 100 mcg DAILY@06 PO 11/15/20 06:00 12/07/20 05:23 Lisinopril (Prinivil) 40 mg DAILY PO 11/15/20 09:00 12/07/20 08:40 Magnesium Hydroxide (Milk Of Magnesia) 30 ml DAILYPRN PRN PO CONSTIPATION 11/14/20 14:20 Metformin HCl (Glucophage Xr) 1,000 mg DAILY@0800 PO 11/19/20 08:00 12/07/20 08:41 Metformin HCl (Glucophage Xr) 1,000 mg DAILY@18 PO 11/15/20 18:00 11/19/20 11:42 DC 11/18/20 17:45 Metformin HCl (Glucophage) 1,000 mg DAILY@08 PO 11/16/20 08:00 11/15/20 10:51 DC Non-Formulary Medication ( See Comment Field Below ) SEE COMMENTS SECTION 1T@10 XX 11/21/20 10:00 11/22/20 09:59 UNV Non-Formulary Medication ( See Comment Field Below ) SEE LABEL COMMENTS DAILY XX 11/19/20 09:00 11/20/20 18:06 DC Risperidone (RisperDAL) 2 mg QHS PO 11/15/20 21:00 12/06/20 20:46 Risperidone (RisperDAL) 2 mg QHS PO 11/20/20 21:00 11/20/20 11:25 DC Trazodone HCl (Desyrel) 50 mg QHSP PRN PO INSOMNIA 11/14/20 14:20 12/06/20 20:46 Vitamin D (Drisdol) 50,000 units Th PO 11/15/20 12:00 12/06/20 08:51 Allergies Coded Allergies: Penicillins (Verified Allergy, Mild, 04/14/19) DARREL TRIVEDI M.D. Dec 07, 2020 11:01
[2020-12-07 17:15] VITALS: BP 112/54
[2020-12-07] MEDS: risperiDONE 2 MG TAB PO SCH (22:14)
[2020-12-07] MEDS: traZODone 50 MG TAB PO PRN (22:14)
[2020-12-08] MEDS: LEVOTHYROXINE 100MCG TABLET (0.1MG) PO SCH (06:16)
[2020-12-08 07:23] VITALS: BP 143/77
[2020-12-08] MEDS: metFORMIN XR 500MG TAB *GLUCOPHAGE XR PO SCH (07:57)
[2020-12-08] MEDS: ATORVASTATIN 20 MG TAB PO SCH (08:32)
[2020-12-08] MEDS: lisinopriL 40 MG TAB PO SCH (08:32)
[2020-12-08] MEDS: BENZTROPINE 1 MG TAB PO SCH ×2 (08:32→20:30)
[2020-12-08] MEDS: EZETIMIBE 10 MG TAB (ZETIA) PO SCH (08:32)
[2020-12-08] MEDS: ASPIRIN 81MG ENTERIC TABLET PO SCH (08:32)
[2020-12-08 17:17] VITALS: BP 146/67
[2020-12-08] MEDS: traZODone 50 MG TAB PO PRN (20:30)
[2020-12-08] MEDS: risperiDONE 2 MG TAB PO SCH (20:30)
[2020-12-09] MEDS: LEVOTHYROXINE 100MCG TABLET (0.1MG) PO SCH (05:59)
[2020-12-09 06:41] VITALS: BP 115/57
[2020-12-09] MEDS: metFORMIN XR 500MG TAB *GLUCOPHAGE XR PO SCH (07:25)
[2020-12-09] MEDS: EZETIMIBE 10 MG TAB (ZETIA) PO SCH (08:19)
[2020-12-09] MEDS: lisinopriL 40 MG TAB PO SCH (08:19)
[2020-12-09] MEDS: ATORVASTATIN 20 MG TAB PO SCH (08:20)
[2020-12-09] MEDS: ASPIRIN 81MG ENTERIC TABLET PO SCH (08:20)
[2020-12-09] MEDS: BENZTROPINE 1 MG TAB PO SCH ×2 (08:20→20:48)
[2020-12-09 18:20] VITALS: BP 129/64
[2020-12-09] MEDS: traZODone 50 MG TAB PO PRN (20:48)
[2020-12-09] MEDS: risperiDONE 2 MG TAB PO SCH (20:48)
[2020-12-10] MEDS: LEVOTHYROXINE 100MCG TABLET (0.1MG) PO SCH (06:11)
[2020-12-10 06:50] VITALS: BP 107/61
[2020-12-10] MEDS: lisinopriL 40 MG TAB PO SCH (07:56)
[2020-12-10] MEDS: ATORVASTATIN 20 MG TAB PO SCH (07:57)
[2020-12-10] MEDS: EZETIMIBE 10 MG TAB (ZETIA) PO SCH (07:57)
[2020-12-10] MEDS: BENZTROPINE 1 MG TAB PO SCH ×2 (07:57→20:20)
[2020-12-10] MEDS: ASPIRIN 81MG ENTERIC TABLET PO SCH (07:57)
[2020-12-10] MEDS: metFORMIN XR 500MG TAB *GLUCOPHAGE XR PO SCH (07:59)
[2020-12-10 17:46] VITALS: BP 129/60
--- NOTE | 2020-12-10 19:37 | MHIPNPDOC ---
[facility] Progress Note Progress Note DATE OF SERVICE: 12/10/20 HISTORY: Patient is a 60-year-old man who was admitted for acutely decompensated psychotic symptoms in context of past psychiatric history of schizophrenia. Per chart review was to continue STEVENSON paliperidone and discharge back to [facility] apartment. November 11 was transferred to the medical unit due to chest pain for observation, he was treated for hypokalemia with medication adjustment and transferred back to the inpatient unit on 939 status. He continued to be bizarre, paranoid requiring further psychiatric treatment. He also received continue treatment for diabetes mellitus type 2, hyperlipidemia, hypertension and has been maintained on a medical regimen. Received Invega Sustenna on 11/19, despite this treatment continue to remain psychotic posing a risk for self-care. Interval: Charts reviewed. Patient was seen in his room around breakfast time. Reports being easily disturbed by the patient left the unit stating " he stated her longer had a problem". Also reports being annoyed by his roommate at [facility] home prior to admission. Reports being much bigger and stronger than this roommate and that he could handle himself in confrontation with him. Continues to remain withdrawn from the milieu and understands he is pending transfer to a long-term facility. No overt signs of aggression on the unit noted today, remains isolative. VITAL SIGNS: See below. NEW TEST RESULTS: None CURRENT MEDICATIONS: See below. MENTAL STATUS EXAMINATION: Patient is a 60-year old male, who is currently sitting on his bed, poor eye contact. Speech: Is decreased in amount, non spontaneous Language skills are poor Thought processes including:Preoccupied with aggressive thoughts at times, no clear targets. Thought content: Denies suicidal thoughts, passive homicidal thoughts , no intent or plan. abstract reasoning, and computation: [place]. description of associations: Poor Description of abnormal or psychotic thoughts: Vague denies overt hallucinations, but appears internally preoccupied at times. Judgment: Poor Insight: Poor Orientation:to person, place. Recent and remote memory: Intact Attention span and concentration: Poor Language: Intact Fund of knowledge: Unable to fully assess based on interview. Mood: "whatever". Affect: Ambivalent, blunted, withdrawn, congruent to mood. DIAGNOSES: 1. Schizophrenia. ASSESSMENT: Patient remains internally preoccupied, isolative to room, endorses some passive homicidal ideation in context of disorganized thought process, does not display aggression on the unit and is medication compliant. Has been attending some groups. MANAGEMENT PLAN: Patient requires extended stay on the unit to ensure transfer to state facility, accepted [place] [facility] [place], was discussed in treatment meeting. Plan to continue with disposition planning and encouraged to continue being compliant with medications. TIME SPENT: 15 minutes. Vital Signs Vital Signs Date Time Temp Pulse Resp B/P (MAP) Pulse Ox O2 Delivery O2 Flow Rate FiO2 12/10/20 17:46 98.9 72 16 129/60 (83) 97 Room Air Current Medications Current Medications Medications (Trade) Dose Ordered Sig/Vidal Route PRN Reason Start Time Stop Time Status Last Admin Dose Admin Acetaminophen (Tylenol Tab) 650 mg Q6HP PRN PO HEADACHE or MILD DISCOMFORT 11/14/20 14:20 11/28/20 09:12 Al Hydrox/Mg Hydrox/Simethicone (Mylanta) 30 ml Q4HP PRN PO HEARTBURN/INDIGESTION 11/14/20 14:20 11/26/20 20:03 Aspirin (Ecotrin) 81 mg DAILY PO 11/15/20 09:00 12/10/20 07:57 Atorvastatin Calcium (Lipitor) 20 mg DAILY PO 11/15/20 09:00 12/10/20 07:57 Benztropine Mesylate (Cogentin) 1 mg BID PO 11/15/20 09:00 12/10/20 07:57 EZETIMIBE (Zetia) 10 mg DAILY PO 11/15/20 09:00 12/10/20 07:57 Home Med (Med Rec Complete!) ASDIRECTED XX 11/15/20 10:25 11/15/20 10:34 DC Levothyroxine Sodium (Synthroid) 100 mcg DAILY@06 PO 11/15/20 06:00 12/10/20 06:11 Lisinopril (Prinivil) 40 mg DAILY PO 11/15/20 09:00 12/10/20 07:56 Magnesium Hydroxide (Milk Of Magnesia) 30 ml DAILYPRN PRN PO CONSTIPATION 11/14/20 14:20 Metformin HCl (Glucophage Xr) 1,000 mg DAILY@0800 PO 11/19/20 08:00 12/10/20 07:59 Metformin HCl (Glucophage Xr) 1,000 mg DAILY@18 PO 11/15/20 18:00 11/19/20 11:42 DC 11/18/20 17:45 Metformin HCl (Glucophage) 1,000 mg DAILY@08 PO 11/16/20 08:00 11/15/20 10:51 DC Non-Formulary Medication ( See Comment Field Below ) SEE COMMENTS SECTION 1T@10 XX 11/21/20 10:00 11/22/20 09:59 UNV Non-Formulary Medication ( See Comment Field Below ) SEE LABEL COMMENTS DAILY XX 11/19/20 09:00 11/20/20 18:06 DC Risperidone (RisperDAL) 2 mg QHS PO 11/15/20 21:00 12/09/20 20:48 Risperidone (RisperDAL) 2 mg QHS PO 11/20/20 21:00 11/20/20 11:25 DC Trazodone HCl (Desyrel) 50 mg QHSP PRN PO INSOMNIA 11/14/20 14:20 12/09/20 20:48 Vitamin D (Drisdol) 50,000 units Th PO 11/15/20 12:00 12/06/20 08:51 Allergies Coded Allergies: Penicillins (Verified Allergy, Mild, 04/14/19) CRAIG HILL MD Dec 10, 2020 18:20
[2020-12-10] MEDS: risperiDONE 2 MG TAB PO SCH (20:20)
[2020-12-10] MEDS: traZODone 50 MG TAB PO PRN (20:20)
[2020-12-11] MEDS: LEVOTHYROXINE 100MCG TABLET (0.1MG) PO SCH (05:24)
[2020-12-11 06:48] VITALS: BP 160/81
[2020-12-11] MEDS: ATORVASTATIN 20 MG TAB PO SCH (07:48)
[2020-12-11] MEDS: lisinopriL 40 MG TAB PO SCH (07:48)
[2020-12-11] MEDS: BENZTROPINE 1 MG TAB PO SCH ×2 (07:48→20:54)
[2020-12-11] MEDS: ASPIRIN 81MG ENTERIC TABLET PO SCH (07:48)
[2020-12-11] MEDS: EZETIMIBE 10 MG TAB (ZETIA) PO SCH (07:49)
[2020-12-11] MEDS: metFORMIN XR 500MG TAB *GLUCOPHAGE XR PO SCH (07:49)
--- NOTE | 2020-12-11 12:26 | MHIPNPDOC ---
[facility] Progress Note Progress Note DATE OF SERVICE: 12/11/20 HISTORY: Patient is a 60-year-old man who was admitted for acutely decompensated psychotic symptoms in context of past psychiatric history of schizophrenia. Per chart review was to continue STEVENSON paliperidone and discharge back to [facility] apartment. November 11 was transferred to the medical unit due to chest pain for observation, he was treated for hypokalemia with medication adjustment and transferred back to the inpatient unit on 939 status. He continued to be bizarre, paranoid requiring further psychiatric treatment. He also received continue treatment for diabetes mellitus type 2, hyperlipidemia, hypertension and has been maintained on a medical regimen. Received Invega Sustenna on 11/19, despite this treatment continue to remain psychotic posing a risk for self-care. Interval: Patient is isolative to room, but has been attending some groups. Reports hearing voices saying "don't do that". When speaking with nursing staff, was making inappropriate sexual comments to group members. Upon conversation states he thinks he needs a morning dose of medication for the voices. Agrees to QAM risperdal, aware of common and rare side effects. VITAL SIGNS: See below. NEW TEST RESULTS: None CURRENT MEDICATIONS: See below. MENTAL STATUS EXAMINATION: Patient is a 60-year old male, who is currently lying on his bed, poor eye contact. Speech: Is decreased in amount, spontaneous Language skills are poor Thought processes including:Preoccupied with voices, circumstantial Thought content: Denies suicidal thoughts, passive homicidal thoughts , no intent or plan. abstract reasoning, and computation: [place]. description of associations: Poor Description of abnormal or psychotic thoughts: auditory non-violent hallucinations, interally preoccupied Judgment: Poor Insight: Poor Orientation:to person, place. Recent and remote memory: Intact Attention span and concentration: Poor Language: Intact Fund of knowledge: Unable to fully assess based on interview. Mood: "I don't know". Affect: disorganized, internally preoccupied DIAGNOSES: 1. Schizophrenia. ASSESSMENT: Patient remains psychotic with AH and bizarre behavior, mostly isolative to room, but attending some groups, denies SI/HI. MANAGEMENT PLAN: [place] [facility] added 1 mg qam risperdal to regimen for bizarre and disorganized behavior, added prn olanzapine 5 mg q4h prn for overt dangerous agitation only. Had an elevated BP (see below), but asymptomatic, asked nursing to re-assess. TIME SPENT: 15 minutes. Vital Signs Vital Signs Date Time Temp Pulse Resp B/P (MAP) Pulse Ox O2 Delivery O2 Flow Rate FiO2 12/11/20 06:48 97.4 84 18 160/81 (107) 97 Room Air Current Medications Current Medications Medications (Trade) Dose Ordered Sig/Vidal Route PRN Reason Start Time Stop Time Status Last Admin Dose Admin Acetaminophen (Tylenol Tab) 650 mg Q6HP PRN PO HEADACHE or MILD DISCOMFORT 11/14/20 14:20 11/28/20 09:12 Al Hydrox/Mg Hydrox/Simethicone (Mylanta) 30 ml Q4HP PRN PO HEARTBURN/INDIGESTION 11/14/20 14:20 11/26/20 20:03 Aspirin (Ecotrin) 81 mg DAILY PO 11/15/20 09:00 12/11/20 07:48 Atorvastatin Calcium (Lipitor) 20 mg DAILY PO 11/15/20 09:00 12/11/20 07:48 Benztropine Mesylate (Cogentin) 1 mg BID PO 11/15/20 09:00 12/11/20 07:48 EZETIMIBE (Zetia) 10 mg DAILY PO 11/15/20 09:00 12/11/20 07:49 Home Med (Med Rec Complete!) ASDIRECTED XX 11/15/20 10:25 11/15/20 10:34 DC Levothyroxine Sodium (Synthroid) 100 mcg DAILY@06 PO 11/15/20 06:00 12/11/20 05:24 Lisinopril (Prinivil) 40 mg DAILY PO 11/15/20 09:00 12/11/20 07:48 Magnesium Hydroxide (Milk Of Magnesia) 30 ml DAILYPRN PRN PO CONSTIPATION 11/14/20 14:20 Metformin HCl (Glucophage Xr) 1,000 mg DAILY@0800 PO 11/19/20 08:00 12/11/20 07:49 Metformin HCl (Glucophage Xr) 1,000 mg DAILY@18 PO 11/15/20 18:00 11/19/20 11:42 DC 11/18/20 17:45 Metformin HCl (Glucophage) 1,000 mg DAILY@08 PO 11/16/20 08:00 11/15/20 10:51 DC Non-Formulary Medication ( See Comment Field Below ) SEE COMMENTS SECTION 1T@10 XX 11/21/20 10:00 11/22/20 09:59 UNV Non-Formulary Medication ( See Comment Field Below ) SEE LABEL COMMENTS DAILY XX 11/19/20 09:00 11/20/20 18:06 DC Risperidone (RisperDAL) 2 mg QHS PO 11/15/20 21:00 12/10/20 20:20 Risperidone (RisperDAL) 2 mg QHS PO 11/20/20 21:00 11/20/20 11:25 DC Trazodone HCl (Desyrel) 50 mg QHSP PRN PO INSOMNIA 11/14/20 14:20 12/10/20 20:20 Vitamin D (Drisdol) 50,000 units Th PO 11/15/20 12:00 12/06/20 08:51 Allergies Coded Allergies: Penicillins (Verified Allergy, Mild, 04/14/19) CRAIG HILL MD Dec 11, 2020 12:14
[2020-12-11] MEDS: risperiDONE 0.5 MG TAB PO SCH (12:58)
[2020-12-11 16:27] VITALS: BP 125/74
[2020-12-11] MEDS: ACETAMINOPHEN TAB 650MG DOSE (2X325MG) PO PRN (19:37)
[2020-12-11] MEDS: risperiDONE 2 MG TAB PO SCH (20:54)
[2020-12-11] MEDS: traZODone 50 MG TAB PO PRN (20:54)
[2020-12-12] MEDS: LEVOTHYROXINE 100MCG TABLET (0.1MG) PO SCH (05:01)
[2020-12-12] MEDS: ACETAMINOPHEN TAB 650MG DOSE (2X325MG) PO PRN (05:02)
[2020-12-12 06:57] VITALS: BP 115/58
[2020-12-12] MEDS: metFORMIN XR 500MG TAB *GLUCOPHAGE XR PO SCH (08:05)
[2020-12-12] MEDS: lisinopriL 40 MG TAB PO SCH (08:08)
[2020-12-12] MEDS: ATORVASTATIN 20 MG TAB PO SCH (08:08)
[2020-12-12] MEDS: EZETIMIBE 10 MG TAB (ZETIA) PO SCH (08:08)
[2020-12-12] MEDS: ASPIRIN 81MG ENTERIC TABLET PO SCH (08:08)
[2020-12-12] MEDS: BENZTROPINE 1 MG TAB PO SCH ×2 (08:08→21:30)
[2020-12-12] MEDS: risperiDONE 0.5 MG TAB PO SCH (08:09)
--- NOTE | 2020-12-12 12:09 | MHIPNPDOC ---
[facility] Progress Note Progress Note DATE OF SERVICE: 12/12/20 HISTORY: Patient is a 60-year-old man who was admitted for acutely decompensated psychotic symptoms in context of past psychiatric history of schizophrenia. Per chart review was to continue STEVENSON paliperidone and discharge back to [facility] apartment. November 11 was transferred to the medical unit due to chest pain for observation, he was treated for hypokalemia with medication adjustment and transferred back to the inpatient unit on 939 status. He continued to be bizarre, paranoid requiring further psychiatric treatment. He also received continue treatment for diabetes mellitus type 2, hyperlipidemia, hypertension and has been maintained on a medical regimen. Received Invega Sustenna on 11/19, despite this treatment continue to remain psychotic posing a risk for self-care. Interval: Today he is lying in bed, states "I am little more tired than usual", then starts discussing a disjointed story about his past, also makes some sexual comments and mentions how he has thoughts of punching him in the neck but would never act on it. Continues to appear disorganized internally preoccupied despite taking his added 0.1 mg risperidone in the morning. Denies overt homicidal ideation, when asked about suicidal ideation just laughs on addressing the question. Reports sleep and appetite are okay. No acute physical complaints reported. VITAL SIGNS: See below. NEW TEST RESULTS: None CURRENT MEDICATIONS: See below. MENTAL STATUS EXAMINATION: Patient is a 60-year old male, who is currently lying on his bed, poor eye contact, in no acute distress. Speech: Normal amount, normal volume, spontaneous Language skills are poor Thought processes including: Internally preoccupied, circumstantial Thought content: Did not endorse suicidal thoughts, continues to have passive homicidal thoughts , no intent or plan. abstract reasoning, and computation: [place]. description of associations: Poor Description of abnormal or psychotic thoughts: auditory non-violent hallucinations, interally preoccupied Judgment: Poor Insight: Poor Orientation:to person, place. Recent and remote memory: Intact Attention span and concentration: Poor Language: Intact Fund of knowledge: Unable to fully assess based on interview. Mood: "All right". Affect: internally preoccupied, laidback, inappropriate laughter at times DIAGNOSES: 1. Schizophrenia. ASSESSMENT: Patient continues to be psychotic with AH and bizarre behavior, has been attending some groups today, denies SI, but makes some passive homicidal comments about punching someone in the back of the neck, however denies intent or plan. Agrees to continue with current regimen with added 0.1 mg Risperdal in the am, denies side effects apart from some mild sedation, ambulates without difficulty. MANAGEMENT PLAN: Continues to be awaiting transfer to [facility], continue on regimen of Risperdal 0.5 mg every morning, 2 mg every evening, repeat vitals within normal limits. TIME SPENT: 15 minutes. Vital Signs Vital Signs Date Time Temp Pulse Resp B/P (MAP) Pulse Ox O2 Delivery O2 Flow Rate FiO2 12/12/20 06:57 97.9 80 18 115/58 (77) 96 Room Air Current Medications Current Medications Medications (Trade) Dose Ordered Sig/Vidal Route PRN Reason Start Time Stop Time Status Last Admin Dose Admin Acetaminophen (Tylenol Tab) 650 mg Q6HP PRN PO HEADACHE or MILD DISCOMFORT 11/14/20 14:20 12/12/20 05:02 Al Hydrox/Mg Hydrox/Simethicone (Mylanta) 30 ml Q4HP PRN PO HEARTBURN/INDIGESTION 11/14/20 14:20 11/26/20 20:03 Aspirin (Ecotrin) 81 mg DAILY PO 11/15/20 09:00 12/12/20 08:08 Atorvastatin Calcium (Lipitor) 20 mg DAILY PO 11/15/20 09:00 12/12/20 08:08 Benztropine Mesylate (Cogentin) 1 mg BID PO 11/15/20 09:00 12/12/20 08:08 EZETIMIBE (Zetia) 10 mg DAILY PO 11/15/20 09:00 12/12/20 08:08 Home Med (Med Rec Complete!) ASDIRECTED XX 11/15/20 10:25 11/15/20 10:34 DC Levothyroxine Sodium (Synthroid) 100 mcg DAILY@06 PO 11/15/20 06:00 12/12/20 05:01 Lisinopril (Prinivil) 40 mg DAILY PO 11/15/20 09:00 12/12/20 08:08 Magnesium Hydroxide (Milk Of Magnesia) 30 ml DAILYPRN PRN PO CONSTIPATION 11/14/20 14:20 Metformin HCl (Glucophage Xr) 1,000 mg DAILY@0800 PO 11/19/20 08:00 12/12/20 08:05 Metformin HCl (Glucophage Xr) 1,000 mg DAILY@18 PO 11/15/20 18:00 11/19/20 11:42 DC 11/18/20 17:45 Metformin HCl (Glucophage) 1,000 mg DAILY@08 PO 11/16/20 08:00 11/15/20 10:51 DC Non-Formulary Medication ( See Comment Field Below ) SEE COMMENTS SECTION 1T@10 XX 11/21/20 10:00 11/22/20 09:59 UNV Non-Formulary Medication ( See Comment Field Below ) SEE LABEL COMMENTS DAILY XX 11/19/20 09:00 11/20/20 18:06 DC Olanzapine (ZyPREXA) 5 mg Q4HP PRN PO ANXIETY/AGITATION 12/11/20 12:15 Risperidone (RisperDAL) 0.5 mg QAM PO 12/11/20 09:00 12/12/20 08:09 Risperidone (RisperDAL) 2 mg QHS PO 11/15/20 21:00 12/11/20 20:54 Risperidone (RisperDAL) 2 mg QHS PO 11/20/20 21:00 11/20/20 11:25 DC Trazodone HCl (Desyrel) 50 mg QHSP PRN PO INSOMNIA 11/14/20 14:20 12/11/20 20:54 Vitamin D (Drisdol) 50,000 units Th PO 11/15/20 12:00 12/06/20 08:51 Allergies Coded Allergies: Penicillins (Verified Allergy, Mild, 04/14/19) CRAIG HILL MD Dec 12, 2020 12:09
[2020-12-12 16:22] VITALS: BP 115/60
[2020-12-12] MEDS: traZODone 50 MG TAB PO PRN (21:30)
[2020-12-12] MEDS: risperiDONE 2 MG TAB PO SCH (21:30)
[2020-12-13] MEDS: LEVOTHYROXINE 100MCG TABLET (0.1MG) PO SCH (06:09)
[2020-12-13 06:52] VITALS: BP 153/71
[2020-12-13] MEDS: metFORMIN XR 500MG TAB *GLUCOPHAGE XR PO SCH (08:09)
[2020-12-13] MEDS: BENZTROPINE 1 MG TAB PO SCH ×2 (09:18→21:16)
[2020-12-13] MEDS: EZETIMIBE 10 MG TAB (ZETIA) PO SCH (09:18)
[2020-12-13] MEDS: lisinopriL 40 MG TAB PO SCH (09:18)
[2020-12-13] MEDS: ASPIRIN 81MG ENTERIC TABLET PO SCH (09:18)
[2020-12-13] MEDS: risperiDONE 0.5 MG TAB PO SCH (09:18)
[2020-12-13] MEDS: ATORVASTATIN 20 MG TAB PO SCH (09:18)
[2020-12-13] MEDS: VITAMIN D 50,000 UNITS CAPSULE (ERGOCALCIFEROL 1.25MG) PO SCH (12:27)
[2020-12-13 18:25] VITALS: BP 136/58
--- NOTE | 2020-12-13 19:03 | MHIPNPDOC ---
[facility] Progress Note Progress Note DATE OF SERVICE: 12/13/20 HISTORY: Patient is a 60-year-old man who was admitted for acutely decompensated psychotic symptoms in context of past psychiatric history of schizophrenia. Per chart review was to continue STEVENSON paliperidone and discharge back to [facility] apartment. November 11 was transferred to the medical unit due to chest pain for observation, he was treated for hypokalemia with medication adjustment and transferred back to the inpatient unit on 939 status. He continued to be bizarre, paranoid requiring further psychiatric treatment. He also received continue treatment for diabetes mellitus type 2, hyperlipidemia, hypertension and has been maintained on a medical regimen. Received Invega Sustenna on 11/19, despite this treatment continue to remain psychotic posing a risk for self-care. Interval: charts reviewed. Patient continues to display bizarre behavior, making statements such as "the left eye as that helps the truth ". Does show some insight into long-term care, including transfer, stating "I've been there before and I guess it will be alright". VITAL SIGNS: See below. NEW TEST RESULTS: None CURRENT MEDICATIONS: See below. MENTAL STATUS EXAMINATION: Patient is a 60-year old male, who is currently lying on his bed, poor eye contact, in no acute distress. Speech: Normal amount, normal volume, spontaneous Language skills are poor Thought processes including: Disorganized. Thought content: Did not endorse suicidal thoughts, bizarre and delusional thinking abstract reasoning, and computation: [place]. description of associations: Poor Description of abnormal or psychotic thoughts: auditory non-violent hallucinations, interally preoccupied Judgment: Poor Insight: Poor Orientation:to person, place. Recent and remote memory: Intact Attention span and concentration: Poor Language: Intact Fund of knowledge: Unable to fully assess based on interview. Mood: "good I guess". Affect: Disorganized, preoccupied with neighbor. DIAGNOSES: 1. Schizophrenia. ASSESSMENT: Patient continues to be grossly psychotic, despite medication change, pending placement to long-term facility, [facility]. Unsafe to discharge. MANAGEMENT PLAN: Continue medications, pending transfer. Has been attending some groups including meditation group. TIME SPENT: 15 minutes. Vital Signs Vital Signs Date Time Temp Pulse Resp B/P (MAP) Pulse Ox O2 Delivery O2 Flow Rate FiO2 12/13/20 18:25 98.9 94 20 136/58 (84) 12/13/20 06:52 97 Room Air Current Medications Current Medications Medications (Trade) Dose Ordered Sig/Vidal Route PRN Reason Start Time Stop Time Status Last Admin Dose Admin Acetaminophen (Tylenol Tab) 650 mg Q6HP PRN PO HEADACHE or MILD DISCOMFORT 11/14/20 14:20 12/12/20 05:02 Al Hydrox/Mg Hydrox/Simethicone (Mylanta) 30 ml Q4HP PRN PO HEARTBURN/INDIGESTION 11/14/20 14:20 11/26/20 20:03 Aspirin (Ecotrin) 81 mg DAILY PO 11/15/20 09:00 12/13/20 09:18 Atorvastatin Calcium (Lipitor) 20 mg DAILY PO 11/15/20 09:00 12/13/20 09:18 Benztropine Mesylate (Cogentin) 1 mg BID PO 11/15/20 09:00 12/13/20 09:18 EZETIMIBE (Zetia) 10 mg DAILY PO 11/15/20 09:00 12/13/20 09:18 Home Med (Med Rec Complete!) ASDIRECTED XX 11/15/20 10:25 11/15/20 10:34 DC Levothyroxine Sodium (Synthroid) 100 mcg DAILY@06 PO 11/15/20 06:00 12/13/20 06:09 Lisinopril (Prinivil) 40 mg DAILY PO 11/15/20 09:00 12/13/20 09:18 Magnesium Hydroxide (Milk Of Magnesia) 30 ml DAILYPRN PRN PO CONSTIPATION 11/14/20 14:20 Metformin HCl (Glucophage Xr) 1,000 mg DAILY@0800 PO 11/19/20 08:00 12/13/20 08:09 Metformin HCl (Glucophage Xr) 1,000 mg DAILY@18 PO 11/15/20 18:00 11/19/20 11:42 DC 11/18/20 17:45 Metformin HCl (Glucophage) 1,000 mg DAILY@08 PO 11/16/20 08:00 11/15/20 10:51 DC Non-Formulary Medication ( See Comment Field Below ) SEE COMMENTS SECTION 1T@10 XX 11/21/20 10:00 11/22/20 09:59 UNV Non-Formulary Medication ( See Comment Field Below ) SEE LABEL COMMENTS DAILY XX 11/19/20 09:00 11/20/20 18:06 DC Olanzapine (ZyPREXA) 5 mg Q4HP PRN PO ANXIETY/AGITATION 12/11/20 12:15 Risperidone (RisperDAL) 0.5 mg QAM PO 12/11/20 09:00 12/13/20 09:18 Risperidone (RisperDAL) 2 mg QHS PO 11/15/20 21:00 12/12/20 21:30 Risperidone (RisperDAL) 2 mg QHS PO 11/20/20 21:00 11/20/20 11:25 DC Trazodone HCl (Desyrel) 50 mg QHSP PRN PO INSOMNIA 11/14/20 14:20 12/12/20 21:30 Vitamin D (Drisdol) 50,000 units Th PO 11/15/20 12:00 12/13/20 12:27 Allergies Coded Allergies: Penicillins (Verified Allergy, Mild, 04/14/19) CRAIG HILL MD Dec 13, 2020 19:03
[2020-12-13] MEDS: risperiDONE 2 MG TAB PO SCH (21:16)
[2020-12-13] MEDS: traZODone 50 MG TAB PO PRN (21:19)
[2020-12-14] MEDS: LEVOTHYROXINE 100MCG TABLET (0.1MG) PO SCH (06:04)
[2020-12-14 06:53] VITALS: BP 107/59
[2020-12-14] MEDS: metFORMIN XR 500MG TAB *GLUCOPHAGE XR PO SCH (07:46)
[2020-12-14] MEDS: lisinopriL 40 MG TAB PO SCH (08:08)
[2020-12-14] MEDS: ATORVASTATIN 20 MG TAB PO SCH (08:08)
[2020-12-14] MEDS: EZETIMIBE 10 MG TAB (ZETIA) PO SCH (08:08)
[2020-12-14] MEDS: risperiDONE 0.5 MG TAB PO SCH (08:08)
[2020-12-14] MEDS: ASPIRIN 81MG ENTERIC TABLET PO SCH (08:08)
[2020-12-14] MEDS: BENZTROPINE 1 MG TAB PO SCH ×2 (08:08→20:44)
[2020-12-14 08:26] LABS: CHOLESTEROL RISK RATIO 3.609 (<5)
[2020-12-14 08:52] LABS: HEMOGLOBIN A1c 7.5 %
[2020-12-14 16:06] VITALS: BP 135/72
--- NOTE | 2020-12-14 17:30 | MHIPNPDOC ---
[facility] Progress Note Progress Note DATE OF SERVICE: 12/14/20 HISTORY: Patient is a 60-year-old man who was admitted for acutely decompensated psychotic symptoms in context of past psychiatric history of schizophrenia. Per chart review was to continue STEVENSON paliperidone and discharge back to [facility] apartment. November 11 was transferred to the medical unit due to chest pain for observation, he was treated for hypokalemia with medication adjustment and transferred back to the inpatient unit on 939 status. He continued to be bizarre, paranoid requiring further psychiatric treatment. He also received continue treatment for diabetes mellitus type 2, hyperlipidemia, hypertension and has been maintained on a medical regimen. Received Invega Sustenna on 11/19, despite this treatment continue to remain psychotic posing a risk for self-care. Interval: Patient continues to be disorganized, "It's all problems with being around old people, they affect my mind". Is internally preoccupied and seen in his room and in the milieu for meals. Understands pending placement. Continues to hear voices, but unable to voice what they say getting derailed during our conversation, does deny they are aggressive or command in nature. Denies suicidal thoughts. Does report feeling little a bit better with improved sleep since adding the morning dose of Risperdal. VITAL SIGNS: See below. NEW TEST RESULTS: lipid panel wnl, hba1c 7.5%, elevated fasting glucose CURRENT MEDICATIONS: See below. MENTAL STATUS EXAMINATION: Patient is a 60-year old male, who is currently lying on his bed, poor eye contact, in no acute distress. Speech: Normal amount, normal volume, spontaneous Language skills are poor Thought processes including: Disorganized. Thought content: Did not endorse suicidal thoughts, bizarre and delusional thinking abstract reasoning, and computation: [place]. description of associations: Poor Description of abnormal or psychotic thoughts: auditory hallucinations, persecutory and paranoid delusions Judgment: Poor Insight: Poor Orientation:to person, place. Recent and remote memory: Intact Attention span and concentration: Poor Language: Intact Fund of knowledge: Unable to fully assess based on interview. Mood: "alright". Affect: Grossly psychotic, inappropriate laughter DIAGNOSES: 1. Schizophrenia. ASSESSMENT: Patient continues to have symptoms of hallucinations and disorganiz ed thought process. Continues to have improved insight into transition to [facility], has concerns about elderly individuals he may encounter at such a placement. MANAGEMENT PLAN: Continue medications, has metformin supplementation for diabetes, confirmed with lab testing. Dietary consult placed. TIME SPENT: 20 minutes. Vital Signs Vital Signs Date Time Temp Pulse Resp B/P (MAP) Pulse Ox O2 Delivery O2 Flow Rate FiO2 12/14/20 16:06 98.0 85 18 135/72 (93) 96 Room Air Laboratory Data 24H Labs Laboratory Tests 2 12/14/20 07:21: Estimated Mean Plasma Glucose 169H, Hemoglobin A1c 7.5, Triglycerides Level 132, Total Cholesterol 148, LDL Cholesterol 81, Non-HDL Cholesterol (LDL + VLDL) 107, Total HDL Cholesterol 41, Cholesterol/HDL Ratio 3.609 Current Medications Current Medications Medications (Trade) Dose Ordered Sig/Vidal Route PRN Reason Start Time Stop Time Status Last Admin Dose Admin Acetaminophen (Tylenol Tab) 650 mg Q6HP PRN PO HEADACHE or MILD DISCOMFORT 11/14/20 14:20 12/12/20 05:02 Al Hydrox/Mg Hydrox/Simethicone (Mylanta) 30 ml Q4HP PRN PO HEARTBURN/INDIGESTION 11/14/20 14:20 11/26/20 20:03 Aspirin (Ecotrin) 81 mg DAILY PO 11/15/20 09:00 12/14/20 08:08 Atorvastatin Calcium (Lipitor) 20 mg DAILY PO 11/15/20 09:00 12/14/20 08:08 Benztropine Mesylate (Cogentin) 1 mg BID PO 11/15/20 09:00 12/14/20 08:08 EZETIMIBE (Zetia) 10 mg DAILY PO 11/15/20 09:00 12/14/20 08:08 Home Med (Med Rec Complete!) ASDIRECTED XX 11/15/20 10:25 11/15/20 10:34 DC Levothyroxine Sodium (Synthroid) 100 mcg DAILY@06 PO 11/15/20 06:00 12/14/20 06:04 Lisinopril (Prinivil) 40 mg DAILY PO 11/15/20 09:00 12/14/20 08:08 Magnesium Hydroxide (Milk Of Magnesia) 30 ml DAILYPRN PRN PO CONSTIPATION 11/14/20 14:20 Metformin HCl (Glucophage Xr) 1,000 mg DAILY@0800 PO 11/19/20 08:00 12/14/20 07:46 Metformin HCl (Glucophage Xr) 1,000 mg DAILY@18 PO 11/15/20 18:00 11/19/20 11:42 DC 11/18/20 17:45 Metformin HCl (Glucophage) 1,000 mg DAILY@08 PO 11/16/20 08:00 11/15/20 10:51 DC Non-Formulary Medication ( See Comment Field Below ) SEE COMMENTS SECTION 1T@10 XX 11/21/20 10:00 11/22/20 09:59 UNV Non-Formulary Medication ( See Comment Field Below ) SEE LABEL COMMENTS DAILY XX 11/19/20 09:00 11/20/20 18:06 DC Olanzapine (ZyPREXA) 5 mg Q4HP PRN PO ANXIETY/AGITATION 12/11/20 12:15 Risperidone (RisperDAL) 0.5 mg QAM PO 12/11/20 09:00 12/14/20 08:08 Risperidone (RisperDAL) 2 mg QHS PO 11/15/20 21:00 12/13/20 21:16 Risperidone (RisperDAL) 2 mg QHS PO 11/20/20 21:00 11/20/20 11:25 DC Trazodone HCl (Desyrel) 50 mg QHSP PRN PO INSOMNIA 11/14/20 14:20 12/13/20 21:19 Vitamin D (Drisdol) 50,000 units Th PO 11/15/20 12:00 12/13/20 12:27 Allergies Coded Allergies: Penicillins (Verified Allergy, Mild, 04/14/19) CRAIG HILL MD Dec 14, 2020 17:30
[2020-12-14] MEDS: traZODone 50 MG TAB PO PRN (20:43)
[2020-12-14] MEDS: risperiDONE 2 MG TAB PO SCH (20:44)
[2020-12-15] MEDS: LEVOTHYROXINE 100MCG TABLET (0.1MG) PO SCH (06:03)
[2020-12-15 06:28] VITALS: BP 133/61
[2020-12-15] MEDS: metFORMIN XR 500MG TAB *GLUCOPHAGE XR PO SCH (07:40)
[2020-12-15] MEDS: ATORVASTATIN 20 MG TAB PO SCH (09:02)
[2020-12-15] MEDS: EZETIMIBE 10 MG TAB (ZETIA) PO SCH (09:02)
[2020-12-15] MEDS: BENZTROPINE 1 MG TAB PO SCH ×2 (09:02→22:01)
[2020-12-15] MEDS: ASPIRIN 81MG ENTERIC TABLET PO SCH (09:02)
[2020-12-15] MEDS: risperiDONE 0.5 MG TAB PO SCH (09:02)
[2020-12-15] MEDS: lisinopriL 40 MG TAB PO SCH (09:03)
[2020-12-15 16:38] VITALS: BP 110/60
[2020-12-15] MEDS: risperiDONE 2 MG TAB PO SCH (22:01)
[2020-12-15] MEDS: traZODone 50 MG TAB PO PRN (22:02)
[2020-12-16] MEDS: LEVOTHYROXINE 100MCG TABLET (0.1MG) PO SCH (06:09)
[2020-12-16 07:30] VITALS: BP 125/65
[2020-12-16] MEDS: risperiDONE 0.5 MG TAB PO SCH (08:13)
[2020-12-16] MEDS: ASPIRIN 81MG ENTERIC TABLET PO SCH (08:13)
[2020-12-16] MEDS: EZETIMIBE 10 MG TAB (ZETIA) PO SCH (08:13)
[2020-12-16] MEDS: BENZTROPINE 1 MG TAB PO SCH ×2 (08:13→20:59)
[2020-12-16] MEDS: ATORVASTATIN 20 MG TAB PO SCH (08:14)
[2020-12-16] MEDS: lisinopriL 40 MG TAB PO SCH (08:14)
[2020-12-16] MEDS: metFORMIN XR 500MG TAB *GLUCOPHAGE XR PO SCH (08:14)
[2020-12-16 16:38] VITALS: BP 121/65
[2020-12-16] MEDS: risperiDONE 2 MG TAB PO SCH (20:59)
[2020-12-16] MEDS: traZODone 50 MG TAB PO PRN (20:59)
[2020-12-17 05:55] VITALS: BP 112/56
[2020-12-17] MEDS: LEVOTHYROXINE 100MCG TABLET (0.1MG) PO SCH (06:19)
[2020-12-17] MEDS: metFORMIN XR 500MG TAB *GLUCOPHAGE XR PO SCH (08:47)
[2020-12-17] MEDS: lisinopriL 40 MG TAB PO SCH (08:47)
[2020-12-17] MEDS: EZETIMIBE 10 MG TAB (ZETIA) PO SCH (08:47)
[2020-12-17] MEDS: BENZTROPINE 1 MG TAB PO SCH ×2 (08:47→21:39)
[2020-12-17] MEDS: ASPIRIN 81MG ENTERIC TABLET PO SCH (08:48)
[2020-12-17] MEDS: ATORVASTATIN 20 MG TAB PO SCH (08:48)
[2020-12-17] MEDS: risperiDONE 0.5 MG TAB PO SCH (08:48)
--- NOTE | 2020-12-17 11:54 | MHIPNPDOC ---
[facility] Progress Note Progress Note DATE OF SERVICE: 12/17/20 HISTORY: Patient is a 60-year-old man who was admitted for acutely decompensated psychotic symptoms in context of past psychiatric history of schizophrenia. Per chart review was to continue STEVENSON paliperidone and discharge back to [facility] apartment. November 11 was transferred to the medical unit due to chest pain for observation, he was treated for hypokalemia with medication adjustment and transferred back to the inpatient unit on 939 status. He continued to be bizarre, paranoid requiring further psychiatric treatment. He also received continue treatment for diabetes mellitus type 2, hyperlipidemia, hypertension and has been maintained on a medical regimen. Received Invega Sustenna on 11/19, despite this treatment continue to remain psychotic posing a risk for self-care. Interval: Patient remains grossly psychotic and is pending placement after be excepted to [facility]. States he is pretty good, but kind of reserved. When asked about his energy level in the morning states this has been good except on jealous of Rafael Guaman, has been good and a good chance to do my acting play part, I understand people take this seriously, denies auditory visual hallucinations but appears internally preoccupied at times. States he is not necessarily paranoid, denies medications, reports sleep and appetite to be good, no acute distress, tolerating medications well, no agitation or aggression, seen on the milieu. Encouraged to be appropriate if attending groups. VITAL SIGNS: See below. NEW TEST RESULTS: None CURRENT MEDICATIONS: See below. MENTAL STATUS EXAMINATION: Patient is a 60-year old male, who is currently sitting in a chair in the interview room, poor eye contact, in no acute distress, appears stated age, glasses. Speech: Normal amount, normal volume, spontaneous Language skills are poor Thought processes including: Continues to be disorganized. Thought content: Did not endorse suicidal thoughts, but continues to make clang associations, bizarre delusions endorsed abstract reasoning, and computation: [place]. description of associations: Poor Description of abnormal or psychotic thoughts: auditory hallucinations, persecutory and paranoid delusions Judgment: Poor Insight: Poor Orientation: X3 Recent and remote memory: Intact Attention span and concentration: Poor Language: Intact Fund of knowledge: Unable to fully assess based on interview. Mood: "Sort of reserved". Affect: Disorganized, less inappropriate laughter, mood incongruent DIAGNOSES: 1. Schizophrenia. ASSESSMENT: No change, remains pleasantly psychotic, pending placement [facility]. MANAGEMENT PLAN: Continue medications, pending placement test [facility], paperwork completed, coordination of care with social work, discussed in treatment team, monitor for safety. TIME SPENT: 25 minutes. Vital Signs Vital Signs Date Time Temp Pulse Resp B/P (MAP) Pulse Ox O2 Delivery O2 Flow Rate FiO2 12/17/20 05:55 97.0 67 17 112/56 (74) 12/16/20 16:38 98 Room Air Current Medications Current Medications Medications (Trade) Dose Ordered Sig/Vidal Route PRN Reason Start Time Stop Time Status Last Admin Dose Admin Acetaminophen (Tylenol Tab) 650 mg Q6HP PRN PO HEADACHE or MILD DISCOMFORT 11/14/20 14:20 12/12/20 05:02 Al Hydrox/Mg Hydrox/Simethicone (Mylanta) 30 ml Q4HP PRN PO HEARTBURN/INDIGESTION 11/14/20 14:20 11/26/20 20:03 Aspirin (Ecotrin) 81 mg DAILY PO 11/15/20 09:00 12/17/20 08:48 Atorvastatin Calcium (Lipitor) 20 mg DAILY PO 11/15/20 09:00 12/17/20 08:48 Benztropine Mesylate (Cogentin) 1 mg BID PO 11/15/20 09:00 12/17/20 08:47 EZETIMIBE (Zetia) 10 mg DAILY PO 11/15/20 09:00 12/17/20 08:47 Home Med (Med Rec Complete!) ASDIRECTED XX 11/15/20 10:25 11/15/20 10:34 DC Levothyroxine Sodium (Synthroid) 100 mcg DAILY@06 PO 11/15/20 06:00 12/17/20 06:19 Lisinopril (Prinivil) 40 mg DAILY PO 11/15/20 09:00 12/17/20 08:47 Magnesium Hydroxide (Milk Of Magnesia) 30 ml DAILYPRN PRN PO CONSTIPATION 11/14/20 14:20 Metformin HCl (Glucophage Xr) 1,000 mg DAILY@0800 PO 11/19/20 08:00 12/17/20 08:47 Metformin HCl (Glucophage Xr) 1,000 mg DAILY@18 PO 11/15/20 18:00 11/19/20 11:42 DC 11/18/20 17:45 Metformin HCl (Glucophage) 1,000 mg DAILY@08 PO 11/16/20 08:00 11/15/20 10:51 DC Non-Formulary Medication ( See Comment Field Below ) SEE COMMENTS SECTION 1T@10 XX 11/21/20 10:00 11/22/20 09:59 UNV Non-Formulary Medication ( See Comment Field Below ) SEE LABEL COMMENTS DAILY XX 11/19/20 09:00 11/20/20 18:06 DC Olanzapine (ZyPREXA) 5 mg Q4HP PRN PO ANXIETY/AGITATION 12/11/20 12:15 Risperidone (RisperDAL) 0.5 mg QAM PO 12/11/20 09:00 12/17/20 08:48 Risperidone (RisperDAL) 2 mg QHS PO 11/15/20 21:00 12/16/20 20:59 Risperidone (RisperDAL) 2 mg QHS PO 11/20/20 21:00 11/20/20 11:25 DC Trazodone HCl (Desyrel) 50 mg QHSP PRN PO INSOMNIA 11/14/20 14:20 12/16/20 20:59 Vitamin D (Drisdol) 50,000 units Th PO 11/15/20 12:00 12/13/20 12:27 Allergies Coded Allergies: Penicillins (Verified Allergy, Mild, 04/14/19) CRAIG HILL MD Dec 17, 2020 11:54
[2020-12-17 19:27] VITALS: BP 109/61
[2020-12-17] MEDS: traZODone 50 MG TAB PO PRN (21:39)
[2020-12-17] MEDS: risperiDONE 2 MG TAB PO SCH (21:39)
[2020-12-18] MEDS: UNRESOLVED CLARIFICATION ENTRY XX SCH ×2 (00:01→21:11)
[2020-12-18] MEDS: LEVOTHYROXINE 100MCG TABLET (0.1MG) PO SCH (05:38)
[2020-12-18 06:36] VITALS: BP 109/62
[2020-12-18] MEDS: metFORMIN XR 500MG TAB *GLUCOPHAGE XR PO SCH (07:59)
[2020-12-18] MEDS: BENZTROPINE 1 MG TAB PO SCH ×2 (08:02→21:11)
[2020-12-18] MEDS: EZETIMIBE 10 MG TAB (ZETIA) PO SCH (08:02)
[2020-12-18] MEDS: risperiDONE 0.5 MG TAB PO SCH (08:02)
[2020-12-18] MEDS: ASPIRIN 81MG ENTERIC TABLET PO SCH (08:02)
[2020-12-18] MEDS: ATORVASTATIN 20 MG TAB PO SCH (08:02)
[2020-12-18] MEDS: lisinopriL 40 MG TAB PO SCH (08:02)
[2020-12-18 18:26] VITALS: BP 133/74
--- NOTE | 2020-12-18 20:05 | MHIPNPDOC ---
[facility] Progress Note Progress Note DATE OF SERVICE: 12/18/20 HISTORY: Patient is a 60-year-old man who was admitted for acutely decompensated psychotic symptoms in context of past psychiatric history of schizophrenia. Per chart review was to continue STEVENSON paliperidone and discharge back to [facility] apartment. November 11 was transferred to the medical unit due to chest pain for observation, he was treated for hypokalemia with medication adjustment and transferred back to the inpatient unit on 939 status. He continued to be bizarre, paranoid requiring further psychiatric treatment. He also received continue treatment for diabetes mellitus type 2, hyperlipidemia, hypertension and has been maintained on a medical regimen. Received Invega Sustenna on 11/19, despite this treatment continue to remain psychotic posing a risk for self-care. Interval: Charts reviewed, no acute physical concerns. Seen in milieu, eating and sleep is good. No EPS noted. Remains grossly disorganized and bizarre, states "I'm unhealthy, I can't teach you philosophy, I feel the others are hate me because of this". When asked about suicidality states "I'm not sure". VITAL SIGNS: See below. NEW TEST RESULTS: None CURRENT MEDICATIONS: See below. MENTAL STATUS EXAMINATION: Patient is a 60-year old male, who is currently sitting in bed in his room, poor eye contact, in no acute distress, appears stated age, glasses and schilling. Speech: Normal amount, normal volume, spontaneous Language skills are poor Thought processes including: Continues to be grossly disorganized. Thought content: vague suicidal thoughts, bizarre thoughts abstract reasoning, and computation: [place]. description of associations: Poor Description of abnormal or psychotic thoughts: auditory hallucinations, persecutory and paranoid delusions Judgment: Poor Insight: Poor Orientation: X3 Recent and remote memory: Intact Attention span and concentration: Poor Language: Intact Fund of knowledge: Unable to fully assess based on interview. Mood: "not great". Affect: Disorganized, bizarre, mood incongruent DIAGNOSES: 1. Schizophrenia. ASSESSMENT: No change, remains pleasantly psychotic and bizarre, vague suicidal thoughts, pending placement [facility]. MANAGEMENT PLAN: Continue medications, pending placement test [facility], paperwork completed, coordination of care with social work, discussed in treatment team, monitor for safety. TIME SPENT: 15 minutes. Vital Signs Vital Signs Date Time Temp Pulse Resp B/P (MAP) Pulse Ox O2 Delivery O2 Flow Rate FiO2 12/18/20 18:26 98.5 66 16 133/74 (93) 12/18/20 06:36 99 Room Air Current Medications Current Medications Medications (Trade) Dose Ordered Sig/Vidal Route PRN Reason Start Time Stop Time Status Last Admin Dose Admin Acetaminophen (Tylenol Tab) 650 mg Q6HP PRN PO HEADACHE or MILD DISCOMFORT 11/14/20 14:20 12/12/20 05:02 Al Hydrox/Mg Hydrox/Simethicone (Mylanta) 30 ml Q4HP PRN PO HEARTBURN/INDIGESTION 11/14/20 14:20 11/26/20 20:03 Aspirin (Ecotrin) 81 mg DAILY PO 11/15/20 09:00 12/18/20 08:02 Atorvastatin Calcium (Lipitor) 20 mg DAILY PO 11/15/20 09:00 12/18/20 08:02 Benztropine Mesylate (Cogentin) 1 mg BID PO 11/15/20 09:00 12/18/20 08:02 EZETIMIBE (Zetia) 10 mg DAILY PO 11/15/20 09:00 12/18/20 08:02 Home Med (Med Rec Complete!) ASDIRECTED XX 11/15/20 10:25 11/15/20 10:34 DC Levothyroxine Sodium (Synthroid) 100 mcg DAILY@06 PO 11/15/20 06:00 12/18/20 05:38 Lisinopril (Prinivil) 40 mg DAILY PO 11/15/20 09:00 12/18/20 08:02 Magnesium Hydroxide (Milk Of Magnesia) 30 ml DAILYPRN PRN PO CONSTIPATION 11/14/20 14:20 Metformin HCl (Glucophage Xr) 1,000 mg DAILY@0800 PO 11/19/20 08:00 12/18/20 07:59 Metformin HCl (Glucophage Xr) 1,000 mg DAILY@18 PO 11/15/20 18:00 11/19/20 11:42 DC 11/18/20 17:45 Metformin HCl (Glucophage) 1,000 mg DAILY@08 PO 11/16/20 08:00 11/15/20 10:51 DC Miscellaneous (Unresolved Clarification Entry) SEE LABEL COMMENTS UNRESOLVED XX 12/18/20 00:01 Non-Formulary Medication ( See Comment Field Below ) SEE COMMENTS SECTION 1T@10 XX 11/21/20 10:00 11/22/20 09:59 UNV Non-Formulary Medication ( See Comment Field Below ) SEE LABEL COMMENTS DAILY XX 11/19/20 09:00 11/20/20 18:06 DC Olanzapine (ZyPREXA) 5 mg Q4HP PRN PO ANXIETY/AGITATION 12/11/20 12:15 Risperidone (RisperDAL) 0.5 mg QAM PO 12/11/20 09:00 12/18/20 08:02 Risperidone (RisperDAL) 2 mg QHS PO 11/15/20 21:00 12/17/20 21:39 Risperidone (RisperDAL) 2 mg QHS PO 11/20/20 21:00 11/20/20 11:25 DC Trazodone HCl (Desyrel) 50 mg QHSP PRN PO INSOMNIA 11/14/20 14:20 12/17/20 21:39 Vitamin D (Drisdol) 50,000 units Th PO 11/15/20 12:00 12/13/20 12:27 Allergies Coded Allergies: Penicillins (Verified Allergy, Mild, 04/14/19) CRAIG HILL MD Dec 18, 2020 20:05
[2020-12-18] MEDS: risperiDONE 2 MG TAB PO SCH (21:11)
[2020-12-18] MEDS: traZODone 50 MG TAB PO PRN (21:11)
[2020-12-19] MEDS: LEVOTHYROXINE 100MCG TABLET (0.1MG) PO SCH (05:46)
[2020-12-19 07:13] VITALS: BP 135/83
[2020-12-19] MEDS: metFORMIN XR 500MG TAB *GLUCOPHAGE XR PO SCH (08:32)
[2020-12-19] MEDS: BENZTROPINE 1 MG TAB PO SCH ×2 (09:04→21:00)
[2020-12-19] MEDS: lisinopriL 40 MG TAB PO SCH (09:04)
[2020-12-19] MEDS: ATORVASTATIN 20 MG TAB PO SCH (09:04)
[2020-12-19] MEDS: EZETIMIBE 10 MG TAB (ZETIA) PO SCH (09:04)
[2020-12-19] MEDS: risperiDONE 0.5 MG TAB PO SCH (09:04)
[2020-12-19] MEDS: ASPIRIN 81MG ENTERIC TABLET PO SCH (09:04)
--- NOTE | 2020-12-19 13:22 | MHIPNPDOC ---
[facility] Progress Note Progress Note DATE OF SERVICE: 12/19/20 HISTORY: Patient is a 60-year-old man who was admitted for acutely decompensated psychotic symptoms in context of past psychiatric history of schizophrenia. Per chart review was to continue STEVENSON paliperidone and discharge back to [facility] apartment. November 11 was transferred to the medical unit due to chest pain for observation, he was treated for hypokalemia with medication adjustment and transferred back to the inpatient unit on 939 status. He continued to be bizarre, paranoid requiring further psychiatric treatment. He also received continue treatment for diabetes mellitus type 2, hyperlipidemia, hypertension and has been maintained on a medical regimen. Received Invega Sustenna on 11/19, despite this treatment continue to remain psychotic posing a risk for self-care. Interval: Status relatively unchanged continues to be pleasantly psychotic, no aggression noted or acute overnight events. When asked about suicidal ideations states "sort of", makes bizarre statements such as "I dream of Orionnancy Jamaan tickling me", also reports hearing a voices saying "someone was trying to kill me but I am not afraid of it does have been dealing with voices my life". VITAL SIGNS: See below. NEW TEST RESULTS: None CURRENT MEDICATIONS: See below. MENTAL STATUS EXAMINATION: Patient is a 60-year old male, who is currently sitting in bed in his room, poor eye contact, in no acute distress, appears stated age, glasses and schilling. Speech: Normal amount, normal volume, spontaneous Language skills are poor Thought processes including: Continues to be grossly disorganized. Thought content: vague suicidal thoughts, bizarre thoughts abstract reasoning, and computation: [place]. description of associations: Poor Description of abnormal or psychotic thoughts: auditory hallucinations, perse cutory and paranoid delusions Judgment: Poor Insight: Poor Orientation: X3 Recent and remote memory: Intact Attention span and concentration: Poor Language: Intact Fund of knowledge: Unable to fully assess based on interview. Mood: "okay". Affect: Grossly psychotic, bizarre, mood incongruent DIAGNOSES: 1. Schizophrenia. ASSESSMENT: Continues to be grossly psychotic with no significant change from previous days, vague suicidal thoughts remain, but contracts for safety, pending placement [facility]. MANAGEMENT PLAN: Continue medications, pending placement test [facility], paperwork completed, coordination of care with social work, discussed in treatment team, monitor for safety. TIME SPENT: 15 minutes. Vital Signs Vital Signs Date Time Temp Pulse Resp B/P (MAP) Pulse Ox O2 Delivery O2 Flow Rate FiO2 12/19/20 07:13 97.1 99 16 135/83 (100) 96 Room Air Current Medications Current Medications Medications (Trade) Dose Ordered Sig/Vidal Route PRN Reason Start Time Stop Time Status Last Admin Dose Admin Acetaminophen (Tylenol Tab) 650 mg Q6HP PRN PO HEADACHE or MILD DISCOMFORT 11/14/20 14:20 12/12/20 05:02 Al Hydrox/Mg Hydrox/Simethicone (Mylanta) 30 ml Q4HP PRN PO HEARTBURN/INDIGESTION 11/14/20 14:20 11/26/20 20:03 Aspirin (Ecotrin) 81 mg DAILY PO 11/15/20 09:00 12/19/20 09:04 Atorvastatin Calcium (Lipitor) 20 mg DAILY PO 11/15/20 09:00 12/19/20 09:04 Benztropine Mesylate (Cogentin) 1 mg BID PO 11/15/20 09:00 12/19/20 09:04 EZETIMIBE (Zetia) 10 mg DAILY PO 11/15/20 09:00 12/19/20 09:04 Home Med (Med Rec Complete!) ASDIRECTED XX 11/15/20 10:25 11/15/20 10:34 DC Levothyroxine Sodium (Synthroid) 100 mcg DAILY@06 PO 11/15/20 06:00 12/19/20 05:46 Lisinopril (Prinivil) 40 mg DAILY PO 11/15/20 09:00 12/19/20 09:04 Magnesium Hydroxide (Milk Of Magnesia) 30 ml DAILYPRN PRN PO CONSTIPATION 11/14/20 14:20 Metformin HCl (Glucophage Xr) 1,000 mg DAILY@0800 PO 11/19/20 08:00 12/19/20 08:32 Metformin HCl (Glucophage Xr) 1,000 mg DAILY@18 PO 11/15/20 18:00 11/19/20 11:42 DC 11/18/20 17:45 Metformin HCl (Glucophage) 1,000 mg DAILY@08 PO 11/16/20 08:00 11/15/20 10:51 DC Miscellaneous (Unresolved Clarification Entry) SEE LABEL COMMENTS UNRESOLVED XX 12/18/20 00:01 Non-Formulary Medication ( See Comment Field Below ) SEE COMMENTS SECTION 1T@10 XX 11/21/20 10:00 11/22/20 09:59 UNV Non-Formulary Medication ( See Comment Field Below ) SEE LABEL COMMENTS DAILY XX 11/19/20 09:00 11/20/20 18:06 DC Olanzapine (ZyPREXA) 5 mg Q4HP PRN PO ANXIETY/AGITATION 12/11/20 12:15 Risperidone (RisperDAL) 0.5 mg QAM PO 12/11/20 09:00 12/19/20 09:04 Risperidone (RisperDAL) 2 mg QHS PO 11/15/20 21:00 12/18/20 21:11 Risperidone (RisperDAL) 2 mg QHS PO 11/20/20 21:00 11/20/20 11:25 DC Trazodone HCl (Desyrel) 50 mg QHSP PRN PO INSOMNIA 11/14/20 14:20 12/18/20 21:11 Vitamin D (Drisdol) 50,000 units Th PO 11/15/20 12:00 12/13/20 12:27 Allergies Coded Allergies: Penicillins (Verified Allergy, Mild, 04/14/19) CRAIG HILL MD Dec 19, 2020 13:21
[2020-12-19 18:09] VITALS: BP 154/71
[2020-12-19] MEDS: risperiDONE 2 MG TAB PO SCH (21:00)
[2020-12-20 06:45] VITALS: BP 125/56
[2020-12-20] MEDS: LEVOTHYROXINE 100MCG TABLET (0.1MG) PO SCH (07:56)
[2020-12-20] MEDS: metFORMIN XR 500MG TAB *GLUCOPHAGE XR PO SCH (07:56)
[2020-12-20] MEDS: ATORVASTATIN 20 MG TAB PO SCH (09:16)
[2020-12-20] MEDS: lisinopriL 40 MG TAB PO SCH (09:16)
[2020-12-20] MEDS: BENZTROPINE 1 MG TAB PO SCH ×2 (09:16→20:15)
[2020-12-20] MEDS: risperiDONE 0.5 MG TAB PO SCH (09:17)
[2020-12-20] MEDS: ASPIRIN 81MG ENTERIC TABLET PO SCH (09:17)
[2020-12-20] MEDS: EZETIMIBE 10 MG TAB (ZETIA) PO SCH (09:17)
--- NOTE | 2020-12-20 12:44 | MHIPNPDOC ---
[facility] Progress Note Progress Note DATE OF SERVICE: 12/20/20 HISTORY: Patient is a 60-year-old man who was admitted for acutely decompensated psychotic symptoms in context of past psychiatric history of schizophrenia. Per chart review was to continue STEVENSON paliperidone and discharge back to [facility] apartment. November 11 was transferred to the medical unit due to chest pain for observation, he was treated for hypokalemia with medication adjustment and transferred back to the inpatient unit on 939 status. He continued to be bizarre, paranoid requiring further psychiatric treatment. He also received continue treatment for diabetes mellitus type 2, hyperlipidemia, hypertension and has been maintained on a medical regimen. Received Invega Sustenna on 11/19, despite this treatment continue to remain psychotic posing a risk for self-care. Interval: Charts reviewed, no acute overnight events, in no acute distress, no acute physical complaints. Continues to be psychotic, with delusional thoughts of relating to past celebrities and having connections to them at times. He is upset about the passing of a recent famous guitarist. VITAL SIGNS: See below. NEW TEST RESULTS: None CURRENT MEDICATIONS: See below. MENTAL STATUS EXAMINATION: Patient is a 60-year old male, who is currently sitting in bed in his room, poor eye contact, in no acute distress, appears stated age, glasses and schilling. Speech: Normal amount, normal volume, spontaneous Language skills are poor Thought processes including: Continues to be grossly disorganized. Thought content: vague suicidal thoughts, bizarre thoughts abstract reasoning, and computation: [place]. description of associations: Poor Description of abnormal or psychotic thoughts: auditory hallucinations, persecutory and paranoid delusions Judgment: Poor Insight: Poor Orientation: X3 Recent and remote memory: Intact Attention span and concentration: Poor Language: Intact Fund of knowledge: Unable to fully assess based on interview. Mood: "Good". Affect: Grossly psychotic, bizarre, blunted DIAGNOSES: 1. Schizophrenia. ASSESSMENT: Continues to be grossly psychotic and bizarre, pending placement [facility]. MANAGEMENT PLAN: Continue medications, pending placement test [facility], paperwork completed, coordination of care with social work, discussed in treatment team, monitor for safety. TIME SPENT: 15 minutes. Vital Signs Vital Signs Date Time Temp Pulse Resp B/P (MAP) Pulse Ox O2 Delivery O2 Flow Rate FiO2 12/20/20 06:45 97.6 82 20 125/56 (79) 100 Room Air Current Medications Current Medications Medications (Trade) Dose Ordered Sig/Vidal Route PRN Reason Start Time Stop Time Status Last Admin Dose Admin Acetaminophen (Tylenol Tab) 650 mg Q6HP PRN PO HEADACHE or MILD DISCOMFORT 11/14/20 14:20 12/12/20 05:02 Al Hydrox/Mg Hydrox/Simethicone (Mylanta) 30 ml Q4HP PRN PO HEARTBURN/INDIGESTION 11/14/20 14:20 11/26/20 20:03 Aspirin (Ecotrin) 81 mg DAILY PO 11/15/20 09:00 12/20/20 09:17 Atorvastatin Calcium (Lipitor) 20 mg DAILY PO 11/15/20 09:00 12/20/20 09:16 Benztropine Mesylate (Cogentin) 1 mg BID PO 11/15/20 09:00 12/20/20 09:16 EZETIMIBE (Zetia) 10 mg DAILY PO 11/15/20 09:00 12/20/20 09:17 Home Med (Med Rec Complete!) ASDIRECTED XX 11/15/20 10:25 11/15/20 10:34 DC Levothyroxine Sodium (Synthroid) 100 mcg DAILY@06 PO 11/15/20 06:00 12/20/20 07:56 Lisinopril (Prinivil) 40 mg DAILY PO 11/15/20 09:00 12/20/20 09:16 Magnesium Hydroxide (Milk Of Magnesia) 30 ml DAILYPRN PRN PO CONSTIPATION 11/14/20 14:20 Metformin HCl (Glucophage Xr) 1,000 mg DAILY@0800 PO 11/19/20 08:00 12/20/20 07:56 Metformin HCl (Glucophage Xr) 1,000 mg DAILY@18 PO 11/15/20 18:00 11/19/20 11:42 DC 11/18/20 17:45 Metformin HCl (Glucophage) 1,000 mg DAILY@08 PO 11/16/20 08:00 11/15/20 10:51 DC Miscellaneous (Unresolved Clarification Entry) SEE LABEL COMMENTS UNRESOLVED XX 12/18/20 00:01 Non-Formulary Medication ( See Comment Field Below ) SEE COMMENTS SECTION 1T@10 XX 11/21/20 10:00 11/22/20 09:59 UNV Non-Formulary Medication ( See Comment Field Below ) SEE LABEL COMMENTS DAILY XX 11/19/20 09:00 11/20/20 18:06 DC Olanzapine (ZyPREXA) 5 mg Q4HP PRN PO ANXIETY/AGITATION 12/11/20 12:15 Risperidone (RisperDAL) 0.5 mg QAM PO 12/11/20 09:00 12/20/20 09:17 Risperidone (RisperDAL) 2 mg QHS PO 11/15/20 21:00 12/18/20 21:11 Risperidone (RisperDAL) 2 mg QHS PO 11/20/20 21:00 11/20/20 11:25 DC Trazodone HCl (Desyrel) 50 mg QHSP PRN PO INSOMNIA 11/14/20 14:20 12/18/20 21:11 Vitamin D (Drisdol) 50,000 units Th PO 11/15/20 12:00 12/13/20 12:27 Allergies Coded Allergies: Penicillins (Verified Allergy, Mild, 04/14/19) CRAIG HILL MD Dec 20, 2020 12:44
[2020-12-20] MEDS: VITAMIN D 50,000 UNITS CAPSULE (ERGOCALCIFEROL 1.25MG) PO SCH (13:21)
[2020-12-20 17:16] VITALS: BP 120/61
[2020-12-20] MEDS: risperiDONE 2 MG TAB PO SCH (20:15)
[2020-12-20] MEDS: UNRESOLVED CLARIFICATION ENTRY XX SCH (20:15)
[2020-12-20] MEDS: traZODone 50 MG TAB PO PRN (23:08)
[2020-12-21] MEDS: UNRESOLVED CLARIFICATION ENTRY XX SCH (00:01)
[2020-12-21 05:37] VITALS: BP 117/60
[2020-12-21] MEDS: LEVOTHYROXINE 100MCG TABLET (0.1MG) PO SCH (05:53)
[2020-12-21] MEDS: metFORMIN XR 500MG TAB *GLUCOPHAGE XR PO SCH (08:46)
[2020-12-21] MEDS: BENZTROPINE 1 MG TAB PO SCH ×2 (09:26→20:03)
[2020-12-21] MEDS: EZETIMIBE 10 MG TAB (ZETIA) PO SCH (09:26)
[2020-12-21] MEDS: ATORVASTATIN 20 MG TAB PO SCH (09:26)
[2020-12-21] MEDS: ASPIRIN 81MG ENTERIC TABLET PO SCH (09:26)
[2020-12-21] MEDS: lisinopriL 40 MG TAB PO SCH (09:26)
[2020-12-21] MEDS: risperiDONE 0.5 MG TAB PO SCH (09:26)
--- NOTE | 2020-12-21 14:13 | MHIPNPDOC ---
[facility] Progress Note Progress Note DATE OF SERVICE: 12/21/20 HISTORY: Patient is a 60-year-old man who was admitted for acutely decompensated psychotic symptoms in context of past psychiatric history of schizophrenia. Per chart review was to continue STEVENSON paliperidone and discharge back to [facility] apartment. November 11 was transferred to the medical unit due to chest pain for observation, he was treated for hypokalemia with medication adjustment and transferred back to the inpatient unit on 939 status. He continued to be bizarre, paranoid requiring further psychiatric treatment. He also received continue treatment for diabetes mellitus type 2, hyperlipidemia, hypertension and has been maintained on a medical regimen. Received Invega Sustenna on 11/19, despite this treatment continue to remain psychotic posing a risk for self-care. Interval: Charts reviewed, no acute overnight events, in no acute distress, no acute physical complaints. Continues to be concrete, perseverates on frustrations with roommate he previously with an [facility]. Today is not making aggressive statements, was seen lying calmly in his room. Initially on interview he reported some stomach discomfort and then stated shortly after " actually there is nothing wrong with me". Continues to be internally preoccupied with associated delusions to famous celebrities. VITAL SIGNS: See below. NEW TEST RESULTS: None CURRENT MEDICATIONS: See below. MENTAL STATUS EXAMINATION: Patient is a 60-year old male, who is currently lying in bed, glasses, poor eye contact, in no acute distress, appears stated age, glasses and schilling. Speech: Normal amount, normal volume, spontaneous Language skills are poor Thought processes including: Continues to be grossly disorganized. Thought content: vague suicidal thoughts, bizarre thoughts abstract reasoning, and computation: [place]. description of associations: Poor Description of abnormal or psychotic thoughts: Today denies auditory hallucinations, despite appearing internally preoccupied. Judgment: Poor Insight: Poor Orientation: X3 Recent and remote memory: Intact Attention span and concentration: Poor Language: Intact Fund of knowledge: Unable to fully assess based on interview. Mood: "just fine". Affect: Bizarre, disorganized, internally preoccupied, mood incongruent. DIAGNOSES: 1. Schizophrenia. ASSESSMENT: Continues to be bizarre, with associated delusions and somatically preoccupied, pending placement [facility]. MANAGEMENT PLAN: No change, continue medications which are well-tolerated, pending placement test [facility], continue coordination of care with social work, discussed in treatment team, monitor for safety. TIME SPENT: 15 minutes. Vital Signs Vital Signs Date Time Temp Pulse Resp B/P (MAP) Pulse Ox O2 Delivery O2 Flow Rate FiO2 12/21/20 05:37 97.1 71 18 117/60 (79) 97 Room Air Current Medications Current Medications Medications (Trade) Dose Ordered Sig/Vidal Route PRN Reason Start Time Stop Time Status Last Admin Dose Admin Acetaminophen (Tylenol Tab) 650 mg Q6HP PRN PO HEADACHE or MILD DISCOMFORT 11/14/20 14:20 12/12/20 05:02 Al Hydrox/Mg Hydrox/Simethicone (Mylanta) 30 ml Q4HP PRN PO HEARTBURN/INDIGESTION 11/14/20 14:20 11/26/20 20:03 Aspirin (Ecotrin) 81 mg DAILY PO 11/15/20 09:00 12/21/20 09:26 Atorvastatin Calcium (Lipitor) 20 mg DAILY PO 11/15/20 09:00 12/21/20 09:26 Benztropine Mesylate (Cogentin) 1 mg BID PO 11/15/20 09:00 12/21/20 09:26 EZETIMIBE (Zetia) 10 mg DAILY PO 11/15/20 09:00 12/21/20 09:26 Home Med (Med Rec Complete!) ASDIRECTED XX 11/15/20 10:25 11/15/20 10:34 DC Levothyroxine Sodium (Synthroid) 100 mcg DAILY@06 PO 11/15/20 06:00 12/21/20 05:53 Lisinopril (Prinivil) 40 mg DAILY PO 11/15/20 09:00 12/21/20 09:26 Magnesium Hydroxide (Milk Of Magnesia) 30 ml DAILYPRN PRN PO CONSTIPATION 11/14/20 14:20 Metformin HCl (Glucophage Xr) 1,000 mg DAILY@0800 PO 11/19/20 08:00 12/21/20 08:46 Metformin HCl (Glucophage Xr) 1,000 mg DAILY@18 PO 11/15/20 18:00 11/19/20 11:42 DC 11/18/20 17:45 Metformin HCl (Glucophage) 1,000 mg DAILY@08 PO 11/16/20 08:00 11/15/20 10:51 DC Miscellaneous (Unresolved Clarification Entry) SEE LABEL COMMENTS UNRESOLVED XX 12/18/20 00:01 12/21/20 10:26 DC Non-Formulary Medication ( See Comment Field Below ) SEE COMMENTS SECTION 1T@10 XX 11/21/20 10:00 11/22/20 09:59 UNV Non-Formulary Medication ( See Comment Field Below ) SEE LABEL COMMENTS DAILY XX 11/19/20 09:00 11/20/20 18:06 DC Olanzapine (ZyPREXA) 5 mg Q4HP PRN PO ANXIETY/AGITATION 12/11/20 12:15 Risperidone (RisperDAL) 0.5 mg QAM PO 12/11/20 09:00 12/21/20 09:26 Risperidone (RisperDAL) 2 mg QHS PO 11/15/20 21:00 12/20/20 20:15 Risperidone (RisperDAL) 2 mg QHS PO 11/20/20 21:00 11/20/20 11:25 DC Trazodone HCl (Desyrel) 50 mg QHSP PRN PO INSOMNIA 11/14/20 14:20 12/20/20 23:08 Vitamin D (Drisdol) 50,000 units Th PO 11/15/20 12:00 12/20/20 13:21 Allergies Coded Allergies: Penicillins (Verified Allergy, Mild, 04/14/19) CRAIG HILL MD Dec 21, 2020 14:13
[2020-12-21 18:21] VITALS: BP 134/79
[2020-12-21] MEDS: risperiDONE 2 MG TAB PO SCH (20:03)
[2020-12-22] MEDS: traZODone 50 MG TAB PO PRN (01:45)
[2020-12-22] MEDS: LEVOTHYROXINE 100MCG TABLET (0.1MG) PO SCH (05:47)
[2020-12-22 06:48] VITALS: BP 133/66
[2020-12-22] MEDS: metFORMIN XR 500MG TAB *GLUCOPHAGE XR PO SCH (07:42)
[2020-12-22] MEDS: EZETIMIBE 10 MG TAB (ZETIA) PO SCH (08:34)
[2020-12-22] MEDS: lisinopriL 40 MG TAB PO SCH (08:34)
[2020-12-22] MEDS: BENZTROPINE 1 MG TAB PO SCH ×2 (08:34→21:52)
[2020-12-22] MEDS: ATORVASTATIN 20 MG TAB PO SCH (08:34)
[2020-12-22] MEDS: risperiDONE 0.5 MG TAB PO SCH (08:35)
[2020-12-22] MEDS: ASPIRIN 81MG ENTERIC TABLET PO SCH (08:35)
[2020-12-22 16:24] VITALS: BP 146/78
[2020-12-22] MEDS: risperiDONE 2 MG TAB PO SCH (21:52)
[2020-12-23] MEDS: LEVOTHYROXINE 100MCG TABLET (0.1MG) PO SCH (05:55)
[2020-12-23 06:25] VITALS: BP 110/55
[2020-12-23] MEDS: metFORMIN XR 500MG TAB *GLUCOPHAGE XR PO SCH (07:34)
[2020-12-23] MEDS: risperiDONE 0.5 MG TAB PO SCH (09:00)
[2020-12-23] MEDS: EZETIMIBE 10 MG TAB (ZETIA) PO SCH (09:32)
[2020-12-23] MEDS: lisinopriL 40 MG TAB PO SCH (09:32)
[2020-12-23] MEDS: ATORVASTATIN 20 MG TAB PO SCH (09:33)
[2020-12-23] MEDS: BENZTROPINE 1 MG TAB PO SCH ×2 (09:33→19:53)
[2020-12-23] MEDS: ASPIRIN 81MG ENTERIC TABLET PO SCH (09:33)
[2020-12-23 19:07] VITALS: BP 145/66
[2020-12-23] MEDS: traZODone 50 MG TAB PO PRN (19:53)
[2020-12-23] MEDS: risperiDONE 2 MG TAB PO SCH (19:54)
[2020-12-24] MEDS: LEVOTHYROXINE 100MCG TABLET (0.1MG) PO SCH (05:03)
[2020-12-24 06:22] VITALS: BP 115/64
[2020-12-24] MEDS: metFORMIN XR 500MG TAB *GLUCOPHAGE XR PO SCH (07:33)
[2020-12-24] MEDS: risperiDONE 0.5 MG TAB PO SCH (08:11)
[2020-12-24] MEDS: BENZTROPINE 1 MG TAB PO SCH ×2 (08:11→21:07)
[2020-12-24] MEDS: ATORVASTATIN 20 MG TAB PO SCH (08:11)
[2020-12-24] MEDS: EZETIMIBE 10 MG TAB (ZETIA) PO SCH (08:11)
[2020-12-24] MEDS: ASPIRIN 81MG ENTERIC TABLET PO SCH (08:11)
[2020-12-24] MEDS: lisinopriL 40 MG TAB PO SCH (08:12)
--- NOTE | 2020-12-24 13:48 | MHIPNPDOC ---
[facility] Progress Note Progress Note DATE OF SERVICE: 12/24/20 HISTORY: Patient is a 60-year-old man who was admitted for acutely decompensated psychotic symptoms in context of past psychiatric history of schizophrenia. Per chart review was to continue STEVENSON paliperidone and discharge back to [facility] apartment. November 11 was transferred to the medical unit due to chest pain for observation, he was treated for hypokalemia with medication adjustment and transferred back to the inpatient unit on 939 status. He continued to be bizarre, paranoid requiring further psychiatric treatment. He also received continue treatment for diabetes mellitus type 2, hyperlipidemia, hypertension and has been maintained on a medical regimen. Received Invega Sustenna on 11/19, despite this treatment continue to remain psychotic posing a risk for self-care. Interval: Charts reviewed, per chart review from nursing made homicidal statement about his former TLS roommate, help" with social work to make TLS home make this person aware in context of due to warn. On discussion with patient denies any homicidal ideation, intent or plan, has not been aggressive with others on the unit and has been eating lunch in the social media without issue, spends most of her time isolating in his room without issue with current roommate. States he is "clearing up", reports having auditory hallucinations last night "of someone saying to me I miss you" then goes on to discuss this being "a predictable situation" without providing further context or clarity. VITAL SIGNS: See below. NEW TEST RESULTS: None CURRENT MEDICATIONS: See below. MENTAL STATUS EXAMINATION: Patient is a 60-year old male, who is currently lying in bed, glasses, poor eye contact, in no acute distress, appears stated age, glasses and schilling. Speech: Normal amount, normal volume, spontaneous Language skills are poor Thought processes including: Continues to be grossly disorganized. Thought content: vague suicidal thoughts, bizarre thoughts abstract reasoning, and computation: [place]. description of associations: Poor Description of abnormal or psychotic thoughts: Today denies auditory hallucinations, despite appearing internally preoccupied. Judgment: Poor Insight: Poor Orientation: X3 Recent and remote memory: Intact Attention span and concentration: Poor Language: Intact Fund of knowledge: Unable to fully assess based on interview. Mood: "All right". Affect: No change, continues to be bizarre, disorganized, internally preoccupied, mood incongruent. DIAGNOSES: 1. Schizophrenia. ASSESSMENT: Continues to be grossly psychotic, concrete, disorganized, with non- command auditory hallucinations of pleasant voice, this is despite telling nursing he had homicidal ideation towards a previous permit TLS, pending pl acement [facility]. MANAGEMENT PLAN: No change, continue medications which are well-tolerated, pending placement test [facility], continue coordination of care with social work, discussed in treatment team, monitor for safety. Nursing staff aware of the homicidal ideation, however no aggression has been demonstrated on the unit. In coordination with social work arranging to have TLS made aware so that his former roommate is warned. As he is also previously stated in our meeting that if he came in contact with him there would be issues without elaborating further. TIME SPENT: 15 minutes. Vital Signs Vital Signs Date Time Temp Pulse Resp B/P (MAP) Pulse Ox O2 Delivery O2 Flow Rate FiO2 12/24/20 06:22 97.6 75 18 115/64 (81) 96 Room Air Current Medications Current Medications Medications (Trade) Dose Ordered Sig/Vidal Route PRN Reason Start Time Stop Time Status Last Admin Dose Admin Acetaminophen (Tylenol Tab) 650 mg Q6HP PRN PO HEADACHE or MILD DISCOMFORT 11/14/20 14:20 12/12/20 05:02 Al Hydrox/Mg Hydrox/Simethicone (Mylanta) 30 ml Q4HP PRN PO HEARTBURN/INDIGESTION 11/14/20 14:20 11/26/20 20:03 Aspirin (Ecotrin) 81 mg DAILY PO 11/15/20 09:00 12/24/20 08:11 Atorvastatin Calcium (Lipitor) 20 mg DAILY PO 11/15/20 09:00 12/24/20 08:11 Benztropine Mesylate (Cogentin) 1 mg BID PO 11/15/20 09:00 12/24/20 08:11 EZETIMIBE (Zetia) 10 mg DAILY PO 11/15/20 09:00 12/24/20 08:11 Home Med (Med Rec Complete!) ASDIRECTED XX 11/15/20 10:25 11/15/20 10:34 DC Levothyroxine Sodium (Synthroid) 100 mcg DAILY@06 PO 11/15/20 06:00 12/24/20 05:03 Lisinopril (Prinivil) 40 mg DAILY PO 11/15/20 09:00 12/24/20 08:12 Magnesium Hydroxide (Milk Of Magnesia) 30 ml DAILYPRN PRN PO CONSTIPATION 11/14/20 14:20 Metformin HCl (Glucophage Xr) 1,000 mg DAILY@0800 PO 11/19/20 08:00 12/24/20 07:33 Metformin HCl (Glucophage Xr) 1,000 mg DAILY@18 PO 11/15/20 18:00 11/19/20 11:42 DC 11/18/20 17:45 Metformin HCl (Glucophage) 1,000 mg DAILY@08 PO 11/16/20 08:00 11/15/20 10:51 DC Miscellaneous (Unresolved Clarification Entry) SEE LABEL COMMENTS UNRESOLVED XX 12/18/20 00:01 12/21/20 10:26 DC Non-Formulary Medication ( See Comment Field Below ) SEE COMMENTS SECTION 1T@10 XX 11/21/20 10:00 11/22/20 09:59 UNV Non-Formulary Medication ( See Comment Field Below ) SEE LABEL COMMENTS DAILY XX 11/19/20 09:00 11/20/20 18:06 DC Olanzapine (ZyPREXA) 5 mg Q4HP PRN PO ANXIETY/AGITATION 12/11/20 12:15 Risperidone (RisperDAL) 0.5 mg QAM PO 12/11/20 09:00 12/24/20 08:11 Risperidone (RisperDAL) 2 mg QHS PO 11/15/20 21:00 12/22/20 21:52 Risperidone (RisperDAL) 2 mg QHS PO 11/20/20 21:00 11/20/20 11:25 DC Trazodone HCl (Desyrel) 50 mg QHSP PRN PO INSOMNIA 11/14/20 14:20 12/23/20 19:53 Vitamin D (Drisdol) 50,000 units Th PO 11/15/20 12:00 12/20/20 13:21 Allergies Coded Allergies: Penicillins (Verified Allergy, Mild, 04/14/19) RCAIG HILL MD Dec 24, 2020 13:48
[2020-12-24 16:33] VITALS: BP 132/74
[2020-12-24] MEDS: risperiDONE 2 MG TAB PO SCH (21:00)
[2020-12-25] MEDS: LEVOTHYROXINE 100MCG TABLET (0.1MG) PO SCH (05:01)
[2020-12-25 05:49] VITALS: BP 112/55
[2020-12-25] MEDS: ASPIRIN 81MG ENTERIC TABLET PO SCH (08:33)
[2020-12-25] MEDS: BENZTROPINE 1 MG TAB PO SCH ×2 (08:34→19:51)
[2020-12-25] MEDS: lisinopriL 40 MG TAB PO SCH (08:34)
[2020-12-25] MEDS: risperiDONE 0.5 MG TAB PO SCH (08:34)
[2020-12-25] MEDS: EZETIMIBE 10 MG TAB (ZETIA) PO SCH (08:34)
[2020-12-25] MEDS: metFORMIN XR 500MG TAB *GLUCOPHAGE XR PO SCH (08:34)
[2020-12-25] MEDS: ATORVASTATIN 20 MG TAB PO SCH (08:34)
--- NOTE | 2020-12-25 14:06 | MHIPNPDOC ---
[facility] Progress Note Progress Note DATE OF SERVICE: 12/25/20 HISTORY: Patient is a 60-year-old man who was admitted for acutely decompensated psychotic symptoms in context of past psychiatric history of schizophrenia. Per chart review was to continue STEVENSON paliperidone and discharge back to [facility] apartment. November 11 was transferred to the medical unit due to chest pain for observation, he was treated for hypokalemia with medication adjustment and transferred back to the inpatient unit on 939 status. He continued to be bizarre, paranoid requiring further psychiatric treatment. He also received continue treatment for diabetes mellitus type 2, hyperlipidemia, hypertension and has been maintained on a medical regimen. Received Invega Sustenna on 11/19, despite this treatment continue to remain psychotic posing a risk for self-care. Interval: Charts reviewed, patient has been refusing his p.m. dose of risperidone, but has been accepting his morning dose. Continues to be acutely disorganized, bizarre, concrete. When asked how he is doing today states "I am in love with the girls in here, last night was like I was in a movie theater the adams were covered in that kind of material like [employer], everyone was outside waiting line for the next show. But then I looked outside and nobody was there shortly after." Has been encouraged to take his evening dose of Risperdal. VITAL SIGNS: See below. NEW TEST RESULTS: None CURRENT MEDICATIONS: See below. MENTAL STATUS EXAMINATION: Patient is a 60-year old male, who is currently lying in bed, glasses, poor eye contact, in no acute distress, appears stated age, glasses and schilling. Speech: Normal amount, normal volume, spontaneous Language skills are poor Thought processes including: Continues to be grossly disorganized. Thought content: vague suicidal thoughts, bizarre thoughts abstract reasoning, and computation: [place]. description of associations: Poor Description of abnormal or psychotic thoughts: Today denies auditory hallucinations, despite appearing internally preoccupied. Judgment: Poor Insight: Poor Orientation: X3 Recent and remote memory: Intact Attention span and concentration: Poor Language: Intact Fund of knowledge: Unable to fully assess based on interview. Mood: "All right". Affect: No change, continues to be bizarre, disorganized, internally preoccupied, mood incongruent. DIAGNOSES: 1. Schizophrenia. ASSESSMENT: Continues to be psychotic encouraged to take his evening dose as has been refusing and endorsing psychotic symptoms that occur in the evening which are more prominent, pending placement [facility]. No aggressive behavior towards others or inappropriate sexual bounces noted, continues to be internally preoccupied with bizarre bizarre behavior and delusional thought process, no command or dangerous auditory hallucinations endorsed. MANAGEMENT PLAN: No change, pending placement to [facility]. TIME SPENT: 15 minutes. Vital Signs Vital Signs Date Time Temp Pulse Resp B/P (MAP) Pulse Ox O2 Delivery O2 Flow Rate FiO2 12/25/20 05:49 98.4 78 20 112/55 (74) 96 Room Air Current Medications Current Medications Medications (Trade) Dose Ordered Sig/Vidal Route PRN Reason Start Time Stop Time Status Last Admin Dose Admin Acetaminophen (Tylenol Tab) 650 mg Q6HP PRN PO HEADACHE or MILD DISCOMFORT 11/14/20 14:20 12/12/20 05:02 Al Hydrox/Mg Hydrox/Simethicone (Mylanta) 30 ml Q4HP PRN PO HEARTBURN/INDIGESTION 11/14/20 14:20 11/26/20 20:03 Aspirin (Ecotrin) 81 mg DAILY PO 11/15/20 09:00 12/25/20 08:33 Atorvastatin Calcium (Lipitor) 20 mg DAILY PO 11/15/20 09:00 12/25/20 08:34 Benztropine Mesylate (Cogentin) 1 mg BID PO 11/15/20 09:00 12/25/20 08:34 EZETIMIBE (Zetia) 10 mg DAILY PO 11/15/20 09:00 12/25/20 08:34 Home Med (Med Rec Complete!) ASDIRECTED XX 11/15/20 10:25 11/15/20 10:34 DC Levothyroxine Sodium (Synthroid) 100 mcg DAILY@06 PO 11/15/20 06:00 12/25/20 05:01 Lisinopril (Prinivil) 40 mg DAILY PO 11/15/20 09:00 12/25/20 08:34 Magnesium Hydroxide (Milk Of Magnesia) 30 ml DAILYPRN PRN PO CONSTIPATION 11/14/20 14:20 Metformin HCl (Glucophage Xr) 1,000 mg DAILY@0800 PO 11/19/20 08:00 12/25/20 08:34 Metformin HCl (Glucophage Xr) 1,000 mg DAILY@18 PO 11/15/20 18:00 11/19/20 11:42 DC 11/18/20 17:45 Metformin HCl (Glucophage) 1,000 mg DAILY@08 PO 11/16/20 08:00 11/15/20 10:51 DC Miscellaneous (Unresolved Clarification Entry) SEE LABEL COMMENTS UNRESOLVED XX 12/18/20 00:01 12/21/20 10:26 DC Non-Formulary Medication ( See Comment Field Below ) SEE COMMENTS SECTION 1T@10 XX 11/21/20 10:00 11/22/20 09:59 UNV Non-Formulary Medication ( See Comment Field Below ) SEE LABEL COMMENTS DAILY XX 11/19/20 09:00 11/20/20 18:06 DC Olanzapine (ZyPREXA) 5 mg Q4HP PRN PO ANXIETY/AGITATION 12/11/20 12:15 Risperidone (RisperDAL) 0.5 mg QAM PO 12/11/20 09:00 12/25/20 08:34 Risperidone (RisperDAL) 2 mg QHS PO 11/15/20 21:00 12/22/20 21:52 Risperidone (RisperDAL) 2 mg QHS PO 11/20/20 21:00 11/20/20 11:25 DC Trazodone HCl (Desyrel) 50 mg QHSP PRN PO INSOMNIA 11/14/20 14:20 12/23/20 19:53 Vitamin D (Drisdol) 50,000 units Th PO 11/15/20 12:00 12/20/20 13:21 Allergies Coded Allergies: Penicillins (Verified Allergy, Mild, 04/14/19) CRAIG HILL MD Dec 25, 2020 14:06
[2020-12-25 19:01] VITALS: BP 170/85
[2020-12-25] MEDS: risperiDONE 2 MG TAB PO SCH (19:51)
[2020-12-25] MEDS: traZODone 50 MG TAB PO PRN (19:51)
[2020-12-26] MEDS: LEVOTHYROXINE 100MCG TABLET (0.1MG) PO SCH (05:59)
[2020-12-26 06:11] VITALS: BP 123/59
[2020-12-26] MEDS: metFORMIN XR 500MG TAB *GLUCOPHAGE XR PO SCH (07:27)
[2020-12-26] MEDS: BENZTROPINE 1 MG TAB PO SCH ×2 (08:15→20:36)
[2020-12-26] MEDS: lisinopriL 40 MG TAB PO SCH (08:15)
[2020-12-26] MEDS: EZETIMIBE 10 MG TAB (ZETIA) PO SCH (08:15)
[2020-12-26] MEDS: ATORVASTATIN 20 MG TAB PO SCH (08:15)
[2020-12-26] MEDS: risperiDONE 1 MG TAB PO SCH (08:15)
[2020-12-26] MEDS: ASPIRIN 81MG ENTERIC TABLET PO SCH (08:15)
--- NOTE | 2020-12-26 15:38 | MHIPNPDOC ---
[facility] Progress Note Progress Note DATE OF SERVICE: 12/26/20 HISTORY: Patient is a 60-year-old man who was admitted for acutely decompensated psychotic symptoms in context of past psychiatric history of schizophrenia. Per chart review was to continue STEVENSON paliperidone and discharge back to [facility] apartment. November 11 was transferred to the medical unit due to chest pain for observation, he was treated for hypokalemia with medication adjustment and transferred back to the inpatient unit on 9.39 status. He continued to be bizarre, paranoid requiring further psychiatric treatment. He also received continue treatment for diabetes mellitus type 2, hyperlipidemia, hypertension and has been maintained on a medical regimen. Received Invega Sustenna on 11/19, despite this treatment continue to remain psychotic posing a risk for self-care. Interval: Charts reviewed, patient's symptoms are unchanged, was seen lying comfortably in bed, remains concrete, bizarre and grossly psychotic. States "I guess I can't help you I have a constant feeling of loss, hurt" when asked to elaborate asks if they can send girls with him, stating "it would be pointless because I was not pretty enough to fit him with a cool people". On further discussion gets derailed and talks about random historical facts about various celebrities and has a vague discussion about his upbringing without providing further insight or details. Denies any acute physical complaints or concerns. Was seen in social milieu eating his breakfast. No agitation or aggression seen on the unit. VITAL SIGNS: See below. NEW TEST RESULTS: None CURRENT MEDICATIONS: See below. MENTAL STATUS EXAMINATION: Patient is a 60-year old male, who is currently lying in bed, glasses, grady [address], poor eye contact, in no acute distress, appears stated age, elevated BMI peer Speech: Normal amount, normal volume, spontaneous Language skills are poor Thought processes including: Continues to be grossly disorganized. Thought content: vague suicidal thoughts, bizarre thoughts abstract reasoning, and computation: [place]. description of associations: Poor Description of abnormal or psychotic thoughts: Today denies auditory hallucinations, despite appearing internally preoccupied. Judgment: Poor Insight: Poor Orientation: X3 Recent and remote memory: Intact Attention span and concentration: Poor Language: Intact Fund of knowledge: Unable to fully assess based on interview. Mood: "Okay I guess". Affect: No change, continues to be bizarre, disorganized, internally preoccupied, mood incongruent. DIAGNOSES: 1. Schizophrenia, paranoid type ASSESSMENT: No change, continues to be internally preoccupied, grossly psychotic, no acute aggression on the unit and tolerating medications, no reported acute physical symptoms or medication side effects reported. Understands he is pending long-term treatment. Patient due to level of disorganization meets criteria for involuntary admission to maintain safety. MANAGEMENT PLAN: No change. Continue medications, continue coordination of care with treatment team including social work for placement at [facility], per 7th grade social studies teacher likely have a spot early next week. TIME SPENT: 15 minutes. Vital Signs Vital Signs Date Time Temp Pulse Resp B/P (MAP) Pulse Ox O2 Delivery O2 Flow Rate FiO2 12/26/20 08:04 Room Air 12/26/20 06:11 96.8 65 18 123/59 (80) 97 Current Medications Current Medications Medications (Trade) Dose Ordered Sig/Vidal Route PRN Reason Start Time Stop Time Status Last Admin Dose Admin Acetaminophen (Tylenol Tab) 650 mg Q6HP PRN PO HEADACHE or MILD DISCOMFORT 11/14/20 14:20 12/12/20 05:02 Al Hydrox/Mg Hydrox/Simethicone (Mylanta) 30 ml Q4HP PRN PO HEARTBURN/INDIGESTION 11/14/20 14:20 11/26/20 20:03 Aspirin (Ecotrin) 81 mg DAILY PO 11/15/20 09:00 12/26/20 08:15 Atorvastatin Calcium (Lipitor) 20 mg DAILY PO 11/15/20 09:00 12/26/20 08:15 Benztropine Mesylate (Cogentin) 1 mg BID PO 11/15/20 09:00 12/26/20 08:15 EZETIMIBE (Zetia) 10 mg DAILY PO 11/15/20 09:00 12/26/20 08:15 Home Med (Med Rec Complete!) ASDIRECTED XX 11/15/20 10:25 11/15/20 10:34 DC Levothyroxine Sodium (Synthroid) 100 mcg DAILY@06 PO 11/15/20 06:00 12/26/20 05:59 Lisinopril (Prinivil) 40 mg DAILY PO 11/15/20 09:00 12/26/20 08:15 Magnesium Hydroxide (Milk Of Magnesia) 30 ml DAILYPRN PRN PO CONSTIPATION 11/14/20 14:20 Metformin HCl (Glucophage Xr) 1,000 mg DAILY@0800 PO 11/19/20 08:00 12/26/20 07:27 Metformin HCl (Glucophage Xr) 1,000 mg DAILY@18 PO 11/15/20 18:00 11/19/20 11:42 DC 11/18/20 17:45 Metformin HCl (Glucophage) 1,000 mg DAILY@08 PO 11/16/20 08:00 11/15/20 10:51 DC Miscellaneous (Unresolved Clarification Entry) SEE LABEL COMMENTS UNRESOLVED XX 12/18/20 00:01 12/21/20 10:26 DC Non-Formulary Medication ( See Comment Field Below ) SEE COMMENTS SECTION 1T@10 XX 11/21/20 10:00 11/22/20 09:59 UNV Non-Formulary Medication ( See Comment Field Below ) SEE LABEL COMMENTS DAILY XX 11/19/20 09:00 11/20/20 18:06 DC Olanzapine (ZyPREXA) 5 mg Q4HP PRN PO ANXIETY/AGITATION 12/11/20 12:15 Risperidone (RisperDAL) 0.5 mg QAM PO 12/11/20 09:00 12/25/20 14:07 DC 12/25/20 08:34 Risperidone (RisperDAL) 1 mg QAM PO 12/26/20 09:00 12/26/20 08:15 Risperidone (RisperDAL) 2 mg QHS PO 11/15/20 21:00 12/25/20 19:51 Risperidone (RisperDAL) 2 mg QHS PO 11/20/20 21:00 11/20/20 11:25 DC Trazodone HCl (Desyrel) 50 mg QHSP PRN PO INSOMNIA 11/14/20 14:20 12/25/20 19:51 Vitamin D (Drisdol) 50,000 units Th PO 11/15/20 12:00 12/20/20 13:21 Allergies Coded Allergies: Penicillins (Verified Allergy, Mild, 04/14/19) CRAIG HILL MD Dec 26, 2020 15:38
[2020-12-26 16:11] VITALS: BP 150/70
[2020-12-26] MEDS: risperiDONE 2 MG TAB PO SCH (20:36)
[2020-12-26] MEDS: traZODone 50 MG TAB PO PRN (20:36)
[2020-12-27] MEDS: LEVOTHYROXINE 100MCG TABLET (0.1MG) PO SCH (05:52)
[2020-12-27 06:40] VITALS: BP 113/67
[2020-12-27] MEDS: EZETIMIBE 10 MG TAB (ZETIA) PO SCH (09:30)
[2020-12-27] MEDS: ASPIRIN 81MG ENTERIC TABLET PO SCH (09:30)
[2020-12-27] MEDS: risperiDONE 1 MG TAB PO SCH (09:30)
[2020-12-27] MEDS: BENZTROPINE 1 MG TAB PO SCH ×2 (09:31→22:05)
[2020-12-27] MEDS: lisinopriL 40 MG TAB PO SCH (09:31)
[2020-12-27] MEDS: ATORVASTATIN 20 MG TAB PO SCH (09:31)
[2020-12-27] MEDS: metFORMIN XR 500MG TAB *GLUCOPHAGE XR PO SCH (09:34)
[2020-12-27] MEDS: VITAMIN D 50,000 UNITS CAPSULE (ERGOCALCIFEROL 1.25MG) PO SCH (12:05)
--- NOTE | 2020-12-27 13:00 | MHIPNPDOC ---
[facility] Progress Note Progress Note DATE OF SERVICE: 12/27/20 HISTORY: Patient is a 60-year-old man who was admitted for acutely decompensated psychotic symptoms in context of past psychiatric history of schizophrenia. Per chart review was to continue STEVENSON paliperidone and discharge back to [facility] apartment. November 11 was transferred to the medical unit due to chest pain for observation, he was treated for hypokalemia with medication adjustment and transferred back to the inpatient unit on 9.39 status. He continued to be bizarre, paranoid requiring further psychiatric treatment. He also received continue treatment for diabetes mellitus type 2, hyperlipidemia, hypertension and has been maintained on a medical regimen. Received Invega Sustenna on 11/19, despite this treatment continue to remain psychotic posing a risk for self-care. Interval: Charts reviewed, patient continues to be pleasantly psychotic. Denies command auditory hallucinations or aggressive impulses. Understands he will likely be going to [facility] early next week. He was on to tell a story about taking LSD in the [employer] and how medications kept him from being sad, then goes on to state "it is the calculated impatience and my mom never understood this", then transitions to a story about being treated with insulin injections for his mood and hot joan cars". Denies any suicidal thoughts today and appears to be agreeable with continued stay until transitioning to [facility]. VITAL SIGNS: See below. NEW TEST RESULTS: None CURRENT MEDICATIONS: See below. MENTAL STATUS EXAMINATION: Patient is a 60-year old male, who is currently lying in bed, glasses, grady schilling, poor eye contact, in no acute distress, appears stated age, elevated BMI peer Speech: Normal amount, normal volume, spontaneous Language skills are poor Thought processes including: Continues to be grossly disorganized. Thought content: vague suicidal thoughts, bizarre thoughts abstract reasoning, and computation: [place]. description of associations: Poor Description of abnormal or psychotic thoughts: Continues to deny auditory hallucinations Judgment: Poor Insight: Poor Orientation: X3 Recent and remote memory: Intact Attention span and concentration: Poor Language: Intact Fund of knowledge: Unable to fully assess based on interview. Mood: "Fine". Affect: disorganized, pleasantly psychotic, inappropriate DIAGNOSES: 1. Schizophrenia, paranoid type ASSESSMENT: No change, continues to be pleasantly psychotic without aggression on the unit and tolerating medications, no reported acute physical symptoms or medication side effects reported. MANAGEMENT PLAN: No change. Continue medications, continue coordination of care with treatment team including social work for placement at [facility], per social services designee likely have a spot early next week. TIME SPENT: 15 minutes. Vital Signs Vital Signs Date Time Temp Pulse Resp B/P (MAP) Pulse Ox O2 Delivery O2 Flow Rate FiO2 12/27/20 08:13 Room Air 12/27/20 06:40 97.1 75 14 113/67 (82) 97 Current Medications Current Medications Medications (Trade) Dose Ordered Sig/Vidal Route PRN Reason Start Time Stop Time Status Last Admin Dose Admin Acetaminophen (Tylenol Tab) 650 mg Q6HP PRN PO HEADACHE or MILD DISCOMFORT 11/14/20 14:20 12/12/20 05:02 Al Hydrox/Mg Hydrox/Simethicone (Mylanta) 30 ml Q4HP PRN PO HEARTBURN/INDIGESTION 11/14/20 14:20 11/26/20 20:03 Aspirin (Ecotrin) 81 mg DAILY PO 11/15/20 09:00 12/27/20 09:30 Atorvastatin Calcium (Lipitor) 20 mg DAILY PO 11/15/20 09:00 12/27/20 09:31 Benztropine Mesylate (Cogentin) 1 mg BID PO 11/15/20 09:00 12/27/20 09:31 EZETIMIBE (Zetia) 10 mg DAILY PO 11/15/20 09:00 12/27/20 09:30 Home Med (Med Rec Complete!) ASDIRECTED XX 11/15/20 10:25 11/15/20 10:34 DC Levothyroxine Sodium (Synthroid) 100 mcg DAILY@06 PO 11/15/20 06:00 12/27/20 05:52 Lisinopril (Prinivil) 40 mg DAILY PO 11/15/20 09:00 12/27/20 09:31 Magnesium Hydroxide (Milk Of Magnesia) 30 ml DAILYPRN PRN PO CONSTIPATION 11/14/20 14:20 Metformin HCl (Glucophage Xr) 1,000 mg DAILY@0800 PO 11/19/20 08:00 12/27/20 09:34 Metformin HCl (Glucophage Xr) 1,000 mg DAILY@18 PO 11/15/20 18:00 11/19/20 11:42 DC 11/18/20 17:45 Metformin HCl (Glucophage) 1,000 mg DAILY@08 PO 11/16/20 08:00 11/15/20 10:51 DC Miscellaneous (Unresolved Clarification Entry) SEE LABEL COMMENTS UNRESOLVED XX 12/18/20 00:01 12/21/20 10:26 DC Non-Formulary Medication ( See Comment Field Below ) SEE COMMENTS SECTION 1T@10 XX 11/21/20 10:00 11/22/20 09:59 UNV Non-Formulary Medication ( See Comment Field Below ) SEE LABEL COMMENTS DAILY XX 11/19/20 09:00 11/20/20 18:06 DC Olanzapine (ZyPREXA) 5 mg Q4HP PRN PO ANXIETY/AGITATION 12/11/20 12:15 Risperidone (RisperDAL) 0.5 mg QAM PO 12/11/20 09:00 12/25/20 14:07 DC 12/25/20 08:34 Risperidone (RisperDAL) 1 mg QAM PO 12/26/20 09:00 12/27/20 09:30 Risperidone (RisperDAL) 2 mg QHS PO 11/15/20 21:00 12/26/20 20:36 Risperidone (RisperDAL) 2 mg QHS PO 11/20/20 21:00 11/20/20 11:25 DC Trazodone HCl (Desyrel) 50 mg QHSP PRN PO INSOMNIA 11/14/20 14:20 12/26/20 20:36 Vitamin D (Drisdol) 50,000 units Th PO 11/15/20 12:00 12/27/20 12:05 Allergies Coded Allergies: Penicillins (Verified Allergy, Mild, 04/14/19) CRAIG HILL MD Dec 27, 2020 13:00
[2020-12-27 18:07] VITALS: BP 153/75
[2020-12-27] MEDS: risperiDONE 2 MG TAB PO SCH (22:05)
[2020-12-27] MEDS: traZODone 50 MG TAB PO PRN (22:07)
[2020-12-28] MEDS: LEVOTHYROXINE 100MCG TABLET (0.1MG) PO SCH (06:32)
[2020-12-28 07:50] VITALS: BP 130/58
[2020-12-28] MEDS: EZETIMIBE 10 MG TAB (ZETIA) PO SCH (08:05)
[2020-12-28] MEDS: ASPIRIN 81MG ENTERIC TABLET PO SCH (08:05)
[2020-12-28] MEDS: metFORMIN XR 500MG TAB *GLUCOPHAGE XR PO SCH (08:05)
[2020-12-28] MEDS: lisinopriL 40 MG TAB PO SCH (08:05)
[2020-12-28] MEDS: risperiDONE 1 MG TAB PO SCH (08:05)
[2020-12-28] MEDS: ATORVASTATIN 20 MG TAB PO SCH (08:05)
[2020-12-28] MEDS: BENZTROPINE 1 MG TAB PO SCH ×2 (08:05→21:37)
--- NOTE | 2020-12-28 15:47 | MHIPNPDOC ---
[facility] Progress Note Progress Note DATE OF SERVICE: 12/28/20 HISTORY: Patient is a 60-year-old man who was admitted for acutely decompensated psychotic symptoms in context of past psychiatric history of schizophrenia. Per chart review was to continue STEVENSON paliperidone and discharge back to [facility] apartment. November 11 was transferred to the medical unit due to chest pain for observation, he was treated for hypokalemia with medication adjustment and transferred back to the inpatient unit on 9.39 status. He continued to be bizarre, paranoid requiring further psychiatric treatment. He also received continue treatment for diabetes mellitus type 2, hyperlipidemia, hypertension and has been maintained on a medical regimen. Received Invega Sustenna on 11/19, despite this treatment continue to remain psychotic posing a risk for self-care. Interval: Charts reviewed, no change, was seen watching TV in the common area, when asked about what he is watching responds with various metaphors including stating "its the nature of the Beast", not elaborating further then going on to describe different characters in the show. Overall is agreeable to transfer to this [facility]. No aggression however noted though voices some inappropriate sexual innuendos at times and requires redirection. VITAL SIGNS: See below. NEW TEST RESULTS: None CURRENT MEDICATIONS: See below. MENTAL STATUS EXAMINATION: Patient is a 60-year old male, who is currently lying in bed, glasses, grady schilling, poor eye contact, in no acute distress, appears stated age, elevated BMI peer Speech: Normal amount, normal volume, spontaneous Language skills are poor Thought processes including: Continues to be grossly disorganized. Thought content: vague suicidal thoughts, bizarre thoughts abstract reasoning, and computation: [place]. description of associations: Poor Description of abnormal or psychotic thoughts: Continues to deny auditory hallucinations Judgment: Poor Insight: Poor Orientation: X3 Recent and remote memory: Intact Attention span and concentration: Poor Language: Intact Fund of knowledge: Unable to fully assess based on interview. Mood: "Good you know". Affect: Continues to be grossly and pleasantly psychotic, inappropriate sexual errors at time, requires redirection, DIAGNOSES: 1. Schizophrenia, paranoid type ASSESSMENT: No acute physical complaints, tolerating medications and looking forward to pending [employer] [place] [place] placement likely early next week. MANAGEMENT PLAN: No change. Continue medications, continue coordination of care with treatment team, including social work for placement at [facility] likely Thursday next week. TIME SPENT: 15 minutes. Vital Signs Vital Signs Date Time Temp Pulse Resp B/P (MAP) Pulse Ox O2 Delivery O2 Flow Rate FiO2 12/28/20 07:50 97.2 75 14 130/58 (82) 97 Room Air Current Medications Current Medications Medications (Trade) Dose Ordered Sig/Vidal Route PRN Reason Start Time Stop Time Status Last Admin Dose Admin Acetaminophen (Tylenol Tab) 650 mg Q6HP PRN PO HEADACHE or MILD DISCOMFORT 11/14/20 14:20 12/12/20 05:02 Al Hydrox/Mg Hydrox/Simethicone (Mylanta) 30 ml Q4HP PRN PO HEARTBURN/INDIGESTION 11/14/20 14:20 11/26/20 20:03 Aspirin (Ecotrin) 81 mg DAILY PO 11/15/20 09:00 12/28/20 08:05 Atorvastatin Calcium (Lipitor) 20 mg DAILY PO 11/15/20 09:00 12/28/20 08:05 Benztropine Mesylate (Cogentin) 1 mg BID PO 11/15/20 09:00 12/28/20 08:05 EZETIMIBE (Zetia) 10 mg DAILY PO 11/15/20 09:00 12/28/20 08:05 Home Med (Med Rec Complete!) ASDIRECTED XX 11/15/20 10:25 11/15/20 10:34 DC Levothyroxine Sodium (Synthroid) 100 mcg DAILY@06 PO 11/15/20 06:00 12/28/20 06:32 Lisinopril (Prinivil) 40 mg DAILY PO 11/15/20 09:00 12/28/20 08:05 Magnesium Hydroxide (Milk Of Magnesia) 30 ml DAILYPRN PRN PO CONSTIPATION 11/14/20 14:20 Metformin HCl (Glucophage Xr) 1,000 mg DAILY@0800 PO 11/19/20 08:00 12/28/20 08:05 Metformin HCl (Glucophage Xr) 1,000 mg DAILY@18 PO 11/15/20 18:00 11/19/20 11:42 DC 11/18/20 17:45 Metformin HCl (Glucophage) 1,000 mg DAILY@08 PO 11/16/20 08:00 11/15/20 10:51 DC Miscellaneous (Unresolved Clarification Entry) SEE LABEL COMMENTS UNRESOLVED XX 12/18/20 00:01 12/21/20 10:26 DC Non-Formulary Medication ( See Comment Field Below ) SEE COMMENTS SECTION 1T@10 XX 11/21/20 10:00 11/22/20 09:59 UNV Non-Formulary Medication ( See Comment Field Below ) SEE LABEL COMMENTS DAILY XX 11/19/20 09:00 11/20/20 18:06 DC Olanzapine (ZyPREXA) 5 mg Q4HP PRN PO ANXIETY/AGITATION 12/11/20 12:15 Risperidone (RisperDAL) 0.5 mg QAM PO 12/11/20 09:00 12/25/20 14:07 DC 12/25/20 08:34 Risperidone (RisperDAL) 1 mg QAM PO 12/26/20 09:00 12/28/20 08:05 Risperidone (RisperDAL) 2 mg QHS PO 11/15/20 21:00 12/27/20 22:05 Risperidone (RisperDAL) 2 mg QHS PO 11/20/20 21:00 11/20/20 11:25 DC Trazodone HCl (Desyrel) 50 mg QHSP PRN PO INSOMNIA 11/14/20 14:20 12/27/20 22:07 Vitamin D (Drisdol) 50,000 units Th PO 11/15/20 12:00 12/27/20 12:05 Allergies Coded Allergies: Penicillins (Verified Allergy, Mild, 04/14/19) CRAIG HILL MD Dec 28, 2020 15:47
[2020-12-28 16:08] VITALS: BP 125/60
[2020-12-28] MEDS: risperiDONE 2 MG TAB PO SCH (21:37)
[2020-12-28] MEDS: traZODone 50 MG TAB PO PRN (21:37)
[2020-12-29] MEDS: LEVOTHYROXINE 100MCG TABLET (0.1MG) PO SCH (05:32)
[2020-12-29 06:15] VITALS: BP 102/59
[2020-12-29] MEDS: metFORMIN XR 500MG TAB *GLUCOPHAGE XR PO SCH (07:21)
[2020-12-29] MEDS: EZETIMIBE 10 MG TAB (ZETIA) PO SCH (09:19)
[2020-12-29] MEDS: BENZTROPINE 1 MG TAB PO SCH ×2 (09:20→21:05)
[2020-12-29] MEDS: ASPIRIN 81MG ENTERIC TABLET PO SCH (09:20)
[2020-12-29] MEDS: lisinopriL 40 MG TAB PO SCH (09:20)
[2020-12-29] MEDS: risperiDONE 1 MG TAB PO SCH (09:20)
[2020-12-29] MEDS: ATORVASTATIN 20 MG TAB PO SCH (09:20)
[2020-12-29 16:14] VITALS: BP 123/60
[2020-12-29] MEDS: traZODone 50 MG TAB PO PRN (21:05)
[2020-12-29] MEDS: risperiDONE 2 MG TAB PO SCH (21:05)
[2020-12-30] MEDS: LEVOTHYROXINE 100MCG TABLET (0.1MG) PO SCH (05:04)
[2020-12-30 06:11] VITALS: BP 97/58
[2020-12-30] MEDS: metFORMIN XR 500MG TAB *GLUCOPHAGE XR PO SCH (07:23)
[2020-12-30] MEDS: risperiDONE 1 MG TAB PO SCH (08:40)
[2020-12-30] MEDS: ATORVASTATIN 20 MG TAB PO SCH (08:40)
[2020-12-30] MEDS: lisinopriL 40 MG TAB PO SCH (08:40)
[2020-12-30] MEDS: ASPIRIN 81MG ENTERIC TABLET PO SCH (08:40)
[2020-12-30] MEDS: EZETIMIBE 10 MG TAB (ZETIA) PO SCH (08:40)
[2020-12-30] MEDS: BENZTROPINE 1 MG TAB PO SCH ×2 (08:40→20:45)
[2020-12-30] MEDS: OLANZapine 5 MG TAB PO PRN (10:13)
[2020-12-30 16:44] VITALS: BP 113/64
[2020-12-30] MEDS: risperiDONE 2 MG TAB PO SCH (20:45)
[2020-12-30] MEDS: traZODone 50 MG TAB PO PRN (20:45)
[2020-12-31] MEDS: LEVOTHYROXINE 100MCG TABLET (0.1MG) PO SCH (05:40)
[2020-12-31 06:20] VITALS: BP 108/57
[2020-12-31] MEDS: metFORMIN XR 500MG TAB *GLUCOPHAGE XR PO SCH (07:53)
[2020-12-31] MEDS: EZETIMIBE 10 MG TAB (ZETIA) PO SCH (08:24)
[2020-12-31] MEDS: risperiDONE 1 MG TAB PO SCH (08:25)
[2020-12-31] MEDS: BENZTROPINE 1 MG TAB PO SCH ×2 (08:25→21:00)
[2020-12-31] MEDS: ASPIRIN 81MG ENTERIC TABLET PO SCH (08:25)
[2020-12-31] MEDS: OLANZapine 5 MG TAB PO PRN (08:25)
[2020-12-31] MEDS: ATORVASTATIN 20 MG TAB PO SCH (08:25)
[2020-12-31] MEDS: lisinopriL 40 MG TAB PO SCH (09:43)
[2020-12-31 15:45] LABS: RSV AMPLIFICATION NEGATIVE (NEGATIVE)
[2020-12-31 17:19] VITALS: BP 150/78
[2020-12-31] MEDS: risperiDONE 2 MG TAB PO SCH (21:00)
[2021-01-01] MEDS: LEVOTHYROXINE 100MCG TABLET (0.1MG) PO SCH (05:43)
[2021-01-01 06:33] VITALS: BP 128/68
[2021-01-01] MEDS ORDERED: RISP-8 PO (09:04)
--- NOTE | 2021-01-01 09:10 | MHDSPDOC ---
[facility] Discharge Summary Discharge Summary DATE OF ADMISSION: Nov 14, 2020 at 14:50 DATE OF DISCHARGE: Jan 01, 2021 DISCHARGE DIAGNOSES: 1. Schizophrenia REASON FOR ADMISSION: History of Present Illness HISTORY OF THE PRESENT ILLNESS: Patient is a 60 -year-old , male, who [was initially admitted to inpatient unit on October 26 for acutely decompensated schizophrenic symptoms. Patient was cooperating with the medications and was continued on paliperidone injection and was considered for discharge back to his [facility] apartment in the near future. Patient developed chest pain on November 11 and was transferred to medical unit for medical observation and stabilization. He was found to have hypokalemic episode and his medication was adjusted and medically stable and was transferred back to inpatient psychiatric unit on 939 s tatus. Patient does not remember exactly what happened but stated that he was not feeling somewhat weak and had a discomfort in his chest but now he is feeling much better and does not have any pain or discomfort but is just feeling tired. He however was observed to be making some bizarre nonsensical statement and appeared to be preoccupied with some paranoid ideas about his roommate and apparently in need of further psychiatric stabilization.]. Psychiatric Review of Systems Depression (2 or more weeks): decreased energy, psychomotor changes, suicidal thoughts Psychosis: delusions, paranoia, other (Patient has been paranoid about his roommate and has been extremely religiously preoccupied) PTSD: denies Anxiety: denies Past Psychiatric History Previous Psychiatric Diagnosis: . Paranoid schizophrenia schizoaffective disorder Previous Psychiatric Admissions: . Long history with multiple admissions Suicide Attempts: . No documented history of suicidal attempt Psychiatric Follow-up: . Been linked with outpatient treatment Psychiatric medications: . Currently on paliperidone injection Past Medical History Medical Problems Diabetes hypercholesterolemia Head Injury: No Seizures: No Hospitalizations: Yes Surgeries: No CONSULTANTS INVOLVED: TREATMENT AND PROGRESS ON THE UNIT : HISTORY: Patient is a 60-year-old man who was admitted for acutely decompensated psychotic symptoms in context of past psychiatric history of schizophrenia. Per chart review was to continue STEVENSON paliperidone and discharge back to [facility]. November 11 was transferred to the medical unit due to chest pain for observation, he was treated for hypokalemia with medication adjustment and transferred back to the inpatient unit on 9.39 status. He continued to be bizarre, paranoid requiring further psychiatric treatment. He also received continue treatment for diabetes mellitus type 2, hyperlipidemia, hypertension and has been maintained on a medical regimen. Received Invega Sustenna on 11/19, despite this treatment continue to remain psychotic posing a risk for self-care. Interval: Charts reviewed, no change, was seen watching TV in the common area, when asked about what he is watching responds with various metaphors including stating "its the nature of the Beast", not elaborating further then going on to describe different characters in the show. Overall is agreeable to transfer to this [facility]. No aggression however noted though voices some inappropriate sexual innuendos at times and requires redirection. VITAL SIGNS: See below. NEW TEST RESULTS: None CURRENT MEDICATIONS: See below. MENTAL STATUS EXAMINATION: Patient is a 60-year old male, who is currently lying in bed, glasses, grady schilling, poor eye contact, in no acute distress, appears stated age, elevated BMI peer Speech: Normal amount, normal volume, spontaneous Language skills are poor Thought processes including: Continues to be grossly disorganized. Thought content: vague suicidal thoughts, bizarre thoughts abstract reasoning, and computation: [place]. description of associations: Poor Description of abnormal or psychotic thoughts: Continues to deny auditory hallucinations Judgment: Poor Insight: Poor Orientation: X3 Recent and remote memory: Intact Attention span and concentration: Poor Language: Intact Fund of knowledge: Unable to fully assess based on interview. Mood: "Good you know". Affect: Continues to be grossly and pleasantly psychotic, inappropriate sexual errors at time, requires redirection, HOSPITAL COURSE:No significant improvement. Continued homicidal threats to roommate MEDICATIONS ON DISCHARGE: RISPERIDONE 1mg in am 2 mg hs Palperidone Injections as indicated Metformin, Levothyroxine, Zetia PLAN/FOLLOWUP ARRANGEMENTS:[facility] The amount of time spent in the coordination of care for this patient was approximately 60 minutes. ETOH/Disorder Med Rx ETOH/DRUG DISORDER RX: N/A Vital Signs/I&Os Vital Signs Date Time Temp Pulse Resp B/P (MAP) Pulse Ox O2 Delivery O2 Flow Rate FiO2 01/01/21 06:33 98.0 76 16 128/68 (88) 98 Room Air Laboratory Data Labs 24H Laboratory Tests 2 12/31/20 15:00: Coronavirus (COVID-19)(PCR) NEGATIVE, Influenza Type A (RT-PCR) NEGATIVE, Influenza Type B (RT-PCR) NEGATIVE, Respiratory Syncytial Virus (PCR) NEGATIVE Medications Scheduled Aspirin (Aspirin EC) 81 Mg Tabec, 81 MG PO DAILY, (Reported) Atorvastatin Calcium (Atorvastatin Calcium) 20 Mg Tablet, 20 MG PO DAILY, (Reported) Benztropine Mesylate (Benztropine Mesylate) 1 Mg Tablet, 1 MG PO BID, (Reported) Ergocalciferol (Vitamin D2) (Vitamin D2) 50,000 Units Cap, 50,000 UNITS PO 1XWK, (Reported) THURSDAY Ezetimibe (Zetia) 10 Mg Tab, 10 MG PO DAILY, (Reported) Levothyroxine Sodium (Levothyroxine Sodium) 100 Mcg Tablet, 100 MCG PO DAILY, (Reported) Lisinopril (Lisinopril) 40 Mg Tab, 40 MG PO DAILY, (Reported) Metformin HCl (Metformin HCl ER) 500 Mg Tab.er.24h, 1,000 MG PO DAILY, (Reported) Risperidone (Risperidone) 1 Mg Tablet, 1 MG PO TID for Psychosis, #21 1 mg am 2mg hs Scheduled PRN Trazodone HCl (Trazodone HCl) 50 Mg Tablet, 50 MG PO QHS PRN for SLEEP, (Reported) Allergies Coded Allergies: Penicillins (Verified Allergy, Mild, 04/14/19) TONYA MANN MD Jan 01, 2021 09:10
[2021-01-01] MEDS: metFORMIN XR 500MG TAB *GLUCOPHAGE XR PO SCH (09:16)
[2021-01-01] MEDS: ATORVASTATIN 20 MG TAB PO SCH (09:17)
[2021-01-01] MEDS: lisinopriL 40 MG TAB PO SCH (09:17)
[2021-01-01] MEDS: EZETIMIBE 10 MG TAB (ZETIA) PO SCH (09:17)
[2021-01-01] MEDS: OLANZapine 5 MG TAB PO PRN (09:17)
[2021-01-01] MEDS: risperiDONE 1 MG TAB PO SCH (09:17)
[2021-01-01] MEDS: BENZTROPINE 1 MG TAB PO SCH (09:17)
[2021-01-01] MEDS: ASPIRIN 81MG ENTERIC TABLET PO SCH (09:17)
[2021-01-01 12:33] VITALS: BP 137/71
== END 2021-01-01 12:49 | DRG 885 ==
LOC: M PSY 14:50
PROVIDERS: ADMIT Psychiatry & Neurology Psychiatry; ATTEND Psychiatry & Neurology Child & Adolescent Psychiatry
DX: F20.0 Paranoid schizophrenia (principal); E11.9 Type 2 diabetes mellitus without complications; E78.00 Pure hypercholesterolemia, unspecified; Z79.82 Long term (current) use of aspirin; Z79.84 Long term (current) use of oral hypoglycemic drugs; Z79.899 Other long term (current) drug therapy; Z88.0 Allergy status to penicillin; Z20.822 Contact with and (suspected) exposure to COVID-19; I10 Essential (primary) hypertension

== ENCOUNTER → 2021-11-26 | Outpatient (CLI) | payer MEDICAID ==
[~2021-11-26] MED LIST changes: +RISP-8 PO
[2021-11-26 09:26] LABS: HEMATOCRIT 31.9 % (42.0-52.0); HEMOGLOBIN 10.3 g/dl (13.5-17.5); MEAN CORPUSCULAR HEMOGLOBIN 30.7 pg (27.0-33.0); MEAN CORPUSCULAR HGB CONC 32.3 g/dl (32.0-36.5); MEAN CORPUSCULAR VOLUME 95.2 fl (80.0-96.0); PLATELET COUNT, AUTOMATED 200 10^3/uL (150-450); RED BLOOD COUNT 3.35 10^6/uL (4.30-6.10); WHITE BLOOD COUNT 6.9 10^3/uL (4.0-10.0)
[2021-11-26 09:56] LABS: HEMOGLOBIN A1c 5.8 %
[2021-11-26 10:32] LABS: ALBUMIN 3.4 GM/DL (3.2-5.2); ALT/SGPT 25 U/L (12-78); BILIRUBIN,DIRECT 0.1 MG/DL (0.0-0.2); BILIRUBIN,TOTAL 0.2 MG/DL (0.2-1.0); BLOOD UREA NITROGEN 12 MG/DL (7-18); CALCIUM LEVEL 8.4 MG/DL (8.8-10.2); CARBON DIOXIDE LEVEL 26 MEQ/L (21-32); CHLORIDE LEVEL 110 MEQ/L (98-107); CHOLESTEROL LEVEL 102 MG/DL (<200); CHOLESTEROL RISK RATIO 1.854 (<5); CREATININE FOR GFR 0.88 MG/DL (0.70-1.30); GLOMERULAR FILTRATION RATE > 60.0 (>49); GLUCOSE, FASTING 97 MG/DL (70-100); HDL CHOLESTEROL 55 MG/DL (>40); LDL CHOLESTEROL 38 MG/DL (<100); NON-HDL-C 47 MG/DL; PHOSPHORUS LEVEL 3.3 MG/DL (2.5-4.9); POTASSIUM SERUM 3.8 MEQ/L (3.5-5.1); SODIUM LEVEL 142 MEQ/L (136-145); TOTAL PROTEIN 6.1 GM/DL (6.4-8.2); TRIGLYCERIDES LEVEL 44 MG/DL (<150)
== END ==
LOC: M LAB 09:03
PROVIDERS: ATTEND Nurse Practitioner Psychiatric/Mental Health
DX: F25.9 Schizoaffective disorder, unspecified (principal); Z79.899 Other long term (current) drug therapy; Z79.82 Long term (current) use of aspirin; Z79.84 Long term (current) use of oral hypoglycemic drugs

== ENCOUNTER → 2022-04-10 | Outpatient (REF) | payer MEDICARE, MEDICAID ==
[~2022-04-10] MED LIST changes: -CLOZ25TA3 PO; +CLOZ25TA6 PO
[2022-04-10 14:22] LABS: BASO % 0.4 % (0.0-1.0); EOS # 0.2 10^3/uL (0.0-0.5); HEMATOCRIT 42.6 % (42.0-52.0); HEMOGLOBIN 13.6 g/dl (13.5-17.5); MEAN CORPUSCULAR HEMOGLOBIN 30.6 pg (27.0-33.0); MEAN CORPUSCULAR HGB CONC 31.9 g/dl (32.0-36.5); MEAN CORPUSCULAR VOLUME 95.7 fl (80.0-96.0); MONO # 0.6 10^3/uL (0.0-0.8); MONO % 7.6 % (2.0-8.0); NEUTROPHILS # 5.2 10^3/uL (1.5-8.5); NEUTROPHILS % 64.5 % (36.0-66.0); PLATELET COUNT, AUTOMATED 240 10^3/uL (150-450); RED BLOOD COUNT 4.45 10^6/uL (4.30-6.10); WHITE BLOOD COUNT 8.1 10^3/uL (4.0-10.0)
[2022-04-10 15:05] LABS: TOTAL IRON BINDING CAPACITY 281 UG/DL (250-425)
[2022-04-10 15:06] LABS: IRON (FE) 74 UG/DL (65-175); PERCENT SATURATION 26.3 % (19.7-50.0)
[2022-04-10 15:07] LABS: FERRITIN 176.2 NG/ML (10.5-307.3); FOLATE > 24.0 NG/ML (>5.4)
[2022-04-10 15:08] LABS: VITAMIN B12 LEVEL 318 PG/ML (211-911)
== END ==
LOC: M LAB REF 12:27
PROVIDERS: ATTEND Nurse Practitioner Family
DX: D64.9 Anemia, unspecified (principal)

== ENCOUNTER → 2022-05-09 | Outpatient (REF) | payer MEDICARE, MEDICAID | LOC: M LAB REF 12:38 | PROVIDERS: ATTEND Nurse Practitioner Family | DX: E03.9 Hypothyroidism, unspecified (principal) ==

== ENCOUNTER 2022-05-18 21:52 | Inpatient (IN) | payer MEDICARE, MEDICAID ==
[~2022-05-18] VITALS: Ht 172.7 cm; Wt 107.6 kg
[~2022-05-18 21:52] MED LIST changes: -BENZ-52 PO; +BENZ1TAB5 PO
[2022-05-18 23:17] LABS: HEMOGLOBIN 12.5 g/dl (13.5-17.5); MEAN CORPUSCULAR HEMOGLOBIN 31.5 pg (27.0-33.0); MEAN CORPUSCULAR HGB CONC 33.8 g/dl (32.0-36.5); MEAN CORPUSCULAR VOLUME 93.2 fl (80.0-96.0); RED BLOOD COUNT 3.97 10^6/uL (4.30-6.10); WHITE BLOOD COUNT 7.6 10^3/uL (4.0-10.0)
[2022-05-18 23:18] LABS: PLATELET COUNT, AUTOMATED 227 10^3/uL (150-450)
[2022-05-18 23:35] LABS: BILIRUBIN,DIRECT < 0.1 MG/DL (<0.4)
[2022-05-18 23:36] LABS: ACETAMINOPHEN LEVEL < 2.0 UG/ML (10.0-20.0); ALBUMIN 3.8 G/DL (3.2-5.2); ALKALINE PHOSPHATASE 159 U/L (46-116); ALT/SGPT 49 U/L (7.0-40); AST/SGOT 29 U/L (<34); BILIRUBIN,TOTAL 0.3 MG/DL (0.3-1.2); BLOOD UREA NITROGEN 21 MG/DL (9-23); CALCIUM LEVEL 9.3 MG/DL (8.3-10.6); CARBON DIOXIDE LEVEL 26 MMOL/L (20-31); CHLORIDE LEVEL 103 MMOL/L (98-107); CREATININE FOR GFR 1.11 MG/DL (0.70-1.30); GLOMERULAR FILTRATION RATE > 60.0 (>49); GLUCOSE, FASTING 214 MG/DL (74-106); POTASSIUM SERUM 3.9 MMOL/L (3.5-5.1); SALICYLATE LEVEL < 3.0 MG/DL (<30); SODIUM LEVEL 138 MMOL/L (136-145); TOTAL PROTEIN 6.8 G/DL (5.7-8.2)
[2022-05-18 23:38] LABS: ETHYL ALCOHOL (ETHANOL) 0.003 % (0.000-0.010); THYROID STIMULATING HORMONE 2.909 uIU/ML (0.55-4.78)
[2022-05-19] MEDS ORDERED: OLANZapine ORAL DISINTEGRATING TAB 5MG PO ONE ×2 (00:25→17:40)
[2022-05-19 01:21] LABS: RSV AMPLIFICATION NEGATIVE (NEGATIVE)
[2022-05-19] MEDS ORDERED: HALOPERIDOL 5MG/ML 1ML VIAL IM ONE (04:25)
[2022-05-19] MEDS ORDERED: MIDAZOLAM INJ 2MG/2ML VIAL IM ONE (04:25)
[2022-05-19] MEDS ORDERED: diphenhydrAMINE 50MG/ML VIAL IM ONE (04:25)
[2022-05-19 05:48] LABS: AMPHETAMINES LEVEL URINE NEGATIVE (NEGATIVE); BARBITURATES URINE NEGATIVE (NEGATIVE); BENZODIAZEPINES URINE NEGATIVE (NEGATIVE); CANNABINOIDS URINE NEGATIVE (NEGATIVE); COCAINE METABOLITE URINE NEGATIVE (NEGATIVE); METHADONE URINE NEGATIVE (NEGATIVE); PHENCYCLIDINE URINE NEGATIVE (NEGATIVE)
[2022-05-19 05:49] LABS: OPIATES URINE NEGATIVE (NEGATIVE)
[2022-05-19] MEDS ORDERED: MED REC COMMENT (15:51)
[2022-05-19] MEDS ORDERED: ABIL1INJ2 IM (15:51)
[2022-05-19] MEDS ORDERED: TRAZ1TAB12 PO (15:51)
[2022-05-19] MEDS ORDERED: HOME MED LIST COMPLETE! XX SCH (15:55)
[2022-05-19] MEDS ORDERED: BENZTROPINE 1 MG TAB PO ONE (19:50)
[2022-05-20] MEDS ORDERED: LORazepam 2 MG/ML 1ML VIAL IM STA (00:02)
[2022-05-20] MEDS ORDERED: traZODone 100 MG TAB PO ONE (01:00)
[2022-05-20] MEDS: NICOTINE 14 MG/24 HR TRANSDERMAL TD SCH (09:00)
[2022-05-20] MEDS: BENZTROPINE 1 MG TAB PO SCH ×2 (09:00→23:27)
[2022-05-20] MEDS ORDERED: OLANZapine INTRAMUSCULAR 10MG VIAL IM ONE (11:45)
[2022-05-20] MEDS ORDERED: MOM 30ML SUSPENSION UDC PO PRN (14:00)
[2022-05-20] MEDS ORDERED: IBUPROFEN 400MG TAB PO PRN (14:00)
[2022-05-20] MEDS ORDERED: MAALOX 30 ML SUSP *UDC PO PRN (14:00)
[2022-05-20] MEDS ORDERED: traZODone 50 MG TAB PO PRN (14:00)
[2022-05-20] MEDS ORDERED: OLANZapine ORAL DISINTEGRATING TAB 5MG PO ONE (14:20)
[2022-05-20] MEDS: OLANZapine ORAL DISINTEGRATING TAB 5MG PO PRN (18:18)
[2022-05-20] MEDS: diphenhydrAMINE 25MG CAP PO PRN (18:18)
[2022-05-20 18:21] VITALS: BP 138/92
[2022-05-20] MEDS: traZODone 100 MG TAB PO PRN (23:29)
[2022-05-21 06:52] VITALS: BP 159/83
[2022-05-21] MEDS: NICOTINE 14 MG/24 HR TRANSDERMAL TD SCH (09:00)
[2022-05-21] MEDS: BENZTROPINE 1 MG TAB PO SCH ×2 (09:44→20:30)
[2022-05-21] MEDS ORDERED: LORazepam 2 MG TAB PO ONE (10:45)
[2022-05-21] MEDS: ASPIRIN 81MG ENTERIC TABLET PO SCH (11:03)
[2022-05-21] MEDS: risperiDONE 1 MG TAB PO SCH ×2 (11:03→20:30)
[2022-05-21] MEDS: diphenhydrAMINE 25MG CAP PO PRN (11:04)
[2022-05-21] MEDS ORDERED: DEXTROSE 50% 50ML SYRINGE IV PRN (11:15)
[2022-05-21] MEDS ORDERED: GLUCAGON INJ 1MG VIAL SC PRN (11:15)
[2022-05-21] MEDS ORDERED: GLUCOSE 4GM CHEW TABLET PO PRN (11:15)
[2022-05-21] MEDS ORDERED: METF-877 PO (11:57)
[2022-05-21] MEDS ORDERED: SYNT112T2 PO (11:57)
[2022-05-21] MEDS ORDERED: ASPI81TA26 PO (11:57)
[2022-05-21] MEDS ORDERED: EZET10TA21 PO (11:57)
[2022-05-21] MEDS ORDERED: PANT40TA29 PO (11:57)
[2022-05-21] MEDS ORDERED: ATOR1TAB21 PO (11:57)
[2022-05-21] MEDS ORDERED: INSULIN LISPRO (NovoLOG) PER UNIT SC SCH ×2 (12:00→21:00)
[2022-05-21] MEDS ORDERED: LISI10TA22 PO (12:01)
[2022-05-21] MEDS: EZETIMIBE 10MG TABLET (ZETIA) PO SCH (15:11)
[2022-05-21] MEDS: PANTOPRAZOLE 40MG TAB (PROTONIX) PO SCH (15:12)
[2022-05-21] MEDS: LEVOTHYROXINE 112MCG TABLET (0.112MG) PO SCH (15:12)
[2022-05-21] MEDS: ATORVASTATIN 20 MG TAB PO SCH (15:13)
[2022-05-21] MEDS: metFORMIN (GLUCOPHAGE) 1000MG TABLET PO SCH (18:07)
[2022-05-21 19:13] VITALS: BP 137/80
[2022-05-21] MEDS: traZODone 100 MG TAB PO PRN (20:30)
[2022-05-22] MEDS: diphenhydrAMINE 25MG CAP PO PRN ×2 (00:13→11:28)
[2022-05-22] MEDS: LEVOTHYROXINE 112MCG TABLET (0.112MG) PO SCH (06:04)
[2022-05-22 07:39] LABS: CHOLESTEROL RISK RATIO 5.48 (<5); HDL CHOLESTEROL 37.4 MG/DL (>40); LDL CHOLESTEROL 97.8 MG/DL (<100)
[2022-05-22] MEDS: metFORMIN (GLUCOPHAGE) 1000MG TABLET PO SCH ×2 (08:13→17:43)
[2022-05-22] MEDS: NICOTINE 14 MG/24 HR TRANSDERMAL TD SCH (09:00)
[2022-05-22] MEDS: ATORVASTATIN 20 MG TAB PO SCH (09:26)
[2022-05-22] MEDS: EZETIMIBE 10MG TABLET (ZETIA) PO SCH (09:26)
[2022-05-22] MEDS: BENZTROPINE 1 MG TAB PO SCH ×2 (09:26→21:55)
[2022-05-22] MEDS: PANTOPRAZOLE 40MG TAB (PROTONIX) PO SCH (09:27)
[2022-05-22] MEDS: ASPIRIN 81MG ENTERIC TABLET PO SCH (09:27)
[2022-05-22] MEDS: risperiDONE 1 MG TAB PO SCH (09:27)
[2022-05-22] MEDS ORDERED: LORazepam 2 MG TAB PO ONE (11:35)
[2022-05-22] MEDS: OMEGA-3 1000MG CAPSULE PO SCH ×2 (12:12→21:55)
[2022-05-22 19:14] VITALS: BP 137/81
[2022-05-22] MEDS: risperiDONE 2 MG TAB PO SCH (21:55)
[2022-05-23] MEDS: LEVOTHYROXINE 112MCG TABLET (0.112MG) PO SCH (05:45)
[2022-05-23] MEDS: risperiDONE 2 MG TAB PO SCH ×2 (08:36→20:00)
[2022-05-23] MEDS: ASPIRIN 81MG ENTERIC TABLET PO SCH (08:36)
[2022-05-23] MEDS: BENZTROPINE 1 MG TAB PO SCH ×2 (08:36→20:00)
[2022-05-23] MEDS: OMEGA-3 1000MG CAPSULE PO SCH ×2 (08:36→20:00)
[2022-05-23] MEDS: PANTOPRAZOLE 40MG TAB (PROTONIX) PO SCH (08:36)
[2022-05-23] MEDS: metFORMIN (GLUCOPHAGE) 1000MG TABLET PO SCH ×2 (08:36→18:19)
[2022-05-23] MEDS: ATORVASTATIN 20 MG TAB PO SCH (08:36)
[2022-05-23] MEDS: EZETIMIBE 10MG TABLET (ZETIA) PO SCH (08:38)
[2022-05-23] MEDS: NICOTINE 14 MG/24 HR TRANSDERMAL TD SCH (08:39)
[2022-05-23] MEDS ORDERED: PALIPERIDONE PAL 234MG/1.5ML INJ (INVEGA)(FREE PSY INPT ONLY) IM ONE (12:00)
[2022-05-23] MEDS: OLANZapine ORAL DISINTEGRATING TAB 5MG PO PRN (19:07)
[2022-05-23] MEDS: traZODone 100 MG TAB PO PRN (20:00)
[2022-05-24] MEDS: ACETAMINOPHEN TAB 650MG DOSE (2X325MG) PO PRN ×2 (01:45→12:35)
[2022-05-24] MEDS: LEVOTHYROXINE 112MCG TABLET (0.112MG) PO SCH (05:46)
[2022-05-24 06:37] VITALS: BP 140/88
[2022-05-24] MEDS: NICOTINE 14 MG/24 HR TRANSDERMAL TD SCH (07:43)
[2022-05-24] MEDS: risperiDONE 2 MG TAB PO SCH ×2 (07:44→20:32)
[2022-05-24] MEDS: OMEGA-3 1000MG CAPSULE PO SCH ×2 (07:44→20:32)
[2022-05-24] MEDS: BENZTROPINE 1 MG TAB PO SCH ×2 (07:44→20:32)
[2022-05-24] MEDS: ASPIRIN 81MG ENTERIC TABLET PO SCH (07:44)
[2022-05-24] MEDS: PANTOPRAZOLE 40MG TAB (PROTONIX) PO SCH (07:44)
[2022-05-24] MEDS: ATORVASTATIN 20 MG TAB PO SCH (07:45)
[2022-05-24] MEDS: EZETIMIBE 10MG TABLET (ZETIA) PO SCH (07:45)
[2022-05-24] MEDS: metFORMIN (GLUCOPHAGE) 1000MG TABLET PO SCH ×2 (07:45→17:29)
[2022-05-24 17:42] VITALS: BP 143/94
[2022-05-24] MEDS: traZODone 100 MG TAB PO PRN (20:32)
[2022-05-25] MEDS: LEVOTHYROXINE 112MCG TABLET (0.112MG) PO SCH (05:43)
[2022-05-25 06:47] VITALS: BP 144/75
[2022-05-25] MEDS: metFORMIN (GLUCOPHAGE) 1000MG TABLET PO SCH ×2 (08:35→18:09)
[2022-05-25] MEDS: EZETIMIBE 10MG TABLET (ZETIA) PO SCH (08:35)
[2022-05-25] MEDS: OMEGA-3 1000MG CAPSULE PO SCH ×2 (08:36→21:12)
[2022-05-25] MEDS: BENZTROPINE 1 MG TAB PO SCH ×2 (08:36→21:12)
[2022-05-25] MEDS: ATORVASTATIN 20 MG TAB PO SCH (08:36)
[2022-05-25] MEDS: ASPIRIN 81MG ENTERIC TABLET PO SCH (08:37)
[2022-05-25] MEDS: PANTOPRAZOLE 40MG TAB (PROTONIX) PO SCH (08:37)
[2022-05-25] MEDS: risperiDONE 2 MG TAB PO SCH ×2 (08:37→21:13)
[2022-05-25] MEDS: NICOTINE 14 MG/24 HR TRANSDERMAL TD SCH (08:37)
[2022-05-25] MEDS: diphenhydrAMINE 25MG CAP PO PRN (11:19)
[2022-05-25] MEDS: OLANZapine ORAL DISINTEGRATING TAB 5MG PO PRN (11:19)
[2022-05-25 20:37] VITALS: BP 142/87
[2022-05-25] MEDS: traZODone 100 MG TAB PO PRN (21:12)
[2022-05-26 05:57] VITALS: BP 124/70
[2022-05-26] MEDS: LEVOTHYROXINE 112MCG TABLET (0.112MG) PO SCH (06:06)
[2022-05-26] MEDS: metFORMIN (GLUCOPHAGE) 1000MG TABLET PO SCH ×2 (08:39→17:02)
[2022-05-26] MEDS: OMEGA-3 1000MG CAPSULE PO SCH ×2 (08:39→21:45)
[2022-05-26] MEDS: EZETIMIBE 10MG TABLET (ZETIA) PO SCH (08:39)
[2022-05-26] MEDS: PANTOPRAZOLE 40MG TAB (PROTONIX) PO SCH (08:39)
[2022-05-26] MEDS: BENZTROPINE 1 MG TAB PO SCH ×2 (08:39→21:45)
[2022-05-26] MEDS: risperiDONE 2 MG TAB PO SCH ×2 (08:39→21:45)
[2022-05-26] MEDS: NICOTINE 14 MG/24 HR TRANSDERMAL TD SCH (08:40)
[2022-05-26] MEDS: ATORVASTATIN 20 MG TAB PO SCH (08:40)
[2022-05-26] MEDS: ASPIRIN 81MG ENTERIC TABLET PO SCH (08:40)
[2022-05-26] MEDS ORDERED: TUBERCULIN PPD 5 UNITS/0.1 ML ID ONE (10:00)
[2022-05-26 17:37] VITALS: BP 128/60
[2022-05-27] MEDS: LEVOTHYROXINE 112MCG TABLET (0.112MG) PO SCH (05:58)
[2022-05-27 06:43] VITALS: BP 132/81
[2022-05-27] MEDS: NICOTINE 14 MG/24 HR TRANSDERMAL TD SCH (08:03)
[2022-05-27] MEDS: risperiDONE 2 MG TAB PO SCH ×2 (08:04→21:21)
[2022-05-27] MEDS: ASPIRIN 81MG ENTERIC TABLET PO SCH (08:04)
[2022-05-27] MEDS: metFORMIN (GLUCOPHAGE) 1000MG TABLET PO SCH ×3 (08:04→17:51)
[2022-05-27] MEDS: BENZTROPINE 1 MG TAB PO SCH ×2 (08:04→21:21)
[2022-05-27] MEDS: EZETIMIBE 10MG TABLET (ZETIA) PO SCH (08:04)
[2022-05-27] MEDS: ATORVASTATIN 20 MG TAB PO SCH (08:04)
[2022-05-27] MEDS: PANTOPRAZOLE 40MG TAB (PROTONIX) PO SCH (08:04)
[2022-05-27] MEDS: OMEGA-3 1000MG CAPSULE PO SCH ×2 (08:04→21:21)
[2022-05-27] MEDS ORDERED: PALIPERIDONE PAL 156MG/1ML INJ(INVEGA)(FREE PSY INPT ONLY) IM ONE (09:00)
[2022-05-27] MEDS: OLANZapine ORAL DISINTEGRATING TAB 5MG PO PRN (11:51)
[2022-05-27] MEDS ORDERED: LORazepam 2 MG TAB PO ONE (12:00)
[2022-05-27 16:55] VITALS: BP 132/82
[2022-05-28] MEDS: LEVOTHYROXINE 112MCG TABLET (0.112MG) PO SCH (05:44)
[2022-05-28] MEDS: metFORMIN (GLUCOPHAGE) 1000MG TABLET PO SCH ×2 (08:13→17:14)
[2022-05-28] MEDS: EZETIMIBE 10MG TABLET (ZETIA) PO SCH (08:14)
[2022-05-28] MEDS: PANTOPRAZOLE 40MG TAB (PROTONIX) PO SCH (08:14)
[2022-05-28] MEDS: BENZTROPINE 1 MG TAB PO SCH ×2 (08:14→20:40)
[2022-05-28] MEDS: risperiDONE 2 MG TAB PO SCH ×2 (08:14→20:40)
[2022-05-28] MEDS: OMEGA-3 1000MG CAPSULE PO SCH ×2 (08:14→20:39)
[2022-05-28] MEDS: ATORVASTATIN 20 MG TAB PO SCH (08:14)
[2022-05-28] MEDS: ASPIRIN 81MG ENTERIC TABLET PO SCH (08:14)
[2022-05-28] MEDS: NICOTINE 14 MG/24 HR TRANSDERMAL TD SCH (08:14)
[2022-05-28] MEDS ORDERED: PPD DOCUMENTATION ENTRY MISC XX ONE (10:00)
[2022-05-28] MEDS: DIVALPROEX 250MG *ER* TAB PO SCH ×2 (11:47→20:40)
[2022-05-28] MEDS: OLANZapine ORAL DISINTEGRATING TAB 5MG PO PRN (15:37)
[2022-05-28 16:21] VITALS: BP 148/70
[2022-05-29] MEDS: LEVOTHYROXINE 112MCG TABLET (0.112MG) PO SCH (06:16)
[2022-05-29 07:03] VITALS: BP 105/73
[2022-05-29] MEDS: metFORMIN (GLUCOPHAGE) 1000MG TABLET PO SCH ×2 (08:46→18:42)
[2022-05-29] MEDS: EZETIMIBE 10MG TABLET (ZETIA) PO SCH (09:27)
[2022-05-29] MEDS: DIVALPROEX 250MG *ER* TAB PO SCH ×2 (09:27→20:25)
[2022-05-29] MEDS: risperiDONE 2 MG TAB PO SCH ×2 (09:27→20:25)
[2022-05-29] MEDS: BENZTROPINE 1 MG TAB PO SCH ×2 (09:27→20:25)
[2022-05-29] MEDS: ASPIRIN 81MG ENTERIC TABLET PO SCH (09:27)
[2022-05-29] MEDS: PANTOPRAZOLE 40MG TAB (PROTONIX) PO SCH (09:28)
[2022-05-29] MEDS: NICOTINE 14 MG/24 HR TRANSDERMAL TD SCH (09:28)
[2022-05-29] MEDS: ATORVASTATIN 20 MG TAB PO SCH (09:28)
[2022-05-29] MEDS: OMEGA-3 1000MG CAPSULE PO SCH ×2 (09:28→20:25)
[2022-05-29 09:33] VITALS: BP 117/70
[2022-05-29] MEDS: diphenhydrAMINE 25MG CAP PO PRN (10:05)
[2022-05-29] MEDS: OLANZapine ORAL DISINTEGRATING TAB 5MG PO PRN (10:05)
[2022-05-29] MEDS: traZODone 100 MG TAB PO PRN (20:25)
[2022-05-30] MEDS: LEVOTHYROXINE 112MCG TABLET (0.112MG) PO SCH (06:00)
[2022-05-30 06:02] VITALS: BP 138/72
[2022-05-30] MEDS: OMEGA-3 1000MG CAPSULE PO SCH ×2 (08:21→20:27)
[2022-05-30] MEDS: NICOTINE 14 MG/24 HR TRANSDERMAL TD SCH (08:21)
[2022-05-30] MEDS: ATORVASTATIN 20 MG TAB PO SCH (08:21)
[2022-05-30] MEDS: risperiDONE 2 MG TAB PO SCH ×2 (08:21→20:27)
[2022-05-30] MEDS: DIVALPROEX 250MG *ER* TAB PO SCH ×2 (08:21→20:28)
[2022-05-30] MEDS: ASPIRIN 81MG ENTERIC TABLET PO SCH (08:21)
[2022-05-30] MEDS: metFORMIN (GLUCOPHAGE) 1000MG TABLET PO SCH ×2 (08:21→17:44)
[2022-05-30] MEDS: PANTOPRAZOLE 40MG TAB (PROTONIX) PO SCH (08:21)
[2022-05-30] MEDS: EZETIMIBE 10MG TABLET (ZETIA) PO SCH (08:21)
[2022-05-30] MEDS: BENZTROPINE 1 MG TAB PO SCH ×2 (08:22→20:27)
[2022-05-30 16:50] VITALS: BP 128/64
[2022-05-30] MEDS: traZODone 100 MG TAB PO PRN (20:27)
[2022-05-31] MEDS: LEVOTHYROXINE 112MCG TABLET (0.112MG) PO SCH (05:58)
[2022-05-31 06:26] VITALS: BP 135/59
[2022-05-31] MEDS: risperiDONE 2 MG TAB PO SCH ×2 (07:35→20:36)
[2022-05-31] MEDS: ATORVASTATIN 20 MG TAB PO SCH (07:35)
[2022-05-31] MEDS: EZETIMIBE 10MG TABLET (ZETIA) PO SCH (07:35)
[2022-05-31] MEDS: PANTOPRAZOLE 40MG TAB (PROTONIX) PO SCH (07:35)
[2022-05-31] MEDS: BENZTROPINE 1 MG TAB PO SCH ×2 (07:36→20:36)
[2022-05-31] MEDS: OMEGA-3 1000MG CAPSULE PO SCH ×2 (07:36→20:36)
[2022-05-31] MEDS: metFORMIN (GLUCOPHAGE) 1000MG TABLET PO SCH ×2 (07:36→18:12)
[2022-05-31] MEDS: DIVALPROEX 250MG *ER* TAB PO SCH ×2 (07:36→20:36)
[2022-05-31] MEDS: ASPIRIN 81MG ENTERIC TABLET PO SCH (07:36)
[2022-05-31] MEDS: NICOTINE 14 MG/24 HR TRANSDERMAL TD SCH (07:37)
[2022-05-31] MEDS ORDERED: PALIPERIDONE PAL 156MG/1ML INJ(INVEGA)(FREE PSY INPT ONLY) IM ONE (09:05)
[2022-05-31] MEDS: OLANZapine ORAL DISINTEGRATING TAB 5MG PO PRN (12:42)
[2022-05-31 17:00] VITALS: BP 158/84
[2022-05-31] MEDS: diphenhydrAMINE 25MG CAP PO PRN (19:26)
[2022-05-31] MEDS ORDERED: LORazepam 2 MG TAB PO STA (19:27)
[2022-06-01] MEDS: LEVOTHYROXINE 112MCG TABLET (0.112MG) PO SCH (06:13)
[2022-06-01 06:47] VITALS: BP 144/85
[2022-06-01] MEDS: NICOTINE 14 MG/24 HR TRANSDERMAL TD SCH (07:34)
[2022-06-01] MEDS: risperiDONE 2 MG TAB PO SCH ×2 (07:34→21:21)
[2022-06-01] MEDS: ASPIRIN 81MG ENTERIC TABLET PO SCH (07:34)
[2022-06-01] MEDS: EZETIMIBE 10MG TABLET (ZETIA) PO SCH (07:34)
[2022-06-01] MEDS: metFORMIN (GLUCOPHAGE) 1000MG TABLET PO SCH ×2 (07:34→17:56)
[2022-06-01] MEDS: DIVALPROEX 250MG *ER* TAB PO SCH ×2 (07:35→21:21)
[2022-06-01] MEDS: BENZTROPINE 1 MG TAB PO SCH ×2 (07:35→21:21)
[2022-06-01] MEDS: PANTOPRAZOLE 40MG TAB (PROTONIX) PO SCH (07:35)
[2022-06-01] MEDS: OMEGA-3 1000MG CAPSULE PO SCH ×2 (07:35→21:21)
[2022-06-01] MEDS: ATORVASTATIN 20 MG TAB PO SCH (07:35)
[2022-06-01 16:32] VITALS: BP 138/70
[2022-06-02] MEDS: LEVOTHYROXINE 112MCG TABLET (0.112MG) PO SCH (05:39)
[2022-06-02 06:18] VITALS: BP 127/75
[2022-06-02] MEDS: risperiDONE 2 MG TAB PO SCH ×2 (08:43→21:13)
[2022-06-02] MEDS: EZETIMIBE 10MG TABLET (ZETIA) PO SCH (08:43)
[2022-06-02] MEDS: BENZTROPINE 1 MG TAB PO SCH ×2 (08:43→21:13)
[2022-06-02] MEDS: metFORMIN (GLUCOPHAGE) 1000MG TABLET PO SCH ×2 (08:43→17:27)
[2022-06-02] MEDS: ASPIRIN 81MG ENTERIC TABLET PO SCH (08:43)
[2022-06-02] MEDS: OMEGA-3 1000MG CAPSULE PO SCH ×2 (08:43→21:13)
[2022-06-02] MEDS: DIVALPROEX 250MG *ER* TAB PO SCH ×2 (08:43→21:13)
[2022-06-02] MEDS: PANTOPRAZOLE 40MG TAB (PROTONIX) PO SCH (08:43)
[2022-06-02] MEDS: ATORVASTATIN 20 MG TAB PO SCH (08:43)
[2022-06-02] MEDS: NICOTINE 14 MG/24 HR TRANSDERMAL TD SCH (08:44)
[2022-06-02 18:34] VITALS: BP 132/82
[2022-06-03] MEDS: LEVOTHYROXINE 112MCG TABLET (0.112MG) PO SCH (05:33)
[2022-06-03 05:57] VITALS: BP 139/76
[2022-06-03] MEDS: PANTOPRAZOLE 40MG TAB (PROTONIX) PO SCH (08:42)
[2022-06-03] MEDS: ASPIRIN 81MG ENTERIC TABLET PO SCH (08:42)
[2022-06-03] MEDS: DIVALPROEX 250MG *ER* TAB PO SCH (08:42)
[2022-06-03] MEDS: OMEGA-3 1000MG CAPSULE PO SCH ×2 (08:42→20:26)
[2022-06-03] MEDS: risperiDONE 2 MG TAB PO SCH ×2 (08:42→20:25)
[2022-06-03] MEDS: BENZTROPINE 1 MG TAB PO SCH ×2 (08:43→20:26)
[2022-06-03] MEDS: NICOTINE 14 MG/24 HR TRANSDERMAL TD SCH (08:43)
[2022-06-03] MEDS: metFORMIN (GLUCOPHAGE) 1000MG TABLET PO SCH ×2 (08:43→18:02)
[2022-06-03] MEDS: ATORVASTATIN 20 MG TAB PO SCH (08:43)
[2022-06-03] MEDS: EZETIMIBE 10MG TABLET (ZETIA) PO SCH (08:45)
[2022-06-03 18:19] VITALS: BP 140/82
[2022-06-03] MEDS: DIVALPROEX 500MG *ER* TAB PO SCH (20:26)
[2022-06-03] MEDS: traZODone 100 MG TAB PO PRN (20:26)
[2022-06-03] MEDS ORDERED: OMEGA-3 1000MG CAPSULE PO SCH (21:00)
[2022-06-04] MEDS: LEVOTHYROXINE 112MCG TABLET (0.112MG) PO SCH (06:04)
[2022-06-04 06:30] VITALS: BP 140/71
[2022-06-04] MEDS: metFORMIN (GLUCOPHAGE) 1000MG TABLET PO SCH ×2 (08:09→17:52)
[2022-06-04] MEDS: DIVALPROEX 500MG *ER* TAB PO SCH ×2 (08:17→19:50)
[2022-06-04] MEDS: EZETIMIBE 10MG TABLET (ZETIA) PO SCH (08:17)
[2022-06-04] MEDS: OMEGA-3 1000MG CAPSULE PO SCH ×2 (08:18→19:50)
[2022-06-04] MEDS: BENZTROPINE 1 MG TAB PO SCH ×2 (08:18→19:50)
[2022-06-04] MEDS: ATORVASTATIN 20 MG TAB PO SCH (08:18)
[2022-06-04] MEDS: ASPIRIN 81MG ENTERIC TABLET PO SCH (08:19)
[2022-06-04] MEDS: risperiDONE 2 MG TAB PO SCH ×2 (08:19→19:50)
[2022-06-04] MEDS: PANTOPRAZOLE 40MG TAB (PROTONIX) PO SCH (08:19)
[2022-06-04] MEDS: NICOTINE 14 MG/24 HR TRANSDERMAL TD SCH (08:19)
[2022-06-04 19:21] VITALS: BP 131/81
[2022-06-04] MEDS: OLANZapine ORAL DISINTEGRATING TAB 5MG PO PRN (20:15)
[2022-06-04] MEDS: diphenhydrAMINE 25MG CAP PO PRN (20:15)
[2022-06-05] MEDS: LEVOTHYROXINE 112MCG TABLET (0.112MG) PO SCH ×2 (05:51→10:32)
[2022-06-05 06:57] VITALS: BP 138/75
[2022-06-05] MEDS: metFORMIN (GLUCOPHAGE) 1000MG TABLET PO SCH ×3 (08:00→17:14)
[2022-06-05] MEDS: NICOTINE 14 MG/24 HR TRANSDERMAL TD SCH ×2 (09:00→10:32)
[2022-06-05] MEDS: BENZTROPINE 1 MG TAB PO SCH ×3 (09:00→20:17)
[2022-06-05] MEDS: OMEGA-3 1000MG CAPSULE PO SCH ×3 (09:00→20:17)
[2022-06-05] MEDS: risperiDONE 2 MG TAB PO SCH ×3 (09:00→20:17)
[2022-06-05] MEDS: EZETIMIBE 10MG TABLET (ZETIA) PO SCH ×2 (09:00→10:33)
[2022-06-05] MEDS: PANTOPRAZOLE 40MG TAB (PROTONIX) PO SCH ×2 (09:00→10:32)
[2022-06-05] MEDS: ATORVASTATIN 20 MG TAB PO SCH ×2 (09:00→10:32)
[2022-06-05] MEDS: DIVALPROEX 500MG *ER* TAB PO SCH ×3 (09:00→20:17)
[2022-06-05] MEDS: ASPIRIN 81MG ENTERIC TABLET PO SCH ×2 (09:00→10:32)
[2022-06-06] MEDS: LEVOTHYROXINE 112MCG TABLET (0.112MG) PO SCH (06:00)
[2022-06-06] MEDS: metFORMIN (GLUCOPHAGE) 1000MG TABLET PO SCH ×2 (07:45→17:00)
[2022-06-06] MEDS: DIVALPROEX 500MG *ER* TAB PO SCH ×2 (08:32→20:08)
[2022-06-06] MEDS: PANTOPRAZOLE 40MG TAB (PROTONIX) PO SCH (08:32)
[2022-06-06] MEDS: OMEGA-3 1000MG CAPSULE PO SCH ×2 (08:32→20:07)
[2022-06-06] MEDS: BENZTROPINE 1 MG TAB PO SCH ×2 (08:35→20:07)
[2022-06-06] MEDS: EZETIMIBE 10MG TABLET (ZETIA) PO SCH (08:35)
[2022-06-06] MEDS: ASPIRIN 81MG ENTERIC TABLET PO SCH (08:35)
[2022-06-06] MEDS: ATORVASTATIN 20 MG TAB PO SCH (08:35)
[2022-06-06] MEDS: risperiDONE 2 MG TAB PO SCH ×2 (08:35→20:07)
[2022-06-06] MEDS: NICOTINE 14 MG/24 HR TRANSDERMAL TD SCH (08:36)
[2022-06-06 18:34] VITALS: BP 117/75
[2022-06-07] MEDS: LEVOTHYROXINE 112MCG TABLET (0.112MG) PO SCH (05:44)
[2022-06-07 06:59] VITALS: BP 144/74
[2022-06-07] MEDS: metFORMIN (GLUCOPHAGE) 1000MG TABLET PO SCH ×2 (08:49→17:18)
[2022-06-07] MEDS: ASPIRIN 81MG ENTERIC TABLET PO SCH (08:49)
[2022-06-07] MEDS: ATORVASTATIN 20 MG TAB PO SCH (08:49)
[2022-06-07] MEDS: risperiDONE 2 MG TAB PO SCH ×2 (08:49→20:58)
[2022-06-07] MEDS: OMEGA-3 1000MG CAPSULE PO SCH ×2 (08:49→20:58)
[2022-06-07] MEDS: BENZTROPINE 1 MG TAB PO SCH ×2 (08:49→20:57)
[2022-06-07] MEDS: DIVALPROEX 500MG *ER* TAB PO SCH ×2 (08:49→20:58)
[2022-06-07] MEDS: EZETIMIBE 10MG TABLET (ZETIA) PO SCH (08:49)
[2022-06-07] MEDS: PANTOPRAZOLE 40MG TAB (PROTONIX) PO SCH (08:49)
[2022-06-07] MEDS: NICOTINE 14 MG/24 HR TRANSDERMAL TD SCH (08:50)
[2022-06-07 18:20] VITALS: BP 158/84
[2022-06-08] MEDS: LEVOTHYROXINE 112MCG TABLET (0.112MG) PO SCH (05:53)
[2022-06-08 05:58] VITALS: BP 115/65
[2022-06-08] MEDS: BENZTROPINE 1 MG TAB PO SCH ×2 (08:25→21:09)
[2022-06-08] MEDS: ASPIRIN 81MG ENTERIC TABLET PO SCH (08:25)
[2022-06-08] MEDS: PANTOPRAZOLE 40MG TAB (PROTONIX) PO SCH (08:25)
[2022-06-08] MEDS: ATORVASTATIN 20 MG TAB PO SCH (08:25)
[2022-06-08] MEDS: metFORMIN (GLUCOPHAGE) 1000MG TABLET PO SCH ×2 (08:25→17:06)
[2022-06-08] MEDS: OMEGA-3 1000MG CAPSULE PO SCH ×2 (08:25→21:09)
[2022-06-08] MEDS: DIVALPROEX 500MG *ER* TAB PO SCH ×2 (08:25→21:09)
[2022-06-08] MEDS: risperiDONE 2 MG TAB PO SCH ×2 (08:25→21:09)
[2022-06-08] MEDS: EZETIMIBE 10MG TABLET (ZETIA) PO SCH (08:25)
[2022-06-08] MEDS: NICOTINE 14 MG/24 HR TRANSDERMAL TD SCH (08:26)
[2022-06-08 16:59] LABS: CK-MB VALUE MASS < 1.0 NG/ML (<3.6)
[2022-06-08 17:01] LABS: CPK CREATINE PHOSPHOKINASE 81 U/L (46-171); MB/CK RELATIVE INDEX 1.23 (< OR =4)
[2022-06-08 18:13] VITALS: BP 135/65
[2022-06-09] MEDS: LEVOTHYROXINE 112MCG TABLET (0.112MG) PO SCH (05:28)
[2022-06-09 06:26] VITALS: BP 149/79
[2022-06-09] MEDS: NICOTINE 14 MG/24 HR TRANSDERMAL TD SCH (07:55)
[2022-06-09] MEDS: ASPIRIN 81MG ENTERIC TABLET PO SCH (07:55)
[2022-06-09] MEDS: ATORVASTATIN 20 MG TAB PO SCH (07:55)
[2022-06-09] MEDS: metFORMIN (GLUCOPHAGE) 1000MG TABLET PO SCH ×2 (07:55→17:15)
[2022-06-09] MEDS: DIVALPROEX 500MG *ER* TAB PO SCH ×2 (07:56→21:06)
[2022-06-09] MEDS: OMEGA-3 1000MG CAPSULE PO SCH ×2 (07:56→21:06)
[2022-06-09] MEDS: risperiDONE 2 MG TAB PO SCH ×2 (07:56→21:06)
[2022-06-09] MEDS: PANTOPRAZOLE 40MG TAB (PROTONIX) PO SCH (07:56)
[2022-06-09] MEDS: BENZTROPINE 1 MG TAB PO SCH ×2 (07:57→21:06)
[2022-06-09] MEDS: EZETIMIBE 10MG TABLET (ZETIA) PO SCH (07:57)
[2022-06-10] MEDS: OLANZapine ORAL DISINTEGRATING TAB 5MG PO PRN (02:22)
[2022-06-10] MEDS: LEVOTHYROXINE 112MCG TABLET (0.112MG) PO SCH (06:06)
[2022-06-10 06:09] VITALS: BP 134/73
[2022-06-10] MEDS: PANTOPRAZOLE 40MG TAB (PROTONIX) PO SCH (08:15)
[2022-06-10] MEDS: ATORVASTATIN 20 MG TAB PO SCH (08:15)
[2022-06-10] MEDS: EZETIMIBE 10MG TABLET (ZETIA) PO SCH (08:15)
[2022-06-10] MEDS: ASPIRIN 81MG ENTERIC TABLET PO SCH (08:15)
[2022-06-10] MEDS: DIVALPROEX 500MG *ER* TAB PO SCH ×2 (08:15→20:10)
[2022-06-10] MEDS: OMEGA-3 1000MG CAPSULE PO SCH ×2 (08:15→20:10)
[2022-06-10] MEDS: metFORMIN (GLUCOPHAGE) 1000MG TABLET PO SCH ×2 (08:16→17:48)
[2022-06-10] MEDS: NICOTINE 14 MG/24 HR TRANSDERMAL TD SCH (08:16)
[2022-06-10] MEDS: BENZTROPINE 1 MG TAB PO SCH ×2 (08:17→20:10)
[2022-06-10] MEDS: risperiDONE 2 MG TAB PO SCH ×2 (08:17→20:10)
[2022-06-10] MEDS: ACETAMINOPHEN TAB 650MG DOSE (2X325MG) PO PRN (10:48)
[2022-06-10 17:27] VITALS: BP 124/70
[2022-06-11] MEDS: LEVOTHYROXINE 112MCG TABLET (0.112MG) PO SCH (06:02)
[2022-06-11 06:49] VITALS: BP 142/74
[2022-06-11] MEDS: NICOTINE 14 MG/24 HR TRANSDERMAL TD SCH (08:17)
[2022-06-11] MEDS: EZETIMIBE 10MG TABLET (ZETIA) PO SCH (08:18)
[2022-06-11] MEDS: metFORMIN (GLUCOPHAGE) 1000MG TABLET PO SCH ×2 (08:18→18:00)
[2022-06-11] MEDS: DIVALPROEX 500MG *ER* TAB PO SCH ×2 (08:18→20:45)
[2022-06-11] MEDS: PANTOPRAZOLE 40MG TAB (PROTONIX) PO SCH (08:18)
[2022-06-11] MEDS: BENZTROPINE 1 MG TAB PO SCH ×2 (08:18→20:45)
[2022-06-11] MEDS: ASPIRIN 81MG ENTERIC TABLET PO SCH (08:18)
[2022-06-11] MEDS: OMEGA-3 1000MG CAPSULE PO SCH ×2 (08:18→20:45)
[2022-06-11] MEDS: ATORVASTATIN 20 MG TAB PO SCH (08:19)
[2022-06-11] MEDS: risperiDONE 2 MG TAB PO SCH ×2 (08:19→20:45)
[2022-06-11] MEDS: ACETAMINOPHEN TAB 650MG DOSE (2X325MG) PO PRN (08:20)
[2022-06-11] MEDS: traZODone 100 MG TAB PO PRN (20:45)
[2022-06-12] MEDS: LEVOTHYROXINE 112MCG TABLET (0.112MG) PO SCH (05:43)
[2022-06-12 06:22] VITALS: BP 141/77
[2022-06-12] MEDS: OMEGA-3 1000MG CAPSULE PO SCH ×2 (08:39→20:04)
[2022-06-12] MEDS: DIVALPROEX 500MG *ER* TAB PO SCH ×2 (08:40→20:04)
[2022-06-12] MEDS: PANTOPRAZOLE 40MG TAB (PROTONIX) PO SCH (08:41)
[2022-06-12] MEDS: EZETIMIBE 10MG TABLET (ZETIA) PO SCH (08:41)
[2022-06-12] MEDS: metFORMIN (GLUCOPHAGE) 1000MG TABLET PO SCH ×2 (08:41→17:19)
[2022-06-12] MEDS: ATORVASTATIN 20 MG TAB PO SCH (08:41)
[2022-06-12] MEDS: BENZTROPINE 1 MG TAB PO SCH ×2 (08:42→20:05)
[2022-06-12] MEDS: risperiDONE 2 MG TAB PO SCH ×2 (08:42→20:04)
[2022-06-12] MEDS: ASPIRIN 81MG ENTERIC TABLET PO SCH (08:42)
[2022-06-12] MEDS: NICOTINE 14 MG/24 HR TRANSDERMAL TD SCH (09:00)
[2022-06-12] MEDS: OLANZapine ORAL DISINTEGRATING TAB 5MG PO PRN (14:56)
[2022-06-12] MEDS: ACETAMINOPHEN TAB 650MG DOSE (2X325MG) PO PRN (14:56)
[2022-06-12] MEDS: diphenhydrAMINE 25MG CAP PO PRN (15:57)
[2022-06-12] MEDS ORDERED: IBUPROFEN 600MG TAB PO PRN (16:00)
[2022-06-12] MEDS ORDERED: HALOPERIDOL 5MG/ML 1ML VIAL IM PRN (16:00)
[2022-06-12 18:59] VITALS: BP 126/70
[2022-06-13] MEDS: LEVOTHYROXINE 112MCG TABLET (0.112MG) PO SCH (05:42)
[2022-06-13 06:10] VITALS: BP 141/73
[2022-06-13] MEDS: DIVALPROEX 500MG *ER* TAB PO SCH ×2 (08:07→21:28)
[2022-06-13] MEDS: ATORVASTATIN 20 MG TAB PO SCH (08:07)
[2022-06-13] MEDS: OMEGA-3 1000MG CAPSULE PO SCH ×2 (08:07→21:28)
[2022-06-13] MEDS: EZETIMIBE 10MG TABLET (ZETIA) PO SCH (08:07)
[2022-06-13] MEDS: metFORMIN (GLUCOPHAGE) 1000MG TABLET PO SCH ×2 (08:07→17:45)
[2022-06-13] MEDS: NICOTINE 14 MG/24 HR TRANSDERMAL TD SCH (08:08)
[2022-06-13] MEDS: ASPIRIN 81MG ENTERIC TABLET PO SCH (08:08)
[2022-06-13] MEDS: risperiDONE 2 MG TAB PO SCH ×2 (08:08→21:28)
[2022-06-13] MEDS: PANTOPRAZOLE 40MG TAB (PROTONIX) PO SCH (08:08)
[2022-06-13] MEDS: BENZTROPINE 1 MG TAB PO SCH ×2 (08:08→21:28)
[2022-06-13] MEDS: ACETAMINOPHEN TAB 650MG DOSE (2X325MG) PO PRN (12:58)
[2022-06-13 16:20] VITALS: BP 130/73
[2022-06-13] MEDS: CARBAMIDE PEROXIDE 6.5% OTIC SOLN 15ML AU SCH (18:31)
[2022-06-14] MEDS: LEVOTHYROXINE 112MCG TABLET (0.112MG) PO SCH (06:09)
[2022-06-14 06:40] VITALS: BP 137/87
[2022-06-14] MEDS: CARBAMIDE PEROXIDE 6.5% OTIC SOLN 15ML AU SCH ×2 (08:13→20:53)
[2022-06-14] MEDS: risperiDONE 2 MG TAB PO SCH ×2 (08:13→20:53)
[2022-06-14] MEDS: NICOTINE 14 MG/24 HR TRANSDERMAL TD SCH (08:13)
[2022-06-14] MEDS: ASPIRIN 81MG ENTERIC TABLET PO SCH (08:13)
[2022-06-14] MEDS: EZETIMIBE 10MG TABLET (ZETIA) PO SCH (08:14)
[2022-06-14] MEDS: BENZTROPINE 1 MG TAB PO SCH ×2 (08:14→20:53)
[2022-06-14] MEDS: DIVALPROEX 500MG *ER* TAB PO SCH ×2 (08:14→20:53)
[2022-06-14] MEDS: PANTOPRAZOLE 40MG TAB (PROTONIX) PO SCH (08:14)
[2022-06-14] MEDS: OMEGA-3 1000MG CAPSULE PO SCH ×2 (08:14→20:53)
[2022-06-14] MEDS: metFORMIN (GLUCOPHAGE) 1000MG TABLET PO SCH ×2 (08:14→18:01)
[2022-06-14] MEDS: ATORVASTATIN 20 MG TAB PO SCH (08:14)
[2022-06-14] MEDS: ACETAMINOPHEN TAB 650MG DOSE (2X325MG) PO PRN (08:15)
[2022-06-14 16:55] VITALS: BP 129/62
[2022-06-15] MEDS: LEVOTHYROXINE 112MCG TABLET (0.112MG) PO SCH (06:06)
[2022-06-15 06:18] VITALS: BP 161/76
[2022-06-15] MEDS: metFORMIN (GLUCOPHAGE) 1000MG TABLET PO SCH ×2 (08:14→17:07)
[2022-06-15] MEDS: OMEGA-3 1000MG CAPSULE PO SCH ×2 (08:14→20:24)
[2022-06-15] MEDS: BENZTROPINE 1 MG TAB PO SCH ×2 (08:14→20:24)
[2022-06-15] MEDS: DIVALPROEX 500MG *ER* TAB PO SCH ×2 (08:14→20:24)
[2022-06-15] MEDS: ATORVASTATIN 20 MG TAB PO SCH (08:14)
[2022-06-15] MEDS: EZETIMIBE 10MG TABLET (ZETIA) PO SCH (08:14)
[2022-06-15] MEDS: risperiDONE 2 MG TAB PO SCH ×2 (08:15→20:24)
[2022-06-15] MEDS: PANTOPRAZOLE 40MG TAB (PROTONIX) PO SCH (08:15)
[2022-06-15] MEDS: ASPIRIN 81MG ENTERIC TABLET PO SCH (08:15)
[2022-06-15] MEDS: NICOTINE 14 MG/24 HR TRANSDERMAL TD SCH (08:15)
[2022-06-15] MEDS: CARBAMIDE PEROXIDE 6.5% OTIC SOLN 15ML AU SCH ×2 (08:16→20:25)
[2022-06-15] MEDS: ACETAMINOPHEN TAB 650MG DOSE (2X325MG) PO PRN (09:46)
[2022-06-15 16:30] VITALS: BP 147/70
[2022-06-16] MEDS: LEVOTHYROXINE 112MCG TABLET (0.112MG) PO SCH (05:47)
[2022-06-16] MEDS: ACETAMINOPHEN TAB 650MG DOSE (2X325MG) PO PRN ×2 (06:38→13:31)
[2022-06-16 06:42] VITALS: BP 148/89
[2022-06-16] MEDS: diphenhydrAMINE 25MG CAP PO PRN (07:47)
[2022-06-16] MEDS: BENZTROPINE 1 MG TAB PO SCH ×2 (07:47→20:42)
[2022-06-16] MEDS: OMEGA-3 1000MG CAPSULE PO SCH ×2 (07:47→20:42)
[2022-06-16] MEDS: risperiDONE 2 MG TAB PO SCH ×2 (07:48→20:42)
[2022-06-16] MEDS: metFORMIN (GLUCOPHAGE) 1000MG TABLET PO SCH ×2 (07:48→17:11)
[2022-06-16] MEDS: ATORVASTATIN 20 MG TAB PO SCH (07:49)
[2022-06-16] MEDS: DIVALPROEX 500MG *ER* TAB PO SCH ×2 (07:49→20:42)
[2022-06-16] MEDS: ASPIRIN 81MG ENTERIC TABLET PO SCH (07:49)
[2022-06-16] MEDS: EZETIMIBE 10MG TABLET (ZETIA) PO SCH (07:49)
[2022-06-16] MEDS: PANTOPRAZOLE 40MG TAB (PROTONIX) PO SCH (07:51)
[2022-06-16] MEDS: NICOTINE 14 MG/24 HR TRANSDERMAL TD SCH (07:52)
[2022-06-16] MEDS: CARBAMIDE PEROXIDE 6.5% OTIC SOLN 15ML AU SCH ×2 (07:55→21:50)
[2022-06-16 17:48] VITALS: BP 146/75
[2022-06-16] MEDS: traZODone 100 MG TAB PO PRN (20:42)
[2022-06-17 06:17] VITALS: BP 153/79
[2022-06-17] MEDS: LEVOTHYROXINE 112MCG TABLET (0.112MG) PO SCH (06:30)
[2022-06-17] MEDS: risperiDONE 2 MG TAB PO SCH ×2 (08:20→20:53)
[2022-06-17] MEDS: BENZTROPINE 1 MG TAB PO SCH ×2 (08:20→20:53)
[2022-06-17] MEDS: ASPIRIN 81MG ENTERIC TABLET PO SCH (08:20)
[2022-06-17] MEDS: DIVALPROEX 500MG *ER* TAB PO SCH ×2 (08:22→20:54)
[2022-06-17] MEDS: PANTOPRAZOLE 40MG TAB (PROTONIX) PO SCH (08:22)
[2022-06-17] MEDS: OMEGA-3 1000MG CAPSULE PO SCH ×2 (08:22→20:53)
[2022-06-17] MEDS: ATORVASTATIN 20 MG TAB PO SCH (08:22)
[2022-06-17] MEDS: EZETIMIBE 10MG TABLET (ZETIA) PO SCH (08:23)
[2022-06-17] MEDS: metFORMIN (GLUCOPHAGE) 1000MG TABLET PO SCH ×2 (08:23→17:34)
[2022-06-17] MEDS: NICOTINE 14 MG/24 HR TRANSDERMAL TD SCH (08:24)
[2022-06-17] MEDS: CARBAMIDE PEROXIDE 6.5% OTIC SOLN 15ML AU SCH ×2 (08:25→20:54)
[2022-06-17] MEDS ORDERED: PALIPERIDONE PAL 156MG/1ML INJ(INVEGA)(FREE PSY INPT ONLY) IM ONE (12:00)
[2022-06-17] MEDS: ACETAMINOPHEN TAB 650MG DOSE (2X325MG) PO PRN (13:15)
[2022-06-17 18:10] VITALS: BP 150/79
[2022-06-18] MEDS: LEVOTHYROXINE 112MCG TABLET (0.112MG) PO SCH (05:44)
[2022-06-18 06:28] VITALS: BP 137/71
[2022-06-18] MEDS: OMEGA-3 1000MG CAPSULE PO SCH ×2 (09:59→20:53)
[2022-06-18] MEDS: PANTOPRAZOLE 40MG TAB (PROTONIX) PO SCH (09:59)
[2022-06-18] MEDS: NICOTINE 14 MG/24 HR TRANSDERMAL TD SCH (09:59)
[2022-06-18] MEDS: risperiDONE 2 MG TAB PO SCH ×2 (09:59→20:53)
[2022-06-18] MEDS: BENZTROPINE 1 MG TAB PO SCH ×2 (09:59→20:53)
[2022-06-18] MEDS: EZETIMIBE 10MG TABLET (ZETIA) PO SCH (09:59)
[2022-06-18] MEDS: DIVALPROEX 500MG *ER* TAB PO SCH ×2 (09:59→20:53)
[2022-06-18] MEDS: CARBAMIDE PEROXIDE 6.5% OTIC SOLN 15ML AU SCH ×2 (10:00→20:53)
[2022-06-18] MEDS: ASPIRIN 81MG ENTERIC TABLET PO SCH (10:04)
[2022-06-18] MEDS: ATORVASTATIN 20 MG TAB PO SCH (10:04)
[2022-06-18] MEDS: metFORMIN (GLUCOPHAGE) 1000MG TABLET PO SCH ×2 (10:06→17:30)
[2022-06-18 17:57] VITALS: BP 131/75
[2022-06-19] MEDS: LEVOTHYROXINE 112MCG TABLET (0.112MG) PO SCH (06:00)
[2022-06-19 06:34] VITALS: BP 120/63
[2022-06-19] MEDS: BENZTROPINE 1 MG TAB PO SCH (08:41)
[2022-06-19] MEDS: OMEGA-3 1000MG CAPSULE PO SCH (08:41)
[2022-06-19] MEDS: ATORVASTATIN 20 MG TAB PO SCH (08:41)
[2022-06-19 08:42] VITALS: BP 138/73
[2022-06-19] MEDS: risperiDONE 2 MG TAB PO SCH (08:42)
[2022-06-19] MEDS: EZETIMIBE 10MG TABLET (ZETIA) PO SCH (08:42)
[2022-06-19] MEDS: DIVALPROEX 500MG *ER* TAB PO SCH (08:42)
[2022-06-19] MEDS: metFORMIN (GLUCOPHAGE) 1000MG TABLET PO SCH (08:42)
[2022-06-19] MEDS: PANTOPRAZOLE 40MG TAB (PROTONIX) PO SCH (08:42)
[2022-06-19] MEDS: ASPIRIN 81MG ENTERIC TABLET PO SCH (08:42)
[2022-06-19] MEDS: NICOTINE 14 MG/24 HR TRANSDERMAL TD SCH (08:43)
[2022-06-19] MEDS: CARBAMIDE PEROXIDE 6.5% OTIC SOLN 15ML AU SCH (08:43)
[2022-06-19] MEDS ORDERED: HALO5TAB33 PO (11:44)
[2022-06-19] MEDS ORDERED: RISP-9 PO (11:44)
[2022-06-19] MEDS ORDERED: ABIL1TAB11 PO (11:44)
[2022-06-19] MEDS ORDERED: FISH1CAP26 PO (11:44)
[2022-06-19] MEDS ORDERED: DEPA500T2 PO (11:44)
[2022-06-19] MEDS ORDERED: NICO14PA TD (11:44)
[2022-06-19] MEDS ORDERED: INVE156I IM (11:44)
[2022-06-19] MEDS ORDERED: CARBOT AU (11:44)
== END 2022-06-19 14:36 | disposition home or self-care (01) | DRG 885 ==
LOC: M ED 21:52 → M ED INP 05-20 13:59 → M PSY 05-20 18:08
PROVIDERS: ADMIT Psychiatry & Neurology Psychiatry; ATTEND Student in an Organized Health Care Education/Training Program
DX: F20.9 Schizophrenia, unspecified (principal); I10 Essential (primary) hypertension; E11.9 Type 2 diabetes mellitus without complications; E78.5 Hyperlipidemia, unspecified; K30 Functional dyspepsia; R07.2 Precordial pain; M25.562 Pain in left knee; E03.9 Hypothyroidism, unspecified; K21.9 Gastro-esophageal reflux disease without esophagitis; M25.561 Pain in right knee; H61.23 Impacted cerumen, bilateral; Z88.0 Allergy status to penicillin; Z79.899 Other long term (current) drug therapy; Z79.890 Hormone replacement therapy; Z79.82 Long term (current) use of aspirin; Z79.84 Long term (current) use of oral hypoglycemic drugs

== ENCOUNTER → 2022-12-02 | Outpatient (REF) | payer MEDICARE, OTHER, MEDICAID ==
[~2022-12-02] MED LIST changes: +ABIL1INJ2 IM; +ABIL1TAB11 PO; +ASPI81TA26 PO; +BENZ0.5T2 PO; -BENZ0.5T23 PO; +CARBOT AU; +DEPA500T2 PO; +EZET10TA21 PO; +FISH1CAP26 PO; +HALO5TAB33 PO; +LISI10TA22 PO; +METF-877 PO; +NICO14PA TD; +PANT40TA29 PO; +RISP-9 PO; +SYNT112T2 PO; +TRAZ1TAB12 PO
[2022-12-02 12:27] LABS: HEMOGLOBIN A1c 7.2 % (4.0-6.0)
== END ==
LOC: M LAB REF 11:19
PROVIDERS: ATTEND Nurse Practitioner Family
DX: E11.65 Type 2 diabetes mellitus with hyperglycemia (principal); E03.9 Hypothyroidism, unspecified; I10 Essential (primary) hypertension; E78.5 Hyperlipidemia, unspecified

== ENCOUNTER → 2023-01-27 | Outpatient (REF) | payer OTHER, MEDICAID ==
[~2023-01-27] MED LIST changes: +EZET10TA58 PO; -ZETI10TA16 PO
[2023-01-27 17:25] LABS: CREATININE, URINE 39.4 MG/DL
[2023-01-27 17:26] LABS: MAU/CREAT RATIO 22.8 MCG/MG (0.0-30.0)
== END ==
LOC: M LAB REF 16:26
PROVIDERS: ATTEND Nurse Practitioner Family
DX: E11.65 Type 2 diabetes mellitus with hyperglycemia (principal); E03.9 Hypothyroidism, unspecified; I10 Essential (primary) hypertension; E78.5 Hyperlipidemia, unspecified

== ENCOUNTER → 2023-04-30 | Outpatient (REF) | payer OTHER, MEDICAID ==
[2023-04-30 19:04] LABS: ALBUMIN 4.3 G/DL (3.2-5.2); ALKALINE PHOSPHATASE 88 U/L (46-116); ALT/SGPT 43 U/L (7.0-40); AST/SGOT 23 U/L (<34); BILIRUBIN,TOTAL 0.3 MG/DL (0.3-1.2); BLOOD UREA NITROGEN 8 MG/DL (9-23); CALCIUM LEVEL 8.9 MG/DL (8.3-10.6); CARBON DIOXIDE LEVEL 27 MMOL/L (20-31); CHLORIDE LEVEL 104 MMOL/L (98-107); CHOLESTEROL LEVEL 139 MG/DL (<200); CHOLESTEROL RISK RATIO 3.94 (<5); CREATININE FOR GFR 0.88 MG/DL (0.70-1.30); GLOMERULAR FILTRATION RATE > 60.0 (>49); GLUCOSE, FASTING 104 MG/DL (74-106); HDL CHOLESTEROL 35.2 MG/DL (>40); LDL CHOLESTEROL 63.6 MG/DL (<100); NON-HDL-C 103.8 MG/DL; POTASSIUM SERUM 4.2 MMOL/L (3.5-5.1); SODIUM LEVEL 141 MMOL/L (136-145); TOTAL PROTEIN 7.1 G/DL (5.7-8.2); TRIGLYCERIDES LEVEL 201 MG/DL (<150)
== END ==
LOC: M LAB REF 16:52
PROVIDERS: ATTEND Nurse Practitioner Family
DX: E11.65 Type 2 diabetes mellitus with hyperglycemia (principal); E03.9 Hypothyroidism, unspecified; E78.5 Hyperlipidemia, unspecified; I10 Essential (primary) hypertension

== ENCOUNTER → 2023-07-30 | Outpatient (REF) | payer OTHER, MEDICAID ==
[~2023-07-30] MED LIST changes: +RISP-105 PO; +RISP-106 PO; -RISP-8 PO; -RISP-9 PO
[2023-07-30 13:10] LABS: HEMOGLOBIN A1c 7.5 % (4.0-6.0)
== END ==
LOC: M LAB REF 11:40
PROVIDERS: ATTEND Nurse Practitioner Family
DX: E11.65 Type 2 diabetes mellitus with hyperglycemia (principal); E03.9 Hypothyroidism, unspecified; E78.5 Hyperlipidemia, unspecified

== ENCOUNTER → 2023-10-16 | Outpatient (REF) | payer OTHER, MEDICAID ==
[~2023-10-16] MED LIST changes: +RAMI10CA64 PO; -RAMI1CAP26 PO
[2023-10-16 13:30] LABS: THYROID STIMULATING HORMONE 1.213 uIU/ML (0.55-4.78)
[2023-10-16 13:32] LABS: FOLATE 17.1 NG/ML (>5.4)
== END ==
LOC: M LAB REF 12:22
PROVIDERS: ATTEND Nurse Practitioner Family
DX: R41.3 Other amnesia (principal); E11.65 Type 2 diabetes mellitus with hyperglycemia; E03.9 Hypothyroidism, unspecified; I10 Essential (primary) hypertension; E78.5 Hyperlipidemia, unspecified

== ENCOUNTER → 2023-10-26 | Outpatient (REF) | payer OTHER, MEDICAID ==
[2023-10-26 19:24] LABS: CHOLESTEROL RISK RATIO 5.24 (<5); HDL CHOLESTEROL 34.9 MG/DL (>40); LDL CHOLESTEROL 88.1 MG/DL (<100); NON-HDL-C 148.1 MG/DL; PSA SCREENING 4.08 NG/ML (< 4.00)
[2023-10-26 19:29] LABS: THYROID STIMULATING HORMONE 2.312 uIU/ML (0.55-4.78)
[2023-10-26 20:29] LABS: HEMOGLOBIN A1c 7.2 % (4.0-6.0)
== END ==
LOC: M LAB REF 16:20
PROVIDERS: ATTEND Nurse Practitioner Family
DX: E11.65 Type 2 diabetes mellitus with hyperglycemia (principal); Z12.5 Encounter for screening for malignant neoplasm of prostate; E03.9 Hypothyroidism, unspecified; E78.5 Hyperlipidemia, unspecified; I10 Essential (primary) hypertension
CPT/HCPCS: 80061; 83036; 84443; G0103

== ENCOUNTER → 2024-02-04 | Outpatient (REF) | payer OTHER, MEDICAID ==
[2024-02-04 14:16] LABS: CHOLESTEROL RISK RATIO 4.69 (<5); HDL CHOLESTEROL 37.1 MG/DL (>40); LDL CHOLESTEROL 83.5 MG/DL (<100); NON-HDL-C 136.9 MG/DL
[2024-02-04 15:14] LABS: HEMOGLOBIN A1c 6.6 % (4.0-6.0)
== END ==
LOC: M LAB REF 12:42
PROVIDERS: ATTEND Nurse Practitioner Family
DX: E11.9 Type 2 diabetes mellitus without complications (principal)

== ENCOUNTER → 2024-07-27 | Outpatient (REF) | payer OTHER, MEDICAID ==
[2024-07-27 15:02] LABS: CREATININE, URINE 111.7 MG/DL
[2024-07-27 15:03] LABS: MAU/CREAT RATIO 6.2 MCG/MG (0.0-30.0)
== END ==
LOC: M LAB REF 14:01
PROVIDERS: ATTEND Nurse Practitioner Family
DX: E11.9 Type 2 diabetes mellitus without complications (principal)

== ENCOUNTER → 2024-08-05 | Outpatient (CLI) | payer OTHER, MEDICAID ==
[2024-08-05 10:08] LABS: BASO # 0.1 10^3/uL (0.0-0.2); BASO % 1.1 % (0.0-1.0); EOS # 0.2 10^3/uL (0.0-0.5); EOS % 2.8 % (0.0-3.0); HEMATOCRIT 42.3 % (42.0-52.0); HEMOGLOBIN 14.3 g/dl (13.5-17.5); LYMPH # 2.4 10^3/uL (1.5-5.0); LYMPH % 37.9 % (24.0-44.0); MEAN CORPUSCULAR HEMOGLOBIN 31.7 pg (27.0-33.0); MEAN CORPUSCULAR HGB CONC 33.8 g/dl (32.0-36.5); MEAN CORPUSCULAR VOLUME 93.8 fl (80.0-96.0); MONO # 0.6 10^3/uL (0.0-0.8); MONO % 9.1 % (2.0-8.0); NEUTROPHILS # 3.1 10^3/uL (1.5-8.5); NEUTROPHILS % 48.5 % (36.0-66.0); PLATELET COUNT, AUTOMATED 206 10^3/uL (150-450); RED BLOOD COUNT 4.51 10^6/uL (4.30-6.10); WHITE BLOOD COUNT 6.4 10^3/uL (4.0-10.0)
[2024-08-05 10:17] LABS: ERYTHROCYTE SEDIMENTATION RATE 10 mm/hr (0-20)
[2024-08-05 10:33] LABS: HEMOGLOBIN A1c 5.8 % (4.0-6.0)
[2024-08-05 10:34] LABS: ALBUMIN 3.9 G/DL (3.2-5.2); ALKALINE PHOSPHATASE 132 U/L (40-129); ALT/SGPT 30 U/L (7.0-40); AST/SGOT 16 U/L (<34); BILIRUBIN,TOTAL 0.2 MG/DL (0.3-1.2); BLOOD UREA NITROGEN 12 MG/DL (9-23); CARBON DIOXIDE LEVEL 26 MMOL/L (20-31); CHLORIDE LEVEL 110 MMOL/L (98-107); CREATININE FOR GFR 0.95 MG/DL (0.70-1.30); GLOMERULAR FILTRATION RATE 88.3 (>49); GLUCOSE, FASTING 54 MG/DL (74-106); POTASSIUM SERUM 4.2 MMOL/L (3.5-5.1); SODIUM LEVEL 145 MMOL/L (136-145)
[2024-08-05 10:35] LABS: FREE T4 1.44 NG/DL (0.89-1.76); THYROID STIMULATING HORMONE 0.958 uIU/ML (0.55-4.78); VITAMIN B12 LEVEL 300 PG/ML (211-911)
[2024-08-07 13:53] LABS: ANA SCREEN, IFA NEGATIVE (NEGATIVE)
== END ==
LOC: M LAB 09:27
PROVIDERS: ATTEND Psychiatry & Neurology Neurology
DX: E11.9 Type 2 diabetes mellitus without complications (principal); E07.9 Disorder of thyroid, unspecified; D51.9 Vitamin B12 deficiency anemia, unspecified; R41.3 Other amnesia; Z11.3 Encounter for screening for infections with a predominantly sexual mode of transmission

== ENCOUNTER → 2024-11-01 | Outpatient (REF) | payer OTHER, MEDICAID ==
[~2024-11-01] MED LIST changes: +LAMO-18 PO; -LAMO25TA4 PO; +LISI40TA10 PO; -LISI40TA4 PO
[2024-11-01 13:38] LABS: AMORPHOUS SEDIMENT SMALL (NEGATIVE); APPEARANCE, URINE TURBID (CLEAR); BACTERIA, URINE AUTO NEGATIVE (NEGATIVE); BILIRUBIN, URINE AUTO NEGATIVE (NEGATIVE); BLOOD, URINE BLOOD NEGATIVE (NEGATIVE); GLUCOSE, URINE (UA) AUTO NEGATIVE (NEGATIVE); KETONE, URINE AUTO TRACE mg/dL (NEGATIVE); LEUKOCYTE ESTERASE, URINE AUTO 1+ (NEGATIVE); MUCUS, URINE MODERATE (NEGATIVE); NITRITE, URINE AUTO NEGATIVE (NEGATIVE); PROTEIN, URINE AUTO NEGATIVE (NEGATIVE); RBC, URINE AUTO 0 /HPF (0-3); SPECIFIC GRAVITY URINE AUTO 1.023 (1.002-1.035); SQUAMOUS EPITHELIAL CELL UR AU 0 /HPF (0-6); UROBILINOGEN, URINE AUTO 0.2 mg/dL (0.0-2.0); WBC, URINE AUTO 12 /HPF (0-3)
== END ==
LOC: M LAB REF 12:30
PROVIDERS: ATTEND Nurse Practitioner Family
DX: R53.83 Other fatigue (principal); R53.81 Other malaise

== ENCOUNTER → 2024-11-18 | Outpatient (CLI) | payer OTHER, MEDICAID | LOC: M SLEEP HO 11:04 | PROVIDERS: ATTEND Nurse Practitioner Family | DX: G47.33 Obstructive sleep apnea (adult) (pediatric) (principal) ==

== ENCOUNTER 2024-12-23 10:05 | Inpatient (IN) | payer OTHER, MEDICAID ==
[2024-12-23] VITALS (20 sets, daily range): BP systolic 109–151; BP diastolic 52–78; TEMP 97.8; O2SAT 96–100
[~2024-12-23] VITALS: Ht 182.9 cm; Wt 104.0 kg
[~2024-12-23 10:05] MED LIST changes: +CARB15DR25 AU; -CARBOT AU; -EZET10TA21 PO; +EZET10TA57 PO
[2024-12-23] MEDS: LIDOCAINE 2% 5 ML JELLY UROJET TOP ONE (10:35)
[2024-12-23 10:40] LABS: BASO # 0.0 10^3/uL (0.0-0.2); BASO % 0.1 % (0.0-1.0); EOS # 0.0 10^3/uL (0.0-0.5); EOS % 0.0 % (0.0-3.0); LYMPH # 1.1 10^3/uL (1.5-5.0); LYMPH % 5.4 % (24.0-44.0); MONO # 1.9 10^3/uL (0.0-0.8); MONO % 8.9 % (2.0-8.0); NEUTROPHILS # 17.7 10^3/uL (1.5-8.5); NEUTROPHILS % 83.8 % (36.0-66.0); PLATELET COUNT, AUTOMATED 216 10^3/uL (150-450)
[2024-12-23 11:03] LABS: ETHYL ALCOHOL (ETHANOL) < 0.003 % (0.000-0.010); OSMOLALITY SERUM 320 MOSM/KG (280-301); VALPROIC ACID (DEPAKOTE) < 3.0 UG/ML (50.0-100.0)
[2024-12-23 11:04] LABS: SALICYLATE LEVEL 3.9 MG/DL (<30)
[2024-12-23] MEDS: [UNRECOGNIZED DRUG - OTHER] IV ONE (11:12)
[2024-12-23] MEDS: NS 0.9% IV ONE (11:12)
[2024-12-23 11:26] LABS: ALT/SGPT 152 U/L (7.0-40); AST/SGOT 1362 U/L (<34); CALCIUM LEVEL 9.4 MG/DL (8.3-10.6); CARBON DIOXIDE LEVEL 16 MMOL/L (20-31); CHLORIDE LEVEL 98 MMOL/L (98-107); CREATININE FOR GFR 4.63 MG/DL (0.70-1.30); GLOMERULAR FILTRATION RATE 13.2 (>49); MAGNESIUM LEVEL 3.2 MG/DL (1.8-2.4); POTASSIUM SERUM 4.6 MMOL/L (3.5-5.1); SODIUM LEVEL 141 MMOL/L (136-145)
[2024-12-23 11:36] LABS: KETONE, URINE AUTO RFX TRACE mg/dL (NEGATIVE); NITRITE, URINE AUTO RFX NEGATIVE (NEGATIVE); RBC, URINE AUTO RFX 13 /HPF (0-3); SQUAM EPITHELIAL CELL UR AURFX 0 /HPF (0-6)
[2024-12-23 11:36] LABS: VENOUS BASE EXCESS -13.2 (-2.0-2.0); VENOUS HCO3 14.8 MMOL/L (23.0-27.0); VENOUS O2 SATURATION 45.8 % (60.0-80.0); VENOUS PARTIAL PRESSURE CO2 41.7 mmHg (38.0-50.0); VENOUS PARTIAL PRESSURE O2 33.6 mmHg (30.0-50.0); VENOUS PH 7.169 UNITS (7.330-7.430); VENOUS STANDARD HCO3 13.5 MMOL/L; VENOUS TOTAL CO2 16.1 MMOL/L (24.0-28.0)
[2024-12-23 11:38] LABS: LEUKOCYTE ESTERASE UR AUTO RFX TRACE (NEGATIVE); WBC, URINE AUTO RFX 43 /HPF (0-3)
[2024-12-23 11:40] LABS: CPK CREATINE PHOSPHOKINASE 37881 U/L (46-171)
[2024-12-23 11:56] LABS: POTASSIUM RANDOM URINE 74.0 MMOL/L; SODIUM,RANDOM URINE 74.0 MMOL/L
[2024-12-23 12:01] LABS: AMPHETAMINES LEVEL URINE NEGATIVE (NEGATIVE); BARBITURATES URINE NEGATIVE (NEGATIVE); BENZODIAZEPINES URINE NEGATIVE (NEGATIVE); CANNABINOIDS URINE NEGATIVE (NEGATIVE); COCAINE METABOLITE URINE NEGATIVE (NEGATIVE); METHADONE URINE NEGATIVE (NEGATIVE); OPIATES URINE NEGATIVE (NEGATIVE); PHENCYCLIDINE URINE NEGATIVE (NEGATIVE)
[2024-12-23 12:17] LABS: TOTAL PROTEIN,RANDOM URINE 338.7 MG/DL (0.0-14.0)
[2024-12-23] MEDS ORDERED: BENZ2TAB48 PO (12:19)
[2024-12-23] MEDS ORDERED: LEVO125T4 PO (12:19)
[2024-12-23] MEDS ORDERED: LOSA25TA13 PO (12:24)
[2024-12-23] MEDS ORDERED: INVE234I IM (12:24)
[2024-12-23] MEDS ORDERED: BUSP15TA47 PO (12:24)
[2024-12-23] MEDS ORDERED: GLIP5TAB17 PO (12:24)
[2024-12-23] MEDS ORDERED: DONE10TA90 PO (12:24)
[2024-12-23] MEDS ORDERED: RISP0.5T82 PO (12:24)
[2024-12-23] MEDS ORDERED: HOME MED LIST COMPLETE! XX SCH (12:25)
[2024-12-23] MEDS: MEROPENEM 2 GM in SODIUM CHLORIDE 0.9% INJ 100 ML IV ONE (12:39)
[2024-12-23] MEDS ORDERED: NOREPINEPHRINE 4 MG IN D5W 250 ML IVBAG (16 MCG/ML) As Ordered ONE (13:00)
[2024-12-23] MEDS: NOREPINEPHRINE 4MG IN D5 250ML 4 MG in IV 1 EA IV SCH (13:10)
[2024-12-23] MEDS ORDERED: LR 1,000 ML IV SCH (13:45)
[2024-12-23] MEDS: PANTOPRAZOLE 40MG VIAL IV SCH (14:28)
[2024-12-23] MEDS: CALCIUM GLUCONATE 1,000 MG in DEXTROSE 5% (D5W) MINI-BAG PLU 100 ML IV ONE ×2 (14:29→20:56)
[2024-12-23 15:18] LABS: ALT/SGPT 238.0 U/L (7.0-40); AST/SGOT 2343.0 U/L (<34); CALCIUM LEVEL 7.6 MG/DL (8.3-10.6); CARBON DIOXIDE LEVEL 18.0 MMOL/L (20-31); CHLORIDE LEVEL 103.0 MMOL/L (98-107); CREATININE FOR GFR 4.79 MG/DL (0.70-1.30); GLOMERULAR FILTRATION RATE 12.7 (>49); POTASSIUM SERUM 5.1 MMOL/L (3.5-5.1); SODIUM LEVEL 143.0 MMOL/L (136-145)
[2024-12-23] MEDS: SODIUM BICARBONATE 150 MEQ in D5W 1,000 ML IV SCH ×2 (17:20→21:12)
[2024-12-23] MEDS ORDERED: LIDOCAINE 2% 100 MG/5 ML SDV (FOR ANES.) As Ordered ONE (17:32)
[2024-12-23] MEDS ORDERED: MIDAZOLAM INJ 2 MG/2 ML VIAL As Ordered ONE (17:32)
[2024-12-23] MEDS ORDERED: cefTRIAXone SOD 1 GM in DEXTROSE 5% (D5W) ADV/MINI-BAG 50 ML IV SCH (18:00)
[2024-12-23 18:21] LABS: VENOUS BASE EXCESS -10.9 (-2.0-2.0); VENOUS HCO3 15.4 MMOL/L (23.0-27.0); VENOUS O2 SATURATION 94.2 % (60.0-80.0); VENOUS PARTIAL PRESSURE CO2 36.2 mmHg (38.0-50.0); VENOUS PARTIAL PRESSURE O2 83.9 mmHg (30.0-50.0); VENOUS PH 7.248 UNITS (7.330-7.430); VENOUS STANDARD HCO3 16.0 MMOL/L; VENOUS TOTAL CO2 16.6 MMOL/L (24.0-28.0)
[2024-12-23] MEDS ORDERED: ISOVUE-300 61% 100 ML VIAL As Ordered ONE (18:28)
[2024-12-23] MEDS ORDERED: PHENYLephrine 500MCG 5ML (100MCG/ML) SYRINGE IV PRN (18:40)
[2024-12-23 19:04] LABS: ALT/SGPT 288.0 U/L (7.0-40); AST/SGOT 2731.0 U/L (<34); CALCIUM LEVEL 7.5 MG/DL (8.3-10.6); CARBON DIOXIDE LEVEL 18.0 MMOL/L (20-31); CHLORIDE LEVEL 102.0 MMOL/L (98-107); CREATININE FOR GFR 4.8 MG/DL (0.70-1.30); GLOMERULAR FILTRATION RATE 12.6 (>49); POTASSIUM SERUM 5.7 MMOL/L (3.5-5.1); SODIUM LEVEL 141.0 MMOL/L (136-145)
[2024-12-23] MEDS: ALBUTEROL SULFATE 2.5 MG/0.5 ML INH CONCENTRATE NEB SOLN NEB ONE (20:45)
[2024-12-23] MEDS: DEXTROSE 50% 50 ML SYRINGE IV STA (20:55)
[2024-12-23] MEDS: HumuLIN R (REGULAR) INSULIN (NovoLIN R) **100 U/ML** PER UNIT IV STA (20:56)
[2024-12-23] MEDS: HEPARIN SOD 5000 UNITS/ML 1 ML VIAL/SYRINGE SC SCH (21:07)
[2024-12-23] MEDS: LR 1,000 ML IV SCH (23:16)
[2024-12-23] MEDS: MEROPENEM 2 GM in SODIUM CHLORIDE 0.9% INJ 100 ML IV SCH (23:16)
[2024-12-24] VITALS (26 sets, daily range): BP systolic 93–168; BP diastolic 51–95; TEMP 97–100.9; O2SAT 94–98
[2024-12-24 01:25] LABS: CALCIUM LEVEL 6.8 MG/DL (8.3-10.6); CARBON DIOXIDE LEVEL 20.0 MMOL/L (20-31); CHLORIDE LEVEL 101.0 MMOL/L (98-107); CREATININE FOR GFR 5.18 MG/DL (0.70-1.30); GLOMERULAR FILTRATION RATE 11.5 (>49); MAGNESIUM LEVEL 2.6 MG/DL (1.8-2.4); PHOSPHORUS LEVEL 8.3 MG/DL (2.4-5.1); POTASSIUM SERUM 4.7 MMOL/L (3.5-5.1); SODIUM LEVEL 139.0 MMOL/L (136-145)
[2024-12-24 01:40] LABS: ALT/SGPT 286 U/L (7.0-40); AST/SGOT 2532 U/L (<34); CALCIUM LEVEL 6.5 MG/DL (8.3-10.6); CARBON DIOXIDE LEVEL 19 MMOL/L (20-31); CHLORIDE LEVEL 101 MMOL/L (98-107); CREATININE FOR GFR 5.23 MG/DL (0.70-1.30); GLOMERULAR FILTRATION RATE 11.4 (>49); POTASSIUM SERUM 4.6 MMOL/L (3.5-5.1); SODIUM LEVEL 138 MMOL/L (136-145)
[2024-12-24 05:28] LABS: ABG BASE EXCESS -4.4 (-2.0-2.0); ABG HCO3 18.5 MMOL/L (22.0-26.0); ABG O2 SATURATION 98.6 % (95.0-99.0); ABG PARTIAL PRESSURE CO2 28.2 mmHg (35.0-45.0); ABG PARTIAL PRESSURE O2 132.6 mmHg (75.0-100.0); ABG STANDARD HCO3 20.9 MMOL/L. (22.0-26.0); ABG TOTAL CO2 19.3 MMOL/L (23.0-31.0); ABG pH (ARTERIAL) 7.434 UNITS (7.350-7.450)
[2024-12-24 05:56] LABS: BASO # 0.0 10^3/uL (0.0-0.2); BASO % 0.2 % (0.0-1.0); EOS # 0.0 10^3/uL (0.0-0.5); EOS % 0.1 % (0.0-3.0); LYMPH # 0.6 10^3/uL (1.5-5.0); LYMPH % 4.7 % (24.0-44.0); MONO # 1.7 10^3/uL (0.0-0.8); MONO % 13.6 % (2.0-8.0); NEUTROPHILS # 10.4 10^3/uL (1.5-8.5); NEUTROPHILS % 80.9 % (36.0-66.0); PLATELET COUNT, AUTOMATED 188 10^3/uL (150-450)
[2024-12-24 06:27] LABS: ALT/SGPT 308.0 U/L (7.0-40); AST/SGOT 2552.0 U/L (<34); CALCIUM LEVEL 6.6 MG/DL (8.3-10.6); CARBON DIOXIDE LEVEL 19.0 MMOL/L (20-31); CHLORIDE LEVEL 102.0 MMOL/L (98-107); CREATININE FOR GFR 5.52 MG/DL (0.70-1.30); GLOMERULAR FILTRATION RATE 10.7 (>49); POTASSIUM SERUM 4.7 MMOL/L (3.5-5.1); SODIUM LEVEL 140.0 MMOL/L (136-145)
[2024-12-24] MEDS ORDERED: HEPARIN 1,000 UNITS/ML 10 ML VIAL (FOR RADIOLOGY & DIALYSIS ONLY) XX SCH (11:30)
[2024-12-24] MEDS ORDERED: SODIUM CHLORIDE 0.9% 1000 ML IV PRN (11:30)
[2024-12-24] MEDS ORDERED: HEPARIN 1,000 UNITS/ML 10 ML VIAL (FOR RADIOLOGY & DIALYSIS ONLY) IV PRN (11:30)
[2024-12-24] MEDS: HEPARIN 1,000 UNITS/ML 10 ML VIAL (FOR RADIOLOGY & DIALYSIS ONLY) IV STA (12:00)
[2024-12-24] MEDS: NS IV ONE (13:40)
[2024-12-24] MEDS: [UNRECOGNIZED DRUG - OTHER] IV ONE (13:40)
[2024-12-24 15:00] LABS: HEPATITIS B SURFACE ANTIBODY NEGATIVE (POSITIVE); HEPATITIS C VIRUS ABY INDEX < 0.02 INDEX (<0.8)
[2024-12-24 15:25] LABS: CPK CREATINE PHOSPHOKINASE 163195 U/L (46-171)
[2024-12-24] MEDS: MEROPENEM 1 GM in IV 1 EA IV SCH (21:29)
[2024-12-25] VITALS (28 sets, daily range): BP systolic 103–155; BP diastolic 57–115; TEMP 98.2–99.8; O2SAT 94–100
[2024-12-25 05:47] LABS: BASO # 0.0 10^3/uL (0.0-0.2); BASO % 0.1 % (0.0-1.0); EOS # 0.0 10^3/uL (0.0-0.5); EOS % 0.1 % (0.0-3.0); LYMPH # 0.9 10^3/uL (1.5-5.0); LYMPH % 6.5 % (24.0-44.0); MONO # 1.7 10^3/uL (0.0-0.8); MONO % 11.8 % (2.0-8.0); NEUTROPHILS # 11.6 10^3/uL (1.5-8.5); NEUTROPHILS % 80.8 % (36.0-66.0); PLATELET COUNT, AUTOMATED 160 10^3/uL (150-450)
[2024-12-25 06:50] LABS: ALT/SGPT 314.0 U/L (7.0-40); AST/SGOT 2292.0 U/L (<34); CALCIUM LEVEL 6.6 MG/DL (8.3-10.6); CARBON DIOXIDE LEVEL 24.0 MMOL/L (20-31); CHLORIDE LEVEL 100.0 MMOL/L (98-107); CREATININE FOR GFR 6.12 MG/DL (0.70-1.30); GLOMERULAR FILTRATION RATE 9.4 (>49); POTASSIUM SERUM 5.3 MMOL/L (3.5-5.1); SODIUM LEVEL 140.0 MMOL/L (136-145)
[2024-12-25] MEDS: LR 1,000 ML IV SCH (08:42)
[2024-12-25] MEDS ORDERED: SODIUM CHLORIDE 0.9% 1000 ML IV PRN (09:40)
[2024-12-25] MEDS ORDERED: HEPARIN 1,000 UNITS/ML 10 ML VIAL (FOR RADIOLOGY & DIALYSIS ONLY) IV PRN (09:40)
[2024-12-25] MEDS: HEPARIN 1,000 UNITS/ML 10 ML VIAL (FOR RADIOLOGY & DIALYSIS ONLY) XX SCH (12:20)
[2024-12-25] MEDS: busPIRone 5 MG TAB PO SCH (17:11)
[2024-12-25] MEDS: DONEPEZIL 5 MG TAB PO SCH (17:11)
[2024-12-25] MEDS: risperiDONE 0.5 MG TAB PO ONE (17:12)
[2024-12-25] MEDS: BENZTROPINE 2 MG TAB PO ONE (17:12)
[2024-12-25 17:40] LABS: ABG BASE EXCESS 0.2 (-2.0-2.0); ABG HCO3 24.1 MMOL/L (22.0-26.0); ABG O2 SATURATION 93.1 % (95.0-99.0); ABG PARTIAL PRESSURE CO2 36.1 mmHg (35.0-45.0); ABG PARTIAL PRESSURE O2 69.4 mmHg (75.0-100.0); ABG STANDARD HCO3 24.6 MMOL/L. (22.0-26.0); ABG TOTAL CO2 25.2 MMOL/L (23.0-31.0); ABG pH (ARTERIAL) 7.442 UNITS (7.350-7.450)
[2024-12-25] MEDS: MIDAZOLAM INJ 2 MG/2 ML VIAL IV STA (17:57)
[2024-12-25] MEDS: ROCURONIUM BROMIDE 50MG/5ML VIAL IV SCH (17:58)
[2024-12-25 19:46] LABS: ALT/SGPT 288.0 U/L (7.0-40); AST/SGOT 2068.0 U/L (<34); CALCIUM LEVEL 6.7 MG/DL (8.3-10.6); CARBON DIOXIDE LEVEL 25.0 MMOL/L (20-31); CHLORIDE LEVEL 98.0 MMOL/L (98-107); CREATININE FOR GFR 4.16 MG/DL (0.70-1.30); GLOMERULAR FILTRATION RATE 15.0 (>49); MAGNESIUM LEVEL 2.2 MG/DL (1.8-2.4); PHOSPHORUS LEVEL 6.9 MG/DL (2.4-5.1); POTASSIUM SERUM 5.0 MMOL/L (3.5-5.1); SODIUM LEVEL 138.0 MMOL/L (136-145)
[2024-12-25] MEDS: risperiDONE 0.5 MG TAB PO SCH (21:52)
[2024-12-25] MEDS: BENZTROPINE 2 MG TAB PO SCH (21:53)
[2024-12-26] VITALS (41 sets, daily range): BP systolic 78–147; BP diastolic 51–72; TEMP 98.8–100.4; O2SAT 99–100
[2024-12-26 06:00] LABS: BASO # 0.0 10^3/uL (0.0-0.2); BASO % 0.1 % (0.0-1.0); EOS # 0.0 10^3/uL (0.0-0.5); EOS % 0.1 % (0.0-3.0); LYMPH # 1.3 10^3/uL (1.5-5.0); LYMPH % 8.9 % (24.0-44.0); MONO # 1.5 10^3/uL (0.0-0.8); MONO % 9.8 % (2.0-8.0); NEUTROPHILS # 11.7 10^3/uL (1.5-8.5); NEUTROPHILS % 79.3 % (36.0-66.0); PLATELET COUNT, AUTOMATED 174 10^3/uL (150-450)
[2024-12-26] MEDS ORDERED: HEPARIN 1,000 UNITS/ML 10 ML VIAL (FOR RADIOLOGY & DIALYSIS ONLY) XX SCH (06:00)
[2024-12-26] MEDS ORDERED: SODIUM CHLORIDE 0.9% 1000 ML IV PRN (06:00)
[2024-12-26] MEDS ORDERED: HEPARIN 1,000 UNITS/ML 10 ML VIAL (FOR RADIOLOGY & DIALYSIS ONLY) IV PRN (06:00)
[2024-12-26 06:35] LABS: ALT/SGPT 250.0 U/L (7.0-40); CALCIUM LEVEL 6.9 MG/DL (8.3-10.6); CARBON DIOXIDE LEVEL 25.0 MMOL/L (20-31); CHLORIDE LEVEL 99.0 MMOL/L (98-107); CREATININE FOR GFR 5.11 MG/DL (0.70-1.30); GLOMERULAR FILTRATION RATE 11.7 (>49); POTASSIUM SERUM 4.9 MMOL/L (3.5-5.1); SODIUM LEVEL 140.0 MMOL/L (136-145)
[2024-12-26 07:15] LABS: AST/SGOT 1739.0 U/L (<34)
[2024-12-26] MEDS: ACETAMINOPHEN *IV* 1,000 MG in IV 1 EA IV SCH (12:40)
[2024-12-26] MEDS: NOREPINEPHRINE 4MG IN D5 250ML 4 MG in IV 1 EA IV SCH (22:18)
[2024-12-27] VITALS (56 sets, daily range): BP systolic 85–176; BP diastolic 51–95; TEMP 97.2–99.5; O2SAT 95–100
[2024-12-27 05:56] LABS: PLATELET COUNT, AUTOMATED 223 10^3/uL (150-450)
[2024-12-27 06:22] LABS: ATYPICAL LYMPH 2 % (0-5); LYMPHOCYTES 14 % (16-44); MONOCYTES 6 % (0-5); NEUTROPHILS 78 % (28-66)
[2024-12-27 06:23] LABS: PLATELET ESTIMATE NORMAL (NORMAL)
[2024-12-27 06:26] LABS: ALT/SGPT 208.0 U/L (7.0-40); AST/SGOT 1622.0 U/L (<34); CALCIUM LEVEL 7.3 MG/DL (8.3-10.6); CARBON DIOXIDE LEVEL 22.0 MMOL/L (20-31); CHLORIDE LEVEL 98.0 MMOL/L (98-107); CREATININE FOR GFR 5.21 MG/DL (0.70-1.30); GLOMERULAR FILTRATION RATE 11.5 (>49); MAGNESIUM LEVEL 2.2 MG/DL (1.8-2.4); PHOSPHORUS LEVEL 7.0 MG/DL (2.4-5.1); POTASSIUM SERUM 4.6 MMOL/L (3.5-5.1); SODIUM LEVEL 136.0 MMOL/L (136-145)
[2024-12-27] MEDS ORDERED: ISOVUE-M 300 61% 15 ML VIAL IV STA (16:15)
[2024-12-27] MEDS: LIDOCAINE 1% MDV 20 ML VIAL SC SCH (16:35)
[2024-12-27] MEDS: ISOVUE-300 61% 100 ML VIAL IV STA (16:36)
[2024-12-27] MEDS: ceFAZolin SODIUM 2 GM in DEXTROSE 5% (D5W) ADV/MINI-BAG 50 ML IV ONE (16:36)
[2024-12-27] MEDS: HEPARIN 1,000 UNITS/ML 10 ML VIAL (FOR RADIOLOGY & DIALYSIS ONLY) IV PRN (16:36)
[2024-12-28] VITALS (13 sets, daily range): BP systolic 118–170; BP diastolic 65–89; TEMP 98.2–99.3; O2SAT 94–97
[2024-12-28 04:52] LABS: PLATELET COUNT, AUTOMATED 234 10^3/uL (150-450)
[2024-12-28 05:29] LABS: ALT/SGPT 180.0 U/L (7.0-40); AST/SGOT 1461.0 U/L (<34); CALCIUM LEVEL 7.3 MG/DL (8.3-10.6); CARBON DIOXIDE LEVEL 21.0 MMOL/L (20-31); CHLORIDE LEVEL 96.0 MMOL/L (98-107); CREATININE FOR GFR 6.74 MG/DL (0.70-1.30); GLOMERULAR FILTRATION RATE 8.4 (>49); POTASSIUM SERUM 4.8 MMOL/L (3.5-5.1); SODIUM LEVEL 136.0 MMOL/L (136-145)
[2024-12-28 05:31] LABS: LYMPHOCYTES 16 % (16-44); METAMYELOCYTES 2 % (0-0); MONOCYTES 5 % (0-5); MYELOCYTES 1 % (0-0); NEUTROPHILS 74 % (28-66)
[2024-12-28 05:33] LABS: PLATELET ESTIMATE NORMAL (NORMAL)
[2024-12-28] MEDS ORDERED: SODIUM CHLORIDE 0.9% 1000 ML IV PRN (06:00)
[2024-12-28] MEDS ORDERED: HEPARIN 1,000 UNITS/ML 10 ML VIAL (FOR RADIOLOGY & DIALYSIS ONLY) IV PRN (06:00)
[2024-12-28] MEDS: BENZTROPINE 2 MG TAB NG SCH (09:00)
[2024-12-28 11:19] LABS: INR 0.97
[2024-12-28 11:38] LABS: MAGNESIUM LEVEL 2.4 MG/DL (1.8-2.4)
[2024-12-28] MEDS ORDERED: ISOVUE-370 76% 100 ML VIAL As Ordered ONE (12:02)
[2024-12-28] MEDS: HEPARIN 1,000 UNITS/ML 10 ML VIAL (FOR RADIOLOGY & DIALYSIS ONLY) XX SCH (13:19)
[2024-12-28 13:26] LABS: ESTIMATED AVERAGE GLUCOSE 126.0 MG/DL (60-110)
[2024-12-28 13:32] LABS: C REACTIVE PROTEIN QUANTITATIV 30.86 MG/DL (<1.0); CPK CREATINE PHOSPHOKINASE 51166.0 U/L (46-171)
[2024-12-28 17:03] LABS: ABG BASE EXCESS -1.6 (-2.0-2.0); ABG HCO3 21.8 MMOL/L (22.0-26.0); ABG O2 SATURATION 96.0 % (95.0-99.0); ABG PARTIAL PRESSURE CO2 32.5 mmHg (35.0-45.0); ABG PARTIAL PRESSURE O2 83.9 mmHg (75.0-100.0); ABG STANDARD HCO3 23.1 MMOL/L. (22.0-26.0); ABG TOTAL CO2 22.8 MMOL/L (23.0-31.0); ABG pH (ARTERIAL) 7.445 UNITS (7.350-7.450)
[2024-12-28] MEDS: busPIRone 5 MG TAB NG SCH (18:01)
[2024-12-28] MEDS: DONEPEZIL 5 MG TAB NG SCH (18:01)
[2024-12-28] MEDS: risperiDONE 0.5 MG TAB NG SCH (18:01)
[2024-12-28] MEDS: ASPIRIN 81 MG CHEWABLE TABLET NG SCH (18:01)
[2024-12-29] VITALS (7 sets, daily range): BP systolic 116–157; BP diastolic 57–77; TEMP 97.8–99; O2SAT 94–98
[2024-12-29 05:35] LABS: PLATELET COUNT, AUTOMATED 288 10^3/uL (150-450)
[2024-12-29] MEDS: LEVOTHYROXINE 125 MCG TABLET (0.125 MG) NG SCH (06:00)
[2024-12-29 06:19] LABS: EOSINOPHILS 2 % (0-3); LYMPHOCYTES 10 % (16-44); METAMYELOCYTES 3 % (0-0); MONOCYTES 10 % (0-5); MYELOCYTES 2 % (0-0); NEUTROPHILS 67 % (28-66); PLASMA CELL 2 % (0-0); PLATELET ESTIMATE NORMAL (NORMAL)
[2024-12-29 06:28] LABS: ALT/SGPT 134.0 U/L (7.0-40); AST/SGOT 1051.0 U/L (<34); C REACTIVE PROTEIN QUANTITATIV 26.01 MG/DL (<1.0); CALCIUM LEVEL 7.4 MG/DL (8.3-10.6); CARBON DIOXIDE LEVEL 26.0 MMOL/L (20-31); CHLORIDE LEVEL 96.0 MMOL/L (98-107); CREATININE FOR GFR 4.85 MG/DL (0.70-1.30); GLOMERULAR FILTRATION RATE 12.5 (>49); MAGNESIUM LEVEL 2.4 MG/DL (1.8-2.4); POTASSIUM SERUM 4.6 MMOL/L (3.5-5.1); SODIUM LEVEL 138.0 MMOL/L (136-145)
[2024-12-29] MEDS ORDERED: ASPIRIN 81 MG ENTERIC TABLET XX SCH (09:00)
[2024-12-29] MEDS: ASPIRIN 325 MG TAB NG SCH (10:18)
[2024-12-29] MEDS ORDERED: BARIUM SULFATE 700 MG TABLET As Ordered ONE (11:23)
[2024-12-29] MEDS ORDERED: E-Z-PAQUE 96% w/w SUSP 176 GM BTL As Ordered ONE (11:23)
[2024-12-29] MEDS ORDERED: VARIBAR PUDDING 40% w/v 230ML TUBE As Ordered ONE (11:24)
[2024-12-29] MEDS ORDERED: VARIBAR NECTAR 40% w/v 240ML SUSP BTL As Ordered ONE (11:24)
[2024-12-30] VITALS (7 sets, daily range): BP systolic 101–129; BP diastolic 51–65; TEMP 97.5–99.4; O2SAT 92–100
[2024-12-30 05:46] LABS: PLATELET COUNT, AUTOMATED 295 10^3/uL (150-450)
[2024-12-30] MEDS ORDERED: HEPARIN 1,000 UNITS/ML 10 ML VIAL (FOR RADIOLOGY & DIALYSIS ONLY) IV PRN (06:00)
[2024-12-30] MEDS ORDERED: SODIUM CHLORIDE 0.9% 1000 ML IV PRN (06:00)
[2024-12-30 06:26] LABS: ALT/SGPT 95.0 U/L (7.0-40); AST/SGOT 788.0 U/L (<34); C REACTIVE PROTEIN QUANTITATIV 20.3 MG/DL (<1.0); CALCIUM LEVEL 7.6 MG/DL (8.3-10.6); CARBON DIOXIDE LEVEL 26.0 MMOL/L (20-31); CHLORIDE LEVEL 95.0 MMOL/L (98-107); CREATININE FOR GFR 6.47 MG/DL (0.70-1.30); GLOMERULAR FILTRATION RATE 8.8 (>49); MAGNESIUM LEVEL 2.5 MG/DL (1.8-2.4); POTASSIUM SERUM 5.2 MMOL/L (3.5-5.1); SODIUM LEVEL 135.0 MMOL/L (136-145)
[2024-12-30 06:36] LABS: ATYPICAL LYMPH 4 % (0-5); EOSINOPHILS 1 % (0-3); LYMPHOCYTES 9 % (16-44); METAMYELOCYTES 5 % (0-0); MONOCYTES 6 % (0-5); MYELOCYTES 5 % (0-0); NEUTROPHILS 68 % (28-66); PLASMA CELL 1 % (0-0); PLATELET ESTIMATE NORMAL (NORMAL)
[2024-12-30 06:37] LABS: PLATELET CLUMPS SMALL AMT
[2024-12-30] MEDS: HEPARIN 1,000 UNITS/ML 10 ML VIAL (FOR RADIOLOGY & DIALYSIS ONLY) XX SCH (09:23)
[2024-12-30] MEDS: ASPIRIN 81 MG CHEWABLE TABLET NG SCH (13:39)
[2024-12-31] VITALS: BP 103/51; TEMP 97.4; O2SAT 95
[2024-12-31 04:00] VITALS: BP 109/58; TEMP 98.4; O2SAT 97
[2024-12-31 05:25] LABS: PLATELET COUNT, AUTOMATED 292 10^3/uL (150-450)
[2024-12-31 05:50] LABS: ALT/SGPT 85.0 U/L (7.0-40); AST/SGOT 586.0 U/L (<34); CALCIUM LEVEL 8.2 MG/DL (8.3-10.6); CARBON DIOXIDE LEVEL 26.0 MMOL/L (20-31); CHLORIDE LEVEL 96.0 MMOL/L (98-107); CREATININE FOR GFR 5.03 MG/DL (0.70-1.30); GLOMERULAR FILTRATION RATE 12.0 (>49); MAGNESIUM LEVEL 2.3 MG/DL (1.8-2.4); POTASSIUM SERUM 4.8 MMOL/L (3.5-5.1); SODIUM LEVEL 138.0 MMOL/L (136-145)
[2024-12-31 05:52] LABS: C REACTIVE PROTEIN QUANTITATIV 15.7 MG/DL (<1.0)
[2024-12-31 05:53] LABS: ATYPICAL LYMPH 4 % (0-5); EOSINOPHILS 1 % (0-3); LYMPHOCYTES 10 % (16-44); METAMYELOCYTES 3 % (0-0); MONOCYTES 7 % (0-5); NEUTROPHILS 73 % (28-66)
[2024-12-31 05:54] LABS: PLATELET ESTIMATE NORMAL (NORMAL)
[2024-12-31 08:00] VITALS: BP 112/58; TEMP 98.1; O2SAT 95
[2024-12-31 12:00] VITALS: BP 117/57; TEMP 99; O2SAT 92
[2024-12-31 16:00] VITALS: BP 132/60; TEMP 97.9; O2SAT 96
[2024-12-31 19:48] VITALS: BP 131/63; TEMP 97.8; O2SAT 95
[2025-01-01] VITALS (8 sets, daily range): BP systolic 129–163; BP diastolic 61–74; TEMP 97.1–98.8; O2SAT 95–98
[2025-01-01 08:26] LABS: BASO # 0.1 10^3/uL (0.0-0.2); BASO % 0.6 % (0.0-1.0); EOS # 0.3 10^3/uL (0.0-0.5); EOS % 1.2 % (0.0-3.0); LYMPH # 1.8 10^3/uL (1.5-5.0); LYMPH % 7.5 % (24.0-44.0); MONO # 1.3 10^3/uL (0.0-0.8); MONO % 5.5 % (2.0-8.0); NEUTROPHILS # 18.1 10^3/uL (1.5-8.5); NEUTROPHILS % 75.5 % (36.0-66.0); PLATELET COUNT, AUTOMATED 310 10^3/uL (150-450)
[2025-01-01 08:54] LABS: ALT/SGPT 66.0 U/L (7.0-40); AST/SGOT 473.0 U/L (<34); CALCIUM LEVEL 7.6 MG/DL (8.3-10.6); CARBON DIOXIDE LEVEL 23.0 MMOL/L (20-31); CHLORIDE LEVEL 94.0 MMOL/L (98-107); CREATININE FOR GFR 6.7 MG/DL (0.70-1.30); GLOMERULAR FILTRATION RATE 8.5 (>49); MAGNESIUM LEVEL 2.3 MG/DL (1.8-2.4); POTASSIUM SERUM 5.0 MMOL/L (3.5-5.1); SODIUM LEVEL 132.0 MMOL/L (136-145)
[2025-01-01 09:13] LABS: C REACTIVE PROTEIN QUANTITATIV 15.34 MG/DL (<1.0)
[2025-01-01] MEDS: ACETAMINOPHEN 325 MG TAB PO PRN (09:45)
[2025-01-02 03:06] VITALS: BP 153/80; TEMP 98.1; O2SAT 97
[2025-01-02] MEDS ORDERED: HEPARIN 1,000 UNITS/ML 10 ML VIAL (FOR RADIOLOGY & DIALYSIS ONLY) IV PRN (06:00)
[2025-01-02] MEDS ORDERED: SODIUM CHLORIDE 0.9% 1000 ML IV PRN (06:00)
[2025-01-02 06:05] LABS: BASO # 0.1 10^3/uL (0.0-0.2); BASO % 0.5 % (0.0-1.0); EOS # 0.3 10^3/uL (0.0-0.5); EOS % 1.0 % (0.0-3.0); LYMPH # 1.4 10^3/uL (1.5-5.0); LYMPH % 5.0 % (24.0-44.0); MONO # 1.5 10^3/uL (0.0-0.8); MONO % 5.2 % (2.0-8.0); NEUTROPHILS # 22.7 10^3/uL (1.5-8.5); NEUTROPHILS % 80.1 % (36.0-66.0); PLATELET COUNT, AUTOMATED 318 10^3/uL (150-450)
[2025-01-02 06:50] LABS: ALT/SGPT 50.0 U/L (7.0-40); AST/SGOT 354.0 U/L (<34); C REACTIVE PROTEIN QUANTITATIV 20.57 MG/DL (<1.0); CALCIUM LEVEL 7.4 MG/DL (8.3-10.6); CARBON DIOXIDE LEVEL 21.0 MMOL/L (20-31); CHLORIDE LEVEL 93.0 MMOL/L (98-107); CREATININE FOR GFR 7.95 MG/DL (0.70-1.30); GLOMERULAR FILTRATION RATE 6.9 (>49); MAGNESIUM LEVEL 2.2 MG/DL (1.8-2.4); POTASSIUM SERUM 5.3 MMOL/L (3.5-5.1); SODIUM LEVEL 132.0 MMOL/L (136-145)
[2025-01-02 08:36] VITALS: BP 133/61; TEMP 98; O2SAT 97
[2025-01-02] MEDS: HEPARIN 1,000 UNITS/ML 10 ML VIAL (FOR RADIOLOGY & DIALYSIS ONLY) XX SCH (14:23)
[2025-01-02] MEDS: DARBEPOETIN 100 MCG/0.5 ML *DIALYSIS* SYRINGE IV SCH (15:09)
[2025-01-02 16:30] VITALS: TEMP 97.9; O2SAT 97
[2025-01-02 16:57] VITALS: BP 120/68
[2025-01-02 20:30] VITALS: BP 129/67; TEMP 97.6; O2SAT 98
[2025-01-02] MEDS: BENZTROPINE 2 MG TAB PO SCH (21:35)
[2025-01-02] MEDS: busPIRone 5 MG TAB PO SCH (21:35)
[2025-01-02 23:49] VITALS: BP 122/65; TEMP 98.2; O2SAT 96
[2025-01-03 03:17] VITALS: BP 128/61; TEMP 97.2; O2SAT 98
[2025-01-03 05:42] LABS: PLATELET COUNT, AUTOMATED 338 10^3/uL (150-450)
[2025-01-03 06:14] LABS: ALT/SGPT 57.0 U/L (7.0-40); AST/SGOT 270.0 U/L (<34); CALCIUM LEVEL 8.1 MG/DL (8.3-10.6); CARBON DIOXIDE LEVEL 22.0 MMOL/L (20-31); CHLORIDE LEVEL 98.0 MMOL/L (98-107); CREATININE FOR GFR 5.55 MG/DL (0.70-1.30); GLOMERULAR FILTRATION RATE 10.6 (>49); MAGNESIUM LEVEL 2.2 MG/DL (1.8-2.4); POTASSIUM SERUM 5.2 MMOL/L (3.5-5.1); SODIUM LEVEL 135.0 MMOL/L (136-145)
[2025-01-03 06:15] LABS: LYMPHOCYTES 2 % (16-44); METAMYELOCYTES 2 % (0-0); MONOCYTES 3 % (0-5); MYELOCYTES 2 % (0-0); NEUTROPHILS 89 % (28-66)
[2025-01-03 06:16] LABS: PLATELET ESTIMATE NORMAL (NORMAL)
[2025-01-03 06:18] LABS: C REACTIVE PROTEIN QUANTITATIV 24.09 MG/DL (<1.0)
[2025-01-03] MEDS: LEVOTHYROXINE 125 MCG TABLET (0.125 MG) PO SCH (06:48)
[2025-01-03] MEDS ORDERED: SODIUM CHLORIDE 0.9% 1000 ML IV PRN (07:10)
[2025-01-03] MEDS ORDERED: HEPARIN 1,000 UNITS/ML 10 ML VIAL (FOR RADIOLOGY & DIALYSIS ONLY) IV PRN ×2 (07:10→10:55)
[2025-01-03 07:25] VITALS: BP 126/58; TEMP 97; O2SAT 96
[2025-01-03] MEDS: PATIROMER SORBITEX CALCIUM 8.4GM POWDER PACKET PO ONE (09:27)
[2025-01-03] MEDS: risperiDONE 0.5 MG TAB PO SCH (09:27)
[2025-01-03] MEDS: DONEPEZIL 5 MG TAB PO SCH (09:27)
[2025-01-03] MEDS: ASPIRIN 81 MG CHEWABLE TABLET PO SCH (09:28)
[2025-01-03] MEDS: NS (Normal Saline) 0.9% 1,000 ML IV SCH ×2 (10:40→10:55)
[2025-01-03] MEDS: LIDOCAINE 1% MDV 20 ML VIAL SC ONE (10:55)
[2025-01-03] MEDS: ceFAZolin SODIUM 2 GM in DEXTROSE 5% (D5W) ADV/MINI-BAG 50 ML IV ONE (11:21)
[2025-01-03] MEDS: HEPARIN 1,000 UNITS/ML 10 ML VIAL (FOR RADIOLOGY & DIALYSIS ONLY) IV PRN (11:51)
[2025-01-03] MEDS: LIDOCAINE 1% MDV 20 ML VIAL SC SCH (11:54)
[2025-01-03 12:16] VITALS: BP 125/59; TEMP 97.2; O2SAT 96
[2025-01-03] MEDS: HEPARIN 1,000 UNITS/ML 10 ML VIAL (FOR RADIOLOGY & DIALYSIS ONLY) XX SCH (14:06)
[2025-01-03 16:18] VITALS: BP 155/68; TEMP 97.8; O2SAT 97
[2025-01-03] MEDS: SENNA 8.6 MG TAB PO PRN (16:38)
[2025-01-03 20:05] VITALS: BP 112/55; TEMP 98.2; O2SAT 97
[2025-01-03] MEDS: HEPARIN SOD 5000 UNITS/ML 1 ML VIAL/SYRINGE SQ SCH (20:09)
[2025-01-04 00:03] VITALS: BP 122/60; TEMP 97.6; O2SAT 96
[2025-01-04 04:04] VITALS: BP 147/70; TEMP 97.5; O2SAT 98
[2025-01-04 06:12] LABS: BASO # 0.2 10^3/uL (0.0-0.2); BASO % 0.7 % (0.0-1.0); EOS # 0.2 10^3/uL (0.0-0.5); EOS % 1.0 % (0.0-3.0); LYMPH # 1.5 10^3/uL (1.5-5.0); LYMPH % 6.7 % (24.0-44.0); MONO # 1.5 10^3/uL (0.0-0.8); MONO % 6.7 % (2.0-8.0); NEUTROPHILS # 17.8 10^3/uL (1.5-8.5); NEUTROPHILS % 78.3 % (36.0-66.0); PLATELET COUNT, AUTOMATED 359 10^3/uL (150-450)
[2025-01-04 06:24] LABS: ALT/SGPT 46.0 U/L (7.0-40); AST/SGOT 223.0 U/L (<34); CALCIUM LEVEL 7.9 MG/DL (8.3-10.6); CARBON DIOXIDE LEVEL 23.0 MMOL/L (20-31); CHLORIDE LEVEL 102.0 MMOL/L (98-107); CREATININE FOR GFR 4.55 MG/DL (0.70-1.30); GLOMERULAR FILTRATION RATE 13.5 (>49); MAGNESIUM LEVEL 2.0 MG/DL (1.8-2.4); POTASSIUM SERUM 4.4 MMOL/L (3.5-5.1); SODIUM LEVEL 137.0 MMOL/L (136-145)
[2025-01-04 06:28] LABS: C REACTIVE PROTEIN QUANTITATIV 14.37 MG/DL (<1.0)
[2025-01-04 09:13] VITALS: BP 106/56; TEMP 97.8; O2SAT 95
[2025-01-04 12:26] VITALS: BP 123/60; TEMP 97.3; O2SAT 99
[2025-01-04] MEDS: MIRALAX *UNIT DOSE* 17 GM PACKET PO SCH (15:25)
[2025-01-04 16:43] VITALS: BP 117/58; TEMP 97; O2SAT 97
[2025-01-04 19:34] VITALS: BP 128/59; TEMP 97.5; O2SAT 98
[2025-01-04] MEDS: SENNOSIDES/DOCUSATE SODIUM 8.6 MG/50MG TAB PO SCH (21:23)
[2025-01-05] VITALS: BP 150/68; TEMP 98; O2SAT 98
[2025-01-05 04:14] VITALS: BP 122/68; TEMP 97.8; O2SAT 94
[2025-01-05] MEDS ORDERED: SODIUM CHLORIDE 0.9% 1000 ML IV PRN (06:00)
[2025-01-05] MEDS ORDERED: HEPARIN 1,000 UNITS/ML 10 ML VIAL (FOR RADIOLOGY & DIALYSIS ONLY) XX SCH (06:00)
[2025-01-05] MEDS: HEPARIN 1,000 UNITS/ML 10 ML VIAL (FOR RADIOLOGY & DIALYSIS ONLY) IV PRN (10:40)
[2025-01-05 12:20] VITALS: BP 130/56; TEMP 96.8; O2SAT 96
[2025-01-05 15:23] LABS: CALCIUM LEVEL 8.0 MG/DL (8.3-10.6); CARBON DIOXIDE LEVEL 23.0 MMOL/L (20-31); CHLORIDE LEVEL 102.0 MMOL/L (98-107); CREATININE FOR GFR 3.52 MG/DL (0.70-1.30); GLOMERULAR FILTRATION RATE 18.3 (>49); MAGNESIUM LEVEL 2.1 MG/DL (1.8-2.4); POTASSIUM SERUM 4.2 MMOL/L (3.5-5.1); SODIUM LEVEL 138.0 MMOL/L (136-145)
[2025-01-05 15:26] LABS: BASO # 0.1 10^3/uL (0.0-0.2); BASO % 0.5 % (0.0-1.0); EOS # 0.1 10^3/uL (0.0-0.5); EOS % 0.5 % (0.0-3.0); LYMPH # 1.1 10^3/uL (1.5-5.0); LYMPH % 5.1 % (24.0-44.0); MONO # 1.1 10^3/uL (0.0-0.8); MONO % 5.0 % (2.0-8.0); NEUTROPHILS # 18.5 10^3/uL (1.5-8.5); NEUTROPHILS % 84.1 % (36.0-66.0); PLATELET COUNT, AUTOMATED 265 10^3/uL (150-450)
[2025-01-05 15:39] LABS: C REACTIVE PROTEIN QUANTITATIV 15.5 MG/DL (<1.0)
[2025-01-05 19:34] VITALS: BP 120/59; TEMP 98.7; O2SAT 97
[2025-01-06 00:02] VITALS: BP 128/74; TEMP 97.8; O2SAT 97
[2025-01-06 03:46] VITALS: BP 134/56; TEMP 98.6; O2SAT 95
[2025-01-06 06:18] LABS: PLATELET COUNT, AUTOMATED 320 10^3/uL (150-450)
[2025-01-06 06:31] LABS: MAGNESIUM LEVEL 2.0 MG/DL (1.8-2.4)
[2025-01-06 06:34] LABS: EOSINOPHILS 2 % (0-3); LYMPHOCYTES 9 % (16-44); METAMYELOCYTES 2 % (0-0); MONOCYTES 8 % (0-5); NEUTROPHILS 77 % (28-66)
[2025-01-06 06:35] LABS: C REACTIVE PROTEIN QUANTITATIV 12.32 MG/DL (<1.0)
[2025-01-06 06:36] LABS: PLATELET ESTIMATE NORMAL (NORMAL)
[2025-01-06 08:05] VITALS: BP 116/58; TEMP 97.5; O2SAT 96
[2025-01-06 15:38] VITALS: BP 128/66; TEMP 97.2; O2SAT 97
[2025-01-06] MEDS: MOM 30 ML SUSPENSION UDC PO PRN (15:45)
[2025-01-06] MEDS: PALIPERIDONE PAL 234MG/1.5ML INJ (FREE PSY INPT ONLY) IM ONE (22:48)
[2025-01-07 04:35] VITALS: BP 151/67; TEMP 97.2; O2SAT 96
[2025-01-07] MEDS ORDERED: SODIUM CHLORIDE 0.9% 1000 ML IV PRN (06:00)
[2025-01-07] MEDS ORDERED: HEPARIN 1,000 UNITS/ML 10 ML VIAL (FOR RADIOLOGY & DIALYSIS ONLY) IV PRN (06:00)
[2025-01-07 06:58] LABS: BASO # 0.1 10^3/uL (0.0-0.2); BASO % 0.5 % (0.0-1.0); EOS # 0.2 10^3/uL (0.0-0.5); EOS % 0.9 % (0.0-3.0); LYMPH # 1.3 10^3/uL (1.5-5.0); LYMPH % 7.4 % (24.0-44.0); MONO # 1.4 10^3/uL (0.0-0.8); MONO % 8.0 % (2.0-8.0); NEUTROPHILS # 13.3 10^3/uL (1.5-8.5); NEUTROPHILS % 78.7 % (36.0-66.0); PLATELET COUNT, AUTOMATED 353 10^3/uL (150-450)
[2025-01-07 07:19] VITALS: BP 144/66; TEMP 98.2; O2SAT 97
[2025-01-07 07:30] LABS: C REACTIVE PROTEIN QUANTITATIV 10.43 MG/DL (<1.0); CALCIUM LEVEL 8.5 MG/DL (8.3-10.6); CARBON DIOXIDE LEVEL 22.0 MMOL/L (20-31); CHLORIDE LEVEL 101.0 MMOL/L (98-107); CREATININE FOR GFR 6.31 MG/DL (0.70-1.30); GLOMERULAR FILTRATION RATE 9.1 (>49); MAGNESIUM LEVEL 2.3 MG/DL (1.8-2.4); POTASSIUM SERUM 5.2 MMOL/L (3.5-5.1); SODIUM LEVEL 134.0 MMOL/L (136-145)
[2025-01-07] MEDS: PANTOPRAZOLE 40MG TAB PO SCH (08:02)
[2025-01-07] MEDS: HEPARIN 1,000 UNITS/ML 10 ML VIAL (FOR RADIOLOGY & DIALYSIS ONLY) XX SCH (09:19)
[2025-01-07 12:16] VITALS: BP 120/66; TEMP 98.5; O2SAT 95
[2025-01-07 15:18] VITALS: BP 105/56; TEMP 98.2; O2SAT 97
[2025-01-07 20:02] VITALS: BP 115/58; TEMP 97.5; O2SAT 97
[2025-01-08 04:04] VITALS: BP 120/59; TEMP 98.1; O2SAT 97
[2025-01-08 06:28] LABS: BASO # 0.1 10^3/uL (0.0-0.2); BASO % 0.6 % (0.0-1.0); EOS # 0.2 10^3/uL (0.0-0.5); EOS % 1.4 % (0.0-3.0); LYMPH # 1.5 10^3/uL (1.5-5.0); LYMPH % 10.3 % (24.0-44.0); MONO # 1.3 10^3/uL (0.0-0.8); MONO % 8.8 % (2.0-8.0); NEUTROPHILS # 10.8 10^3/uL (1.5-8.5); NEUTROPHILS % 75.6 % (36.0-66.0); PLATELET COUNT, AUTOMATED 314 10^3/uL (150-450)
[2025-01-08 06:54] LABS: CALCIUM LEVEL 8.6 MG/DL (8.3-10.6); CARBON DIOXIDE LEVEL 26.0 MMOL/L (20-31); CHLORIDE LEVEL 97.0 MMOL/L (98-107); CREATININE FOR GFR 4.95 MG/DL (0.70-1.30); GLOMERULAR FILTRATION RATE 12.2 (>49); MAGNESIUM LEVEL 2.1 MG/DL (1.8-2.4); POTASSIUM SERUM 4.8 MMOL/L (3.5-5.1); SODIUM LEVEL 134.0 MMOL/L (136-145)
[2025-01-08 06:55] LABS: C REACTIVE PROTEIN QUANTITATIV 10.43 MG/DL (<1.0)
[2025-01-08 07:23] VITALS: BP 146/64; TEMP 98.6; O2SAT 97
[2025-01-08 19:19] VITALS: BP 130/75; TEMP 98.1; O2SAT 98
[2025-01-08 23:43] VITALS: BP 119/52; TEMP 98; O2SAT 98
[2025-01-09 06:08] VITALS: BP 109/57; TEMP 97; O2SAT 96
[2025-01-10 03:52] VITALS: BP 146/74; TEMP 97.7; O2SAT 98
[2025-01-10] MEDS ORDERED: HEPARIN 1,000 UNITS/ML 10 ML VIAL (FOR RADIOLOGY & DIALYSIS ONLY) IV PRN (06:00)
[2025-01-10] MEDS ORDERED: SODIUM CHLORIDE 0.9% 1000 ML IV PRN (06:00)
[2025-01-10] MEDS: HEPARIN 1,000 UNITS/ML 10 ML VIAL (FOR RADIOLOGY & DIALYSIS ONLY) XX SCH (15:46)
[2025-01-10 17:00] VITALS: BP 143/79; TEMP 97.2; O2SAT 99
[2025-01-11 05:58] VITALS: BP 144/74; TEMP 97.7; O2SAT 95
[2025-01-12] MEDS ORDERED: SODIUM CHLORIDE 0.9% 1000 ML IV PRN (06:00)
[2025-01-12] MEDS ORDERED: HEPARIN 1,000 UNITS/ML 10 ML VIAL (FOR RADIOLOGY & DIALYSIS ONLY) IV PRN (06:00)
[2025-01-12 06:04] VITALS: BP 149/72; TEMP 97.7; O2SAT 96
[2025-01-12] MEDS ORDERED: MIDAZOLAM INJ 2 MG/2 ML VIAL IV PRN (07:20)
[2025-01-12] MEDS: NS (Normal Saline) 0.9% 1,000 ML IV SCH (10:00)
[2025-01-12] MEDS: ceFAZolin SODIUM 2 GM in DEXTROSE 5% (D5W) ADV/MINI-BAG 50 ML IV ONE (10:27)
[2025-01-12] MEDS: MIDAZOLAM INJ 2 MG/2 ML VIAL IV STA (10:27)
[2025-01-12] MEDS: HEPARIN 1,000 UNITS/ML 10 ML VIAL (FOR RADIOLOGY & DIALYSIS ONLY) IV PRN (10:32)
[2025-01-12] MEDS: LIDOCAINE 1% MDV 20 ML VIAL SC SCH (10:36)
[2025-01-12] MEDS: ISOVUE-M 300 61% 15 ML VIAL IV STA (10:37)
[2025-01-12 12:00] VITALS: BP 96/66; TEMP 97.2; O2SAT 96
[2025-01-12] MEDS: HEPARIN 1,000 UNITS/ML 10 ML VIAL (FOR RADIOLOGY & DIALYSIS ONLY) XX SCH (14:40)
[2025-01-13 04:31] VITALS: BP 112/69; TEMP 97.7; O2SAT 96
[2025-01-13 15:15] VITALS: BP 142/100; TEMP 97.9; O2SAT 97
[2025-01-14] MEDS ORDERED: HEPARIN 1,000 UNITS/ML 10 ML VIAL (FOR RADIOLOGY & DIALYSIS ONLY) IV PRN (06:00)
[2025-01-14] MEDS ORDERED: SODIUM CHLORIDE 0.9% 1000 ML IV PRN (06:00)
[2025-01-14 06:39] VITALS: BP 169/79; TEMP 98.1; O2SAT 97
[2025-01-14] MEDS: HEPARIN 1,000 UNITS/ML 10 ML VIAL (FOR RADIOLOGY & DIALYSIS ONLY) XX SCH (09:49)
[2025-01-15 03:29] VITALS: BP 162/79; TEMP 97.5; O2SAT 96
[2025-01-17] MEDS ORDERED: HEPARIN 1,000 UNITS/ML 10 ML VIAL (FOR RADIOLOGY & DIALYSIS ONLY) IV PRN (06:00)
[2025-01-17] MEDS ORDERED: SODIUM CHLORIDE 0.9% 1000 ML IV PRN (06:00)
[2025-01-17 06:44] VITALS: BP 144/78; TEMP 97.5; O2SAT 97
[2025-01-17] MEDS: HEPARIN 1,000 UNITS/ML 10 ML VIAL (FOR RADIOLOGY & DIALYSIS ONLY) XX SCH (13:13)
[2025-01-18 04:44] VITALS: BP 142/76; TEMP 98.1; O2SAT 96
[2025-01-19 03:37] VITALS: BP 139/75; TEMP 98.1; O2SAT 98
[2025-01-19] MEDS ORDERED: SODIUM CHLORIDE 0.9% 1000 ML IV PRN (06:00)
[2025-01-19] MEDS ORDERED: HEPARIN 1,000 UNITS/ML 10 ML VIAL (FOR RADIOLOGY & DIALYSIS ONLY) IV PRN (06:00)
[2025-01-19] MEDS: HEPARIN 1,000 UNITS/ML 10 ML VIAL (FOR RADIOLOGY & DIALYSIS ONLY) XX SCH (12:59)
[2025-01-19 16:47] VITALS: BP 95/56; TEMP 98.1; O2SAT 97
[2025-01-20 04:00] VITALS: BP 100/50; TEMP 98.1; O2SAT 97
[2025-01-21 04:27] VITALS: BP 116/54; TEMP 97.9; O2SAT 98
[2025-01-21] MEDS ORDERED: SODIUM CHLORIDE 0.9% 1000 ML IV PRN (06:00)
[2025-01-21] MEDS ORDERED: HEPARIN 1,000 UNITS/ML 10 ML VIAL (FOR RADIOLOGY & DIALYSIS ONLY) XX SCH (06:00)
[2025-01-21] MEDS ORDERED: HEPARIN 1,000 UNITS/ML 10 ML VIAL (FOR RADIOLOGY & DIALYSIS ONLY) IV PRN (06:00)
[2025-01-22 04:00] VITALS: BP 111/54; TEMP 97.9; O2SAT 97
[2025-01-24 04:00] VITALS: BP 135/73; TEMP 98.1; O2SAT 95
[2025-01-24] MEDS ORDERED: HEPARIN 1,000 UNITS/ML 10 ML VIAL (FOR RADIOLOGY & DIALYSIS ONLY) IV PRN (06:00)
[2025-01-24] MEDS ORDERED: SODIUM CHLORIDE 0.9% 1000 ML IV PRN (06:00)
[2025-01-24 06:49] LABS: PLATELET COUNT, AUTOMATED 433 10^3/uL (150-450)
[2025-01-24 07:38] LABS: CALCIUM LEVEL 7.0 MG/DL (8.3-10.6); CARBON DIOXIDE LEVEL 23 MMOL/L (20-31); CHLORIDE LEVEL 102 MMOL/L (98-107); CREATININE FOR GFR 6.35 MG/DL (0.70-1.30); GLOMERULAR FILTRATION RATE 9.0 (>49); HEPATITIS B SURFACE ANTIBODY POSITIVE (POSITIVE); MAGNESIUM LEVEL 2.0 MG/DL (1.8-2.4); PHOSPHORUS LEVEL 4.6 MG/DL (2.4-5.1); POTASSIUM SERUM 4.7 MMOL/L (3.5-5.1); SODIUM LEVEL 138 MMOL/L (136-145)
[2025-01-24] MEDS: HEPARIN 1,000 UNITS/ML 10 ML VIAL (FOR RADIOLOGY & DIALYSIS ONLY) XX SCH (08:58)
[2025-01-24] MEDS ORDERED: POLYVINYL ALCOHOL OPHTH SOLN 15ML (LIQUITEARS) OU PRN (09:45)
[2025-01-24] MEDS ORDERED: ATROPINE SULFATE 1% OPHTH SOLN 2 ML BTL SL PRN (09:45)
[2025-01-24] MEDS ORDERED: SALIVA SUBSTITUTE BTL MT PRN (09:45)
[2025-01-24] MEDS ORDERED: HYOSCYAMINE SULFATE 0.125 MG SUBL TABLET SL PRN (09:45)
[2025-01-24] MEDS: LIDOCAINE 1% MDV 20 ML VIAL SC ONE (16:42)
[2025-01-24] MEDS: OLANZapine ORAL DISINTEGRATING TAB 5MG PO SCH (20:39)
[2025-01-24] MEDS: MORPHINE 10 MG/0.5 ML ORAL CONCENTRATE SOLUTION U/D SL PRN (23:44)
[2025-01-26] MEDS: LEVOTHYROXINE 125 MCG TABLET (0.125 MG) PO SCH (09:21)
[2025-01-27] MEDS ORDERED: SENNOSIDES/DOCUSATE SODIUM 8.6 MG/50MG TAB PO PRN (13:10)
[2025-01-27] MEDS ORDERED: MIRALAX *UNIT DOSE* 17 GM PACKET PO PRN (13:10)
== END 2025-02-01 11:55 | disposition expired | DRG 853 ==
LOC: M ED 10:05 → M ED INP 13:43 → M ICU 19:19 → M PCU 12-31 13:26 → M MSPAV 01-08 23:30
PROVIDERS: ADMIT Internal Medicine Pulmonary Disease; ATTEND Student in an Organized Health Care Education/Training Program
PROC: 0T768DZ Dilation of Right Ureter with Intraluminal Device, Via Natural or Artificial Opening Endoscopic (ICD-10-PCS; 2024-12-23)
PROC: B246ZZZ Ultrasonography of Right and Left Heart (ICD-10-PCS; 2024-12-23)
PROC: 02HV33Z Insertion of Infusion Device into Superior Vena Cava, Percutaneous Approach (ICD-10-PCS; 2024-12-24)
PROC: 5A1D70Z Performance of Urinary Filtration, Intermittent, Less than 6 Hours Per Day (ICD-10-PCS; 2024-12-24)
PROC: 0BH17EZ Insertion of Endotracheal Airway into Trachea, Via Natural or Artificial Opening (ICD-10-PCS; 2024-12-25)
PROC: 5A1945Z Respiratory Ventilation, 24-96 Consecutive Hours (ICD-10-PCS; 2024-12-25)
PROC: 0JH63XZ Insertion of Tunneled Vascular Access Device into Chest Subcutaneous Tissue and Fascia, Percutaneous Approach (ICD-10-PCS; 2024-12-27)
PROC: 02HV33Z Insertion of Infusion Device into Superior Vena Cava, Percutaneous Approach (ICD-10-PCS; 2024-12-27)
PROC: 02H633Z Insertion of Infusion Device into Right Atrium, Percutaneous Approach (ICD-10-PCS; 2025-01-03)
PROC: 0JH63XZ Insertion of Tunneled Vascular Access Device into Chest Subcutaneous Tissue and Fascia, Percutaneous Approach (ICD-10-PCS; 2025-01-03)
PROC: 0JBR0ZZ Excision of Left Foot Subcutaneous Tissue and Fascia, Open Approach (ICD-10-PCS; principal; 2025-01-05)
PROC: 0JH63XZ Insertion of Tunneled Vascular Access Device into Chest Subcutaneous Tissue and Fascia, Percutaneous Approach (ICD-10-PCS; 2025-01-12)
PROC: 02H633Z Insertion of Infusion Device into Right Atrium, Percutaneous Approach (ICD-10-PCS; 2025-01-12)
PROC: 0JPTX3Z Removal of Infusion Device from Trunk Subcutaneous Tissue and Fascia, External Approach (ICD-10-PCS; 2025-01-24)
DX: A41.9 Sepsis, unspecified organism (principal); R65.21 Severe sepsis with septic shock; G93.41 Metabolic encephalopathy; K72.00 Acute and subacute hepatic failure without coma; J96.01 Acute respiratory failure with hypoxia; N13.6 Pyonephrosis; N17.9 Acute kidney failure, unspecified; M62.82 Rhabdomyolysis; E87.20 Acidosis, unspecified; E87.1 Hypo-osmolality and hyponatremia; E46 Unspecified protein-calorie malnutrition; J98.11 Atelectasis; L97.518 Non-pressure chronic ulcer of other part of right foot with other specified severity; L97.528 Non-pressure chronic ulcer of other part of left foot with other specified severity; F03.911 Unspecified dementia, unspecified severity, with agitation; F20.9 Schizophrenia, unspecified; I10 Essential (primary) hypertension; E83.51 Hypocalcemia; Z51.5 Encounter for palliative care; Z66 Do not resuscitate; E79.0 Hyperuricemia without signs of inflammatory arthritis and tophaceous disease; E03.9 Hypothyroidism, unspecified; E78.5 Hyperlipidemia, unspecified; D64.9 Anemia, unspecified; R13.10 Dysphagia, unspecified; E87.5 Hyperkalemia; R74.01 Elevation of levels of liver transaminase levels; I46.9 Cardiac arrest, cause unspecified; R62.7 Adult failure to thrive; E11.622 Type 2 diabetes mellitus with other skin ulcer; L89.010 Pressure ulcer of right elbow, unstageable; L89.896 Pressure-induced deep tissue damage of other site; L89.891 Pressure ulcer of other site, stage 1; L89.892 Pressure ulcer of other site, stage 2; K59.00 Constipation, unspecified; R94.5 Abnormal results of liver function studies; R53.1 Weakness; B95.7 Other staphylococcus as the cause of diseases classified elsewhere; K21.9 Gastro-esophageal reflux disease without esophagitis; E11.621 Type 2 diabetes mellitus with foot ulcer; E88.09 Other disorders of plasma-protein metabolism, not elsewhere classified; M54.9 Dorsalgia, unspecified; Z88.0 Allergy status to penicillin; Z79.82 Long term (current) use of aspirin; Z79.84 Long term (current) use of oral hypoglycemic drugs; Z79.890 Hormone replacement therapy; Z79.899 Other long term (current) drug therapy